=== PATIENT | male | born 1965 | race Caucasian/White ===

== ENCOUNTER → 2018-11-09 | Outpatient (CLI) | payer BC ==
[2018-11-09 11:35] LABS: BASOPHILS % (AUTO) 1 % (0-10); EOSINOPHILS # (AUTO) 0.1 10^3/uL (0.0-0.3); EOSINOPHILS % (AUTO) 2 % (0-10); HEMATOCRIT 46 % (40-54); HEMOGLOBIN 15.6 G/DL (13.3-17.7); LYMPHOCYTES # (AUTO) 3.1 X 10^3 (1.0-4.0); LYMPHOCYTES % (AUTO) 47 % (12-44); MEAN CORPUSCULAR HEMOGLOBIN 31 PG (25-34); MEAN CORPUSCULAR HGB CONC 34 G/DL (32-36); MEAN CORPUSCULAR VOLUME 89 FL (80-99); MEAN PLATELET VOLUME 10.8 FL (7.4-10.4); MONOCYTES # (AUTO) 0.7 X 10^3 (0.0-1.0); MONOCYTES % (AUTO) 11 % (0-12); NEUTROPHILS # (AUTO) 2.6 X 10^3 (1.8-7.8); NEUTROPHILS % (AUTO) 40 % (42-75); PLATELET COUNT 242 10^3/uL (130-400); RED CELL DISTRIBUTION WIDTH 13.7 % (10.0-14.5); WHITE BLOOD COUNT 6.6 10^3/uL (4.3-11.0)
[2018-11-09 11:58] LABS: ALANINE AMINOTRANSFERASE 128 U/L (0-55); ALBUMIN 4.2 GM/DL (3.2-4.5); ALKALINE PHOSPHATASE 135 U/L (40-136); BILIRUBIN,TOTAL 0.3 MG/DL (0.1-1.0); BUN/CREATININE RATIO 15; CALCIUM 9.9 MG/DL (8.5-10.1); CARBON DIOXIDE 21 MMOL/L (21-32); CHLORIDE 105 MMOL/L (98-107); CREATININE SERUM 0.86 MG/DL (0.60-1.30); GFR ESTIMATED > 60; GLUCOSE 93 MG/DL (70-105); POTASSIUM 3.9 MMOL/L (3.6-5.0); SODIUM 140 MMOL/L (135-145); TOTAL PROTEIN 7.3 GM/DL (6.4-8.2)
[2018-11-09 12:17] LABS: ERYTHROCYTE SEDIMENTATION RATE 13 MM/HR (0-30)
[2018-11-09 12:28] LABS: FREE T4 (FREE THYROXINE) 1.16 NG/DL (0.70-1.48)
== END ==
LOC: CARD 11:07
PROVIDERS: ATTEND Nurse Practitioner Family
DX: R51 Headache (principal); R50.9 Fever, unspecified; Z12.5 Encounter for screening for malignant neoplasm of prostate
CPT/HCPCS: 36415; 80053; 84153; 84439; 84443; 84484; 85025; 85652; 87804; 93005

== ENCOUNTER → 2018-12-22 | Outpatient (CLI) | payer BC | LOC: CARD 10:22 | PROVIDERS: ATTEND Family Medicine | DX: R07.9 Chest pain, unspecified (principal); I49.9 Cardiac arrhythmia, unspecified | CPT/HCPCS: 93017 ==

== ENCOUNTER 2020-01-18 05:31 | Outpatient (RCR) | payer BC ==
[~2020-01-18] VITALS: Ht 182 cm; Wt 111.0 kg
[~2020-01-18 05:31] MED LIST: HYDR25TA4 PO; MELO15TA39 PO; PANT40TA3 PO; TERB250T16 PO
== END 2020-01-18 13:21 | disposition home or self-care (01) ==
LOC: PREOP 05:31
PROVIDERS: ATTEND Surgery
DX: Z01.812 Encounter for preprocedural laboratory examination (principal); K21.9 Gastro-esophageal reflux disease without esophagitis; Z20.828 Contact with and (suspected) exposure to other viral communicable diseases
CPT/HCPCS: 87635

== ENCOUNTER 2020-01-21 09:38 | Day surgery (SDC) | payer BC ==
[~2020-01-21] VITALS: Ht 182 cm; Wt 111.0 kg
[2020-01-21 09:50] VITALS: BP 131/98
[2020-01-21] MEDS ORDERED: LACTATED RINGERS 1,000 ML IV ONE (09:58)
[2020-01-21] MEDS ORDERED: LIDOCAINE JELLY 2% 6 ML SYRINGE MM PRN (10:00)
[2020-01-21] MEDS ORDERED: LACTATED RINGERS 1,000 ML IV PRN (10:00)
[2020-01-21] MEDS ORDERED: HURRICAINE EXT TUBE (BENZOCAINE) XX PRN (10:00)
--- NOTE | 2020-01-21 10:55 | Progress Note-Pre Operative ---
Pre-Operative Progress Note H&P Reviewed The H&P was reviewed, patient examined and no changes noted. Date Seen by Provider: Jan 21, 2020 Time Seen by Provider: 10:40 Date H&P Reviewed: Jan 21, 2020 Time H&P Reviewed: 10:40 Pre-Operative Diagnosis: GERD, screening colo, scalp lesion YOU ZAIDI MD Jan 21, 2020 10:55
--- NOTE | 2020-01-21 10:57 | Discharge Inst-Surgical ---
D/C Lap Instructions-DYAN Follow Up Activity as tolerated High Fiber Diet 25g or more per day Avoid Alcohol, Caffeine, Spicy [place] and Acid foods. Drink 64 fluid oz or more of fluids per day. Symptoms to Report: Fever over 101 degree F, Nausea/Vomiting If any problems/questions: Contact your physician or go to Emergency Room YOU ZAIDI MD Jan 21, 2020 10:57
[2020-01-21] MEDS ORDERED: morphine INJ 10 MG/ML 1ML (SYR OR VIAL) IVP PRN ×2 (11:00)
[2020-01-21] MEDS ORDERED: HYDROcodone/APAP 5 MG/325 MG (LORTAB) TAB PO PRN (11:00)
[2020-01-21] MEDS ORDERED: ACETAMINOPHEN 325 MG TABLET PO PRN (11:00)
[2020-01-21] MEDS ORDERED: ONDANSETRON 4 MG/2 ML (SDV) Z0FRAN IVP PRN (11:00)
--- OUTSIDE RECORDS SUMMARY | 2020-01-21 11:13 | XMS REPORT | CCD ---
Author Author Rafael Mejia APRN Organization [facility] Address [address] [place] [address] Phone Care Team Providers Care Airport Maintenance Chief Name Role Phone Didi Araiza D.O., PP Unavailable CCM Unavailable Summary Purpose Interface Exchange Insurance Providers Payer name Policy type / Coverage type Covered republican ID Effective Begin Date Effective End Date Blue Cross Blue Shield Blue Cross/Blue Shield [id number] 2019 Unknown Family History Family History data not found Social History No Social History data Allergies, Adverse Reactions, Alerts Substance Reaction Codes Entered Date Inactivated Date Status * NO KNOWN FOOD ALLERGIES Unknown 05/24/2014 No Inactiv e Date Active Grasses reaction Unknown 05/24/2014 No Inactive Date Active Pollen reaction Unknown 05/24/2014 No Inactive Date Active Penicillin Unknown 05/24/2014 No Inactive Date Active Problems Condition Codes Effective Dates Condition Status Encounter for general adult medical examination withou t abnormal findings ICD-9: V70.9 ICD-10: Z00.00 12/28/2015 Active Essential (primary) hypertension ICD-9: 401.9 ICD-10: I10 12/09/2017 Active Mixed hyperlipidemia ICD-9: 272.2 ICD-10: E78.2 10/19/2015 Active Other fatigue ICD-9: 780.79 ICD-10: R53.83 11/09/2018 Active Bilateral primary osteoarthritis of knee ICD-9: 715.96 ICD-10: M17.0 12/09/2017 Active Change in mole ICD-9: 216.9 ICD-10: D22.9 12/22/2019 Active Gastro-esophageal reflux disease without esophagitis I CD-9: 530.81 ICD-10: K21.9 12/09/2017 Active Obstructive sleep apnea (adult) (pediatric) ICD-9: 327 .23 ICD-10: G47.33 05/24/2014 Active Cardiac arrhythmia, unspecified ICD-9: 427.9 ICD-10: I49.9 11/09/2018 Active Abnormal levels of other serum enzymes ICD-9: 790.5 ICD-10: R74.8 11/12/2018 Active Bitten or stung by nonvenomous insect an d other nonvenomous arthropods, initial encounter ICD-9: 919.4 ICD-10: W57.XXXA 11/12/2018 Active Mixed hyperlipidemia ICD-9: 272.4 ICD-10: E78.2 11/12/2018 Active Dyspnea, unspecified ICD-9: 786.09 ICD-10: R06.00 11/09/2018 Active Fever, unspecified ICD-9: 780.60 ICD-10: R50.9 11/09/2018 Active Headache ICD-9: 784.0 ICD-10: R51 11/09/2018 Active Rash and other nonspecific skin eruption ICD-9: 782.1 ICD-10: R21 11/09/2018 Active Pain in left foot ICD-9: 729.5 ICD-10: M79.672 01/29/2018 Active Pain in left knee ICD-9: 719.46 ICD-10: M25.562 01/29/2018 Active Hypertension Unknown 12/09/2017 Active Bilateral primary osteoarthritis of first carpometacar pal joints ICD-9: 715.34 ICD-10: M18.0 12/09/2017 Active Lymphedema, not elsewhere classified ICD-9: 457.1 ICD-10: I89.0 12/09/2017 Active Elevated blood-pressure reading, without diagnosis of hypertension ICD-9: 796.2 ICD-10: R03.0 12/28/2015 Active Encounter for immunization ICD-9: V05.9 ICD-10: Z23 10/19/2015 Active Encounter for screening for malignant neoplasm of colo n ICD-9: V76.51 ICD-10: Z12.11 10/19/2015 Active Encounter for screening for malignant neoplasm of pros [place] ICD-9: V76.44 ICD-10: Z12.5 10/19/2015 Active Low back pain ICD-9: 724.2 ICD-10: M54.5 10/19/2015 Active Tinea unguium ICD-9: 110.1 ICD-10: B35.1 10/19/2015 Active Tobacco abuse counseling ICD-9: V65.42 ICD-10: Z71.6 10/19/2015 Active Tobacco use ICD-9: 305.1 ICD-10: Z72.0 10/19/2015 Active VACCINE FOR TDAP ICD-9: V06.1 ICD-10: Z23 10/19/2015 Active ROUTINE MEDICAL EXAM ICD-9: V70.0 06/03/2014 Active GERD ICD-9: 530.81 05/24/2014 Active OBSTRUCTIVE SLEEP APNEA ICD-9: 327.23 05/24/2014 Active Medications Medication Codes Instructions Start Date Stop Date Status Fill Instructions pantoprazole 40 mg tablet,delayed release RxNorm: 808641 TAKE ONE TABLET BY MOUTH DAILY DUE FOR UPDATED FASTING LABS AND APPOINTMENT 01/10/2020 No Stop Date Active hydrochlorothiazide 25 mg tablet RxNorm: 225420 1 Tablet(s) Oral QD 01/03/2020 07/01/2020 Active hydrochlorothiazide 12.5 mg tablet RxNorm: 031300 TAKE ONE TABLET BY MOUTH EVERY MORNING FOR BLOOD PRESSURE 01/02/2020 01/02/2020 Inactive Patie nt says he is taking 25mg daily now. Can you send a prescription hydrochlorothiazide 25 mg tablet RxNorm: 983868 1 Tablet(s) Oral QD 12/22/2019 01/02/2020 Inactive pantoprazole 40 mg tablet,delayed release RxNorm: 565051 1 Tablet(s) Oral QD Due for updated fasting labs and appointment 12/06/2019 01/05/2020 Inactiv e Due for updated fasting labs and appointment before 90 day supply hydrochlorothiazide 12.5 mg tablet RxNorm: 361557 TAKE ONE TABLET BY MOUTH EVERY MORNING FOR BLOOD PRESSURE 10/04/2019 12/26/2019 Inactive pantoprazole 40 mg tablet,delayed release RxNorm: 837470 TAKE ONE TABLET BY MOUTH DAILY 09/05/2019 12/05/2019 Inactive hydrochlorothiazide 12.5 mg tablet RxNorm: 811175 TAKE ONE TABLET BY MOUTH EVERY MORNING FOR BLOOD PRESSURE 07/05/2019 10/03/2019 Inactive pantoprazole 40 mg tablet,delayed release RxNorm: 080008 TAKE ONE TABLET BY MOUTH DAILY 05/29/2019 09/04/2019 Inactive pantoprazole 40 mg tablet,delayed release RxNorm: 982531 1 Tabl et(s) PO QD 03/04/2019 05/28/2019 Inactive hydrochlorothiazide 12.5 mg tablet RxNorm: 954036 TAKE ONE TABLET BY MOUTH EVERY MORNING FOR BLOOD PRESSURE 01/11/2019 07/04/2019 Inactive doxycycline hyclate 100 mg capsule RxNorm: 6319230 1 Capsule(s) PO BID 11/12/2018 11/21/2018 Inactive pantoprazole 40 mg tablet,delayed release RxNorm: 139895 TAKE ONE TABLET BY MOUTH DAILY 10/30/2018 03/04/2019 Inactive hydrochlorothiazide 12.5 mg tablet RxNorm: 741546 TAKE ONE TABLET BY MOUTH EVERY MORNING FOR BLOOD PRESSURE 10/12/2018 01/09/2019 Inactive pantoprazole 40 mg tablet,delayed release RxNorm: 021857 TAKE ONE TABLET BY MOUTH DAILY 08/31/2018 09/29/2018 Inactive pantoprazole 40 mg tablet,delayed release RxNorm: 011925 1 Tabl et(s) PO QD 04/03/2018 08/30/2018 Inactive hydrochlorothiazide 12.5 mg tablet RxNorm: 406456 TAKE ONE TABLET BY MOUTH EVERY MORNING FOR BLOOD PRESSURE 03/30/2018 09/25/2018 Inactive Medrol (John) 4 mg tablets in a dose pack RxNorm: 000827 Tablet(s) PO take as directed 01/29/2018 11/08/2018 Inactive pantoprazole 40 mg tablet,delayed release RxNorm: 448850 1 Tablet(s) PO BID for 1 month then decrease to 1 po daily 12/29/2017 04/02/2018 Inactive hydrochlorothiazide 12.5 mg tablet RxNorm: 605874 1 Tablet(s) P O QAM for BP 12/29/2017 03/28/2018 Inactive hydrochlorothiazide 12.5 mg tablet RxNorm: 542652 1 Tablet(s) P O QAM for BP 12/09/2017 12/28/2017 Inactive pantoprazole 40 mg tablet,delayed release RxNorm: 034459 1 Tablet(s) PO BID for 1 month then decrease to 1 po daily 12/09/2017 04/03/2018 Inactive Voltaren 1 % topical gel RxNorm: 362129 1 Gram(s) TOP QID to bi lateral knees 12/09/2017 12/21/2019 Inactive meloxicam 15 mg tablet RxNorm: 806861 1 Tablet(s) PO QD 10/20/2015 Inactive Benadryl 25 mg capsule RxNorm: 9113209 1 Capsule(s) PO QHS No Start D ate Active Nexium oral RxNorm: 348098 oral No Start Date 10/20/2015 Inactive Nexium 24HR 22.3 mg capsule,delayed release RxNorm: 377587 1 Ca psule(s) PO QAM No Start Date 11/08/2018 Inactive Fish Oil 1,000 mg capsule RxNorm: 1 Capsule(s) PO QD No Start Date 12/28/2017 Inactive Fish Oil 1,000 mg capsule RxNorm: 1 Capsule(s) PO TID No Start Calin e 11/08/2018 Inactive naproxen sodium 220 mg tablet RxNorm: 459265 1 Tablet(s) PO QHS No Start Date 11/08/2018 Inactive Medication Administered No Medication Administered data Immunizations Vaccine Codes Date Status Tetanus, Diptheria, Pertussis CVX: 115 10/20/2015 Results Observation Observation Code Item Item Code Result Date S [facility] Location COMPREHENSIVE METABOLIC 59884 AST 15 U/L 2019 Unknown COMPREHENSIVE METABOLIC 87748 ALT 22 U/L 2019 Unknown COMPREHENSIVE METABOLIC 33390 BUN 18 mg/dL 2019 Unknown COMPREHENSIVE METABOLIC 21373 ALBUMIN 4.4 g/dL 2019 Unknown COMPREHENSIVE METABOLIC 54137 CHLORIDE 103 mmol/L 12/26 Unknown COMPREHENSIVE METABOLIC 01827 Bili Total 0.6 mg/dL 12/26 Unknown COMPREHENSIVE METABOLIC 20338 ALK PHOS 75 U/L 2019 Unknown COMPREHENSIVE METABOLIC 98590 SODIUM 139 mmol/L 12/26 Unknown COMPREHENSIVE METABOLIC 29059 CREATININE 0.84 mg/dL 11/29 Unknown COMPREHENSIVE METABOLIC 55534 CALCIUM 9.6 mg/dL 2019 Unknown COMPREHENSIVE METABOLIC 62400 POTASSIUM 4.2 mmol/L 12/26 Unknown COMPREHENSIVE METABOLIC 27881 Total Protein 6.5 g/dL Unknown COMPREHENSIVE METABOLIC 13970 Glucose 95 mg/dL 2019 Unknown COMPREHENSIVE METABOLIC 29514 Bicarbonate 27 mmol/L 11/29 Unknown COMPREHENSIVE METABOLIC 73556 AGAP 9 mmol/L 2019 Unknown GFR CALC 0508239 GFR Non Afr Amr >60 mL/min 12/27/2019 Un known GFR CALC [id number] GFR Afr Amr >60 mL/min 12/27/2019 Unknow n FREE T4 20875 T4 Free 0.91 ng/dL 12/27/2019 Unknown PSA EQUIMOLAR JORI 65235 PSA Total 1.28 ng/mL 0 Unknown COMPLETE BLOOD COUNT 2461313 WBC 5.8 10e9/L 12/27/19 20 Unknown COMPLETE BLOOD COUNT [id number] RBC 4.92 10e12/L 2019 Unknown COMPLETE BLOOD COUNT 9534818 HEMOGLOBIN 15.2 g/dL 12/27/19 20 Unknown COMPLETE BLOOD COUNT 3874217 HEMATOCRIT 46.5 % 12/27/19 20 Unknown COMPLETE BLOOD COUNT 8623902 MCV 94.5 fL 0 Unknown COMPLETE BLOOD COUNT 8999974 MCH 30.9 pg 0 Unknown COMPLETE BLOOD COUNT 8102964 MCHC 32.7 g/dL 0 Unknown COMPLETE BLOOD COUNT 3921415 PLATELET COUNT 227 10e9/L Unknown COMPLETE BLOOD COUNT 9360983 Mean Plt Volume 11.9 fL Unknown COMPLETE BLOOD COUNT 1616911 Neut Auto 43.1 % 0 Unknown COMPLETE BLOOD COUNT [id number] Lymph Auto 37.3 % 12/27/19 20 Unknown COMPLETE BLOOD COUNT 6854061 Greenlee Auto 12.0 % 0 Unknown COMPLETE BLOOD COUNT 0603694 RDW 14.3 % 0 Unknown COMPLETE BLOOD COUNT 1666108 Eos Auto 7.3 % 0 Unknown COMPLETE BLOOD COUNT 9282025 Baso Auto 0.3 % 0 Unknown COMPLETE BLOOD COUNT 4559581 Neutrophil Abs 2.50 10e9/L Unknown COMPLETE BLOOD COUNT 1204779 Lymphocyte Abs 2.16 10e9/L Unknown COMPLETE BLOOD COUNT 4031624 Monocyte Abs 0.70 10e9/L 11/29 Unknown COMPLETE BLOOD COUNT 8879118 Eosinophil Abs 0.42 10e9/L Unknown COMPLETE BLOOD COUNT 2900359 RDW-SD 48.0 fL 0 Unknown COMPLETE BLOOD COUNT 2278881 Basophil Abs 0.02 10e9/L 11/29 Unknown LIPID GROUP 42249 Cholesterol 233 mg/dL 12/27/2019 Unkno wn LIPID GROUP 13832 Triglyceride 175 mg/dL 12/27/2019 Unkn own LIP[facility] GROUP 15574 HDL CHOLESTEROL 54 mg/dL 12/27/2019 U nknown LIPID GROUP 14325 Chol/HDL Ratio 4.31 ratio 12/27/2019 U nknown LIPID GROUP 00480 NON-HDL Chol 179 mg/dL 12/27/2019 Unkn own LIP[facility] GROUP 00964 LDL Cholesterol 144 mg/dL 12/27/2019 U nknown THYROID STIMULATING HORMONE 27769 TSH 1.075 uIU/mL 12/27/2019 Unknown LIPID GROUP 00324 Cholesterol 209 mg/dL 11/10/2018 Unkno wn LIPID GROUP 33843 Triglyceride 210 mg/dL 11/10/2018 Unkn own LIPID GROUP 06784 HDL CHOLESTEROL 32 mg/dL 11/10/2018 U nknown LIPID GROUP 00748 Chol/HDL Ratio 6.53 ratio 11/10/2018 U nknown LIPID GROUP 55472 NON-HDL Chol 177 mg/dL 11/10/2018 Unkn own LIPID GROUP 99909 LDL Cholesterol 135 mg/dL 11/10/2018 U nknown COMPREHENSIVE METABOLIC 07055 AST 15 U/L 2017 Unknown COMPREHENSIVE METABOLIC 87901 ALT 20 U/L 2017 Unknown COMPREHENSIVE METABOLIC 39293 BUN 16 mg/dL 2017 Unknown COMPREHENSIVE METABOLIC 73279 ALBUMIN 4.4 g/dL 2017 Unknown COMPREHENSIVE METABOLIC 95073 CHLORIDE 105 mmol/L 12/26 Unknown COMPREHENSIVE METABOLIC 61112 Bili Total 0.6 mg/dL 12/26 Unknown COMPREHENSIVE METABOLIC 61567 ALK PHOS 61 U/L 2017 Unknown COMPREHENSIVE METABOLIC 41951 SODIUM 141 mmol/L 12/26 Unknown COMPREHENSIVE METABOLIC 77203 CREATININE 0.90 mg/dL 11/29 Unknown COMPREHENSIVE METABOLIC 02410 CALCIUM 9.7 mg/dL 2017 Unknown COMPREHENSIVE METABOLIC 81480 POTASSIUM 4.2 mmol/L 12/26 Unknown COMPREHENSIVE METABOLIC 29443 Total Protein 6.5 g/dL Unknown COMPREHENSIVE METABOLIC 92931 Glucose 99 mg/dL 2017 Unknown COMPREHENSIVE METABOLIC 17545 Bicarbonate 24 mmol/L 11/29 Unknown COMPREHENSIVE METABOLIC 26407 AGAP 12 mmol/L 2017 Unknown COMPLETE BLOOD COUNT 5738562 WBC 5.5 10e9/L 12/27/19 18 Unknown COMPLETE BLOOD COUNT 5241212 RBC 4.87 10e12/L 2017 Unknown COMPLETE BLOOD COUNT 3405613 HEMOGLOBIN 15.1 g/dL 12/27/19 18 Unknown COMPLETE BLOOD COUNT 3200595 HEMATOCRIT 44.9 % 12/27/19 18 Unknown COMPLETE BLOOD COUNT 6025071 MCV 92.2 fL 8 Unknown COMPLETE BLOOD COUNT 0442727 MCH 31.0 pg 8 Unknown COMPLETE BLOOD COUNT 4897900 MCHC 33.6 g/dL 8 Unknown COMPLETE BLOOD COUNT 5921605 PLATELET COUNT 244 10e9/L Unknown COMPLETE BLOOD COUNT 5747608 Mean Plt Volume 11.8 fL Unknown COMPLETE BLOOD COUNT 1325128 Neut Auto 42.0 % 8 Unknown COMPLETE BLOOD COUNT 5384609 Lymph Auto 39.5 % 12/27/19 18 Unknown COMPLETE BLOOD COUNT 9735355 Greenlee Auto 13.0 % 8 Unknown COMPLETE BLOOD COUNT 6869075 RDW 13.8 % 8 Unknown COMPLETE BLOOD COUNT 8216306 Eos Auto 5.3 % 8 Unknown COMPLETE BLOOD COUNT 3122964 Baso Auto 0.2 % 8 Unknown COMPLETE BLOOD COUNT 6909383 Neutrophil Abs 2.31 10e9/L Unknown COMPLETE BLOOD COUNT 8303683 Lymphocyte Abs 2.17 10e9/L Unknown COMPLETE BLOOD COUNT 4806786 Monocyte Abs 0.72 10e9/L 11/29 Unknown COMPLETE BLOOD COUNT 3998023 Eosinophil Abs 0.29 10e9/L Unknown COMPLETE BLOOD COUNT 1919457 RDW-SD 45.6 fL 8 Unknown COMPLETE BLOOD COUNT [id number] Basophil Abs 0.01 10e9/L 11/29 Unknown PSA EQUIMOLAR JORI 02465 PSA Total 1.40 ng/mL 8 Unknown GFR CALC 9032612 GFR Non Afr Amr >60 mL/min 12/26/2017 Un known GFR CALC 0104747 GFR Afr Amr >60 mL/min 12/26/2017 Unknow n LIPID GROUP 43940 Cholesterol 239 mg/dL 12/26/2017 Unkno wn LIP[facility] GROUP 54497 Triglyceride 140 mg/dL 12/26/2017 Unkn own LIP[facility] GROUP 99653 HDL CHOLESTEROL 48 mg/dL 12/26/2017 U nknown LIPID GROUP 47941 Chol/HDL Ratio 4.98 ratio 12/26/2017 U nknown LIPID GROUP 01350 NON-HDL Chol 191 mg/dL 12/26/2017 Unkn own LIPID GROUP 91158 LDL Cholesterol 163 mg/dL 12/26/2017 U nknown THYROID STIMULATING HORMONE 81140 TSH 1.633 uIU/mL 12/26/2017 Unknown COMPLETE BLOOD COUNT 6503800 WBC 5.3 10e9/L 12/29/19 16 Unknown COMPLETE BLOOD COUNT 1430466 RBC 4.84 10e12/L 2015 Unknown COMPLETE BLOOD COUNT 8230210 HEMOGLOBIN 14.9 g/dL 12/29/19 16 Unknown COMPLETE BLOOD COUNT 8188366 HEMATOCRIT 44.3 % 12/29/19 16 Unknown COMPLETE BLOOD COUNT 3243041 MCV 91.5 fL 6 Unknown COMPLETE BLOOD COUNT 4890801 MCH 30.8 pg 6 Unknown COMPLETE BLOOD COUNT 5046256 MCHC 33.6 g/dL 6 Unknown COMPLETE BLOOD COUNT 3807116 PLATELET COUNT 220 10e9/L 06/2015 Unknown COMPLETE BLOOD COUNT 6649959 Mean Plt Volume 11.8 fL 06/2015 Unknown COMPLETE BLOOD COUNT 5677156 Neut Auto 42.3 % 6 Unknown COMPLETE BLOOD COUNT 8438818 Lymph Auto 39.0 % 12/29/19 16 Unknown COMPLETE BLOOD COUNT 9303329 Greenlee Auto 13.6 % 6 Unknown COMPLETE BLOOD COUNT 9705953 RDW 14.0 % 6 Unknown COMPLETE BLOOD COUNT 9893944 Eos Auto 4.7 % 6 Unknown COMPLETE BLOOD COUNT 1506551 Baso Auto 0.4 % 6 Unknown COMPLETE BLOOD COUNT 9795225 Neutrophil Abs 2.24 10e9/L Unknown COMPLETE BLOOD COUNT 1932587 Lymphoctye Abs 2.07 10e9/L Unknown COMPLETE BLOOD COUNT 3281613 Monocyte Abs 0.72 10e9/L 06/2015 Unknown COMPLETE BLOOD COUNT 0960653 Eosinophil Abs 0.25 10e9/L Unknown COMPLETE BLOOD COUNT 7992485 RDW-SD 45.7 fL 6 Unknown COMPLETE BLOOD COUNT 5802961 Basophil Abs 0.02 10e9/L 06/2015 Unknown PSA EQUIMOLAR JORI 01573 PSA Total 1.11 ng/mL 6 Unknown COMPREHENSIVE METABOLIC 99898 AST 16 U/L 2015 Unknown COMPREHENSIVE METABOLIC 67569 ALT 20 U/L 2015 Unknown COMPREHENSIVE METABOLIC 59036 BUN 12 mg/dL 2015 Unknown COMPREHENSIVE METABOLIC 14330 ALBUMIN 4.3 g/dL 2015 Unknown COMPREHENSIVE METABOLIC 75487 CHLORIDE 107 mmol/L 12/28 Unknown COMPREHENSIVE METABOLIC 05329 Bili Total 0.7 mg/dL 12/28 Unknown COMPREHENSIVE METABOLIC 77060 ALK PHOS 53 U/L 2015 Unknown COMPREHENSIVE METABOLIC 63430 SODIUM 141 mmol/L 12/28 Unknown COMPREHENSIVE METABOLIC 43835 CREATININE 0.88 mg/dL 06/2015 Unknown COMPREHENSIVE METABOLIC 15136 CALCIUM 9.3 mg/dL 2015 Unknown COMPREHENSIVE METABOLIC 11102 POTASSIUM 4.1 mmol/L 12/28 Unknown COMPREHENSIVE METABOLIC 75773 Total Protein 6.5 g/dL Unknown COMPREHENSIVE METABOLIC 27880 Glucose 95 mg/dL 2015 Unknown COMPREHENSIVE METABOLIC 87655 Bicarbonate 27 mmol/L 06/2015 Unknown COMPREHENSIVE METABOLIC 93380 AGAP 7 mmol/L 2015 Unknown FREE T4 34522 T4 Free 1.11 ng/dL 12/29/2015 Unknown GFR CALC 6462809 GFR Non Afr Amr >60 mL/min 12/29/2015 Un known GFR CALC 5276235 GFR Afr Amr >60 mL/min 12/29/2015 Unknow n THYROID STIMULATING HORMONE 35037 TSH 0.687 uIU/mL 12/29/2015 Unknown LIPID GROUP 22244 Cholesterol 226 mg/dL 12/29/2015 Unkno wn LIP[facility] GROUP 90593 Triglyceride 101 mg/dL 12/29/2015 Unkn own L[facility] GROUP 30685 HDL CHOLESTEROL 57 mg/dL 12/29/2015 U nknown LIPID GROUP 19718 Chol/HDL Ratio 3.96 ratio 12/29/2015 U nknown LIPID GROUP 72887 NON-HDL Chol 169 mg/dL 12/29/2015 Unkn own L[facility] GROUP 80891 LDL Cholesterol 149 mg/dL 12/29/2015 U nknown COMPREHENSIVE METABOLIC 19305 AST 17 U/L 2013 Unknown COMPREHENSIVE METABOLIC 01328 ALT 24 IU/L 2013 Unknown COMPREHENSIVE METABOLIC 03473 BUN 18 MG/DL 2013 Unknown COMPREHENSIVE METABOLIC 25763 ALBUMIN 4.4 GM/DL 2013 Unknown COMPREHENSIVE METABOLIC 83606 CHLORIDE 108 MMOL/L 06/03 Unknown COMPREHENSIVE METABOLIC 89543 BILI TOT 0.4 MG/DL 2013 Unknown COMPREHENSIVE METABOLIC 00824 ALK PHOS 58 U/L 2013 Unknown COMPREHENSIVE METABOLIC 38636 SODIUM 139 MMOL/L 06/03 Unknown COMPREHENSIVE METABOLIC 25538 CREATININE 0.86 MG/DL 10/2013 Unknown COMPREHENSIVE METABOLIC 49801 CALCIUM 9.6 MG/DL 2013 Unknown COMPREHENSIVE METABOLIC 25595 POTASSIUM 4.3 MMOL/L 06/03 Unknown COMPREHENSIVE METABOLIC 75803 PROT TOT 6.0 GM/DL 2013 Unknown COMPREHENSIVE METABOLIC 94216 Glucose 104 MG/DL 2013 Unknown COMPREHENSIVE METABOLIC 38890 BICARB 26 MMOL/L 2013 Unknown COMPREHENSIVE METABOLIC 80336 ANION GAP 5 MEQ/L 2013 Unknown GFR CALC 7476548 GFR AA >60 ML/MIN 06/03/2014 Unknown GFR CALC 8248405 GFR NON-AA >60 ML/MIN 06/03/2014 Unknown COMPLETE BLOOD COUNT 9380878 WBC 4.7 10e9/L 06/03/20 14 Unknown COMPLETE BLOOD COUNT 7994364 RBC 4.85 10e12/L 2013 Unknown COMPLETE BLOOD COUNT 0686820 HGB 14.9 g/dL 4 Unknown COMPLETE BLOOD COUNT 3168172 HCT DET 44.2 % 4 Unknown COMPLETE BLOOD COUNT 5600580 MCV 91.1 fL 4 Unknown COMPLETE BLOOD COUNT 4496471 MCH 30.7 pg 4 Unknown COMPLETE BLOOD COUNT 2194840 MCHC 33.7 g/dL 4 Unknown COMPLETE BLOOD COUNT 5289254 PLT 245 10e9/L 06/03/20 14 Unknown COMPLETE BLOOD COUNT 0418527 MPV 11.7 fL 4 Unknown COMPLETE BLOOD COUNT 6770888 YOSSI % 37.0 % 4 Unknown COMPLETE BLOOD COUNT 4717796 LY % 44.2 % 4 Unknown COMPLETE BLOOD COUNT 8779443 MON % 14.1 % 4 Unknown COMPLETE BLOOD COUNT 4908481 EOS % 4.5 % 4 Unknown COMPLETE BLOOD COUNT 5962840 BASO % 0.2 % 4 Unknown COMPLETE BLOOD COUNT 2806514 RDW 13.3 % 4 Unknown COMPLETE BLOOD COUNT 0695420 ABS YOSSI 1.74 10e9/L 014 Unknown COMPLETE BLOOD COUNT 2359103 ABS LYMPH 2.08 10e9/L 014 Unknown COMPLETE BLOOD COUNT 7322112 ABS MONO 0.66 10e9/L 014 Unknown COMPLETE BLOOD COUNT 1974142 ABS EOS 0.21 10e9/L 014 Unknown COMPLETE BLOOD COUNT 3023636 ABS BASO 0.01 10e9/L 014 Unknown COMPLETE BLOOD COUNT 5634395 RDW-SD 43.5 fL 4 Unknown PSA EQUIMOLAR JORI 24296 PSA EQ 0.87 NG/ML 4 Unknown FREE T4 31242 FREE T4 1.21 NG/DL 06/03/2014 Unknown THYROID STIMULATING HORMONE 36737 TSH 0.705 uIU/ML 06/03/2014 Unknown LIPID GROUP 84270 HDL TEST 49 MG/DL 06/03/2014 Unknown LIP[facility] GROUP 51558 TRIG 72 MG/DL 06/03/2014 Unknown L[facility] GROUP 00651 TEST LDL 159 MG/DL 06/03/2014 Unknown LIP[facility] GROUP 20698 CHOL 222 MG/DL 06/03/2014 Unknown LIP[facility] GROUP 78475 RCHOL/HDL 4.53 RATIO 06/03/2014 Unknow n LIP[facility] GROUP 31150 NON-HDL CH 173 MG/DL 06/03/2014 Unknow n Procedures Procedure Codes Date ROUTINE VENIPUNCTURE CPT-4: 42634 12/27/2019 ASSAY OF FREE THYROXINE CPT-4: 27367 12/27/2019 ASSAY THYROID STIM HORMONE CPT-4: 88394 12/27/2019 COMPREHEN METABOLIC PANEL CPT-4: 92041 12/27/2019 COMPLETE CBC W/AUTO DIFF WBC CPT-4: 80843 12/27/2019 LIPID PANEL CPT-4: 81015 12/27/2019 ASSAY OF PSA TOTAL CPT-4: 60641 12/27/2019 ROUTINE VENIPUNCTURE CPT-4: 21950 11/10/2018 LIPID PANEL CPT-4: 17721 11/10/2018 ROUTINE VENIPUNCTURE CPT-4: 74854 12/26/2017 ASSAY THYROID STIM HORMONE CPT-4: 91493 12/26/2017 COMPREHEN METABOLIC PANEL CPT-4: 93623 12/26/2017 COMPLETE CBC W/AUTO DIFF WBC CPT-4: 01276 12/26/2017 LIPID PANEL CPT-4: 46975 12/26/2017 ASSAY OF PSA TOTAL CPT-4: 29944 12/26/2017 ROUTINE VENIPUNCTURE CPT-4: 21947 12/29/2015 ASSAY OF FREE THYROXINE CPT-4: 52008 12/29/2015 ASSAY THYROID STIM HORMONE CPT-4: 76329 12/29/2015 COMPREHEN METABOLIC PANEL CPT-4: 81339 12/29/2015 COMPLETE CBC W/AUTO DIFF WBC CPT-4: 17225 12/29/2015 LIPID PANEL CPT-4: 85794 12/29/2015 ASSAY OF PSA TOTAL CPT-4: 70435 12/29/2015 TDAP VACCINE 7 YRS/> IM CPT-4: 83943 10/20/2015 IMMUNIZATION ADMIN CPT-4: 07123 10/20/2015 ROUTINE VENIPUNCTURE CPT-4: 46430 06/03/2014 ASSAY OF FREE THYROXINE CPT-4: 75263 06/03/2014 ASSAY THYROID STIM HORMONE CPT-4: 81874 06/03/2014 COMPREHEN METABOLIC PANEL CPT-4: 24395 06/03/2014 COMPLETE CBC W/AUTO DIFF WBC CPT-4: 97217 06/03/2014 LIPID PANEL CPT-4: 19636 06/03/2014 ASSAY OF PSA TOTAL CPT-4: 95568 06/03/2014 Vital Signs Date Vital 12/27/2019 Blood Pressure 1: 136/84 Code: 8480-6 He art Rate 1: 79 bpm 12/22/2019 Blood Pressure 1: 150/96 Code: 8480-6 BMI: 33.1 Code: 70257-2 Heart Rate 1: 88 bpm Height: 6' Respiratory Rate: 20 bpm SpO2: 98% Tempera ture: 37.0 (C) / 98.6 (F) Weight: 244 lbs 12/15/2018 Blood Pressure 1: 126/82 Code: 8480-6 Heart Rate 1: 72 bpm Respiratory Rate: 18 bpm SpO2: 96% Temperature: 36.8 (C) / 98.2 (F) We ight: 232 lbs 11/12/2018 Blood Pressure 1: 126/78 Code: 8480-6 Heart Rate 1: 76 bpm Respiratory Rate: 20 bpm SpO2: 97% Temperature: 36.8 (C) / 98.2 (F) 11/09/2018 Blood Pressure 1: 116/88 Code: 8480-6 Heart Rate 1: 86 bpm Respiratory Rate: 20 bpm SpO2: 96% Temperature: 36.8 (C) / 98.3 (F) We ight: 234 lbs 01/29/2018 Blood Pressure 1: 126/80 Code: 8480-6 BMI: 32.8 Code: 62502-6 Heart Rate 1: 82 bpm Height: 6' Respiratory Rate: 20 bpm SpO2: 96% Tempera ture: 36.8 (C) / 98.2 (F) Weight: 242 lbs 12/26/2017 Blood Pressure 1: 114/64 Code: 8480-6 He art Rate 1: 66 bpm 12/09/2017 Blood Pressure 1: 144/96 Code: 8480-6 BMI: 33.1 Code: 11381-9 Heart Rate 1: 72 bpm Height: 6' Respiratory Rate: 20 bpm Temperature: 36 .9 (C) / 98.4 (F) Weight: 244 lbs 12/29/2015 Blood Pressure 1: 132/86 Code: 8480-6 He art Rate 1: 72 bpm 10/20/2015 Blood Pressure 1: 142/94 Code: 8480-6 BMI: 32.8 Code: 15315-1 Heart Rate 1: 72 bpm Height: 6' Respiratory Rate: 20 bpm SpO2: 96% Tempera ture: 36.7 (C) / 98.1 (F) Weight: 242 lbs 05/24/2014 Blood Pressure 1: 138/90 Code: 8480-6 BMI: 31.3 Code: 41152-2 Heart Rate 1: 80 bpm Height: 6' Respiratory Rate: 20 bpm Temperature: 36 .7 (C) / 98.0 (F) Weight: 231 lbs Functional Status No Functional Status data Reason For Visit Reason For Visit Effective Dates Notes well man exam (40-65 years) 12/22/2019 follow up 12/15/2018 Patient has finished up 20 days worth of doxycycline and is feeling better follow up 11/12/2018 lab draw 11/10/2018 high blood pressure 11/09/2018 to his arms, chest, and legs follow up 01/29/2018 1 month lab draw 12/26/2017 knee pain 12/09/2017 lab draw 12/29/2015 well man exam (40-65 years) 10/20/2015 To both big toes and both little toes lab draw 06/03/2014 ~generic 05/24/2014 new pt to establish Encounters Encounter Performer Location Codes Date (21730) NURSE/OUTPATIENT VISIT EST Diagnosis: Encounter for general adult medical examination without abnormal findings[ICD10: Z00.00] Diagnosis: Encounter for screening for malignant neoplasm of colon[ICD10: Z12.11] Diagnosis: Essential (primary) hypertension[ICD10: I10] Diagnosis: Mixed hyperlipidemia[ICD10: E78.2] Diagnosis: Other fatigue[ICD10: R53.83] Didi JACKSON [employer] CPT-4: 26320 12/27/2019 ([id number]) PREV VISIT EST AGE 40-64 Diagnosis: Encounter for general adult medical examination without abnormal findings[ICD10: Z00.00] Diagnosis: Bilateral primary osteoarthritis of knee[ICD10: M17.0] Diagnosis: Encounter for screening for malignant neoplasm of colon[ICD10: Z12.11] Diagnosis: Encounter for screening for malignant neoplasm of prostate[ICD10: Z12.5] Diagnosis: Gastro-esophageal reflux disease without esophagitis[ICD10: K21.9] Diagnosis: Mixed hyperlipidemia[ICD10: E78.2] Diagnosis: Essential (primary) hypertension[ICD10: I10] Diagnosis: Change in mole[ICD10: D22.9] Diagnosis: Obstructive sleep apnea (adult) (pediatric)[ICD10: G47.33] Kait Alas DIDI [employer] CPT-4: 87470 12/22/2019 ([id number]) OFFICE/OUTPATIENT VISIT EST Diagnosis: Essential (primary) hypertension[ICD10: I10] Diagnosis: Cardiac arrhythmia, unspecified[ICD10: I49.9] Diagnosis: Other fatigue[ICD10: R53.83] Didi JACKSON [employer] CPT-4: 60042 12/15/2018 OFFICE/OUTPATIENT VISIT EST Diagnosis: Cardiac arrhythmia, unspecified[ICD10: I49.9] Diagnosis: Bitten or stung by nonvenomous insect and other nonvenomous arthropods, initial encounter[ICD10: W57.XXXA] Diagnosis: Abnormal levels of other serum enzymes[ICD10: R74.8] Diagnosis: Mixed hyperlipidemia[ICD10: E78.2] Didi KLEIN PHARMAJETJacquelin ARAIZA [employer] CPT-4: 58764 11/12/2018 ([id number]) NURSE/OUTPATIENT VISIT EST Diagnosis: Essential (primary) hypertension[ICD10: I10] Diagnosis: Mixed hyperlipidemia[ICD10: E78.2] Didi KLEIN PHARMAJETJacquelin ARAIZA [employer] CPT-4: 79821 11/10/2018 OFFICE/OUTPATIENT VISIT EST Diagnosis: Other fatigue[ICD10: R53.83] Diagnosis: Headache[ICD10: R51] Diagnosis: Fever, unspecified[ICD10: R50.9] Diagnosis: Rash and other nonspecific skin eruption[ICD10: R21] Diagnosis: Dyspnea, unspecified[ICD10: R06.00] Diagnosis: Cardiac arrhythmia, unspecified[ICD10: I49.9] [place] SEQUE[employer]AF[employer] CPT-4: 28762 11/09/2018 ([id number]) OFFICE/OUTPATIENT VISIT EST Diagnosis: Essential (primary) hypertension[ICD10: I10] Diagnosis: Gastro-esophageal reflux disease without esophagitis[ICD10: K21.9] Diagnosis: Pain in left knee[ICD10: M25.562] Diagnosis: Pain in left foot[ICD10: M79.672] Kait Evette ELEAZAR Chadd PHARMAJETJacquelin ARAIZA [employer] [facility] CPT-4: 73911 01/29/2018 ([id number]) NURSE/OUTPATIENT VISIT EST Diagnosis: Encounter for general adult medical examination without abnormal findings[ICD10: Z00.00] Diagnosis: Mixed hyperlipidemia[ICD10: E78.2] Diagnosis: Essential (primary) hypertension[ICD10: I10] Didi ARAIZA [employer] CPT-4: 99823 12/26/2017 ([id number]) OFFICE/OUTPATIENT VISIT EST Diagnosis: Essential (primary) hypertension[ICD10: I10] Diagnosis: Gastro-esophageal reflux disease without esophagitis[ICD10: K21.9] Diagnosis: Bilateral primary osteoarthritis of knee[ICD10: M17.0] Diagnosis: Bilateral primary osteoarthritis of first carpometacarpal joints[ICD10: M18.0] Diagnosis: Obstructive sleep apnea (adult) (pediatric)[ICD10: G47.33] Diagnosis: Lymphedema, not elsewhere classified[ICD10: I89.0] Didi Jensen FABBYGWENBRENDA [employer] CPT-4: 47222 12/09/2017 ([id number]) OFFICE/OUTPATIENT VISIT EST Diagnosis: Encounter for general adult medical examination without abnormal findings[ICD10: Z00.00] Diagnosis: Elevated blood-pressure reading, without diagnosis of hypertension[ICD10: R03.0] Didi Jensen [employer] CPT- 4: 87982 12/29/2015 ([id number]) PREV VISIT EST AGE 40-64 Diagnosis: Encounter for general adult medical examination without abnormal findings[ICD10: Z00.00] Diagnosis: Encounter for screening for malignant neoplasm of colon[ICD10: Z12.11] Diagnosis: Encounter for screening for malignant neoplasm of prostate[ICD10: Z12.5] Diagnosis: Elevated blood-pressure reading, without diagnosis of hypertension[ICD10: R03.0] Diagnosis: Encounter for immunization[ICD10: Z23] Diagnosis: Obstructive sleep apnea (adult) (pediatric)[ICD10: G47.33] Diagnosis: Low back pain[ICD10: M54.5] Diagnosis: Mixed hyperlipidemia[ICD10: E78.2] Diagnosis: Tinea unguium[ICD10: B35.1] Diagnosis: Tobacco use[ICD10: Z72.0] Diagnosis: Tobacco abuse counseling[ICD10: Z71.6] Diagnosis: VACCINE FOR TDAP[ICD10: Z23] Jocelyn Jensen [employer] CPT-4: 21922 10/20/2015 ([id number]) OFFICE/OUTPATIENT VISIT EST Diagnosis: ROUTINE MEDICAL EXAM[ICD9: V70.0] Didi Jensen [employer] CPT-4: 01992 06/03/2014 OFFICE/OUTPATIENT VISIT NEW Diagnosis: GERD[ICD9: 530.81] Diagnosis: OBSTRUCTIVE SLEEP APNEA[ICD9: 327.23] Negra Roberto [employer] [employer] CPT-4: 65204 05/24/2014 Plan of Care Planned Activity Notes Codes Status Date Appointment: Didi [facility] [phone] [facility] [facility] 12/27/2019 Visit Diagnosis Plan: Gastro-esophageal reflux disease without esophagitis Discussion: continue with protonix. referral to dr. vigil for EGD since patient hasn't had one and can do during colonoscopy ICD-9 : 530.81 ICD-10 : K21.9 12/22/2019 Visit Diagnosis Plan: Obstructive sleep apnea (adult) (pediatric) Discussion: wears cpap nightly ICD-9 : 327.23 ICD-10 : G47.33 12/22/2019 Visit Diagnosis Plan: Encounter for screening for sonia gnant neoplasm of colon Discussion: referral to dr. vigil for screening colonscopy per patient request. ICD-9 : V76.51 ICD-10 : Z12.11 12/22/2019 Visit Diagnosis Plan: Encounter for scre ening for malignant neoplasm of prostate Discussio: psa to be done at lab draw. p rostate exam during colonoscopy ICD-9 : V76.44 ICD-10 : Z12.5 12/22/2019 Visit Diagnosis Plan: Mixed hyperlipidemia Discussion: due for fasting labs ICD-9 : 272.2 ICD-10 : E78.2 12/22/2019 Visit Diagnosis Plan: Change in mole Discussion: refer ral to dr. vigil for removal since located on head and he is going there for screenings ICD-9 : 216.9 ICD-10 : D22.9 12/22/2019 Visit Diagnosis Plan: Bilateral primary osteoarthritis of knee Discussion: educated patient on weight loss and increasing exercise. instructed to wear knee braces to knees to help with pain. patient would like referral so referral sent to dr. iglesias at [address] for evaluation. ICD-9 : 715.96 ICD-10 : M17.0 12/22/2019 Visit Diagnosis Plan: Encounter for gene ral adult medical examination without abnormal findings Discussion: due for fasting labs. instru cted to rtc for fasting labs. referral for colonoscopy and informed patient he can have prostate exam at that time. ICD-9 : V70.9 ICD-10 : Z00.00 12/22/2019 Visit Diagnosis Plan: Essential (primary) hypertension Discussion: increase hctz to 25 mg daily. will recheck bp when he's here for blood work. ICD-9 : 401.9 ICD-10 : I10 12/22/2019 Appointment: Kait Alas [id number] Visit 12/22/2019 Patient Education: hydrochlorothiazide- [employer] [facility] [id number] [email or web address] Completed 12/22/2019 Patient Education: High Blood Pressure Co mpleted 12/22/2019 Visit Diagnosis Plan: Other fatigue Discussion: Add me n's MV ICD-9 : 780.79 ICD-10 : R53.83 12/15/2018 Visit Diagnosis Plan: Essential (primary) hypertension Discussion: Stable ICD-9 : 401.9 ICD-10 : I10 12/15/2018 Visit Diagnosis Plan: Cardiac arrhythmia, unspecified Discussion: Exercise Stress Test Fwup pending results ICD-9 : 427.9 ICD-10 : I49.9 12/15/2018 Appointment: Didi Araiza WPtel: [address] [place], [place] [id number] US FOLLOW UP 12/15/2018 Visit Diagnosis Plan: Bitten or stung by nonvenomous insect and other nonvenomous arthropods, initial encounter Discussion: Suspect tick illness--finish doxycycline for full 20 days ICD-9 : 919.4 ICD-10 : W57.XXXA 11/12/2018 Visit Diagnosis Plan: Cardiac arrhythmia, unspecified Discussion: NSR today Will do stress test once over current illness ICD-9 : 427.9 ICD-10 : I49.9 11/12/2018 Visit Diagnosis Plan: Abnormal levels of other serum e nzymes Discussion: Mediterranean diet Combination of cardio and weight bearing exercise ICD-9 : 790.5 ICD-10 : R74.8 11/12/2018 Appointment: Didi Araiza WPtel: [facility] US FOLLOW UP 11/12/2018 Patient Education: doxycycline hyclate- [employer] [facility] [phone] [email or web address] Completed 11/12/2018 Appointment: Didi Araiza WPtel: [phone] LAB 11/10/2018 Visit Diagnosis Plan: Other fatigue Discussion: Labs- CBC, CMP, TSH, ESR, troponin, flu swab- liver enzymes elevated (AST 58, ALT 128). Will repeat CMP in 6 weeks. Treating for viral illness. Continue course of doxycycline to cover for tick born illness. ICD-9 : 780.79 ICD-10 : R53.83 11/09/2018 Visit Diagnosis Plan: Rash and other nonspecific skin eruption Discussion: Will draw tick panel in 3 weeks. Had tick attached last week. Continue course of doxycycline. ICD-9 : 782.1 ICD-10 : R21 11/09/2018 Visit Diagnosis Plan: Cardiac arrhythmia, unspecified Discussion: EKG- shows probable atrial enlargement, PACs, ateroseptal defect- stress test when acute illness improves. Follow up in 2 days or sooner with worsening symptoms. ICD-9 : 427.9 ICD-10 : I49.9 11/09/2018 Visit Diagnosis Plan: Dyspnea, unspecified Discussion: EKG, troponin ICD-9 : 786.09 ICD-10 : R06.00 11/09/2018 Appointment: [place] Dinh [facility] [facility] 11/09/2018 Visit Diagnosis Plan: Essential (primary) hypertension Discussion: stable, continue with current medications. call or rtc with new or worsening symptoms. ICD-9 : 401.9 ICD-10 : I10 01/29/2018 Visit Diagnosis Plan: Pain in left foot Discussion: se e plan for knee but instructed to wear ankle brace. ICD-9 : 729.5 ICD-10 : M79.672 01/29/2018 Visit Diagnosis Plan: Gastro-esophageal reflux disease without esophagitis Discussion: discussed with patient to take protonix at night instead of am so he can have medication coverage through the am when he wakes up. discussed with patient that if that continues to not work and he's still symptomatic, then call office. ICD-9 : 530.81 ICD-10 : K21.9 01/29/2018 Visit Diagnosis Plan: Pain in left knee Discussion: me drol dose pack prescribed for patient for symptom management. patient unable to tolerated NSAIDS due to GERD. instructed to wear knee brace during day and off at night. elevate and apply ice often. if no improvement or worsening symptoms, call clinic. ICD-9 : 719.46 ICD-10 : M25.562 01/29/2018 Appointment: Kait Alas [address] [place] [address] FOLLOW UP 01/29/2018 Patient Education: Patient Medication Summary Completed 01/29/2018 Appointment: Didi Araiza WPtel: [address] [place] [address] LAB 12/26/2017 Patient Education: Patient Medication Summary Completed 12/26/2017 Visit Diagnosis Plan: Gastro-esophageal reflux disease without esophagitis Discussion: Protonix 40mg po BID for 1 month then 1 po daily Diet: GERD diet Follow Up: 6 weeks ICD-9 : 530.81 ICD-10 : K21.9 12/09/2017 Visit Diagnosis Plan: Essential (primary) hypertension Discussion: Low dose HCTZ 12.5mg po q AM BP check and fasting lab in 2 weeks ICD-9 : 401.9 ICD-10 : I10 12/09/2017 Visit Diagnosis Plan: Bilateral primary osteoarthritis of knee Discussion: Trial of Voltaren gel to knees and thumbs Tylenol Arthritis prn ICD-9 : 715.96 ICD-10 : M17.0 12/09/2017 Visit Diagnosis Plan: Lymphedema, not elsewhere classi fied Discussion: Discussed compression sleeve for right arm ICD-9 : 457.1 ICD-10 : I89.0 12/09/2017 Visit Diagnosis Plan: Obstructive sleep apnea (adult) (pediatric) Discussion: Patient is compliant with CPAP use ICD-9 : 327.23 ICD-10 : G47.33 12/09/2017 Appointment: Didi Araiza WPtel: [facility] [place] [id number] ACUTE ILLNESS 12/09/2017 Patient Education: Patient Medication Summary Completed 12/09/2017 Appointment: Kait Alas [address] RESCHEDULED 12/01/2017 Appointment: Didi Araiza WPtel: [address] [place] [address] US LAB 12/29/2015 Patient Education: Patient Medication Summary Completed 12/29/2015 Visit Plan: Make appt with chiropractor to see if adjustment helps his back, knee and foot pain Stop otc naids and can try mobic Updated tdap Patient to notify who he wants to see for colonoscopy Return when fasting for labs - cbc, cmp, lipids, psa Encouraged caffeine and tobacco reduction/cessation Needs nurse visit in 1 month for BP recheck Try tea tree oil and vicks for nail fungus first and then can try rx strength aid if need be Form requested from [facility] Patient for new bipap 10/20/2015 Appointment: Jocelyn Watts [address] [place] [address] 10/18 confirmed~ Annual Well Visit 10/20/2015 Patient Education: Patient Medication Summary Completed 10/20/2015 Appointment: Didi Araiza WPtel: [address] [place] [address] LAB 06/03/2014 Patient Education: Patient Medication Summary Completed 06/03/2014 Appointment: Negra Mejia WPtel: [address] [place] [address] NEW PATIENT 05/24/2014 Patient Education: Patient Medication Summary Completed 05/24/2014 Instructions Comment . Make appt with chiropractor to see if adjustment helps his back, knee and foot pain Stop otc naids and can try mobic Updated tdap Patient to notify who he wants to see for colonoscopy Return when fasting for labs - cbc, cmp, lipids, psa Encouraged caffeine and tobacco reduction/cessation Needs nurse visit in 1 month for BP recheck Try tea tree oil and vicks for nail fungus first and then can try rx strength aid if need be Form requested from [facility] Patient for new bipap Medical Equipment No Medical Equipment data Health Concerns Section Health Concerns data not found Goals Section Goals data not found Interventions Section Interventions data not found Health Status Evaluations/Outcomes Section Health Status Evaluations/Outcomes data not found Advance Directives No Advance Directive data
--- OUTSIDE RECORDS SUMMARY | 2020-01-21 11:14 | XMS REPORT | CCD ---
Author Author Rafael Mejia APRN Organization [facility] Address [address] [place] [address] Phone Care Team Providers Care Technical Sales Support Manager Name Role Phone Didi Araiza D.O., PP Unavailable CCM Unavailable Summary Purpose Interface Exchange Insurance Providers Payer name Policy type / Coverage type Covered alliance party ID Effective Begin Date Effective End Date Blue Cross Blue Shield Blue Cross/Blue Shield [id number] 2019 Unknown Family History Family History data [...] Start Date Stop Date Status Fill Instructions hydrochlorothiazide 25 mg tablet RxNorm: 563438 1 Tablet(s) Oral QD 01/03/2020 07/01/2020 Active hydrochlorothiazide 12.5 mg tablet RxNorm: 880852 TAKE ONE TABLET BY MOUTH EVERY MORNING FOR BLOOD PRESSURE 01/02/2020 01/02/2020 Inactive Patie nt says he is taking 25mg daily now. Can you send a prescription hydrochlorothiazide 25 mg tablet RxNorm: 441713 1 Tablet(s) Oral QD 12/22/2019 01/02/2020 Inactive pantoprazole 40 mg tablet,delayed release RxNorm: 118215 1 Tablet(s) Oral QD Due for updated fasting labs and appointment 12/06/2019 01/05/2020 Active Due for updated fasting labs and appointment before 90 day supply hydrochlorothiazide 12.5 mg tablet RxNorm: 704081 TAKE ONE TABLET BY MOUTH EVERY MORNING FOR BLOOD PRESSURE 10/04/2019 12/26/2019 Inactive pantoprazole 40 mg tablet,delayed release RxNorm: 944128 TAKE ONE TABLET BY MOUTH DAILY 09/05/2019 12/05/2019 Inactive hydrochlorothiazide 12.5 mg tablet RxNorm: 671572 TAKE ONE TABLET BY MOUTH EVERY MORNING FOR BLOOD PRESSURE 07/05/2019 10/03/2019 Inactive pantoprazole 40 mg tablet,delayed release RxNorm: 810640 TAKE ONE TABLET BY MOUTH DAILY 05/29/2019 09/04/2019 Inactive pantoprazole 40 mg tablet,delayed release RxNorm: 229526 1 Tabl et(s) PO QD 03/04/2019 05/28/2019 Inactive hydrochlorothiazide 12.5 mg tablet RxNorm: 072801 TAKE ONE TABLET BY MOUTH EVERY MORNING FOR BLOOD PRESSURE 01/11/2019 07/04/2019 Inactive doxycycline hyclate 100 mg capsule RxNorm: 0118971 1 Capsule(s) PO BID 11/12/2018 11/21/2018 Inactive pantoprazole 40 mg tablet,delayed release RxNorm: 945971 TAKE ONE TABLET BY MOUTH DAILY 10/30/2018 03/04/2019 Inactive hydrochlorothiazide 12.5 mg tablet RxNorm: 115541 TAKE ONE TABLET BY MOUTH EVERY MORNING FOR BLOOD PRESSURE 10/12/2018 01/09/2019 Inactive pantoprazole 40 mg tablet,delayed release RxNorm: 697913 TAKE ONE TABLET BY MOUTH DAILY 08/31/2018 09/29/2018 Inactive pantoprazole 40 mg tablet,delayed release RxNorm: 431312 1 Tabl et(s) PO QD 04/03/2018 08/30/2018 Inactive hydrochlorothiazide 12.5 mg tablet RxNorm: 471396 TAKE ONE TABLET BY MOUTH EVERY MORNING FOR BLOOD PRESSURE 03/30/2018 09/25/2018 Inactive Medrol (John) 4 mg tablets in a dose pack RxNorm: 271266 Tablet(s) PO take as directed 01/29/2018 11/08/2018 Inactive pantoprazole 40 mg tablet,delayed release RxNorm: 120587 1 Tablet(s) PO BID for 1 month then decrease to 1 po daily 12/29/2017 04/02/2018 Inactive hydrochlorothiazide 12.5 mg tablet RxNorm: 743938 1 Tablet(s) P O QAM for BP 12/29/2017 03/28/2018 Inactive hydrochlorothiazide 12.5 mg tablet RxNorm: 435143 1 Tablet(s) P O QAM for BP 12/09/2017 12/28/2017 Inactive pantoprazole 40 mg tablet,delayed release RxNorm: 674908 1 Tablet(s) PO BID for 1 month then decrease to 1 po daily 12/09/2017 04/03/2018 Inactive Voltaren 1 % topical gel RxNorm: 461107 1 Gram(s) TOP QID to bi lateral knees 12/09/2017 12/21/2019 Inactive meloxicam 15 mg tablet RxNorm: 137594 1 Tablet(s) PO QD 10/20/2015 Inactive Benadryl 25 mg capsule RxNorm: 9024859 1 Capsule(s) PO QHS No Start D ate Active Nexium oral RxNorm: 473896 oral No Start Date 10/20/2015 Inactive Nexium 24HR 22.3 mg capsule,delayed release RxNorm: 263410 1 Ca psule(s) PO QAM No Start Date 11/08/2018 Inactive Fish Oil 1,000 mg capsule RxNorm: 1 Capsule(s) PO QD No Start Date 12/28/2017 Inactive Fish Oil 1,000 mg capsule RxNorm: 1 Capsule(s) PO TID No Start Calin e 11/08/2018 Inactive naproxen sodium 220 mg tablet RxNorm: 295802 1 Tablet(s) PO QHS No Start Date 11/08/2018 Inactive Medication Administered No Medication Administered data Immunizations Vaccine Codes Date Status Tetanus, Diptheria, Pertussis CVX: 115 10/20/2015 Results Observation Observation Code Item Item Code Result Date S [facility] Location COMPREHENSIVE METABOLIC 98642 AST 15 U/L 2019 Unknown COMPREHENSIVE METABOLIC 15937 ALT 22 U/L 2019 Unknown COMPREHENSIVE METABOLIC 84177 BUN 18 mg/dL 2019 Unknown COMPREHENSIVE METABOLIC 72485 ALBUMIN 4.4 g/dL 2019 Unknown COMPREHENSIVE METABOLIC 38721 CHLORIDE 103 mmol/L 12/26 Unknown COMPREHENSIVE METABOLIC 29602 Bili Total 0.6 mg/dL 12/26 Unknown COMPREHENSIVE METABOLIC 98066 ALK PHOS 75 U/L 2019 Unknown COMPREHENSIVE METABOLIC 09597 SODIUM 139 mmol/L 12/26 Unknown COMPREHENSIVE METABOLIC 62437 CREATININE 0.84 mg/dL 11/29 Unknown COMPREHENSIVE METABOLIC 69306 CALCIUM 9.6 mg/dL 2019 Unknown COMPREHENSIVE METABOLIC 68955 POTASSIUM 4.2 mmol/L 12/26 Unknown COMPREHENSIVE METABOLIC 65047 Total Protein 6.5 g/dL Unknown COMPREHENSIVE METABOLIC 40244 Glucose 95 mg/dL 2019 Unknown COMPREHENSIVE METABOLIC 34346 Bicarbonate 27 mmol/L 11/29 Unknown COMPREHENSIVE METABOLIC 02034 AGAP 9 mmol/L 2019 Unknown GFR CALC 2801162 GFR Non Afr Amr >60 mL/min 12/27/2019 Un known GFR CALC [id number] GFR Afr Amr >60 mL/min 12/27/2019 Unknow n FREE T4 57201 T4 Free 0.91 ng/dL 12/27/2019 Unknown PSA EQUIMOLAR JORI 43592 PSA Total 1.28 ng/mL 0 Unknown COMPLETE BLOOD COUNT [id number] WBC 5.8 10e9/L 12/27/19 20 Unknown COMPLETE BLOOD COUNT [id number] RBC 4.92 10e12/L 2019 Unknown COMPLETE BLOOD COUNT 7343730 HEMOGLOBIN 15.2 g/dL 12/27/19 20 Unknown COMPLETE BLOOD COUNT [id number] HEMATOCRIT 46.5 % 12/27/19 20 Unknown COMPLETE BLOOD COUNT [id number] MCV 94.5 fL 0 Unknown COMPLETE BLOOD COUNT 2235255 MCH 30.9 pg 0 Unknown COMPLETE BLOOD COUNT 4694201 MCHC 32.7 g/dL 0 Unknown COMPLETE BLOOD COUNT 1886883 PLATELET COUNT 227 10e9/L Unknown COMPLETE BLOOD COUNT 0889629 Mean Plt Volume 11.9 fL Unknown COMPLETE BLOOD COUNT [id number] Neut Auto 43.1 % 0 Unknown COMPLETE BLOOD COUNT 8950989 Lymph Auto 37.3 % 12/27/19 20 Unknown COMPLETE BLOOD COUNT 7233193 [place] Auto 12.0 % 0 Unknown COMPLETE BLOOD COUNT 1200374 RDW 14.3 % 0 Unknown COMPLETE BLOOD COUNT 6525146 Eos Auto 7.3 % 0 Unknown COMPLETE BLOOD COUNT 9438543 Baso Auto 0.3 % 0 Unknown COMPLETE BLOOD COUNT [id number] Neutrophil Abs 2.50 10e9/L Unknown COMPLETE BLOOD COUNT 0839650 Lymphocyte Abs 2.16 10e9/L Unknown COMPLETE BLOOD COUNT [id number] Monocyte Abs 0.70 10e9/L 11/29 Unknown COMPLETE BLOOD COUNT 4388472 Eosinophil Abs 0.42 10e9/L Unknown COMPLETE BLOOD COUNT 5489289 RDW-SD 48.0 fL 0 Unknown COMPLETE BLOOD COUNT [id number] Basophil Abs 0.02 10e9/L 11/29 Unknown LIPID GROUP 10940 Cholesterol 233 mg/dL 12/27/2019 Unkno wn LIPID GROUP 04586 Triglyceride 175 mg/dL 12/27/2019 Unkn own LIPID GROUP 84802 HDL CHOLESTEROL 54 mg/dL 12/27/2019 U nknown LIPID GROUP 70299 Chol/HDL Ratio 4.31 ratio 12/27/2019 U nknown LIPID GROUP 32127 NON-HDL Chol 179 mg/dL 12/27/2019 Unkn own LIP[facility] GROUP 27504 LDL Cholesterol 144 mg/dL 12/27/2019 U nknown THYROID STIMULATING HORMONE 18623 TSH 1.075 uIU/mL 12/27/2019 Unknown LIPID GROUP 11141 Cholesterol 209 mg/dL 11/10/2018 Unkno wn LIPID GROUP 03539 Triglyceride 210 mg/dL 11/10/2018 Unkn own LIPID GROUP 05458 HDL CHOLESTEROL 32 mg/dL 11/10/2018 U nknown LIPID GROUP 72275 Chol/HDL Ratio 6.53 ratio 11/10/2018 U nknown LIPID GROUP 96443 NON-HDL Chol 177 mg/dL 11/10/2018 Unkn own LIPID GROUP 92774 LDL Cholesterol 135 mg/dL 11/10/2018 U nknown COMPREHENSIVE METABOLIC 00393 AST 15 U/L 2017 Unknown COMPREHENSIVE METABOLIC 45366 ALT 20 U/L 2017 Unknown COMPREHENSIVE METABOLIC 76322 BUN 16 mg/dL 2017 Unknown COMPREHENSIVE METABOLIC 06327 ALBUMIN 4.4 g/dL 2017 Unknown COMPREHENSIVE METABOLIC 44329 CHLORIDE 105 mmol/L 12/26 Unknown COMPREHENSIVE METABOLIC 43491 Bili Total 0.6 mg/dL 12/26 Unknown COMPREHENSIVE METABOLIC 46647 ALK PHOS 61 U/L 2017 Unknown COMPREHENSIVE METABOLIC 22962 SODIUM 141 mmol/L 12/26 Unknown COMPREHENSIVE METABOLIC 46574 CREATININE 0.90 mg/dL 11/29 Unknown COMPREHENSIVE METABOLIC 24285 CALCIUM 9.7 mg/dL 2017 Unknown COMPREHENSIVE METABOLIC 94810 POTASSIUM 4.2 mmol/L 12/26 Unknown COMPREHENSIVE METABOLIC 34633 Total Protein 6.5 g/dL Unknown COMPREHENSIVE METABOLIC 44994 Glucose 99 mg/dL 2017 Unknown COMPREHENSIVE METABOLIC 46113 Bicarbonate 24 mmol/L 11/29 Unknown COMPREHENSIVE METABOLIC 75859 AGAP 12 mmol/L 2017 Unknown COMPLETE BLOOD COUNT [id number] WBC 5.5 10e9/L 12/27/19 18 Unknown COMPLETE BLOOD COUNT [id number] RBC 4.87 10e12/L 2017 Unknown COMPLETE BLOOD COUNT [id number] HEMOGLOBIN 15.1 g/dL 12/27/19 18 Unknown COMPLETE BLOOD COUNT 5335882 HEMATOCRIT 44.9 % 12/27/19 18 Unknown COMPLETE BLOOD COUNT 6347748 MCV 92.2 fL 8 Unknown COMPLETE BLOOD COUNT 4457496 MCH 31.0 pg 8 Unknown COMPLETE BLOOD COUNT 6453727 MCHC 33.6 g/dL 8 Unknown COMPLETE BLOOD COUNT 9777854 PLATELET COUNT 244 10e9/L Unknown COMPLETE BLOOD COUNT 2864567 Mean Plt Volume 11.8 fL Unknown COMPLETE BLOOD COUNT 4828831 Neut Auto 42.0 % 8 Unknown COMPLETE BLOOD COUNT 3078407 Lymph Auto 39.5 % 12/27/19 18 Unknown COMPLETE BLOOD COUNT [id number] [place] Auto 13.0 % 8 Unknown COMPLETE BLOOD COUNT 9584047 Eos Auto 5.3 % 8 Unknown COMPLETE BLOOD COUNT 7598528 RDW 13.8 % 8 Unknown COMPLETE BLOOD COUNT 4789861 Baso Auto 0.2 % 8 Unknown COMPLETE BLOOD COUNT 8904815 Neutrophil Abs 2.31 10e9/L Unknown COMPLETE BLOOD COUNT 5260685 Lymphocyte Abs 2.17 10e9/L Unknown COMPLETE BLOOD COUNT 6487279 Monocyte Abs 0.72 10e9/L 11/29 Unknown COMPLETE BLOOD COUNT 9418025 Eosinophil Abs 0.29 10e9/L Unknown COMPLETE BLOOD COUNT 4483691 RDW-SD 45.6 fL 8 Unknown COMPLETE BLOOD COUNT 8781175 Basophil Abs 0.01 10e9/L 11/29 Unknown PSA EQUIMOLAR JORI 64228 PSA Total 1.40 ng/mL 8 Unknown GFR CALC 9381438 GFR Non Afr Amr >60 mL/min 12/26/2017 Un known GFR CALC 8287926 GFR Afr Amr >60 mL/min 12/26/2017 Unknow n LIPID GROUP 26767 Cholesterol 239 mg/dL 12/26/2017 Unkno wn LIPID GROUP 14288 Triglyceride 140 mg/dL 12/26/2017 Unkn own LIPID GROUP 92739 HDL CHOLESTEROL 48 mg/dL 12/26/2017 U nknown LIPID GROUP 04507 Chol/HDL Ratio 4.98 ratio 12/26/2017 U nknown LIPID GROUP 59422 NON-HDL Chol 191 mg/dL 12/26/2017 Unkn own LIPID GROUP 82030 LDL Cholesterol 163 mg/dL 12/26/2017 U nknown THYROID STIMULATING HORMONE 37510 TSH 1.633 uIU/mL 12/26/2017 Unknown COMPLETE BLOOD COUNT 3896525 WBC 5.3 10e9/L 12/29/19 16 Unknown COMPLETE BLOOD COUNT 4188078 RBC 4.84 10e12/L 2015 Unknown COMPLETE BLOOD COUNT 3804158 HEMOGLOBIN 14.9 g/dL 12/29/19 16 Unknown COMPLETE BLOOD COUNT [id number] HEMATOCRIT 44.3 % 12/29/19 16 Unknown COMPLETE BLOOD COUNT 7394296 MCV 91.5 fL 6 Unknown COMPLETE BLOOD COUNT 4296687 MCH 30.8 pg 6 Unknown COMPLETE BLOOD COUNT 0096423 MCHC 33.6 g/dL 6 Unknown COMPLETE BLOOD COUNT 6978188 PLATELET COUNT 220 10e9/L 06/2015 Unknown COMPLETE BLOOD COUNT [id number] Mean Plt Volume 11.8 fL 06/2015 Unknown COMPLETE BLOOD COUNT 6219277 Neut Auto 42.3 % 6 Unknown COMPLETE BLOOD COUNT 8859241 Lymph Auto 39.0 % 12/29/19 16 Unknown COMPLETE BLOOD COUNT 8719561 [place] Auto 13.6 % 6 Unknown COMPLETE BLOOD COUNT 6686885 RDW 14.0 % 6 Unknown COMPLETE BLOOD COUNT 5984578 Eos Auto 4.7 % 6 Unknown COMPLETE BLOOD COUNT 1035813 Baso Auto 0.4 % 6 Unknown COMPLETE BLOOD COUNT 8353667 Neutrophil Abs 2.24 10e9/L Unknown COMPLETE BLOOD COUNT 6038644 Lymphoctye Abs 2.07 10e9/L Unknown COMPLETE BLOOD COUNT [id number] Monocyte Abs 0.72 10e9/L 06/2015 Unknown COMPLETE BLOOD COUNT 1368272 Eosinophil Abs 0.25 10e9/L Unknown COMPLETE BLOOD COUNT 9370050 RDW-SD 45.7 fL 6 Unknown COMPLETE BLOOD COUNT 8359065 Basophil Abs 0.02 10e9/L 06/2015 Unknown PSA EQUIMOLAR JORI 50585 PSA Total 1.11 ng/mL 6 Unknown COMPREHENSIVE METABOLIC 05543 AST 16 U/L 2015 Unknown COMPREHENSIVE METABOLIC 20607 ALT 20 U/L 2015 Unknown COMPREHENSIVE METABOLIC 25700 BUN 12 mg/dL 2015 Unknown COMPREHENSIVE METABOLIC 68541 ALBUMIN 4.3 g/dL 2015 Unknown COMPREHENSIVE METABOLIC 74612 CHLORIDE 107 mmol/L 12/28 Unknown COMPREHENSIVE METABOLIC 68543 Bili Total 0.7 mg/dL 12/28 Unknown COMPREHENSIVE METABOLIC 24569 ALK PHOS 53 U/L 2015 Unknown COMPREHENSIVE METABOLIC 13510 SODIUM 141 mmol/L 12/28 Unknown COMPREHENSIVE METABOLIC 99785 CREATININE 0.88 mg/dL 06/2015 Unknown COMPREHENSIVE METABOLIC 77689 CALCIUM 9.3 mg/dL 2015 Unknown COMPREHENSIVE METABOLIC 51312 POTASSIUM 4.1 mmol/L 12/28 Unknown COMPREHENSIVE METABOLIC 90764 Total Protein 6.5 g/dL Unknown COMPREHENSIVE METABOLIC 53635 Glucose 95 mg/dL 2015 Unknown COMPREHENSIVE METABOLIC 40796 Bicarbonate 27 mmol/L 06/2015 Unknown COMPREHENSIVE METABOLIC 35795 AGAP 7 mmol/L 2015 Unknown FREE T4 21053 T4 Free 1.11 ng/dL 12/29/2015 Unknown GFR CALC 0521577 GFR Non Afr Amr >60 mL/min 12/29/2015 Un known GFR CALC 8159884 GFR Afr Amr >60 mL/min 12/29/2015 Unknow n THYROID STIMULATING HORMONE 98561 TSH 0.687 uIU/mL 12/29/2015 Unknown LIPID GROUP 40318 Cholesterol 226 mg/dL 12/29/2015 Unkno wn LIPID GROUP 02904 Triglyceride 101 mg/dL 12/29/2015 Unkn own LIPID GROUP 27368 HDL CHOLESTEROL 57 mg/dL 12/29/2015 U nknown LIPID GROUP 25853 Chol/HDL Ratio 3.96 ratio 12/29/2015 U nknown LIPID GROUP 78103 NON-HDL Chol 169 mg/dL 12/29/2015 Unkn own LIPID GROUP 04880 LDL Cholesterol 149 mg/dL 12/29/2015 U nknown COMPREHENSIVE METABOLIC 76152 AST 17 U/L 2013 Unknown COMPREHENSIVE METABOLIC 45021 ALT 24 IU/L 2013 Unknown COMPREHENSIVE METABOLIC 52208 BUN 18 MG/DL 2013 Unknown COMPREHENSIVE METABOLIC 21061 ALBUMIN 4.4 GM/DL 2013 Unknown COMPREHENSIVE METABOLIC 42411 CHLORIDE 108 MMOL/L 06/03 Unknown COMPREHENSIVE METABOLIC 90670 BILI TOT 0.4 MG/DL 2013 Unknown COMPREHENSIVE METABOLIC 19708 ALK PHOS 58 U/L 2013 Unknown COMPREHENSIVE METABOLIC 87513 SODIUM 139 MMOL/L 06/03 Unknown COMPREHENSIVE METABOLIC 78182 CREATININE 0.86 MG/DL 10/2013 Unknown COMPREHENSIVE METABOLIC 60346 CALCIUM 9.6 MG/DL 2013 Unknown COMPREHENSIVE METABOLIC 35949 POTASSIUM 4.3 MMOL/L 06/03 Unknown COMPREHENSIVE METABOLIC 60447 PROT TOT 6.0 GM/DL 2013 Unknown COMPREHENSIVE METABOLIC 44013 Glucose 104 MG/DL 2013 Unknown COMPREHENSIVE METABOLIC 34066 BICARB 26 MMOL/L 2013 Unknown COMPREHENSIVE METABOLIC 98460 ANION GAP 5 MEQ/L 2013 Unknown GFR CALC 3957800 GFR AA >60 ML/MIN 06/03/2014 Unknown GFR CALC 1733638 GFR NON-AA >60 ML/MIN 06/03/2014 Unknown COMPLETE BLOOD COUNT 9977906 WBC 4.7 10e9/L 06/03/20 14 Unknown COMPLETE BLOOD COUNT 4817108 RBC 4.85 10e12/L 2013 Unknown COMPLETE BLOOD COUNT 4219020 HGB 14.9 g/dL 4 Unknown COMPLETE BLOOD COUNT 7027893 HCT DET 44.2 % 4 Unknown COMPLETE BLOOD COUNT 4684368 MCV 91.1 fL 4 Unknown COMPLETE BLOOD COUNT 3779342 MCH 30.7 pg 4 Unknown COMPLETE BLOOD COUNT 5769307 MCHC 33.7 g/dL 4 Unknown COMPLETE BLOOD COUNT 4430104 PLT 245 10e9/L 06/03/20 14 Unknown COMPLETE BLOOD COUNT 4776937 MPV 11.7 fL 4 Unknown COMPLETE BLOOD COUNT 7629329 YOSSI % 37.0 % 4 Unknown COMPLETE BLOOD COUNT 6040224 LY % 44.2 % 4 Unknown COMPLETE BLOOD COUNT 9165035 MON % 14.1 % 4 Unknown COMPLETE BLOOD COUNT 8956394 EOS % 4.5 % 4 Unknown COMPLETE BLOOD COUNT 1172857 BASO % 0.2 % 4 Unknown COMPLETE BLOOD COUNT 9360421 RDW 13.3 % 4 Unknown COMPLETE BLOOD COUNT 2841212 ABS YOSSI 1.74 10e9/L 014 Unknown COMPLETE BLOOD COUNT 4783045 ABS LYMPH 2.08 10e9/L 014 Unknown COMPLETE BLOOD COUNT 3465748 ABS MONO 0.66 10e9/L 014 Unknown COMPLETE BLOOD COUNT 6561631 ABS EOS 0.21 10e9/L 014 Unknown COMPLETE BLOOD COUNT 5826554 ABS BASO 0.01 10e9/L 014 Unknown COMPLETE BLOOD COUNT 6883327 RDW-SD 43.5 fL 4 Unknown PSA EQUIMOLAR JORI 01397 PSA EQ 0.87 NG/ML 4 Unknown FREE T4 54422 FREE T4 1.21 NG/DL 06/03/2014 Unknown THYROID STIMULATING HORMONE 14931 TSH 0.705 uIU/ML 06/03/2014 Unknown LIPID GROUP 41127 HDL TEST 49 MG/DL 06/03/2014 Unknown LIPID GROUP 79579 TRIG 72 MG/DL 06/03/2014 Unknown LIPID GROUP 09858 TEST LDL 159 MG/DL 06/03/2014 Unknown LIPID GROUP 71400 CHOL 222 MG/DL 06/03/2014 Unknown LIPID GROUP 34288 RCHOL/HDL 4.53 RATIO 06/03/2014 Unknow n LIPID GROUP 41543 NON-HDL CH 173 MG/DL 06/03/2014 Unknow n Procedures Procedure Codes Date ROUTINE VENIPUNCTURE CPT-4: 32979 12/27/2019 ASSAY OF FREE THYROXINE CPT-4: 29041 12/27/2019 ASSAY THYROID STIM HORMONE CPT-4: 17548 12/27/2019 COMPREHEN METABOLIC PANEL CPT-4: 88378 12/27/2019 COMPLETE CBC W/AUTO DIFF WBC CPT-4: 73846 12/27/2019 LIPID PANEL CPT-4: 88010 12/27/2019 ASSAY OF PSA TOTAL CPT-4: 41998 12/27/2019 ROUTINE VENIPUNCTURE CPT-4: 48926 11/10/2018 LIPID PANEL CPT-4: 93348 11/10/2018 ROUTINE VENIPUNCTURE CPT-4: 73565 12/26/2017 ASSAY THYROID STIM HORMONE CPT-4: 75021 12/26/2017 COMPREHEN METABOLIC PANEL CPT-4: 06125 12/26/2017 COMPLETE CBC W/AUTO DIFF WBC CPT-4: 46962 12/26/2017 LIPID PANEL CPT-4: 63475 12/26/2017 ASSAY OF PSA TOTAL CPT-4: 68852 12/26/2017 ROUTINE VENIPUNCTURE CPT-4: 29086 12/29/2015 ASSAY OF FREE THYROXINE CPT-4: 14196 12/29/2015 ASSAY THYROID STIM HORMONE CPT-4: 17338 12/29/2015 COMPREHEN METABOLIC PANEL CPT-4: 79019 12/29/2015 COMPLETE CBC W/AUTO DIFF WBC CPT-4: 70447 12/29/2015 LIPID PANEL CPT-4: 65558 12/29/2015 ASSAY OF PSA TOTAL CPT-4: 46867 12/29/2015 TDAP VACCINE 7 YRS/> IM CPT-4: 61839 10/20/2015 IMMUNIZATION ADMIN CPT-4: 06323 10/20/2015 ROUTINE VENIPUNCTURE CPT-4: 85005 06/03/2014 ASSAY OF FREE THYROXINE CPT-4: 38529 06/03/2014 ASSAY THYROID STIM HORMONE CPT-4: 84657 06/03/2014 COMPREHEN METABOLIC PANEL CPT-4: 34197 06/03/2014 COMPLETE CBC W/AUTO DIFF WBC CPT-4: 65118 06/03/2014 LIPID PANEL CPT-4: 30915 06/03/2014 ASSAY OF PSA TOTAL CPT-4: 98055 06/03/2014 Vital Signs Date Vital 12/27/2019 Blood Pressure 1: 136/84 Code: 8480-6 He art Rate 1: 79 bpm 12/22/2019 Blood Pressure 1: 150/96 Code: 8480-6 BMI: 33.1 Code: 44533-3 Heart Rate 1: 88 bpm Height: 6' [...] 1: 126/80 Code: 8480-6 BMI: 32.8 Code: 84716-0 Heart Rate 1: 82 bpm Height: 6' Respiratory Rate: 20 bpm SpO2: 96% Tempera ture: 36.8 (C) / 98.2 (F) Weight: 242 lbs 12/26/2017 Blood Pressure 1: 114/64 Code: 8480-6 He art Rate 1: 66 bpm 12/09/2017 Blood Pressure 1: 144/96 Code: 8480-6 BMI: 33.1 Code: 66889-7 Heart Rate 1: 72 bpm Height: 6' Respiratory Rate: 20 bpm Temperature: 36 .9 (C) / 98.4 (F) Weight: 244 lbs 12/29/2015 Blood Pressure 1: 132/86 Code: 8480-6 He art Rate 1: 72 bpm 10/20/2015 Blood Pressure 1: 142/94 Code: 8480-6 BMI: 32.8 Code: 80035-5 Heart Rate 1: 72 bpm Height: 6' Respiratory Rate: 20 bpm SpO2: 96% Tempera ture: 36.7 (C) / 98.1 (F) Weight: 242 lbs 05/24/2014 Blood Pressure 1: 138/90 Code: 8480-6 BMI: 31.3 Code: 08311-3 Heart Rate 1: 80 bpm Height: 6' [...] establish Encounters Encounter Performer Location Codes Date ([id number]) NURSE/OUTPATIENT VISIT EST Diagnosis: Encounter for general adult medical examination without abnormal findings[ICD10: Z00.00] Diagnosis: Encounter for screening for malignant neoplasm of colon[ICD10: Z12.11] Diagnosis: Essential (primary) hypertension[ICD10: I10] Diagnosis: Mixed hyperlipidemia[ICD10: E78.2] Diagnosis: Other fatigue[ICD10: R53.83] Didi Stonewedge CPT-4: 34754 12/27/2019 ([id number]) PREV VISIT EST AGE 40-64 Diagnosis: Encounter [...] sleep apnea (adult) (pediatric)[ICD10: G47.33] Kait Alas [employer] CPT-4: 89897 12/22/2019 ([id number]) OFFICE/OUTPATIENT VISIT EST Diagnosis: Essential (primary) hypertension[ICD10: I10] Diagnosis: Cardiac arrhythmia, unspecified[ICD10: I49.9] Diagnosis: Other fatigue[ICD10: R53.83] Didi Stonewedge CPT-4: 63183 12/15/2018 OFFICE/OUTPATIENT VISIT EST Diagnosis: Cardiac arrhythmia, unspecified[ICD10: I49.9] Diagnosis: Bitten or stung by nonvenomous insect and other nonvenomous arthropods, initial encounter[ICD10: W57.XXXA] Diagnosis: Abnormal levels of other serum enzymes[ICD10: R74.8] Diagnosis: Mixed hyperlipidemia[ICD10: E78.2] Didi Orendbrenda ZENA[employer]AHUTHERON ERNIE [employer] CPT-4: 01811 11/12/2018 ([id number]) NURSE/OUTPATIENT VISIT EST Diagnosis: Essential (primary) hypertension[ICD10: I10] Diagnosis: Mixed hyperlipidemia[ICD10: E78.2] Didi Comfortbrenda MOORE ERNIE [employer] CPT-4: 62066 11/10/2018 OFFICE/OUTPATIENT VISIT EST Diagnosis: Other fatigue[ICD10: R53.83] Diagnosis: Headache[ICD10: R51] Diagnosis: Fever, unspecified[ICD10: R50.9] Diagnosis: Rash and other nonspecific skin eruption[ICD10: R21] Diagnosis: Dyspnea, unspecified[ICD10: R06.00] Diagnosis: Cardiac arrhythmia, unspecified[ICD10: I49.9] Brooklyn Dinh DIDI [employer] CPT-4: 18140 11/09/2018 ([id number]) OFFICE/OUTPATIENT VISIT EST Diagnosis: Essential (primary) hypertension[ICD10: I10] Diagnosis: Gastro-esophageal reflux disease without esophagitis[ICD10: K21.9] Diagnosis: Pain in left knee[ICD10: M25.562] Diagnosis: Pain in left foot[ICD10: M79.672] Kait Florentino [employer] CPT-4: 92202 01/29/2018 ([id number]) NURSE/OUTPATIENT VISIT EST Diagnosis: Encounter for general adult medical examination without abnormal findings[ICD10: Z00.00] Diagnosis: Mixed hyperlipidemia[ICD10: E78.2] Diagnosis: Essential (primary) hypertension[ICD10: I10] Didi Jose G DIDI [employer] CPT-4: 40755 12/26/2017 ([id number]) OFFICE/OUTPATIENT VISIT EST Diagnosis: Essential (primary) hypertension[ICD10: I10] Diagnosis: Gastro-esophageal reflux disease without esophagitis[ICD10: K21.9] Diagnosis: Bilateral primary osteoarthritis of knee[ICD10: M17.0] Diagnosis: Bilateral primary osteoarthritis of first carpometacarpal joints[ICD10: M18.0] Diagnosis: Obstructive sleep apnea (adult) (pediatric)[ICD10: G47.33] Diagnosis: Lymphedema, not elsewhere classified[ICD10: I89.0] Didi Jensen F[employer]BREN[employer] CPT-4: 11810 12/09/2017 ([id number]) OFFICE/OUTPATIENT VISIT EST Diagnosis: Encounter for general adult medical examination without abnormal findings[ICD10: Z00.00] Diagnosis: Elevated blood-pressure reading, without diagnosis of hypertension[ICD10: R03.0] Didi Jensen [employer] CPT- 4: 50427 12/29/2015 ([id number]) PREV VISIT EST AGE 40-64 Diagnosis: Encounter [...] Diagnosis: VACCINE FOR TDAP[ICD10: Z23] Jocelyn Jensen FABBYGWENBRENDA [employer] [facility] CPT-4: 75839 10/20/2015 ([id number]) OFFICE/OUTPATIENT VISIT EST Diagnosis: ROUTINE MEDICAL EXAM[ICD9: V70.0] Didi Jensen F[employer]GW[employer]EN[employer] CPT-4: 28322 06/03/2014 OFFICE/OUTPATIENT VISIT NEW Diagnosis: GERD[ICD9: 530.81] Diagnosis: OBSTRUCTIVE SLEEP APNEA[ICD9: 327.23] Negra Jensen F[employer] CPT-4: 10543 05/24/2014 Plan of Care Planned Activity Notes Codes Status Date Appointment: Didi Araiza WPtel: [phone] [id number] US LAB 12/27/2019 Visit Diagnosis Plan: Encounter for gene shannan adult medical examination without abnormal findings Discussion: [...] ICD-9 : 401.9 ICD-10 : I10 12/22/2019 Visit Diagnosis Plan: Mixed hyperlipidemia Discussion: [...] so referral sent to dr. iglesias at [address] for evaluation. ICD-9 : 715.96 ICD-10 : M17.0 12/22/2019 Visit Diagnosis Plan: Encounter for screening [...] ICD-10 : Z12.5 12/22/2019 Visit Diagnosis Plan: Gastro-esophageal reflux disease without esophagitis Discussion: continue with protonix. referral to dr. vigil for EGD since patient hasn't had one and can do during colonoscopy ICD-9 : 530.81 ICD-10 : K21.9 12/22/2019 Visit Diagnosis Plan: Obstructive sleep apnea (adult) (pediatric) Discussion: wears cpap nightly ICD-9 : 327.23 ICD-10 : G47.33 12/22/2019 Appointment: Kait Alas [address] [address] [place] Annual Well Visit 12/22/2019 Patient Education: hydrochlorothiazide- OptimizeRX Cou neelam [id number] [email or web address] Completed 12/22/2019 Patient Education: High Blood Pressure Co mpleted 12/22/2019 Visit Diagnosis Plan: Other fatigue Discussion: Add me n's MV ICD-9 : 780.79 ICD-10 : R53.83 12/15/2018 Visit Diagnosis Plan: Cardiac arrhythmia, unspecified Discussion: Exercise Stress Test Fwup pending results ICD-9 : 427.9 ICD-10 : I49.9 12/15/2018 Visit Diagnosis Plan: Essential (primary) hypertension Discussion: Stable ICD-9 : 401.9 ICD-10 : I10 12/15/2018 Appointment: Didi Araiza WPtel: [address] [place] [address] [place] FOLLOW UP 12/15/2018 Visit Diagnosis Plan: Cardiac arrhythmia, unspecified Discussion: NSR today Will do stress test once over current illness ICD-9 : 427.9 ICD-10 : I49.9 11/12/2018 Visit Diagnosis Plan: Abnormal levels of other serum e nzymes Discussion: Mediterranean diet Combination of cardio and weight bearing exercise ICD-9 : 790.5 ICD-10 : R74.8 11/12/2018 Visit Diagnosis Plan: Bitten or stung by nonvenomous insect and other nonvenomous arthropods, initial encounter Discussion: Suspect tick illness--finish doxycycline for full 20 days ICD-9 : 919.4 ICD-10 : W57.XXXA 11/12/2018 Appointment: Didi Araiza WPtel: [facility] [phone] [place] FOLLOW UP 11/12/2018 Patient Education: doxycycline hyclate- [employer] Cou neelam [id number] [email or web address]/resources/getResource/61/[email or web address]-[email or web address]-uk Completed 11/12/2018 Appointment: Didi Araiza WPtel: [id number] LAB 11/10/2018 Visit Diagnosis Plan: Other fatigue [...] ICD-10 : R21 11/09/2018 Visit Diagnosis Plan: Dyspnea, unspecified Discussion: EKG, troponin ICD-9 : 786.09 ICD-10 : R06.00 11/09/2018 Visit Diagnosis Plan: Cardiac arrhythmia, unspecified Discussion: EKG- shows probable atrial enlargement, PACs, ateroseptal defect- stress test when acute illness improves. Follow up in 2 days or sooner with worsening symptoms. ICD-9 : 427.9 ICD-10 : I49.9 11/09/2018 Appointment: Brooklyn Dinh [address] [place], [place] [phone] ACUTE ILLNESS 11/09/2018 Visit Diagnosis Plan: Essential (primary) hypertension Discussion: stable, continue with current medications. call or rtc with new or worsening symptoms. ICD-9 : 401.9 ICD-10 : I10 01/29/2018 Visit Diagnosis Plan: Gastro-esophageal reflux disease [...] ICD-9 : 719.46 ICD-10 : M25.562 01/29/2018 Visit Diagnosis Plan: Pain in left foot Discussion: se e plan for knee but instructed to wear ankle brace. ICD-9 : 729.5 ICD-10 : M79.672 01/29/2018 Appointment: Kait Alas [address] FOLLOW UP 01/29/2018 Patient Education: Patient Medication Summary Completed 01/29/2018 Appointment: Didi Araiza WPtel: [facility] [phone] LAB 12/26/2017 Patient Education: Patient Medication Summary Completed 12/26/2017 Visit Diagnosis Plan: Essential (primary) hypertension Discussion: Low dose HCTZ 12.5mg po q AM BP check and fasting lab in 2 weeks ICD-9 : 401.9 ICD-10 : I10 12/09/2017 Visit Diagnosis Plan: Bilateral primary osteoarthritis of knee Discussion: Trial of Voltaren gel to knees and thumbs Tylenol Arthritis prn ICD-9 : 715.96 ICD-10 : M17.0 12/09/2017 Visit Diagnosis Plan: Obstructive sleep apnea (adult) (pediatric) Discussion: Patient is compliant with CPAP use ICD-9 : 327.23 ICD-10 : G47.33 12/09/2017 Visit Diagnosis Plan: Gastro-esophageal reflux disease without esophagitis Discussion: Protonix 40mg po BID for 1 month then 1 po daily Diet: GERD diet Follow Up: 6 weeks ICD-9 : 530.81 ICD-10 : K21.9 12/09/2017 Visit Diagnosis Plan: Lymphedema, not elsewhere classi fied Discussion: Discussed compression sleeve for right arm ICD-9 : 457.1 ICD-10 : I89.0 12/09/2017 Appointment: Didi Araiza WPtel: [facility] [phone] ACUTE ILLNESS 12/09/2017 Patient Education: Patient Medication Summary Completed 12/09/2017 Appointment: Kait Alas [address] [phone] RESCHEDULED 12/01/2017 Appointment: Didi Araiza WPtel: [address] [place], [place] [id number] LAB 12/29/2015 Patient Education: Patient Medication Summary [...] aid if need be Form requested from [facility] Patient for new bipap 10/20/2015 Appointment: Jocelyn Watts [address] [place], [place] [phone] 10/18 confirmed~sl Annual Well Visit 10/20/2015 Patient Education: Patient Medication Summary Completed 10/20/2015 Appointment: Didi Araiza WPtel: [address] [place], [place] [id number] LAB 06/03/2014 Patient Education: Patient Medication Summary Completed 06/03/2014 Appointment: Negra Mejia WPtel: [address] [place], [place] [phone] NEW PATIENT 05/24/2014 Patient Education: Patient Medication [...] aid if need be Form requested from [facility] for new bipap Medical Equipment No Medical Equipment data Health Concerns Section Health Concerns data not found Goals Section Goals data not found Interventions Section Interventions data not found Health Status Evaluations/Outcomes Section Health Status Evaluations/Outcomes data not found Advance Directives No Advance Directive data
--- OUTSIDE RECORDS SUMMARY | 2020-01-21 11:14 | XMS REPORT | CCD ---
Author Author Rafael Mejia APRN Organization [facility] Address [address] [place] [address] Phone Care Team Providers Care Well Service Floor Worker Name Role Phone Didi Araiza D.O., PP Unavailable CCM Unavailable Summary Purpose Interface Exchange Insurance Providers Payer name Policy type / Coverage type Covered democrat ID Effective Begin Date Effective End Date Blue Cross Blue Shield Blue Cross/Blue Shield [id number] 2019 Unknown Family History Family History data [...] Date Stop Date Status Fill Instructions hydrochlorothiazide 12.5 mg tablet RxNorm: 347552 TAKE ONE TABLET BY MOUTH EVERY MORNING FOR BLOOD PRESSURE 01/02/2020 No Stop Date Active Patie nt says he is taking 25mg daily now. Can you send a prescription hydrochlorothiazide 25 mg tablet RxNorm: 617687 1 Tablet(s) Oral QD 12/22/2019 03/21/2020 Active pantoprazole 40 mg tablet,delayed release RxNorm: 565703 1 Tablet(s) Oral QD Due for updated fasting labs and appointment 12/06/2019 01/05/2020 Active Due for updated fasting labs and appointment before 90 day supply hydrochlorothiazide 12.5 mg tablet RxNorm: 838835 TAKE ONE TABLET BY MOUTH EVERY MORNING FOR BLOOD PRESSURE 10/04/2019 12/26/2019 Inactive pantoprazole 40 mg tablet,delayed release RxNorm: 346461 TAKE ONE TABLET BY MOUTH DAILY 09/05/2019 12/05/2019 Inactive hydrochlorothiazide 12.5 mg tablet RxNorm: 031691 TAKE ONE TABLET BY MOUTH EVERY MORNING FOR BLOOD PRESSURE 07/05/2019 10/03/2019 Inactive pantoprazole 40 mg tablet,delayed release RxNorm: 086403 TAKE ONE TABLET BY MOUTH DAILY 05/29/2019 09/04/2019 Inactive pantoprazole 40 mg tablet,delayed release RxNorm: 027811 1 Tabl et(s) PO QD 03/04/2019 05/28/2019 Inactive hydrochlorothiazide 12.5 mg tablet RxNorm: 115796 TAKE ONE TABLET BY MOUTH EVERY MORNING FOR BLOOD PRESSURE 01/11/2019 07/04/2019 Inactive doxycycline hyclate 100 mg capsule RxNorm: 7031951 1 Capsule(s) PO BID 11/12/2018 11/21/2018 Inactive pantoprazole 40 mg tablet,delayed release RxNorm: 291815 TAKE ONE TABLET BY MOUTH DAILY 10/30/2018 03/04/2019 Inactive hydrochlorothiazide 12.5 mg tablet RxNorm: 523813 TAKE ONE TABLET BY MOUTH EVERY MORNING FOR BLOOD PRESSURE 10/12/2018 01/09/2019 Inactive pantoprazole 40 mg tablet,delayed release RxNorm: 131744 TAKE ONE TABLET BY MOUTH DAILY 08/31/2018 09/29/2018 Inactive pantoprazole 40 mg tablet,delayed release RxNorm: 647280 1 Tabl et(s) PO QD 04/03/2018 08/30/2018 Inactive hydrochlorothiazide 12.5 mg tablet RxNorm: 164717 TAKE ONE TABLET BY MOUTH EVERY MORNING FOR BLOOD PRESSURE 03/30/2018 09/25/2018 Inactive Medrol (John) 4 mg tablets in a dose pack RxNorm: 559809 Tablet(s) PO take as directed 01/29/2018 11/08/2018 Inactive pantoprazole 40 mg tablet,delayed release RxNorm: 429415 1 Tablet(s) PO BID for 1 month then decrease to 1 po daily 12/29/2017 04/02/2018 Inactive hydrochlorothiazide 12.5 mg tablet RxNorm: 186217 1 Tablet(s) P O QAM for BP 12/29/2017 03/28/2018 Inactive hydrochlorothiazide 12.5 mg tablet RxNorm: 898306 1 Tablet(s) P O QAM for BP 12/09/2017 12/28/2017 Inactive pantoprazole 40 mg tablet,delayed release RxNorm: 046700 1 Tablet(s) PO BID for 1 month then decrease to 1 po daily 12/09/2017 04/03/2018 Inactive Voltaren 1 % topical gel RxNorm: 054919 1 Gram(s) TOP QID to bi lateral knees 12/09/2017 12/21/2019 Inactive meloxicam 15 mg tablet RxNorm: 156320 1 Tablet(s) PO QD 10/20/2015 Inactive Benadryl 25 mg capsule RxNorm: 6496240 1 Capsule(s) PO QHS No Start D ate Active Nexium oral RxNorm: 212954 oral No Start Date 10/20/2015 Inactive Nexium 24HR 22.3 mg capsule,delayed release RxNorm: 238793 1 Ca psule(s) PO QAM No Start Date 11/08/2018 Inactive Fish Oil 1,000 mg capsule RxNorm: 1 Capsule(s) PO QD No Start Date 12/28/2017 Inactive Fish Oil 1,000 mg capsule RxNorm: 1 Capsule(s) PO TID No Start Calin e 11/08/2018 Inactive naproxen sodium 220 mg tablet RxNorm: 574012 1 Tablet(s) PO QHS No Start Date 11/08/2018 Inactive Medication Administered No Medication Administered data Immunizations Vaccine Codes Date Status Tetanus, Diptheria, Pertussis CVX: 115 10/20/2015 Results Observation Observation Code Item Item Code Result Date S ervice Location COMPREHENSIVE METABOLIC 12216 AST 15 U/L 2019 Unknown COMPREHENSIVE METABOLIC 14595 ALT 22 U/L 2019 Unknown COMPREHENSIVE METABOLIC 69633 BUN 18 mg/dL 2019 Unknown COMPREHENSIVE METABOLIC 37762 ALBUMIN 4.4 g/dL 2019 Unknown COMPREHENSIVE METABOLIC 70794 CHLORIDE 103 mmol/L 12/26 Unknown COMPREHENSIVE METABOLIC 32564 Bili Total 0.6 mg/dL 12/26 Unknown COMPREHENSIVE METABOLIC 25513 ALK PHOS 75 U/L 2019 Unknown COMPREHENSIVE METABOLIC 57216 SODIUM 139 mmol/L 12/26 Unknown COMPREHENSIVE METABOLIC 45761 CREATININE 0.84 mg/dL 11/29 Unknown COMPREHENSIVE METABOLIC 48073 CALCIUM 9.6 mg/dL 2019 Unknown COMPREHENSIVE METABOLIC 64107 POTASSIUM 4.2 mmol/L 12/26 Unknown COMPREHENSIVE METABOLIC 61246 Total Protein 6.5 g/dL Unknown COMPREHENSIVE METABOLIC 75261 Glucose 95 mg/dL 2019 Unknown COMPREHENSIVE METABOLIC 71696 Bicarbonate 27 mmol/L 11/29 Unknown COMPREHENSIVE METABOLIC 31158 AGAP 9 mmol/L 2019 Unknown GFR CALC [id number] GFR Afr Amr >60 mL/min 12/27/2019 Unknow n GFR CALC 2884957 GFR Non Afr Amr >60 mL/min 12/27/2019 Un known FREE T4 78832 T4 Free 0.91 ng/dL 12/27/2019 Unknown PSA EQUIMOLAR JORI 95506 PSA Total 1.28 ng/mL 0 Unknown COMPLETE BLOOD COUNT 3184009 WBC 5.8 10e9/L 12/27/19 20 Unknown COMPLETE BLOOD COUNT [id number] RBC 4.92 10e12/L 2019 Unknown COMPLETE BLOOD COUNT 2401789 HEMOGLOBIN 15.2 g/dL 12/27/19 20 Unknown COMPLETE BLOOD COUNT 3186086 HEMATOCRIT 46.5 % 12/27/19 20 Unknown COMPLETE BLOOD COUNT 9367423 MCV 94.5 fL 0 Unknown COMPLETE BLOOD COUNT [id number] MCH 30.9 pg 0 Unknown COMPLETE BLOOD COUNT 6164914 MCHC 32.7 g/dL 0 Unknown COMPLETE BLOOD COUNT 3158867 PLATELET COUNT 227 10e9/L Unknown COMPLETE BLOOD COUNT 9087413 Mean Plt Volume 11.9 fL Unknown COMPLETE BLOOD COUNT 6595175 Neut Auto 43.1 % 0 Unknown COMPLETE BLOOD COUNT 9307610 Lymph Auto 37.3 % 12/27/19 20 Unknown COMPLETE BLOOD COUNT 5707936 [place] Auto 12.0 % 0 Unknown COMPLETE BLOOD COUNT 1761552 RDW 14.3 % 0 Unknown COMPLETE BLOOD COUNT 5942969 Eos Auto 7.3 % 0 Unknown COMPLETE BLOOD COUNT 4410913 Baso Auto 0.3 % 0 Unknown COMPLETE BLOOD COUNT 3798382 Neutrophil Abs 2.50 10e9/L Unknown COMPLETE BLOOD COUNT 2803037 Lymphocyte Abs 2.16 10e9/L Unknown COMPLETE BLOOD COUNT [id number] Monocyte Abs 0.70 10e9/L 11/29 Unknown COMPLETE BLOOD COUNT 9089487 Eosinophil Abs 0.42 10e9/L Unknown COMPLETE BLOOD COUNT [id number] RDW-SD 48.0 fL 0 Unknown COMPLETE BLOOD COUNT [id number] Basophil Abs 0.02 10e9/L 11/29 Unknown [facility] 25471 Cholesterol 233 mg/dL 12/27/2019 Unkno wn LIPID GROUP 45256 Triglyceride 175 mg/dL 12/27/2019 Unkn own LIPID GROUP 41900 HDL CHOLESTEROL 54 mg/dL 12/27/2019 U nknown L[facility] GROUP 36253 Chol/HDL Ratio 4.31 ratio 12/27/2019 U nknown LIPID GROUP 91208 NON-HDL Chol 179 mg/dL 12/27/2019 Unkn own [facility] 61506 LDL Cholesterol 144 mg/dL 12/27/2019 U nknown THYROID STIMULATING HORMONE 06443 TSH 1.075 uIU/mL 12/27/2019 Unknown LIP[facility] GROUP 73140 Cholesterol 209 mg/dL 11/10/2018 Unkno wn LIP[facility] GROUP 80393 Triglyceride 210 mg/dL 11/10/2018 Unkn own LIPID GROUP 96938 HDL CHOLESTEROL 32 mg/dL 11/10/2018 U nknown LIPID GROUP 35627 Chol/HDL Ratio 6.53 ratio 11/10/2018 U nknown LIPID GROUP 30842 NON-HDL Chol 177 mg/dL 11/10/2018 Unkn own LIP[facility] GROUP 08396 LDL Cholesterol 135 mg/dL 11/10/2018 U nknown COMPREHENSIVE METABOLIC 60140 AST 15 U/L 2017 Unknown COMPREHENSIVE METABOLIC 69306 ALT 20 U/L 2017 Unknown COMPREHENSIVE METABOLIC 20274 BUN 16 mg/dL 2017 Unknown COMPREHENSIVE METABOLIC 57192 ALBUMIN 4.4 g/dL 2017 Unknown COMPREHENSIVE METABOLIC 43079 CHLORIDE 105 mmol/L 12/26 Unknown COMPREHENSIVE METABOLIC 78041 Bili Total 0.6 mg/dL 12/26 Unknown COMPREHENSIVE METABOLIC 74234 ALK PHOS 61 U/L 2017 Unknown COMPREHENSIVE METABOLIC 18880 SODIUM 141 mmol/L 12/26 Unknown COMPREHENSIVE METABOLIC 09390 CREATININE 0.90 mg/dL 11/29 Unknown COMPREHENSIVE METABOLIC 36081 CALCIUM 9.7 mg/dL 2017 Unknown COMPREHENSIVE METABOLIC 96529 POTASSIUM 4.2 mmol/L 12/26 Unknown COMPREHENSIVE METABOLIC 30696 Total Protein 6.5 g/dL Unknown COMPREHENSIVE METABOLIC 65992 Glucose 99 mg/dL 2017 Unknown COMPREHENSIVE METABOLIC 18591 Bicarbonate 24 mmol/L 11/29 Unknown COMPREHENSIVE METABOLIC 08617 AGAP 12 mmol/L 2017 Unknown COMPLETE BLOOD COUNT 5974730 WBC 5.5 10e9/L 12/27/19 18 Unknown COMPLETE BLOOD COUNT 0589180 RBC 4.87 10e12/L 2017 Unknown COMPLETE BLOOD COUNT 8235486 HEMOGLOBIN 15.1 g/dL 12/27/19 18 Unknown COMPLETE BLOOD COUNT [id number] HEMATOCRIT 44.9 % 12/27/19 18 Unknown COMPLETE BLOOD COUNT 0867950 MCV 92.2 fL 8 Unknown COMPLETE BLOOD COUNT 5641834 MCH 31.0 pg 8 Unknown COMPLETE BLOOD COUNT 0958836 MCHC 33.6 g/dL 8 Unknown COMPLETE BLOOD COUNT 6243370 PLATELET COUNT 244 10e9/L Unknown COMPLETE BLOOD COUNT 0040747 Mean Plt Volume 11.8 fL Unknown COMPLETE BLOOD COUNT 0001112 Neut Auto 42.0 % 8 Unknown COMPLETE BLOOD COUNT 9185689 Lymph Auto 39.5 % 12/27/19 18 Unknown COMPLETE BLOOD COUNT 1692406 [place] Auto 13.0 % 8 Unknown COMPLETE BLOOD COUNT 6293571 Eos Auto 5.3 % 8 Unknown COMPLETE BLOOD COUNT 1283575 RDW 13.8 % 8 Unknown COMPLETE BLOOD COUNT 5469166 Baso Auto 0.2 % 8 Unknown COMPLETE BLOOD COUNT 3965067 Neutrophil Abs 2.31 10e9/L Unknown COMPLETE BLOOD COUNT [id number] Lymphocyte Abs 2.17 10e9/L Unknown COMPLETE BLOOD COUNT 4805255 Monocyte Abs 0.72 10e9/L 11/29 Unknown COMPLETE BLOOD COUNT 4492139 Eosinophil Abs 0.29 10e9/L Unknown COMPLETE BLOOD COUNT 6912034 Basophil Abs 0.01 10e9/L 11/29 Unknown COMPLETE BLOOD COUNT 8270580 RDW-SD 45.6 fL 8 Unknown PSA EQUIMOLAR JORI 87809 PSA Total 1.40 ng/mL 8 Unknown GFR CALC 7607004 GFR Non Afr Amr >60 mL/min 12/26/2017 Un known GFR CALC 6311643 GFR Afr Amr >60 mL/min 12/26/2017 Unknow n [facility] 51124 Cholesterol 239 mg/dL 12/26/2017 Unkno wn [facility] 73413 Triglyceride 140 mg/dL 12/26/2017 Unkn own [facility] 55643 HDL CHOLESTEROL 48 mg/dL 12/26/2017 U nknown [facility] GROUP 48453 Chol/HDL Ratio 4.98 ratio 12/26/2017 U nknown LIP[facility] GROUP 79364 NON-HDL Chol 191 mg/dL 12/26/2017 Unkn own [facility] GROUP 17643 LDL Cholesterol 163 mg/dL 12/26/2017 U nknown THYROID STIMULATING HORMONE 60409 TSH 1.633 uIU/mL 12/26/2017 Unknown COMPLETE BLOOD COUNT 7296806 WBC 5.3 10e9/L 12/29/19 16 Unknown COMPLETE BLOOD COUNT 8891919 RBC 4.84 10e12/L 2015 Unknown COMPLETE BLOOD COUNT 8667153 HEMOGLOBIN 14.9 g/dL 12/29/19 16 Unknown COMPLETE BLOOD COUNT 5903712 HEMATOCRIT 44.3 % 12/29/19 16 Unknown COMPLETE BLOOD COUNT 4533650 MCV 91.5 fL 6 Unknown COMPLETE BLOOD COUNT 8863088 MCH 30.8 pg 6 Unknown COMPLETE BLOOD COUNT 0768597 MCHC 33.6 g/dL 6 Unknown COMPLETE BLOOD COUNT 3770212 PLATELET COUNT 220 10e9/L 06/2015 Unknown COMPLETE BLOOD COUNT 2343798 Mean Plt Volume 11.8 fL 06/2015 Unknown COMPLETE BLOOD COUNT 2588023 Neut Auto 42.3 % 6 Unknown COMPLETE BLOOD COUNT 9905064 Lymph Auto 39.0 % 12/29/19 16 Unknown COMPLETE BLOOD COUNT 1409290 [place] Auto 13.6 % 6 Unknown COMPLETE BLOOD COUNT 4425372 RDW 14.0 % 6 Unknown COMPLETE BLOOD COUNT 3189904 Eos Auto 4.7 % 6 Unknown COMPLETE BLOOD COUNT 2473110 Baso Auto 0.4 % 6 Unknown COMPLETE BLOOD COUNT 2186574 Neutrophil Abs 2.24 10e9/L Unknown COMPLETE BLOOD COUNT 5465479 Lymphoctye Abs 2.07 10e9/L Unknown COMPLETE BLOOD COUNT 8342309 Monocyte Abs 0.72 10e9/L 06/2015 Unknown COMPLETE BLOOD COUNT 3495751 Eosinophil Abs 0.25 10e9/L Unknown COMPLETE BLOOD COUNT 1603778 RDW-SD 45.7 fL 6 Unknown COMPLETE BLOOD COUNT 9857860 Basophil Abs 0.02 10e9/L 06/2015 Unknown PSA EQUIMOLAR JORI 47514 PSA Total 1.11 ng/mL 6 Unknown COMPREHENSIVE METABOLIC 73180 AST 16 U/L 2015 Unknown COMPREHENSIVE METABOLIC 61100 ALT 20 U/L 2015 Unknown COMPREHENSIVE METABOLIC 23710 BUN 12 mg/dL 2015 Unknown COMPREHENSIVE METABOLIC 54487 ALBUMIN 4.3 g/dL 2015 Unknown COMPREHENSIVE METABOLIC 55291 CHLORIDE 107 mmol/L 12/28 Unknown COMPREHENSIVE METABOLIC 85473 Bili Total 0.7 mg/dL 12/28 Unknown COMPREHENSIVE METABOLIC 47754 ALK PHOS 53 U/L 2015 Unknown COMPREHENSIVE METABOLIC 92155 SODIUM 141 mmol/L 12/28 Unknown COMPREHENSIVE METABOLIC 71683 CREATININE 0.88 mg/dL 06/2015 Unknown COMPREHENSIVE METABOLIC 31418 CALCIUM 9.3 mg/dL 2015 Unknown COMPREHENSIVE METABOLIC 90020 POTASSIUM 4.1 mmol/L 12/28 Unknown COMPREHENSIVE METABOLIC 46104 Total Protein 6.5 g/dL Unknown COMPREHENSIVE METABOLIC 95196 Glucose 95 mg/dL 2015 Unknown COMPREHENSIVE METABOLIC 43740 Bicarbonate 27 mmol/L 06/2015 Unknown COMPREHENSIVE METABOLIC 16415 AGAP 7 mmol/L 2015 Unknown FREE T4 86376 T4 Free 1.11 ng/dL 12/29/2015 Unknown GFR CALC 7155264 GFR Non Afr Amr >60 mL/min 12/29/2015 Un known GFR CALC 1434543 GFR Afr Amr >60 mL/min 12/29/2015 Unknow n THYROID STIMULATING HORMONE 87103 TSH 0.687 uIU/mL 12/29/2015 Unknown LIPID GROUP 91607 Cholesterol 226 mg/dL 12/29/2015 Unkno wn [facility] 52455 Triglyceride 101 mg/dL 12/29/2015 Unkn own [facility] 15288 HDL CHOLESTEROL 57 mg/dL 12/29/2015 U nknown L[facility] GROUP 61047 Chol/HDL Ratio 3.96 ratio 12/29/2015 U nknown L[facility] GROUP 60690 NON-HDL Chol 169 mg/dL 12/29/2015 Unkn own [facility] 03290 LDL Cholesterol 149 mg/dL 12/29/2015 U nknown COMPREHENSIVE METABOLIC 29240 AST 17 U/L 2013 Unknown COMPREHENSIVE METABOLIC 57297 ALT 24 IU/L 2013 Unknown COMPREHENSIVE METABOLIC 57362 BUN 18 MG/DL 2013 Unknown COMPREHENSIVE METABOLIC 97335 ALBUMIN 4.4 GM/DL 2013 Unknown COMPREHENSIVE METABOLIC 60465 CHLORIDE 108 MMOL/L 06/03 Unknown COMPREHENSIVE METABOLIC 67910 BILI TOT 0.4 MG/DL 2013 Unknown COMPREHENSIVE METABOLIC 57984 ALK PHOS 58 U/L 2013 Unknown COMPREHENSIVE METABOLIC 60915 SODIUM 139 MMOL/L 06/03 Unknown COMPREHENSIVE METABOLIC 92462 CREATININE 0.86 MG/DL 10/2013 Unknown COMPREHENSIVE METABOLIC 80044 CALCIUM 9.6 MG/DL 2013 Unknown COMPREHENSIVE METABOLIC 02459 POTASSIUM 4.3 MMOL/L 06/03 Unknown COMPREHENSIVE METABOLIC 37445 PROT TOT 6.0 GM/DL 2013 Unknown COMPREHENSIVE METABOLIC 19504 Glucose 104 MG/DL 2013 Unknown COMPREHENSIVE METABOLIC 68301 BICARB 26 MMOL/L 2013 Unknown COMPREHENSIVE METABOLIC 83834 ANION GAP 5 MEQ/L 2013 Unknown GFR CALC 4373368 GFR AA >60 ML/MIN 06/03/2014 Unknown GFR CALC 2656609 GFR NON-AA >60 ML/MIN 06/03/2014 Unknown COMPLETE BLOOD COUNT 1727053 WBC 4.7 10e9/L 06/03/20 14 Unknown COMPLETE BLOOD COUNT 0932970 RBC 4.85 10e12/L 2013 Unknown COMPLETE BLOOD COUNT 1682188 HGB 14.9 g/dL 4 Unknown COMPLETE BLOOD COUNT 7285943 HCT DET 44.2 % 4 Unknown COMPLETE BLOOD COUNT 6278993 MCV 91.1 fL 4 Unknown COMPLETE BLOOD COUNT 0391597 MCH 30.7 pg 4 Unknown COMPLETE BLOOD COUNT 6483492 MCHC 33.7 g/dL 4 Unknown COMPLETE BLOOD COUNT 7486071 PLT 245 10e9/L 06/03/20 14 Unknown COMPLETE BLOOD COUNT 7835371 MPV 11.7 fL 4 Unknown COMPLETE BLOOD COUNT 6821506 YOSSI % 37.0 % 4 Unknown COMPLETE BLOOD COUNT 6752796 LY % 44.2 % 4 Unknown COMPLETE BLOOD COUNT 8363712 MON % 14.1 % 4 Unknown COMPLETE BLOOD COUNT 3303373 EOS % 4.5 % 4 Unknown COMPLETE BLOOD COUNT 6241097 BASO % 0.2 % 4 Unknown COMPLETE BLOOD COUNT 6838112 RDW 13.3 % 4 Unknown COMPLETE BLOOD COUNT 2766638 ABS YOSSI 1.74 10e9/L 014 Unknown COMPLETE BLOOD COUNT 7996468 ABS LYMPH 2.08 10e9/L 014 Unknown COMPLETE BLOOD COUNT 4729518 ABS MONO 0.66 10e9/L 014 Unknown COMPLETE BLOOD COUNT 7303967 ABS EOS 0.21 10e9/L 014 Unknown COMPLETE BLOOD COUNT 4768299 ABS BASO 0.01 10e9/L 014 Unknown COMPLETE BLOOD COUNT 2529576 RDW-SD 43.5 fL 4 Unknown PSA EQUIMOLAR JORI 32685 PSA EQ 0.87 NG/ML 4 Unknown FREE T4 06514 FREE T4 1.21 NG/DL 06/03/2014 Unknown THYROID STIMULATING HORMONE 06738 TSH 0.705 uIU/ML 06/03/2014 Unknown LIP[facility] GROUP 58813 HDL TEST 49 MG/DL 06/03/2014 Unknown [facility] 25670 TRIG 72 MG/DL 06/03/2014 Unknown [facility] 69175 TEST LDL 159 MG/DL 06/03/2014 Unknown [facility] 27288 CHOL 222 MG/DL 06/03/2014 Unknown [facility] 71723 RCHOL/HDL 4.53 RATIO 06/03/2014 Unknow n [facility] GROUP 71334 NON-HDL CH 173 MG/DL 06/03/2014 Unknow n Procedures Procedure Codes Date ROUTINE VENIPUNCTURE CPT-4: 15443 12/27/2019 ASSAY OF FREE THYROXINE CPT-4: 02431 12/27/2019 ASSAY THYROID STIM HORMONE CPT-4: 79221 12/27/2019 COMPREHEN METABOLIC PANEL CPT-4: 48951 12/27/2019 COMPLETE CBC W/AUTO DIFF WBC CPT-4: 55424 12/27/2019 LIPID PANEL CPT-4: 20315 12/27/2019 ASSAY OF PSA TOTAL CPT-4: 13645 12/27/2019 ROUTINE VENIPUNCTURE CPT-4: 96222 11/10/2018 LIPID PANEL CPT-4: 16841 11/10/2018 ROUTINE VENIPUNCTURE CPT-4: 44136 12/26/2017 ASSAY THYROID STIM HORMONE CPT-4: 90221 12/26/2017 COMPREHEN METABOLIC PANEL CPT-4: 55637 12/26/2017 COMPLETE CBC W/AUTO DIFF WBC CPT-4: 82145 12/26/2017 LIPID PANEL CPT-4: 05522 12/26/2017 ASSAY OF PSA TOTAL CPT-4: 48000 12/26/2017 ROUTINE VENIPUNCTURE CPT-4: 30299 12/29/2015 ASSAY OF FREE THYROXINE CPT-4: 22617 12/29/2015 ASSAY THYROID STIM HORMONE CPT-4: 02506 12/29/2015 COMPREHEN METABOLIC PANEL CPT-4: 05138 12/29/2015 COMPLETE CBC W/AUTO DIFF WBC CPT-4: 67467 12/29/2015 LIPID PANEL CPT-4: 70067 12/29/2015 ASSAY OF PSA TOTAL CPT-4: 48156 12/29/2015 TDAP VACCINE 7 YRS/> IM CPT-4: 17989 10/20/2015 IMMUNIZATION ADMIN CPT-4: 92113 10/20/2015 ROUTINE VENIPUNCTURE CPT-4: 40435 06/03/2014 ASSAY OF FREE THYROXINE CPT-4: 05905 06/03/2014 ASSAY THYROID STIM HORMONE CPT-4: 91405 06/03/2014 COMPREHEN METABOLIC PANEL CPT-4: 83623 06/03/2014 COMPLETE CBC W/AUTO DIFF WBC CPT-4: 77368 06/03/2014 LIPID PANEL CPT-4: 04626 06/03/2014 ASSAY OF PSA TOTAL CPT-4: 74468 06/03/2014 Vital Signs Date Vital 12/27/2019 Blood Pressure 1: 136/84 Code: 8480-6 He art Rate 1: 79 bpm 12/22/2019 Blood Pressure 1: 150/96 Code: 8480-6 BMI: 33.1 Code: 23518-1 Heart Rate 1: 88 bpm Height: 6' [...] 1: 126/80 Code: 8480-6 BMI: 32.8 Code: 04172-4 Heart Rate 1: 82 bpm Height: 6' Respiratory Rate: 20 bpm SpO2: 96% Tempera ture: 36.8 (C) / 98.2 (F) Weight: 242 lbs 12/26/2017 Blood Pressure 1: 114/64 Code: 8480-6 He art Rate 1: 66 bpm 12/09/2017 Blood Pressure 1: 144/96 Code: 8480-6 BMI: 33.1 Code: 17982-4 Heart Rate 1: 72 bpm Height: 6' Respiratory Rate: 20 bpm Temperature: 36 .9 (C) / 98.4 (F) Weight: 244 lbs 12/29/2015 Blood Pressure 1: 132/86 Code: 8480-6 He art Rate 1: 72 bpm 10/20/2015 Blood Pressure 1: 142/94 Code: 8480-6 BMI: 32.8 Code: 84686-8 Heart Rate 1: 72 bpm Height: 6' Respiratory Rate: 20 bpm SpO2: 96% Tempera ture: 36.7 (C) / 98.1 (F) Weight: 242 lbs 05/24/2014 Blood Pressure 1: 138/90 Code: 8480-6 BMI: 31.3 Code: 02879-7 Heart Rate 1: 80 bpm Height: 6' [...] establish Encounters Encounter Performer Location Codes Date ([id number]) NURSE/OUTPATIENT VISIT EST Diagnosis: Encounter for general adult medical examination without abnormal findings[ICD10: Z00.00] Diagnosis: Encounter for screening for malignant neoplasm of colon[ICD10: Z12.11] Diagnosis: Essential (primary) hypertension[ICD10: I10] Diagnosis: Mixed hyperlipidemia[ICD10: E78.2] Diagnosis: Other fatigue[ICD10: R53.83] Didi Jensen [employer] CPT-4: 00918 12/27/2019 ([id number]) PREV VISIT EST AGE 40-64 Diagnosis: Encounter [...] apnea (adult) (pediatric)[ICD10: G47.33] Kait Alas DIDI [facility] [employer] CPT-4: 19966 12/22/2019 ([id number]) OFFICE/OUTPATIENT VISIT EST Diagnosis: Essential (primary) hypertension[ICD10: I10] Diagnosis: Cardiac arrhythmia, unspecified[ICD10: I49.9] Diagnosis: Other fatigue[ICD10: R53.83] Didi JACKSON [employer] CPT-4: 45395 12/15/2018 OFFICE/OUTPATIENT VISIT EST Diagnosis: Cardiac arrhythmia, unspecified[ICD10: I49.9] Diagnosis: Bitten or stung by nonvenomous insect and other nonvenomous arthropods, initial encounter[ICD10: W57.XXXA] Diagnosis: Abnormal levels of other serum enzymes[ICD10: R74.8] Diagnosis: Mixed hyperlipidemia[ICD10: E78.2] Didi Jensen [employer] CPT-4: 47846 11/12/2018 ([id number]) NURSE/OUTPATIENT VISIT EST Diagnosis: Essential (primary) hypertension[ICD10: I10] Diagnosis: Mixed hyperlipidemia[ICD10: E78.2] Didi KLEIN [employer] CPT-4: 70443 11/10/2018 OFFICE/OUTPATIENT VISIT EST Diagnosis: Other fatigue[ICD10: R53.83] Diagnosis: Headache[ICD10: R51] Diagnosis: Fever, unspecified[ICD10: R50.9] Diagnosis: Rash and other nonspecific skin eruption[ICD10: R21] Diagnosis: Dyspnea, unspecified[ICD10: R06.00] Diagnosis: Cardiac arrhythmia, unspecified[ICD10: I49.9] Brooklyn Peresman DIDI [employer] CPT-4: 10240 11/09/2018 ([id number]) OFFICE/OUTPATIENT VISIT EST Diagnosis: Essential (primary) hypertension[ICD10: I10] Diagnosis: Gastro-esophageal reflux disease without esophagitis[ICD10: K21.9] Diagnosis: Pain in left knee[ICD10: M25.562] Diagnosis: Pain in left foot[ICD10: M79.672] Kait Evettefide ESTEVEZQUEANJUM [employer] CPT-4: 29226 01/29/2018 ([id number]) NURSE/OUTPATIENT VISIT EST Diagnosis: Encounter for general adult medical examination without abnormal findings[ICD10: Z00.00] Diagnosis: Mixed hyperlipidemia[ICD10: E78.2] Diagnosis: Essential (primary) hypertension[ICD10: I10] Didi JACKSON [employer] CPT-4: 55752 12/26/2017 ([id number]) OFFICE/OUTPATIENT VISIT EST Diagnosis: Essential (primary) hypertension[ICD10: I10] Diagnosis: Gastro-esophageal reflux disease without esophagitis[ICD10: K21.9] Diagnosis: Bilateral primary osteoarthritis of knee[ICD10: M17.0] Diagnosis: Bilateral primary osteoarthritis of first carpometacarpal joints[ICD10: M18.0] Diagnosis: Obstructive sleep apnea (adult) (pediatric)[ICD10: G47.33] Diagnosis: Lymphedema, not elsewhere classified[ICD10: I89.0] Didi Jensen [employer] CPT-4: 97060 12/09/2017 ([id number]) OFFICE/OUTPATIENT VISIT EST Diagnosis: Encounter for general adult medical examination without abnormal findings[ICD10: Z00.00] Diagnosis: Elevated blood-pressure reading, without diagnosis of hypertension[ICD10: R03.0] Didi Jensen [employer] CPT- 4: 35329 12/29/2015 ([id number]) PREV VISIT EST AGE 40-64 Diagnosis: Encounter [...] counseling[ICD10: Z71.6] Diagnosis: VACCINE FOR TDAP[ICD10: Z23] Jocelynzoe Watts DIDI Jensen [employer] CPT-4: 13149 10/20/2015 ([id number]) OFFICE/OUTPATIENT VISIT EST Diagnosis: ROUTINE MEDICAL EXAM[ICD9: V70.0] Didi Jensen [employer] CPT-4: 37319 06/03/2014 OFFICE/OUTPATIENT VISIT NEW Diagnosis: GERD[ICD9: 530.81] Diagnosis: OBSTRUCTIVE SLEEP APNEA[ICD9: 327.23] Negra Jensen [employer] CPT-4: 26153 05/24/2014 Plan of Care Planned Activity Notes Codes Status Date Appointment: [id number] [facility]/2019 Visit Diagnosis Plan: Encounter for gene ral [...] so referral sent to dr. iglesias at [address] for evaluation. ICD-9 : 715.96 ICD-10 [...] ICD-10 : G47.33 12/22/2019 Appointment: Kait [address] [id number] Annual Well Visit 12/22/2019 Patient Education: hydrochlorothiazide- [employer] Cou neelam [id number] [email or web address] Completed 12/22/2019 Patient Education: High Blood Pressure [...] : I10 12/15/2018 Appointment: Didi Araiza WPtel: [facility][note 3][address] [address] US FOLLOW UP 12/15/2018 Visit Diagnosis Plan: [...] : W57.XXXA 11/12/2018 Appointment: Didi Araiza WPtel: [phone] [id number] US FOLLOW UP 11/12/2018 Patient Education: doxycycline hyclate- OptimizeRX Cou neelam [id number] [email or web address] Completed 11/12/2018 Appointment: Didi Araizatel: [id number] US LAB 11/10/2018 Visit Diagnosis Plan: Other fatigue [...] ICD-10 : I49.9 11/09/2018 App[facility]ment[facility] [place] [facility] [id number] [facility] 11/09/2018 Visit Diagnosis Plan: Essential [...] ICD-10 : M79.672 01/29/2018 Appointment: Kait Alas [address] [place], [place] [id number] FOLLOW UP 01/29/2018 Patient Education: Patient Medication Summary Completed 01/29/2018 Appointment: Didi Araiza WPtel: [address] [place], [place] [id number] US LAB 12/26/2017 Patient Education: Patient Medication Summary [...] : I89.0 12/09/2017 Appointment: Didi Araiza WPtel: [address] [place], [place] [id number] ACUTE [facility] 12/09/2017 Patient Education: Patient Medication Summary Completed 12/09/2017 Appointment: Kait Alas [address] [facility] US RESCHEDULED 12/01/2017 Appointment: Didi Araiza WPtel: [address] [place], [place] [id number] [place] LAB 12/29/2015 Patient Education: Patient Medication [...] aid if need be Form requested from [facility] Patient for new bipap 10/20/2015 Appointment: Jocelyn Watts [address] [facility] [place] 10/18 confirmed~ Annual Well Visit 10/20/2015 Patient Education: Patient Medication Summary Completed 10/20/2015 Appointment: Did[facility]el[phone] [facility] 06/03/2014 Patient Education: Patient Medication Summary Completed 06/03/2014 Appointment: Negra Mejia WPtel: [address] [facility] [address] [place] [address] NEW PATIENT 05/24/2014 Patient Education: Patient Medication [...] aid if need be Form requested from [place] Patient for new bipap Medical Equipment No Medical Equipment data Health Concerns Section Health Concerns data not found Goals Section Goals data not found Interventions Section Interventions data not found Health Status Evaluations/Outcomes Section Health Status Evaluations/Outcomes data not found Advance Directives No Advance Directive data
--- OUTSIDE RECORDS SUMMARY | 2020-01-21 11:15 | XMS REPORT | CCD ---
Author Author Rafael Mejia APRN Organization DIDI ARAIZA DO [facility] Address [address] [place] [address] Phone Care Team Providers Care Dimmer Board Operator Name Role Phone Didi Araiza D.O., PP Unavailable CCM Unavailable Summary Purpose Interface Exchange Insurance Providers Payer name Policy type / Coverage type Covered green party ID Effective Begin Date Effective End Date Blue Cross Blue Shield Blue Cross/Blue Shield [id number] 2019 Unknown Family History Family History data [...] Fill Instructions hydrochlorothiazide 25 mg tablet RxNorm: 346921 1 Tablet(s) Oral QD 12/22/2019 03/21/2020 Active pantoprazole 40 mg tablet,delayed release RxNorm: 828430 1 Tablet(s) Oral QD Due for updated fasting labs and appointment 12/06/2019 01/05/2020 Active Due for updated fasting labs and appointment before 90 day supply hydrochlorothiazide 12.5 mg tablet RxNorm: 544071 TAKE ONE TABLET BY MOUTH EVERY MORNING FOR BLOOD PRESSURE 10/04/2019 No Stop Date Active pantoprazole 40 mg tablet,delayed release RxNorm: 320983 TAKE ONE TABLET BY MOUTH DAILY 09/05/2019 12/05/2019 Inactive hydrochlorothiazide 12.5 mg tablet RxNorm: 142159 TAKE ONE TABLET BY MOUTH EVERY MORNING FOR BLOOD PRESSURE 07/05/2019 10/03/2019 Inactive pantoprazole 40 mg tablet,delayed release RxNorm: 744583 TAKE ONE TABLET BY MOUTH DAILY 05/29/2019 09/04/2019 Inactive pantoprazole 40 mg tablet,delayed release RxNorm: 085123 1 Tabl et(s) PO QD 03/04/2019 05/28/2019 Inactive hydrochlorothiazide 12.5 mg tablet RxNorm: 505784 TAKE ONE TABLET BY MOUTH EVERY MORNING FOR BLOOD PRESSURE 01/11/2019 07/04/2019 Inactive doxycycline hyclate 100 mg capsule RxNorm: 3985413 1 Capsule(s) PO BID 11/12/2018 11/21/2018 Inactive pantoprazole 40 mg tablet,delayed release RxNorm: 746612 TAKE ONE TABLET BY MOUTH DAILY 10/30/2018 03/04/2019 Inactive hydrochlorothiazide 12.5 mg tablet RxNorm: 976663 TAKE ONE TABLET BY MOUTH EVERY MORNING FOR BLOOD PRESSURE 10/12/2018 01/09/2019 Inactive pantoprazole 40 mg tablet,delayed release RxNorm: 027363 TAKE ONE TABLET BY MOUTH DAILY 08/31/2018 09/29/2018 Inactive pantoprazole 40 mg tablet,delayed release RxNorm: 757395 1 Tabl et(s) PO QD 04/03/2018 08/30/2018 Inactive hydrochlorothiazide 12.5 mg tablet RxNorm: 179393 TAKE ONE TABLET BY MOUTH EVERY MORNING FOR BLOOD PRESSURE 03/30/2018 09/25/2018 Inactive Medrol (John) 4 mg tablets in a dose pack RxNorm: 038074 Tablet(s) PO take as directed 01/29/2018 11/08/2018 Inactive pantoprazole 40 mg tablet,delayed release RxNorm: 972169 1 Tablet(s) PO BID for 1 month then decrease to 1 po daily 12/29/2017 04/02/2018 Inactive hydrochlorothiazide 12.5 mg tablet RxNorm: 569645 1 Tablet(s) P O QAM for BP 12/29/2017 03/28/2018 Inactive hydrochlorothiazide 12.5 mg tablet RxNorm: 185338 1 Tablet(s) P O QAM for BP 12/09/2017 12/28/2017 Inactive pantoprazole 40 mg tablet,delayed release RxNorm: 162006 1 Tablet(s) PO BID for 1 month then decrease to 1 po daily 12/09/2017 04/03/2018 Inactive Voltaren 1 % topical gel RxNorm: 906644 1 Gram(s) TOP QID to bi lateral knees 12/09/2017 12/21/2019 Inactive meloxicam 15 mg tablet RxNorm: 974642 1 Tablet(s) PO QD 10/20/2015 Inactive Benadryl 25 mg capsule RxNorm: 9210542 1 Capsule(s) PO QHS No Start D ate Active Nexium oral RxNorm: 540777 oral No Start Date 10/20/2015 Inactive Nexium 24HR 22.3 mg capsule,delayed release RxNorm: 345487 1 Ca psule(s) PO QAM No Start Date 11/08/2018 Inactive Fish Oil 1,000 mg capsule RxNorm: 1 Capsule(s) PO QD No Start Date 12/28/2017 Inactive Fish Oil 1,000 mg capsule RxNorm: 1 Capsule(s) PO TID No Start Calin e 11/08/2018 Inactive naproxen sodium 220 mg tablet RxNorm: 834059 1 Tablet(s) PO QHS No Start Date 11/08/2018 Inactive Medication Administered No Medication Administered data Immunizations Vaccine Codes Date Status Tetanus, Diptheria, Pertussis CVX: 115 10/20/2015 Results Observation Observation Code Item Item Code Result Date S vice Location COMPLETE BLOOD COUNT [id number] WBC 5.8 10e9/L 12/27/19 20 Unknown COMPLETE BLOOD COUNT [id number] RBC 4.92 10e12/L 2019 Unknown COMPLETE BLOOD COUNT [id number] HEMOGLOBIN 15.2 g/dL 12/27/19 20 Unknown COMPLETE BLOOD COUNT [id number] HEMATOCRIT 46.5 % 12/27/19 20 Unknown COMPLETE BLOOD COUNT [id number] MCV 94.5 fL 0 Unknown COMPLETE BLOOD COUNT [id number] MCH 30.9 pg 0 Unknown COMPLETE BLOOD COUNT [id number] MCHC 32.7 g/dL 0 Unknown COMPLETE BLOOD COUNT [id number] PLATELET COUNT 227 10e9/L Unknown COMPLETE BLOOD COUNT [id number] Mean Plt Volume 11.9 fL Unknown COMPLETE BLOOD COUNT 8458006 Neut Auto 43.1 % 0 Unknown COMPLETE BLOOD COUNT [id number] Lymph Auto 37.3 % 12/27/19 20 Unknown COMPLETE BLOOD COUNT [id number] Lamb Auto 12.0 % 0 Unknown COMPLETE BLOOD COUNT [id number] RDW 14.3 % 0 Unknown COMPLETE BLOOD COUNT [id number] Eos Auto 7.3 % 0 Unknown COMPLETE BLOOD COUNT [id number] Baso Auto 0.3 % 0 Unknown COMPLETE BLOOD COUNT [id number] Neutrophil Abs 2.50 10e9/L Unknown COMPLETE BLOOD COUNT [id number] Lymphocyte Abs 2.16 10e9/L Unknown COMPLETE BLOOD COUNT [id number] Monocyte Abs 0.70 10e9/L 11/29 Unknown COMPLETE BLOOD COUNT 8101454 Eosinophil Abs 0.42 10e9/L Unknown COMPLETE BLOOD COUNT [id number] RDW-SD 48.0 fL 0 Unknown COMPLETE BLOOD COUNT [id number] Basophil Abs 0.02 10e9/L 11/29 Unknown [facility] 71063 Cholesterol 209 mg/dL 11/10/2018 Unkno wn [facility] 44629 Triglyceride 210 mg/dL 11/10/2018 Unkn own [facility] 09214 HDL CHOLESTEROL 32 mg/dL 11/10/2018 U nknown [facility] 02947 Chol/HDL Ratio 6.53 ratio 11/10/2018 U nknown [facility] 32497 NON-HDL Chol 177 mg/dL 11/10/2018 Unkn own [facility] 74955 LDL Cholesterol 135 mg/dL 11/10/2018 U nknown COMPREHENSIVE METABOLIC 90795 AST 15 U/L 2017 Unknown COMPREHENSIVE METABOLIC 97703 ALT 20 U/L 2017 Unknown COMPREHENSIVE METABOLIC 90159 BUN 16 mg/dL 2017 Unknown COMPREHENSIVE METABOLIC 37354 ALBUMIN 4.4 g/dL 2017 Unknown COMPREHENSIVE METABOLIC 31598 CHLORIDE 105 mmol/L 12/26 Unknown COMPREHENSIVE METABOLIC 90783 Bili Total 0.6 mg/dL 12/26 Unknown COMPREHENSIVE METABOLIC 52885 ALK PHOS 61 U/L 2017 Unknown COMPREHENSIVE METABOLIC 76969 SODIUM 141 mmol/L 12/26 Unknown COMPREHENSIVE METABOLIC 98355 CREATININE 0.90 mg/dL 11/29 Unknown COMPREHENSIVE METABOLIC 48111 CALCIUM 9.7 mg/dL 2017 Unknown COMPREHENSIVE METABOLIC 82264 POTASSIUM 4.2 mmol/L 12/26 Unknown COMPREHENSIVE METABOLIC 19776 Total Protein 6.5 g/dL Unknown COMPREHENSIVE METABOLIC 78791 Glucose 99 mg/dL 2017 Unknown COMPREHENSIVE METABOLIC 01715 Bicarbonate 24 mmol/L 11/29 Unknown COMPREHENSIVE METABOLIC 19521 AGAP 12 mmol/L 2017 Unknown COMPLETE BLOOD COUNT [id number] WBC 5.5 10e9/L 12/27/19 18 Unknown COMPLETE BLOOD COUNT [id number] RBC 4.87 10e12/L 2017 Unknown COMPLETE BLOOD COUNT [id number] HEMOGLOBIN 15.1 g/dL 12/27/19 18 Unknown COMPLETE BLOOD COUNT [id number] HEMATOCRIT 44.9 % 12/27/19 18 Unknown COMPLETE BLOOD COUNT [id number] MCV 92.2 fL 8 Unknown COMPLETE BLOOD COUNT 3527836 MCH 31.0 pg 8 Unknown COMPLETE BLOOD COUNT 8056337 MCHC 33.6 g/dL 8 Unknown COMPLETE BLOOD COUNT 9778855 PLATELET COUNT 244 10e9/L Unknown COMPLETE BLOOD COUNT 5707071 Mean Plt Volume 11.8 fL Unknown COMPLETE BLOOD COUNT 2457247 Neut Auto 42.0 % 8 Unknown COMPLETE BLOOD COUNT [id number] Lymph Auto 39.5 % 12/27/19 18 Unknown COMPLETE BLOOD COUNT 3428314 Lamb Auto 13.0 % 8 Unknown COMPLETE BLOOD COUNT 2350178 RDW 13.8 % 8 Unknown COMPLETE BLOOD COUNT 4327820 Eos Auto 5.3 % 8 Unknown COMPLETE BLOOD COUNT 5707355 Baso Auto 0.2 % 8 Unknown COMPLETE BLOOD COUNT 9984989 Neutrophil Abs 2.31 10e9/L Unknown COMPLETE BLOOD COUNT 9489076 Lymphocyte Abs 2.17 10e9/L Unknown COMPLETE BLOOD COUNT [id number] Monocyte Abs 0.72 10e9/L 11/29 Unknown COMPLETE BLOOD COUNT 3051040 Eosinophil Abs 0.29 10e9/L Unknown COMPLETE BLOOD COUNT 0767157 RDW-SD 45.6 fL 8 Unknown COMPLETE BLOOD COUNT 5110052 Basophil Abs 0.01 10e9/L 11/29 Unknown PSA EQUIMOLAR JORI 13662 PSA Total 1.40 ng/mL 8 Unknown GFR CALC 5722647 GFR Non Afr Amr >60 mL/min 12/26/2017 Un known GFR CALC 6436175 GFR Afr Amr >60 mL/min 12/26/2017 Unknow n [facility] 30318 Cholesterol 239 mg/dL 12/26/2017 Unkno wn [facility] 76926 Triglyceride 140 mg/dL 12/26/2017 Unkn own [facility] 16317 HDL CHOLESTEROL 48 mg/dL 12/26/2017 U nknown [facility] 40377 Chol/HDL Ratio 4.98 ratio 12/26/2017 U nknown [facility] GROUP 02439 NON-HDL Chol 191 mg/dL 12/26/2017 Unkn own [facility] 51864 LDL Cholesterol 163 mg/dL 12/26/2017 U nknown THYROID STIMULATING HORMONE 08506 TSH 1.633 uIU/mL 12/26/2017 Unknown COMPLETE BLOOD COUNT 3856198 WBC 5.3 10e9/L 12/29/19 16 Unknown COMPLETE BLOOD COUNT 7560759 RBC 4.84 10e12/L 2015 Unknown COMPLETE BLOOD COUNT 5032091 HEMOGLOBIN 14.9 g/dL 12/29/19 16 Unknown COMPLETE BLOOD COUNT 4870728 HEMATOCRIT 44.3 % 12/29/19 16 Unknown COMPLETE BLOOD COUNT 6556416 MCV 91.5 fL 6 Unknown COMPLETE BLOOD COUNT 0426693 MCH 30.8 pg 6 Unknown COMPLETE BLOOD COUNT 8917067 MCHC 33.6 g/dL 6 Unknown COMPLETE BLOOD COUNT 6204824 PLATELET COUNT 220 10e9/L 06/2015 Unknown COMPLETE BLOOD COUNT 0238154 Mean Plt Volume 11.8 fL 06/2015 Unknown COMPLETE BLOOD COUNT 1563565 Neut Auto 42.3 % 6 Unknown COMPLETE BLOOD COUNT 5943226 Lymph Auto 39.0 % 12/29/19 16 Unknown COMPLETE BLOOD COUNT 9003765 Lamb Auto 13.6 % 6 Unknown COMPLETE BLOOD COUNT 9399669 RDW 14.0 % 6 Unknown COMPLETE BLOOD COUNT 1019773 Eos Auto 4.7 % 6 Unknown COMPLETE BLOOD COUNT 3102428 Baso Auto 0.4 % 6 Unknown COMPLETE BLOOD COUNT 3092286 Neutrophil Abs 2.24 10e9/L Unknown COMPLETE BLOOD COUNT 2435337 Lymphoctye Abs 2.07 10e9/L Unknown COMPLETE BLOOD COUNT 9305738 Monocyte Abs 0.72 10e9/L 06/2015 Unknown COMPLETE BLOOD COUNT 2147750 Eosinophil Abs 0.25 10e9/L Unknown COMPLETE BLOOD COUNT 3786724 RDW-SD 45.7 fL 6 Unknown COMPLETE BLOOD COUNT 6694355 Basophil Abs 0.02 10e9/L 06/2015 Unknown PSA EQUIMOLAR JORI 87234 PSA Total 1.11 ng/mL 6 Unknown COMPREHENSIVE METABOLIC 68296 AST 16 U/L 2015 Unknown COMPREHENSIVE METABOLIC 38282 ALT 20 U/L 2015 Unknown COMPREHENSIVE METABOLIC 28004 BUN 12 mg/dL 2015 Unknown COMPREHENSIVE METABOLIC 95626 ALBUMIN 4.3 g/dL 2015 Unknown COMPREHENSIVE METABOLIC 76734 CHLORIDE 107 mmol/L 12/28 Unknown COMPREHENSIVE METABOLIC 50910 Bili Total 0.7 mg/dL 12/28 Unknown COMPREHENSIVE METABOLIC 01642 ALK PHOS 53 U/L 2015 Unknown COMPREHENSIVE METABOLIC 09118 SODIUM 141 mmol/L 12/28 Unknown COMPREHENSIVE METABOLIC 92035 CREATININE 0.88 mg/dL 06/2015 Unknown COMPREHENSIVE METABOLIC 56790 CALCIUM 9.3 mg/dL 2015 Unknown COMPREHENSIVE METABOLIC 10571 POTASSIUM 4.1 mmol/L 12/28 Unknown COMPREHENSIVE METABOLIC 02634 Total Protein 6.5 g/dL Unknown COMPREHENSIVE METABOLIC 37210 Glucose 95 mg/dL 2015 Unknown COMPREHENSIVE METABOLIC 95089 Bicarbonate 27 mmol/L 06/2015 Unknown COMPREHENSIVE METABOLIC 03148 AGAP 7 mmol/L 2015 Unknown FREE T4 63074 T4 Free 1.11 ng/dL 12/29/2015 Unknown GFR CALC 6969659 GFR Non Afr Amr >60 mL/min 12/29/2015 Un known GFR CALC 6565789 GFR Afr Amr >60 mL/min 12/29/2015 Unknow n THYROID STIMULATING HORMONE 82403 TSH 0.687 uIU/mL 12/29/2015 Unknown [facility] 53490 Cholesterol 226 mg/dL 12/29/2015 Unkno wn [facility] 57072 Triglyceride 101 mg/dL 12/29/2015 Unkn own [facility] 97017 HDL CHOLESTEROL 57 mg/dL 12/29/2015 U nknown L[facility] GROUP 70733 Chol/HDL Ratio 3.96 ratio 12/29/2015 U nknown L[facility] GROUP 91876 NON-HDL Chol 169 mg/dL 12/29/2015 Unkn own [facility] 49532 LDL Cholesterol 149 mg/dL 12/29/2015 U nknown COMPREHENSIVE METABOLIC 96426 AST 17 U/L 2013 Unknown COMPREHENSIVE METABOLIC 81922 ALT 24 IU/L 2013 Unknown COMPREHENSIVE METABOLIC 49876 BUN 18 MG/DL 2013 Unknown COMPREHENSIVE METABOLIC 25589 ALBUMIN 4.4 GM/DL 2013 Unknown COMPREHENSIVE METABOLIC 13755 CHLORIDE 108 MMOL/L 06/03 Unknown COMPREHENSIVE METABOLIC 77906 BILI TOT 0.4 MG/DL 2013 Unknown COMPREHENSIVE METABOLIC 35579 ALK PHOS 58 U/L 2013 Unknown COMPREHENSIVE METABOLIC 46756 SODIUM 139 MMOL/L 06/03 Unknown COMPREHENSIVE METABOLIC 21637 CREATININE 0.86 MG/DL 10/2013 Unknown COMPREHENSIVE METABOLIC 79243 CALCIUM 9.6 MG/DL 2013 Unknown COMPREHENSIVE METABOLIC 32189 POTASSIUM 4.3 MMOL/L 06/03 Unknown COMPREHENSIVE METABOLIC 88440 PROT TOT 6.0 GM/DL 2013 Unknown COMPREHENSIVE METABOLIC 38622 Glucose 104 MG/DL 2013 Unknown COMPREHENSIVE METABOLIC 94075 BICARB 26 MMOL/L 2013 Unknown COMPREHENSIVE METABOLIC 78831 ANION GAP 5 MEQ/L 2013 Unknown GFR CALC 0736970 GFR AA >60 ML/MIN 06/03/2014 Unknown GFR CALC 7268713 GFR NON-AA >60 ML/MIN 06/03/2014 Unknown COMPLETE BLOOD COUNT 9912063 WBC 4.7 10e9/L 06/03/20 14 Unknown COMPLETE BLOOD COUNT 5237195 RBC 4.85 10e12/L 2013 Unknown COMPLETE BLOOD COUNT 9547395 HGB 14.9 g/dL 4 Unknown COMPLETE BLOOD COUNT 1737688 HCT DET 44.2 % 4 Unknown COMPLETE BLOOD COUNT 9886581 MCV 91.1 fL 4 Unknown COMPLETE BLOOD COUNT 2281665 MCH 30.7 pg 4 Unknown COMPLETE BLOOD COUNT 8666079 MCHC 33.7 g/dL 4 Unknown COMPLETE BLOOD COUNT 7567331 PLT 245 10e9/L 06/03/20 14 Unknown COMPLETE BLOOD COUNT 8157645 MPV 11.7 fL 4 Unknown COMPLETE BLOOD COUNT 7031317 YOSSI % 37.0 % 4 Unknown COMPLETE BLOOD COUNT 7174599 LY % 44.2 % 4 Unknown COMPLETE BLOOD COUNT 7789554 MON % 14.1 % 4 Unknown COMPLETE BLOOD COUNT 9809966 EOS % 4.5 % 4 Unknown COMPLETE BLOOD COUNT 5765329 BASO % 0.2 % 4 Unknown COMPLETE BLOOD COUNT 2615888 RDW 13.3 % 4 Unknown COMPLETE BLOOD COUNT 1538224 ABS YOSSI 1.74 10e9/L 014 Unknown COMPLETE BLOOD COUNT 2189948 ABS LYMPH 2.08 10e9/L 014 Unknown COMPLETE BLOOD COUNT 9342971 ABS MONO 0.66 10e9/L 014 Unknown COMPLETE BLOOD COUNT 0985428 ABS EOS 0.21 10e9/L 014 Unknown COMPLETE BLOOD COUNT 5231664 ABS BASO 0.01 10e9/L 014 Unknown COMPLETE BLOOD COUNT 9183210 RDW-SD 43.5 fL 4 Unknown PSA EQUIMOLAR JORI 71627 PSA EQ 0.87 NG/ML 4 Unknown FREE T4 80717 FREE T4 1.21 NG/DL 06/03/2014 Unknown THYROID STIMULATING HORMONE 88777 TSH 0.705 uIU/ML 06/03/2014 Unknown [facility] 64649 HDL TEST 49 MG/DL 06/03/2014 Unknown [facility] 34737 TRIG 72 MG/DL 06/03/2014 Unknown [facility] 63467 TEST LDL 159 MG/DL 06/03/2014 Unknown [facility] 70029 CHOL 222 MG/DL 06/03/2014 Unknown [facility] GROUP 95749 RCHOL/HDL 4.53 RATIO 06/03/2014 Unknow n [facility] 69018 NON-HDL CH 173 MG/DL 06/03/2014 Unknow n Procedures Procedure Codes Date ROUTINE VENIPUNCTURE CPT-4: 83869 12/27/2019 ASSAY OF FREE THYROXINE CPT-4: 73206 12/27/2019 ASSAY THYROID STIM HORMONE CPT-4: 22532 12/27/2019 COMPREHEN METABOLIC PANEL CPT-4: 89068 12/27/2019 COMPLETE CBC W/AUTO DIFF WBC CPT-4: 65204 12/27/2019 LIPID PANEL CPT-4: 25469 12/27/2019 ASSAY OF PSA TOTAL CPT-4: 44792 12/27/2019 ROUTINE VENIPUNCTURE CPT-4: 22343 11/10/2018 LIPID PANEL CPT-4: 81531 11/10/2018 ROUTINE VENIPUNCTURE CPT-4: 92160 12/26/2017 ASSAY THYROID STIM HORMONE CPT-4: 83312 12/26/2017 COMPREHEN METABOLIC PANEL CPT-4: 84499 12/26/2017 COMPLETE CBC W/AUTO DIFF WBC CPT-4: 00466 12/26/2017 LIPID PANEL CPT-4: 06580 12/26/2017 ASSAY OF PSA TOTAL CPT-4: 43775 12/26/2017 ROUTINE VENIPUNCTURE CPT-4: 45167 12/29/2015 ASSAY OF FREE THYROXINE CPT-4: 79832 12/29/2015 ASSAY THYROID STIM HORMONE CPT-4: 81042 12/29/2015 COMPREHEN METABOLIC PANEL CPT-4: 47636 12/29/2015 COMPLETE CBC W/AUTO DIFF WBC CPT-4: 54421 12/29/2015 LIPID PANEL CPT-4: 45756 12/29/2015 ASSAY OF PSA TOTAL CPT-4: 92052 12/29/2015 TDAP VACCINE 7 YRS/> IM CPT-4: 75391 10/20/2015 IMMUNIZATION ADMIN CPT-4: 97809 10/20/2015 ROUTINE VENIPUNCTURE CPT-4: 62531 06/03/2014 ASSAY OF FREE THYROXINE CPT-4: 55936 06/03/2014 ASSAY THYROID STIM HORMONE CPT-4: 30918 06/03/2014 COMPREHEN METABOLIC PANEL CPT-4: 19247 06/03/2014 COMPLETE CBC W/AUTO DIFF WBC CPT-4: 27296 06/03/2014 LIPID PANEL CPT-4: 29500 06/03/2014 ASSAY OF PSA TOTAL CPT-4: 31204 06/03/2014 Vital Signs Date Vital 12/22/2019 Blood Pressure 1: 150/96 Code: 8480-6 BMI: 33.1 Code: 21642-4 Heart Rate 1: 88 bpm Height: 6' [...] 1: 126/80 Code: 8480-6 BMI: 32.8 Code: 43437-6 Heart Rate 1: 82 bpm Height: 6' Respiratory Rate: 20 bpm SpO2: 96% Tempera ture: 36.8 (C) / 98.2 (F) Weight: 242 lbs 12/26/2017 Blood Pressure 1: 114/64 Code: 8480-6 He art Rate 1: 66 bpm 12/09/2017 Blood Pressure 1: 144/96 Code: 8480-6 BMI: 33.1 Code: 79306-1 Heart Rate 1: 72 bpm Height: 6' Respiratory Rate: 20 bpm Temperature: 36 .9 (C) / 98.4 (F) Weight: 244 lbs 12/29/2015 Blood Pressure 1: 132/86 Code: 8480-6 He art Rate 1: 72 bpm 10/20/2015 Blood Pressure 1: 142/94 Code: 8480-6 BMI: 32.8 Code: 32095-2 Heart Rate 1: 72 bpm Height: 6' Respiratory Rate: 20 bpm SpO2: 96% Tempera ture: 36.7 (C) / 98.1 (F) Weight: 242 lbs 05/24/2014 Blood Pressure 1: 138/90 Code: 8480-6 BMI: 31.3 Code: 53074-1 Heart Rate 1: 80 bpm Height: 6' [...] establish Encounters Encounter Performer Location Codes Date ([id number]) NURSE/OUTPATIENT VISIT EST Diagnosis: Encounter for general adult medical examination without abnormal findings[ICD10: Z00.00] Diagnosis: Encounter for screening for malignant neoplasm of colon[ICD10: Z12.11] Diagnosis: Essential (primary) hypertension[ICD10: I10] Diagnosis: Mixed hyperlipidemia[ICD10: E78.2] Diagnosis: Other fatigue[ICD10: R53.83] Didi Oregwenjocelin ESTEVEZDIDI [employer] CPT-4: 09410 12/27/2019 ([id number]) PREV VISIT EST AGE 40-64 Diagnosis: Encounter [...] Obstructive sleep apnea (adult) (pediatric)[ICD10: G47.33] Kait JACKSON [employer] CPT-4: 15939 12/22/2019 ([id number]) OFFICE/OUTPATIENT VISIT EST Diagnosis: Essential (primary) hypertension[ICD10: I10] Diagnosis: Cardiac arrhythmia, unspecified[ICD10: I49.9] Diagnosis: Other fatigue[ICD10: R53.83] Didi JACKSON [employer] CPT-4: 75944 12/15/2018 OFFICE/OUTPATIENT VISIT EST Diagnosis: Cardiac arrhythmia, unspecified[ICD10: I49.9] Diagnosis: Bitten or stung by nonvenomous insect and other nonvenomous arthropods, initial encounter[ICD10: W57.XXXA] Diagnosis: Abnormal levels of other serum enzymes[ICD10: R74.8] Diagnosis: Mixed hyperlipidemia[ICD10: E78.2] Didi KLEIN [employer] CPT-4: 04685 11/12/2018 ([id number]) NURSE/OUTPATIENT VISIT EST Diagnosis: Essential (primary) hypertension[ICD10: I10] Diagnosis: Mixed hyperlipidemia[ICD10: E78.2] Didi KLEIN [employer] CPT-4: 17239 11/10/2018 OFFICE/OUTPATIENT VISIT EST Diagnosis: Other fatigue[ICD10: R53.83] Diagnosis: Headache[ICD10: R51] Diagnosis: Fever, unspecified[ICD10: R50.9] Diagnosis: Rash and other nonspecific skin eruption[ICD10: R21] Diagnosis: Dyspnea, unspecified[ICD10: R06.00] Diagnosis: Cardiac arrhythmia, unspecified[ICD10: I49.9] Brooklyn JACKSON [employer] CPT-4: 20761 11/09/2018 ([id number]) OFFICE/OUTPATIENT VISIT EST Diagnosis: Essential (primary) hypertension[ICD10: I10] Diagnosis: Gastro-esophageal reflux disease without esophagitis[ICD10: K21.9] Diagnosis: Pain in left knee[ICD10: M25.562] Diagnosis: Pain in left foot[ICD10: M79.672] Kait Evette Florentino [employer] CPT-4: 26523 01/29/2018 ([id number]) NURSE/OUTPATIENT VISIT EST Diagnosis: Encounter for general adult medical examination without abnormal findings[ICD10: Z00.00] Diagnosis: Mixed hyperlipidemia[ICD10: E78.2] Diagnosis: Essential (primary) hypertension[ICD10: I10] Didi Cristigwenjocelin DIDI [employer] CPT-4: 96236 12/26/2017 ([id number]) OFFICE/OUTPATIENT VISIT EST Diagnosis: Essential (primary) hypertension[ICD10: I10] Diagnosis: Gastro-esophageal reflux disease without esophagitis[ICD10: K21.9] Diagnosis: Bilateral primary osteoarthritis of knee[ICD10: M17.0] Diagnosis: Bilateral primary osteoarthritis of first carpometacarpal joints[ICD10: M18.0] Diagnosis: Obstructive sleep apnea (adult) (pediatric)[ICD10: G47.33] Diagnosis: Lymphedema, not elsewhere classified[ICD10: I89.0] Didi JACKSON [employer] CPT-4: 14635 12/09/2017 ([id number]) OFFICE/OUTPATIENT VISIT EST Diagnosis: Encounter for general adult medical examination without abnormal findings[ICD10: Z00.00] Diagnosis: Elevated blood-pressure reading, without diagnosis of hypertension[ICD10: R03.0] Didi ARAIZA [employer] CPT- 4: 57414 12/29/2015 ([id number]) PREV VISIT EST AGE 40-64 Diagnosis: Encounter [...] Z71.6] Diagnosis: VACCINE FOR TDAP[ICD10: Z23] Jocelyn Mac DIDI ARAIZA [employer] CPT-4: 22177 10/20/2015 ([id number]) OFFICE/OUTPATIENT VISIT EST Diagnosis: ROUTINE MEDICAL EXAM[ICD9: V70.0] Didi ARAIZA [employer] CPT-4: 59258 06/03/2014 OFFICE/OUTPATIENT VISIT NEW Diagnosis: GERD[ICD9: 530.81] Diagnosis: OBSTRUCTIVE SLEEP APNEA[ICD9: 327.23] Negra ARAIZA [employer] CPT-4: 90207 05/24/2014 Plan of Care Planned Activity Notes Codes Status Date Visit Diagnosis Plan: Gastro-esophageal reflux disease without [...] so referral sent to dr. iglesias at [address] for evaluation. ICD-9 : 715.96 ICD-10 [...] ICD-10 : I10 12/22/2019 Appointment: Kait Alas [address] [place], [place] [id number] Annual Well Visit 12/22/2019 Patient Education: hydrochlorothiazide- [employer] [facility] neelam [id number] [email or web address] Completed 12/22/2019 Patient Education: High Blood Pressure [...] : I49.9 12/15/2018 Appointment: Didi Araiza WPtel: [address] [place], [place] [phone] [place] FOLLOW UP 12/15/2018 Visit Diagnosis Plan: [...] 790.5 ICD-10 : R74.8 11/12/2018 Appointment: Didi Araizatel: [address] [place], [place] [phone] [place] FOLLOW UP 11/12/2018 Patient Education: doxycycline hyclate- [facility] [id number] [email or web address] Completed 11/12/2018 Appointment: Didi Araizatel: [address] [place], [place] [phone] [place] LAB 11/10/2018 Visit Diagnosis Plan: Other [...] ICD-10 : R06.00 11/09/2018 Appointment: Brooklyn Dinh [address] ACUTE ILLNESS 11/09/2018 Visit Diagnosis Plan: Essential [...] ICD-10 : M25.562 01/29/2018 Appointment: Kait Alas [address] [facility] FOLLOW UP 01/29/2018 Patient Education: Patient Medication Summary Completed 01/29/2018 Appointment: Didi Araiza WPtel: [address] [place] [address] LAB 12/26/2017 Patient Education: Patient Medication Summary [...] : G47.33 12/09/2017 Appointment: Didi Araiza WPtel: [address] [place] [address] ACUTE ILLNESS 12/09/2017 Patient Education: Patient Medication Summary Completed 12/09/2017 Appointment: Kait Alas [address] [place] [address] RESCHEDULED 12/01/2017 Appointment: Didi Araiza WPtel: [address] [place] [address] US LAB 12/29/2015 Patient Education: Patient Medication [...] aid if need be Form requested from [facility] for new bipap 10/20/2015 Appointment: Jocelyn Watts [address] [facility] 10/18 confirmed~sl Annual Well Visit 10/20/2015 Patient Education: Patient Medication Summary Completed 10/20/2015 Appointment: Didi Araiza WPtel: [address] [facility] LAB 06/03/2014 Patient Education: Patient Medication Summary Completed 06/03/2014 Appointment: Negra Mejia WPtel: [address] [facility] NEW PATIENT 05/24/2014 Patient Education: Patient Medication [...] aid if need be Form requested from [facility] for new bipap Medical Equipment No Medical Equipment data Health Concerns Section Health Concerns data not found Goals Section Goals data not found Interventions Section Interventions data not found Health Status Evaluations/Outcomes Section Health Status Evaluations/Outcomes data not found Advance Directives No Advance Directive data
--- OUTSIDE RECORDS SUMMARY | 2020-01-21 11:15 | XMS REPORT | CCD ---
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 Name Role Phone Didi Araiza D.O., PP Unavailable CCM Unavailable Summary Purpose Interface Exchange Insurance Providers Payer name Policy type / Coverage type Covered green party ID Effective Begin Date Effective End Date Blue Cross Blue Shield Blue Cross/Blue Shield [id number] 2019 Unknown Family History Family History data [...] Fill Instructions hydrochlorothiazide 25 mg tablet RxNorm: 637720 1 Tablet(s) Oral QD 12/22/2019 03/21/2020 Active pantoprazole 40 mg tablet,delayed release RxNorm: 927394 1 Tablet(s) Oral QD Due for updated fasting labs and appointment 12/06/2019 01/05/2020 Active Due for updated fasting labs and appointment before 90 day supply hydrochlorothiazide 12.5 mg tablet RxNorm: 693502 TAKE ONE TABLET BY MOUTH EVERY MORNING FOR BLOOD PRESSURE 10/04/2019 No Stop Date Active pantoprazole 40 mg tablet,delayed release RxNorm: 480114 TAKE ONE TABLET BY MOUTH DAILY 09/05/2019 12/05/2019 Inactive hydrochlorothiazide 12.5 mg tablet RxNorm: 329340 TAKE ONE TABLET BY MOUTH EVERY MORNING FOR BLOOD PRESSURE 07/05/2019 10/03/2019 Inactive pantoprazole 40 mg tablet,delayed release RxNorm: 231463 TAKE ONE TABLET BY MOUTH DAILY 05/29/2019 09/04/2019 Inactive pantoprazole 40 mg tablet,delayed release RxNorm: 566607 1 Tabl et(s) PO QD 03/04/2019 05/28/2019 Inactive hydrochlorothiazide 12.5 mg tablet RxNorm: 348716 TAKE ONE TABLET BY MOUTH EVERY MORNING FOR BLOOD PRESSURE 01/11/2019 07/04/2019 Inactive doxycycline hyclate 100 mg capsule RxNorm: 5215026 1 Capsule(s) PO BID 11/12/2018 11/21/2018 Inactive pantoprazole 40 mg tablet,delayed release RxNorm: 566266 TAKE ONE TABLET BY MOUTH DAILY 10/30/2018 03/04/2019 Inactive hydrochlorothiazide 12.5 mg tablet RxNorm: 667585 TAKE ONE TABLET BY MOUTH EVERY MORNING FOR BLOOD PRESSURE 10/12/2018 01/09/2019 Inactive pantoprazole 40 mg tablet,delayed release RxNorm: 367919 TAKE ONE TABLET BY MOUTH DAILY 08/31/2018 09/29/2018 Inactive pantoprazole 40 mg tablet,delayed release RxNorm: 189531 1 Tabl et(s) PO QD 04/03/2018 08/30/2018 Inactive hydrochlorothiazide 12.5 mg tablet RxNorm: 625778 TAKE ONE TABLET BY MOUTH EVERY MORNING FOR BLOOD PRESSURE 03/30/2018 09/25/2018 Inactive Medrol (John) 4 mg tablets in a dose pack RxNorm: 595094 Tablet(s) PO take as directed 01/29/2018 11/08/2018 Inactive pantoprazole 40 mg tablet,delayed release RxNorm: 013797 1 Tablet(s) PO BID for 1 month then decrease to 1 po daily 12/29/2017 04/02/2018 Inactive hydrochlorothiazide 12.5 mg tablet RxNorm: 108880 1 Tablet(s) P O QAM for BP 12/29/2017 03/28/2018 Inactive hydrochlorothiazide 12.5 mg tablet RxNorm: 171504 1 Tablet(s) P O QAM for BP 12/09/2017 12/28/2017 Inactive pantoprazole 40 mg tablet,delayed release RxNorm: 274361 1 Tablet(s) PO BID for 1 month then decrease to 1 po daily 12/09/2017 04/03/2018 Inactive Voltaren 1 % topical gel RxNorm: 580797 1 Gram(s) TOP QID to bi lateral knees 12/09/2017 12/21/2019 Inactive meloxicam 15 mg tablet RxNorm: 547532 1 Tablet(s) PO QD 10/20/2015 Inactive Benadryl 25 mg capsule RxNorm: 9802224 1 Capsule(s) PO QHS No Start D ate Active Nexium oral RxNorm: 802684 oral No Start Date 10/20/2015 Inactive Nexium 24HR 22.3 mg capsule,delayed release RxNorm: 500724 1 Ca psule(s) PO QAM No Start Date 11/08/2018 Inactive Fish Oil 1,000 mg capsule RxNorm: 1 Capsule(s) PO QD No Start Date 12/28/2017 Inactive Fish Oil 1,000 mg capsule RxNorm: 1 Capsule(s) PO TID No Start Calin e 11/08/2018 Inactive naproxen sodium 220 mg tablet RxNorm: 970774 1 Tablet(s) PO QHS No Start Date 11/08/2018 Inactive Medication Administered No Medication Administered data Immunizations Vaccine Codes Date Status Tetanus, Diptheria, Pertussis CVX: 115 10/20/2015 Results Observation Observation Code Item Item Code Result Date S ervice Location [facility] 90913 Cholesterol 209 mg/dL 11/10/2018 Unkno wn [facility] 53037 Triglyceride 210 mg/dL 11/10/2018 Unkn own [facility] 76332 HDL CHOLESTEROL 32 mg/dL 11/10/2018 U nknown [facility] 26001 Chol/HDL Ratio 6.53 ratio 11/10/2018 U nknown [facility] 82191 NON-HDL Chol 177 mg/dL 11/10/2018 Unkn own [facility] 05802 LDL Cholesterol 135 mg/dL 11/10/2018 U nknown [facility] 06279 AST 15 U/L 2017 Unknown [facility]PRE[facility]OL[facility] 85065 ALT 20 U/L 2017 Unknown [facility] 11820 BUN 16 mg/dL 2017 Unknown [facility] 68911 ALBUMIN 4.4 g/dL 2017 Unknown [facility] 33154 CHLORIDE 105 mmol/L 12/26 Unknown [facility] 12580 Bili Total 0.6 mg/dL 12/26 Unknown [facility] 16308 ALK PHOS 61 U/L 2017 Unknown [facility] 30799 SODIUM 141 mmol/L 12/26 Unknown [facility] 08439 CREATININE 0.90 mg/dL 11/29 Unknown COMPREHENSIVE MET[facility]OLIC 48865 CALCIUM 9.7 mg/dL 2017 Unknown COMPREHENS[facility] MET[facility]OLIC 45066 POTASSIUM 4.2 mmol/L 12/26 Unknown [facility]OL[facility] 39755 Total Protein 6.5 g/dL Unknown [facility] 55756 Glucose 99 mg/dL 2017 Unknown [facility] 37743 Bicarbonate 24 mmol/L 11/29 Unknown COMPREHENS[facility]OLIC 22538 AGAP 12 mmol/L 2017 Unknown COMPLETE BLOOD COUNT 0886058 WBC 5.5 10e9/L 12/27/19 18 Unknown COMPLETE BLOOD COUNT 6590143 RBC 4.87 10e12/L 2017 Unknown COMPLETE BLOOD COUNT [id number] HEMOGLOBIN 15.1 g/dL 12/27/19 18 Unknown COMPLETE BLOOD COUNT 5105015 HEMATOCRIT 44.9 % 12/27/19 18 Unknown COMPLETE BLOOD COUNT 2349574 MCV 92.2 fL 8 Unknown COMPLETE BLOOD COUNT 6766154 MCH 31.0 pg 8 Unknown COMPLETE BLOOD COUNT 9694586 MCHC 33.6 g/dL 8 Unknown COMPLETE BLOOD COUNT 0918622 PLATELET COUNT 244 10e9/L Unknown COMPLETE BLOOD COUNT 2096656 Mean Plt Volume 11.8 fL Unknown COMPLETE BLOOD COUNT 6102905 Neut Auto 42.0 % 8 Unknown COMPLETE BLOOD COUNT 4468518 Lymph Auto 39.5 % 12/27/19 18 Unknown COMPLETE BLOOD COUNT 8968651 Fallon Auto 13.0 % 8 Unknown COMPLETE BLOOD COUNT 1463157 RDW 13.8 % 8 Unknown COMPLETE BLOOD COUNT 1541844 Eos Auto 5.3 % 8 Unknown COMPLETE BLOOD COUNT 7042896 Baso Auto 0.2 % 8 Unknown COMPLETE BLOOD COUNT 9104497 Neutrophil Abs 2.31 10e9/L Unknown COMPLETE BLOOD COUNT 9468444 Lymphocyte Abs 2.17 10e9/L Unknown COMPLETE BLOOD COUNT 7775821 Monocyte Abs 0.72 10e9/L 11/29 Unknown COMPLETE BLOOD COUNT 6286377 Eosinophil Abs 0.29 10e9/L Unknown COMPLETE BLOOD COUNT 0946624 RDW-SD 45.6 fL 8 Unknown COMPLETE BLOOD COUNT 5545028 Basophil Abs 0.01 10e9/L 11/29 Unknown PSA EQUIMOLAR JORI 53897 PSA Total 1.40 ng/mL 8 Unknown GFR CALC 1917429 GFR Non Afr Amr >60 mL/min 12/26/2017 Un known GFR CALC 2449269 GFR Afr Amr >60 mL/min 12/26/2017 Unknow n [facility] 66191 Cholesterol 239 mg/dL 12/26/2017 Unkno wn [facility] 68783 Triglyceride 140 mg/dL 12/26/2017 Unkn own [facility] 38976 HDL CHOLESTEROL 48 mg/dL 12/26/2017 U nknown [facility] 30307 Chol/HDL Ratio 4.98 ratio 12/26/2017 U nknown [facility] 11301 NON-HDL Chol 191 mg/dL 12/26/2017 Unkn own [facility] 58996 LDL Cholesterol 163 mg/dL 12/26/2017 [facility]IM[facility] HORMONE 42142 TSH 1.633 uIU/mL 12/26/2017 Unknown COMPLETE BLOOD COUNT 6500456 WBC 5.3 10e9/L 12/29/19 16 Unknown COMPLETE BLOOD COUNT 6796482 RBC 4.84 10e12/L 2015 Unknown COMPLETE BLOOD COUNT 7233580 HEMOGLOBIN 14.9 g/dL 12/29/19 16 Unknown COMPLETE BLOOD COUNT 1016571 HEMATOCRIT 44.3 % 12/29/19 16 Unknown COMPLETE BLOOD COUNT 9736065 MCV 91.5 fL 6 Unknown COMPLETE BLOOD COUNT 6053992 MCH 30.8 pg 6 Unknown COMPLETE BLOOD COUNT 3114832 MCHC 33.6 g/dL 6 Unknown COMPLETE BLOOD COUNT 9378434 PLATELET COUNT 220 10e9/L 06/2015 Unknown COMPLETE BLOOD COUNT 9712958 Mean Plt Volume 11.8 fL 06/2015 Unknown COMPLETE BLOOD COUNT 2117923 Neut Auto 42.3 % 6 Unknown COMPLETE BLOOD COUNT 3016235 Lymph Auto 39.0 % 12/29/19 16 Unknown COMPLETE BLOOD COUNT 8263533 Fallon Auto 13.6 % 6 Unknown COMPLETE BLOOD COUNT 0205812 RDW 14.0 % 6 Unknown COMPLETE BLOOD COUNT 9021600 Eos Auto 4.7 % 6 Unknown COMPLETE BLOOD COUNT 1771987 Baso Auto 0.4 % 6 Unknown COMPLETE BLOOD COUNT 4138687 Neutrophil Abs 2.24 10e9/L Unknown COMPLETE BLOOD COUNT 3601477 Lymphoctye Abs 2.07 10e9/L Unknown COMPLETE BLOOD COUNT 3030695 Monocyte Abs 0.72 10e9/L 06/2015 Unknown COMPLETE BLOOD COUNT 3997027 Eosinophil Abs 0.25 10e9/L Unknown COMPLETE BLOOD COUNT 9084999 RDW-SD 45.7 fL 6 Unknown COMPLETE BLOOD COUNT [id number] Basophil Abs 0.02 10e9/L 06/2015 Unknown PSA EQUIMOLAR JORI 48221 PSA Total 1.11 ng/mL 6 Unknown COMPREHENSIVE METABOLIC 20214 AST 16 U/L 2015 Unknown COMPREHENSIVE METABOLIC 72407 ALT 20 U/L 2015 Unknown COMPREHENSIVE METABOLIC 87817 BUN 12 mg/dL 2015 Unknown COMPREHENSIVE METABOLIC 26946 ALBUMIN 4.3 g/dL 2015 Unknown COMPREHENSIVE METABOLIC 95957 CHLORIDE 107 mmol/L 12/28 Unknown COMPREHENSIVE METABOLIC 02041 Bili Total 0.7 mg/dL 12/28 Unknown COMPREHENSIVE METABOLIC 88931 ALK PHOS 53 U/L 2015 Unknown COMPREHENSIVE METABOLIC 97533 SODIUM 141 mmol/L 12/28 Unknown COMPREHENSIVE METABOLIC 12278 CREATININE 0.88 mg/dL 06/2015 Unknown COMPREHENSIVE METABOLIC 58714 CALCIUM 9.3 mg/dL 2015 Unknown COMPREHENSIVE METABOLIC 70450 POTASSIUM 4.1 mmol/L 12/28 Unknown COMPREHENSIVE METABOLIC 96781 Total Protein 6.5 g/dL Unknown [facility] 49121 Glucose 95 mg/dL 2015 Unknown COMPREHENSIVE METABOLIC 27349 Bicarbonate 27 mmol/L 06/2015 Unknown COMPREHENSIVE METABOLIC 49698 AGAP 7 mmol/L 2015 Unknown FREE T4 65357 T4 Free 1.11 ng/dL 12/29/2015 Unknown GFR CALC 5584266 GFR Non Afr Amr >60 mL/min 12/29/2015 Un known GFR CALC 7699601 GFR Afr Amr >60 mL/min 12/29/2015 Unknow n THYROID STIMULATING HORMONE 35223 TSH 0.687 uIU/mL 12/29/2015 Unknown [facility] 80162 Cholesterol 226 mg/dL 12/29/2015 Unkno wn [facility] 42791 Triglyceride 101 mg/dL 12/29/2015 Unkn own [facility] 46941 HDL CHOLESTEROL 57 mg/dL 12/29/2015 U nknown [facility] 40363 Chol/HDL Ratio 3.96 ratio 12/29/2015 U nknown [facility] 91277 NON-HDL Chol 169 mg/dL 12/29/2015 Unkn own [facility] 88915 LDL Cholesterol 149 mg/dL 12/29/2015 U nknown COMPREHENSIVE METABOLIC 68344 AST 17 U/L 2013 Unknown COMPREHENSIVE METABOLIC 51691 ALT 24 IU/L 2013 Unknown COMPREHENSIVE METABOLIC 82292 BUN 18 MG/DL 2013 Unknown COMPREHENSIVE METABOLIC 94910 ALBUMIN 4.4 GM/DL 2013 Unknown COMPREHENSIVE METABOLIC 40316 CHLORIDE 108 MMOL/L 06/03 Unknown COMPREHENSIVE METABOLIC 11756 BILI TOT 0.4 MG/DL 2013 Unknown COMPREHENSIVE METABOLIC 86388 ALK PHOS 58 U/L 2013 Unknown COMPREHENSIVE METABOLIC 17307 SODIUM 139 MMOL/L 06/03 Unknown COMPREHENSIVE METABOLIC 93622 CREATININE 0.86 MG/DL 10/2013 Unknown COMPREHENSIVE METABOLIC 85905 CALCIUM 9.6 MG/DL 2013 Unknown COMPREHENSIVE METABOLIC 70015 POTASSIUM 4.3 MMOL/L 06/03 Unknown COMPREHENSIVE METABOLIC 23290 PROT TOT 6.0 GM/DL 2013 Unknown COMPREHENSIVE METABOLIC 68098 Glucose 104 MG/DL 2013 Unknown COMPREHENSIVE METABOLIC 22179 BICARB 26 MMOL/L 2013 Unknown COMPREHENSIVE METABOLIC 45747 ANION GAP 5 MEQ/L 2013 Unknown GFR CALC 7451718 GFR AA >60 ML/MIN 06/03/2014 Unknown GFR CALC 1361226 GFR NON-AA >60 ML/MIN 06/03/2014 Unknown COMPLETE BLOOD COUNT 1388001 WBC 4.7 10e9/L 06/03/20 14 Unknown COMPLETE BLOOD COUNT 2825412 RBC 4.85 10e12/L 2013 Unknown COMPLETE BLOOD COUNT 6672310 HGB 14.9 g/dL 4 Unknown COMPLETE BLOOD COUNT 9330994 HCT DET 44.2 % 4 Unknown COMPLETE BLOOD COUNT 2816998 MCV 91.1 fL 4 Unknown COMPLETE BLOOD COUNT 8027105 MCH 30.7 pg 4 Unknown COMPLETE BLOOD COUNT 9476609 MCHC 33.7 g/dL 4 Unknown COMPLETE BLOOD COUNT 0319479 PLT 245 10e9/L 06/03/20 14 Unknown COMPLETE BLOOD COUNT 2695988 MPV 11.7 fL 4 Unknown COMPLETE BLOOD COUNT 1179892 YOSSI % 37.0 % 4 Unknown COMPLETE BLOOD COUNT 0421557 LY % 44.2 % 4 Unknown COMPLETE BLOOD COUNT 7946856 MON % 14.1 % 4 Unknown COMPLETE BLOOD COUNT 0988668 EOS % 4.5 % 4 Unknown COMPLETE BLOOD COUNT 7238872 BASO % 0.2 % 4 Unknown COMPLETE BLOOD COUNT 3588329 RDW 13.3 % 4 Unknown COMPLETE BLOOD COUNT 6582579 ABS YOSSI 1.74 10e9/L 014 Unknown COMPLETE BLOOD COUNT 2342013 ABS LYMPH 2.08 10e9/L 014 Unknown COMPLETE BLOOD COUNT 6830807 ABS MONO 0.66 10e9/L 014 Unknown COMPLETE BLOOD COUNT 8651037 ABS EOS 0.21 10e9/L 014 Unknown COMPLETE BLOOD COUNT 7975478 ABS BASO 0.01 10e9/L 014 Unknown COMPLETE BLOOD COUNT 7303122 RDW-SD 43.5 fL 4 Unknown PSA EQUIMOLAR JORI 58106 PSA EQ 0.87 NG/ML 4 Unknown FREE T4 81934 FREE T4 1.21 NG/DL 06/03/2014 Unknown THYROID STIMULATING HORMONE 66906 TSH 0.705 uIU/ML 06/03/2014 Unknown [facility] 43044 HDL TEST 49 MG/DL 06/03/2014 Unknown [facility] 47478 TRIG 72 MG/DL 06/03/2014 Unknown [facility] 74108 TEST LDL 159 MG/DL 06/03/2014 Unknown [facility] 10130 CHOL 222 MG/DL 06/03/2014 Unknown [facility] 71129 RCHOL/HDL 4.53 RATIO 06/03/2014 Unknow n [facility] 59136 NON-HDL CH 173 MG/DL 06/03/2014 Unknow n Procedures Procedure Codes Date ROUTINE VENIPUNCTURE CPT-4: 67949 12/27/2019 ASSAY OF FREE THYROXINE CPT-4: 13265 12/27/2019 ASSAY THYROID STIM HORMONE CPT-4: 75874 12/27/2019 COMPREHEN METABOLIC PANEL CPT-4: 43949 12/27/2019 COMPLETE CBC W/AUTO DIFF WBC CPT-4: 27712 12/27/2019 LIPID PANEL CPT-4: 18023 12/27/2019 ASSAY OF PSA TOTAL CPT-4: 46145 12/27/2019 ROUTINE VENIPUNCTURE CPT-4: 40320 11/10/2018 LIPID PANEL CPT-4: 62679 11/10/2018 ROUTINE VENIPUNCTURE CPT-4: 84030 12/26/2017 ASSAY THYROID STIM HORMONE CPT-4: 40264 12/26/2017 COMPREHEN METABOLIC PANEL CPT-4: 15847 12/26/2017 COMPLETE CBC W/AUTO DIFF WBC CPT-4: 92528 12/26/2017 LIPID PANEL CPT-4: 50919 12/26/2017 ASSAY OF PSA TOTAL CPT-4: 23578 12/26/2017 ROUTINE VENIPUNCTURE CPT-4: 27993 12/29/2015 ASSAY OF FREE THYROXINE CPT-4: 32675 12/29/2015 ASSAY THYROID STIM HORMONE CPT-4: 75579 12/29/2015 COMPREHEN METABOLIC PANEL CPT-4: 92167 12/29/2015 COMPLETE CBC W/AUTO DIFF WBC CPT-4: 39814 12/29/2015 LIPID PANEL CPT-4: 13590 12/29/2015 ASSAY OF PSA TOTAL CPT-4: 44318 12/29/2015 TDAP VACCINE 7 YRS/> IM CPT-4: 73772 10/20/2015 IMMUNIZATION ADMIN CPT-4: 34369 10/20/2015 ROUTINE VENIPUNCTURE CPT-4: 27868 06/03/2014 ASSAY OF FREE THYROXINE CPT-4: 93862 06/03/2014 ASSAY THYROID STIM HORMONE CPT-4: 25919 06/03/2014 COMPREHEN METABOLIC PANEL CPT-4: 84418 06/03/2014 COMPLETE CBC W/AUTO DIFF WBC CPT-4: 25760 06/03/2014 LIPID PANEL CPT-4: 57386 06/03/2014 ASSAY OF PSA TOTAL CPT-4: 74149 06/03/2014 Vital Signs Date Vital 12/22/2019 Blood Pressure 1: 150/96 Code: 8480-6 BMI: 33.1 Code: 31320-3 Heart Rate 1: 88 bpm Height: 6' [...] 1: 126/80 Code: 8480-6 BMI: 32.8 Code: 12619-1 Heart Rate 1: 82 bpm Height: 6' Respiratory Rate: 20 bpm SpO2: 96% Tempera ture: 36.8 (C) / 98.2 (F) Weight: 242 lbs 12/26/2017 Blood Pressure 1: 114/64 Code: 8480-6 He art Rate 1: 66 bpm 12/09/2017 Blood Pressure 1: 144/96 Code: 8480-6 BMI: 33.1 Code: 93285-5 Heart Rate 1: 72 bpm Height: 6' Respiratory Rate: 20 bpm Temperature: 36 .9 (C) / 98.4 (F) Weight: 244 lbs 12/29/2015 Blood Pressure 1: 132/86 Code: 8480-6 He art Rate 1: 72 bpm 10/20/2015 Blood Pressure 1: 142/94 Code: 8480-6 BMI: 32.8 Code: 35066-7 Heart Rate 1: 72 bpm Height: 6' Respiratory Rate: 20 bpm SpO2: 96% Tempera ture: 36.7 (C) / 98.1 (F) Weight: 242 lbs 05/24/2014 Blood Pressure 1: 138/90 Code: 8480-6 BMI: 31.3 Code: 04368-9 Heart Rate 1: 80 bpm Height: 6' [...] establish Encounters Encounter Performer Location Codes Date (20771) NURSE/OUTPATIENT VISIT EST Diagnosis: Encounter for general adult medical examination without abnormal findings[ICD10: Z00.00] Diagnosis: Encounter for screening for malignant neoplasm of colon[ICD10: Z12.11] Diagnosis: Essential (primary) hypertension[ICD10: I10] Diagnosis: Mixed hyperlipidemia[ICD10: E78.2] Diagnosis: Other fatigue[ICD10: R53.83] Didi [employer] CPT-4: 62290 12/27/2019 ([id number]) PREV VISIT EST AGE 40-64 Diagnosis: Encounter [...] apnea (adult) (pediatric)[ICD10: G47.33] Kait Alas DIDI [employer] CPT-4: 37031 12/22/2019 ([id number]) OFFICE/OUTPATIENT VISIT EST Diagnosis: Essential (primary) hypertension[ICD10: I10] Diagnosis: Cardiac arrhythmia, unspecified[ICD10: I49.9] Diagnosis: Other fatigue[ICD10: R53.83] Didi [employer] CPT-4: 44539 12/15/2018 OFFICE/OUTPATIENT VISIT EST Diagnosis: Cardiac arrhythmia, unspecified[ICD10: I49.9] Diagnosis: Bitten or stung by nonvenomous insect and other nonvenomous arthropods, initial encounter[ICD10: W57.XXXA] Diagnosis: Abnormal levels of other serum enzymes[ICD10: R74.8] Diagnosis: Mixed hyperlipidemia[ICD10: E78.2] Didi KLEIN [employer] CPT-4: 31211 11/12/2018 ([id number]) NURSE/OUTPATIENT VISIT EST Diagnosis: Essential (primary) hypertension[ICD10: I10] Diagnosis: Mixed hyperlipidemia[ICD10: E78.2] Didi MOORE ERNIE [employer] CPT-4: 06771 11/10/2018 OFFICE/OUTPATIENT VISIT EST Diagnosis: Other fatigue[ICD10: R53.83] Diagnosis: Headache[ICD10: R51] Diagnosis: Fever, unspecified[ICD10: R50.9] Diagnosis: Rash and other nonspecific skin eruption[ICD10: R21] Diagnosis: Dyspnea, unspecified[ICD10: R06.00] Diagnosis: Cardiac arrhythmia, unspecified[ICD10: I49.9] Brooklyn Dinh DIDI Plandai BiotechnologyJacquelin [employer] CPT-4: 40917 11/09/2018 ([id number]) OFFICE/OUTPATIENT VISIT EST Diagnosis: Essential (primary) hypertension[ICD10: I10] Diagnosis: Gastro-esophageal reflux disease without esophagitis[ICD10: K21.9] Diagnosis: Pain in left knee[ICD10: M25.562] Diagnosis: Pain in left foot[ICD10: M79.672] Kait Florentino Plandai BiotechnologyJacquelin SEQUEIRACIVICO CPT-4: 93746 01/29/2018 ([id number]) NURSE/OUTPATIENT VISIT EST Diagnosis: Encounter for general adult medical examination without abnormal findings[ICD10: Z00.00] Diagnosis: Mixed hyperlipidemia[ICD10: E78.2] Diagnosis: Essential (primary) hypertension[ICD10: I10] Didi Moyerbrenda DIDI Mikey [employer] CPT-4: 70773 12/26/2017 ([id number]) OFFICE/OUTPATIENT VISIT EST Diagnosis: Essential (primary) hypertension[ICD10: I10] Diagnosis: Gastro-esophageal reflux disease without esophagitis[ICD10: K21.9] Diagnosis: Bilateral primary osteoarthritis of knee[ICD10: M17.0] Diagnosis: Bilateral primary osteoarthritis of first carpometacarpal joints[ICD10: M18.0] Diagnosis: Obstructive sleep apnea (adult) (pediatric)[ICD10: G47.33] Diagnosis: Lymphedema, not elsewhere classified[ICD10: I89.0] Didi JACKSON RosiJacquelin FABBYGWENBRENDA [employer] CPT-4: 42145 12/09/2017 ([id number]) OFFICE/OUTPATIENT VISIT EST Diagnosis: Encounter for general adult medical examination without abnormal findings[ICD10: Z00.00] Diagnosis: Elevated blood-pressure reading, without diagnosis of hypertension[ICD10: R03.0] Didi Jensen ARELIS [employer] CPT- 4: 76501 12/29/2015 ([id number]) PREV VISIT EST AGE 40-64 Diagnosis: Encounter [...] VACCINE FOR TDAP[ICD10: Z23] Jocelyn Jensen FABBYGWENBRENDA [employer] CPT-4: 43503 10/20/2015 ([id number]) OFFICE/OUTPATIENT VISIT EST Diagnosis: ROUTINE MEDICAL EXAM[ICD9: V70.0] Didi Jensen FABBYGWENBRENDA [employer] CPT-4: 93765 06/03/2014 OFFICE/OUTPATIENT VISIT NEW Diagnosis: GERD[ICD9: 530.81] Diagnosis: OBSTRUCTIVE SLEEP APNEA[ICD9: 327.23] Negra Jensen FABBYGWENBRENDA [employer] CPT-4: 94168 05/24/2014 Plan of Care Planned Activity Notes Codes Status Date Visit Diagnosis Plan: Encounter for sammy capmbell adult medical examination without abnormal findings Discussion: [...] Diagnosis Plan: Change in mole Discussion: refer shannan to dr. vigil for removal since located on head and he is going there for screenings ICD-9 : 216.9 ICD-10 : D22.9 12/22/2019 Visit Diagnosis Plan: Bilateral primary osteoarthritis of knee Discussion: educated patient on weight loss and increasing exercise. instructed to wear knee braces to knees to help with pain. patient would like referral so referral sent to dr. iglesias at [address] for evaluation. ICD-9 : 715.96 ICD-10 [...] ICD-10 : G47.33 12/22/2019 Appointment: Kait Alas [address] [place], [place] [address] Annual Well Visit 12/22/2019 Patient Education: hydrochlorothiazide- OptimizeRX Cou neelam [id number] [email or web address] Completed 12/22/2019 Patient Education: High Blood Pressure [...] : I10 12/15/2018 Appointment: Didi Araiza WPtel: [facility] US FOLLOW UP 12/15/2018 Visit Diagnosis Plan: [...] W57.XXXA 11/12/2018 Appointment: Didi Araiza WPtel: [phone] [facility] US FOLLOW UP 11/12/2018 Patient Education: doxycycline hyclate- OptimizeRX Cou neelam [id number] [email or web address] Completed 11/12/2018 Appointment: Didi Araiza WPtel: [phone] [id number] LAB 11/10/2018 Visit Diagnosis Plan: Other fatigue [...] : I49.9 11/09/2018 [facility]ment[facility] [facility] [facility] 11/09/2018 Visit Diagnosis Plan: Essential [...] ICD-10 : M79.672 01/29/2018 Appointment: Kait Alas [address] [place], [place] [id number] FOLLOW UP 01/29/2018 Patient Education: Patient Medication Summary Completed 01/29/2018 Appointment: Didi Araiza WPtel: [address] [place], [place] [phone] US LAB 12/26/2017 Patient Education: Patient Medication [...] : I89.0 12/09/2017 Appointment: Didi Araiza WPtel: [address] [place], [place] [id number] ACUTE ILLNESS 12/09/2017 Patient Education: Patient Medication Summary Completed 12/09/2017 Appointment: Kait Alas [address] [facility] RESCHEDULED 12/01/2017 Appointment: Didi Araiza WPtel: [address] [place], [place] [phone] US LAB 12/29/2015 Patient Education: Patient Medication [...] aid if need be Form requested from [facility] Patient for new bipap 10/20/2015 Appointment[facility] [facility] [facility]sl Annual Well Visit 10/20/2015 Patient Education: Patient Medication Summary Completed 10/20/2015 Appointment[phone] [facility] 06/03/2014 Patient Education: Patient Medication Summary Completed 06/03/2014 Appointment: Negra Mejia [facility] [phone] [facility] [facility] NEW PATIENT 05/24/2014 Patient Education: Patient Medication [...] need be Form requested from [facility] Patient for new bipap Medical Equipment No Medical Equipment data Health Concerns Section Health Concerns data not found Goals Section Goals data not found Interventions Section Interventions data not found Health Status Evaluations/Outcomes Section Health Status Evaluations/Outcomes data not found Advance Directives No Advance Directive data
--- OUTSIDE RECORDS SUMMARY | 2020-01-21 11:15 | XMS REPORT | CCD ---
Author Author Rafael Mejia APRN Organization [facility] Address [address] [place] [address] Phone Care Team Providers [facility] Supervisor Name Role Phone [facility] D.O., PP Unavailable CCM Unavailable Summary Purpose Interface Exchange Insurance Providers Payer name Policy type / Coverage type Covered republican ID Effective Begin Date Effective End Date Blue Cross Blue Shield Blue Cross/Blue Shield [id number] 2019 Unknown Family History Family History data [...] Fill Instructions hydrochlorothiazide 25 mg tablet RxNorm: 563503 1 Tablet(s) Oral QD 12/22/2019 03/21/2020 Active pantoprazole 40 mg tablet,delayed release RxNorm: 029002 1 Tablet(s) Oral QD Due for updated fasting labs and appointment 12/06/2019 01/05/2020 Active Due for updated fasting labs and appointment before 90 day supply hydrochlorothiazide 12.5 mg tablet RxNorm: 058945 TAKE ONE TABLET BY MOUTH EVERY MORNING FOR BLOOD PRESSURE 10/04/2019 No Stop Date Active pantoprazole 40 mg tablet,delayed release RxNorm: 471726 TAKE ONE TABLET BY MOUTH DAILY 09/05/2019 12/05/2019 Inactive hydrochlorothiazide 12.5 mg tablet RxNorm: 214141 TAKE ONE TABLET BY MOUTH EVERY MORNING FOR BLOOD PRESSURE 07/05/2019 10/03/2019 Inactive pantoprazole 40 mg tablet,delayed release RxNorm: 267853 TAKE ONE TABLET BY MOUTH DAILY 05/29/2019 09/04/2019 Inactive pantoprazole 40 mg tablet,delayed release RxNorm: 736057 1 Tabl et(s) PO QD 03/04/2019 05/28/2019 Inactive hydrochlorothiazide 12.5 mg tablet RxNorm: 241127 TAKE ONE TABLET BY MOUTH EVERY MORNING FOR BLOOD PRESSURE 01/11/2019 07/04/2019 Inactive doxycycline hyclate 100 mg capsule RxNorm: 9295168 1 Capsule(s) PO BID 11/12/2018 11/21/2018 Inactive pantoprazole 40 mg tablet,delayed release RxNorm: 087455 TAKE ONE TABLET BY MOUTH DAILY 10/30/2018 03/04/2019 Inactive hydrochlorothiazide 12.5 mg tablet RxNorm: 901606 TAKE ONE TABLET BY MOUTH EVERY MORNING FOR BLOOD PRESSURE 10/12/2018 01/09/2019 Inactive pantoprazole 40 mg tablet,delayed release RxNorm: 985736 TAKE ONE TABLET BY MOUTH DAILY 08/31/2018 09/29/2018 Inactive pantoprazole 40 mg tablet,delayed release RxNorm: 794876 1 Tabl et(s) PO QD 04/03/2018 08/30/2018 Inactive hydrochlorothiazide 12.5 mg tablet RxNorm: 798043 TAKE ONE TABLET BY MOUTH EVERY MORNING FOR BLOOD PRESSURE 03/30/2018 09/25/2018 Inactive Medrol (John) 4 mg tablets in a dose pack RxNorm: 099255 Tablet(s) PO take as directed 01/29/2018 11/08/2018 Inactive pantoprazole 40 mg tablet,delayed release RxNorm: 628635 1 Tablet(s) PO BID for 1 month then decrease to 1 po daily 12/29/2017 04/02/2018 Inactive hydrochlorothiazide 12.5 mg tablet RxNorm: 576902 1 Tablet(s) P O QAM for BP 12/29/2017 03/28/2018 Inactive hydrochlorothiazide 12.5 mg tablet RxNorm: 854263 1 Tablet(s) P O QAM for BP 12/09/2017 12/28/2017 Inactive pantoprazole 40 mg tablet,delayed release RxNorm: 223620 1 Tablet(s) PO BID for 1 month then decrease to 1 po daily 12/09/2017 04/03/2018 Inactive Voltaren 1 % topical gel RxNorm: 471242 1 Gram(s) TOP QID to bi lateral knees 12/09/2017 12/21/2019 Inactive meloxicam 15 mg tablet RxNorm: 403865 1 Tablet(s) PO QD 10/20/2015 Inactive Benadryl 25 mg capsule RxNorm: 9014700 1 Capsule(s) PO QHS No Start D ate Active Nexium oral RxNorm: 038320 oral No Start Date 10/20/2015 Inactive Nexium 24HR 22.3 mg capsule,delayed release RxNorm: 036847 1 Ca psule(s) PO QAM No Start Date 11/08/2018 Inactive Fish Oil 1,000 mg capsule RxNorm: 1 Capsule(s) PO QD No Start Date 12/28/2017 Inactive Fish Oil 1,000 mg capsule RxNorm: 1 Capsule(s) PO TID No Start Calin e 11/08/2018 Inactive naproxen sodium 220 mg tablet RxNorm: 926641 1 Tablet(s) PO QHS No Start Date 11/08/2018 Inactive Medication Administered No Medication Administered data Immunizations Vaccine Codes Date Status Tetanus, Diptheria, Pertussis CVX: 115 10/20/2015 Results Observation Observation Code Item Item Code Result Date S ervice Location [facility] 56758 Cholesterol 209 mg/dL 11/10/2018 Unkno wn [facility] 31450 Triglyceride 210 mg/dL 11/10/2018 Unkn own [facility] 49887 HDL CHOLESTEROL 32 mg/dL 11/10/2018 U nknown [facility] 64375 Chol/HDL Ratio 6.53 ratio 11/10/2018 U nknown [facility] 20574 NON-HDL Chol 177 mg/dL 11/10/2018 Unkn own [facility] 73028 LDL Cholesterol 135 mg/dL 11/10/2018 U nknown [facility]OL[facility] 80017 AST 15 U/L 2017 Unknown COMPREHENSIVE MET[facility]OLIC 86722 ALT 20 U/L 2017 Unknown [facility] 18430 BUN 16 mg/dL 2017 Unknown [facility] 05401 ALBUMIN 4.4 g/dL 2017 Unknown [facility] 49731 CHLORIDE 105 mmol/L 12/26 Unknown [facility] 33962 Bili Total 0.6 mg/dL 12/26 Unknown [facility] 36861 ALK PHOS 61 U/L 2017 Unknown [facility] 41511 SODIUM 141 mmol/L 12/26 Unknown COMPREHENS[facility] 16461 CREATININE 0.90 mg/dL 11/29 Unknown [facility] 33755 CALCIUM 9.7 mg/dL 2017 Unknown COMPREH[facility]OL[facility] 03027 POTASSIUM 4.2 mmol/L 12/26 Unknown [facility] 33341 Total Protein 6.5 g/dL Unknown [facility] 93281 Glucose 99 mg/dL 2017 Unknown [facility] 07337 Bicarbonate 24 mmol/L 11/29 Unknown [facility]PREHENS[facility] 40390 AGAP 12 mmol/L 2017 Unknown COMPLETE BLOOD COUNT [id number] WBC 5.5 10e9/L 12/27/19 18 Unknown COMPLETE BLOOD COUNT [id number] RBC 4.87 10e12/L 2017 Unknown COMPLETE BLOOD COUNT 4168393 HEMOGLOBIN 15.1 g/dL 12/27/19 18 Unknown COMPLETE BLOOD COUNT [id number] HEMATOCRIT 44.9 % 12/27/19 18 Unknown COMPLETE BLOOD COUNT 4669168 MCV 92.2 fL 8 Unknown COMPLETE BLOOD COUNT 3483785 MCH 31.0 pg 8 Unknown COMPLETE BLOOD COUNT 3898431 MCHC 33.6 g/dL 8 Unknown COMPLETE BLOOD COUNT 0563592 PLATELET COUNT 244 10e9/L Unknown COMPLETE BLOOD COUNT 4988587 Mean Plt Volume 11.8 fL Unknown COMPLETE BLOOD COUNT 0363464 Neut Auto 42.0 % 8 Unknown COMPLETE BLOOD COUNT 8337517 Lymph Auto 39.5 % 12/27/19 18 Unknown COMPLETE BLOOD COUNT 3221743 [place] Auto 13.0 % 8 Unknown COMPLETE BLOOD COUNT [id number] RDW 13.8 % 8 Unknown COMPLETE BLOOD COUNT 3658612 Eos Auto 5.3 % 8 Unknown COMPLETE BLOOD COUNT 4673141 Baso Auto 0.2 % 8 Unknown COMPLETE BLOOD COUNT 3198690 Neutrophil Abs 2.31 10e9/L Unknown COMPLETE BLOOD COUNT 9704796 Lymphocyte Abs 2.17 10e9/L Unknown COMPLETE BLOOD COUNT 2116125 Monocyte Abs 0.72 10e9/L 11/29 Unknown COMPLETE BLOOD COUNT 2928401 Eosinophil Abs 0.29 10e9/L Unknown COMPLETE BLOOD COUNT 2850666 RDW-SD 45.6 fL 8 Unknown COMPLETE BLOOD COUNT 4576802 Basophil Abs 0.01 10e9/L 11/29 Unknown PSA EQUIMOLAR JORI 75220 PSA Total 1.40 ng/mL 8 Unknown GFR CALC 8720025 GFR Non Afr Amr >60 mL/min 12/26/2017 Un known GFR CALC 1078140 GFR Afr Amr >60 mL/min 12/26/2017 Unknow n [facility] 72829 Cholesterol 239 mg/dL 12/26/2017 Unkno wn [facility] 32980 Triglyceride 140 mg/dL 12/26/2017 Unkn own [facility] 93379 HDL CHOLESTEROL 48 mg/dL 12/26/2017 U nknown [facility] 69594 Chol/HDL Ratio 4.98 ratio 12/26/2017 U nknown [facility] 03833 NON-HDL Chol 191 mg/dL 12/26/2017 Unkn own [facility] 47843 LDL Cholesterol 163 mg/dL 12/26/2017 [facility] THYROID STIMULATING HORMONE 43164 TSH 1.633 uIU/mL 12/26/2017 Unknown COMPLETE BLOOD COUNT 0758728 WBC 5.3 10e9/L 12/29/19 16 Unknown COMPLETE BLOOD COUNT 8804721 RBC 4.84 10e12/L 2015 Unknown COMPLETE BLOOD COUNT [id number] HEMOGLOBIN 14.9 g/dL 12/29/19 16 Unknown COMPLETE BLOOD COUNT 9298463 HEMATOCRIT 44.3 % 12/29/19 16 Unknown COMPLETE BLOOD COUNT 5146154 MCV 91.5 fL 6 Unknown COMPLETE BLOOD COUNT 2736153 MCH 30.8 pg 6 Unknown COMPLETE BLOOD COUNT 2091636 MCHC 33.6 g/dL 6 Unknown COMPLETE BLOOD COUNT 6924544 PLATELET COUNT 220 10e9/L 06/2015 Unknown COMPLETE BLOOD COUNT 4393293 Mean Plt Volume 11.8 fL 06/2015 Unknown COMPLETE BLOOD COUNT 3215371 Neut Auto 42.3 % 6 Unknown COMPLETE BLOOD COUNT 8383030 Lymph Auto 39.0 % 12/29/19 16 Unknown COMPLETE BLOOD COUNT 3954430 [place] Auto 13.6 % 6 Unknown COMPLETE BLOOD COUNT 7478758 RDW 14.0 % 6 Unknown COMPLETE BLOOD COUNT 8724863 Eos Auto 4.7 % 6 Unknown COMPLETE BLOOD COUNT 2566893 Baso Auto 0.4 % 6 Unknown COMPLETE BLOOD COUNT 4887542 Neutrophil Abs 2.24 10e9/L Unknown COMPLETE BLOOD COUNT 4153227 Lymphoctye Abs 2.07 10e9/L Unknown COMPLETE BLOOD COUNT 6433675 Monocyte Abs 0.72 10e9/L 06/2015 Unknown COMPLETE BLOOD COUNT 5477481 Eosinophil Abs 0.25 10e9/L Unknown COMPLETE BLOOD COUNT 6470245 RDW-SD 45.7 fL 6 Unknown COMPLETE BLOOD COUNT 8588922 Basophil Abs 0.02 10e9/L 06/2015 Unknown PSA EQUIMOLAR JORI 57638 PSA Total 1.11 ng/mL 6 Unknown COMPREHENSIVE METABOLIC 61780 AST 16 U/L 2015 Unknown COMPREHENSIVE METABOLIC 67098 ALT 20 U/L 2015 Unknown COMPREHENSIVE METABOLIC 60014 BUN 12 mg/dL 2015 Unknown COMPREHENSIVE METABOLIC 70942 ALBUMIN 4.3 g/dL 2015 Unknown COMPREHENSIVE METABOLIC 72605 CHLORIDE 107 mmol/L 12/28 Unknown COMPREHENSIVE METABOLIC 28173 Bili Total 0.7 mg/dL 12/28 Unknown COMPREHENSIVE METABOLIC 38119 ALK PHOS 53 U/L 2015 Unknown COMPREHENSIVE METABOLIC 64270 SODIUM 141 mmol/L 12/28 Unknown COMPREHENSIVE METABOLIC 06065 CREATININE 0.88 mg/dL 06/2015 Unknown COMPREHENSIVE METABOLIC 33126 CALCIUM 9.3 mg/dL 2015 Unknown COMPREHENSIVE METABOLIC 25761 POTASSIUM 4.1 mmol/L 12/28 Unknown COMPREHENSIVE METABOLIC 60885 Total Protein 6.5 g/dL Unknown [facility] 76582 Glucose 95 mg/dL 2015 Unknown COMPREHENSIVE METABOLIC 85278 Bicarbonate 27 mmol/L 06/2015 Unknown COMPREHENSIVE METABOLIC 08542 AGAP 7 mmol/L 2015 Unknown FREE T4 89328 T4 Free 1.11 ng/dL 12/29/2015 Unknown GFR CALC 8892236 GFR Non Afr Amr >60 mL/min 12/29/2015 Un known GFR CALC 0650740 GFR Afr Amr >60 mL/min 12/29/2015 Unknow n THYROID STIMULATING HORMONE 57422 TSH 0.687 uIU/mL 12/29/2015 Unknown [facility] 97525 Cholesterol 226 mg/dL 12/29/2015 Unkno wn [facility] 85407 Triglyceride 101 mg/dL 12/29/2015 Unkn own [facility] 13124 HDL CHOLESTEROL 57 mg/dL 12/29/2015 U nknown [facility] 44425 Chol/HDL Ratio 3.96 ratio 12/29/2015 U nknown [facility] 57597 NON-HDL Chol 169 mg/dL 12/29/2015 Unkn own [facility] 14997 LDL Cholesterol 149 mg/dL 12/29/2015 U nknown COMPREHENSIVE METABOLIC 32932 AST 17 U/L 2013 Unknown COMPREHENSIVE METABOLIC 06935 ALT 24 IU/L 2013 Unknown COMPREHENSIVE METABOLIC 53977 BUN 18 MG/DL 2013 Unknown COMPREHENSIVE METABOLIC 85410 ALBUMIN 4.4 GM/DL 2013 Unknown COMPREHENSIVE METABOLIC 24230 CHLORIDE 108 MMOL/L 06/03 Unknown COMPREHENSIVE METABOLIC 67767 BILI TOT 0.4 MG/DL 2013 Unknown COMPREHENSIVE METABOLIC 64149 ALK PHOS 58 U/L 2013 Unknown COMPREHENSIVE METABOLIC 03213 SODIUM 139 MMOL/L 06/03 Unknown COMPREHENSIVE METABOLIC 06914 CREATININE 0.86 MG/DL 10/2013 Unknown COMPREHENSIVE METABOLIC 18949 CALCIUM 9.6 MG/DL 2013 Unknown COMPREHENSIVE METABOLIC 71467 POTASSIUM 4.3 MMOL/L 06/03 Unknown COMPREHENSIVE METABOLIC 70997 PROT TOT 6.0 GM/DL 2013 Unknown COMPREHENSIVE METABOLIC 37819 Glucose 104 MG/DL 2013 Unknown COMPREHENSIVE METABOLIC 58074 BICARB 26 MMOL/L 2013 Unknown COMPREHENSIVE METABOLIC 67531 ANION GAP 5 MEQ/L 2013 Unknown GFR CALC 1534739 GFR AA >60 ML/MIN 06/03/2014 Unknown GFR CALC 9046283 GFR NON-AA >60 ML/MIN 06/03/2014 Unknown COMPLETE BLOOD COUNT 9555676 WBC 4.7 10e9/L 06/03/20 14 Unknown COMPLETE BLOOD COUNT 2577681 RBC 4.85 10e12/L 2013 Unknown COMPLETE BLOOD COUNT 6942484 HGB 14.9 g/dL 4 Unknown COMPLETE BLOOD COUNT 4936091 HCT DET 44.2 % 4 Unknown COMPLETE BLOOD COUNT 5288891 MCV 91.1 fL 4 Unknown COMPLETE BLOOD COUNT 7504587 MCH 30.7 pg 4 Unknown COMPLETE BLOOD COUNT 8671530 MCHC 33.7 g/dL 4 Unknown COMPLETE BLOOD COUNT 7228860 PLT 245 10e9/L 06/03/20 14 Unknown COMPLETE BLOOD COUNT 8313374 MPV 11.7 fL 4 Unknown COMPLETE BLOOD COUNT 2223536 YOSSI % 37.0 % 4 Unknown COMPLETE BLOOD COUNT 1025784 LY % 44.2 % 4 Unknown COMPLETE BLOOD COUNT 7102553 MON % 14.1 % 4 Unknown COMPLETE BLOOD COUNT 7560844 EOS % 4.5 % 4 Unknown COMPLETE BLOOD COUNT 2917117 BASO % 0.2 % 4 Unknown COMPLETE BLOOD COUNT 1635549 RDW 13.3 % 4 Unknown COMPLETE BLOOD COUNT 1394266 ABS YOSSI 1.74 10e9/L 014 Unknown COMPLETE BLOOD COUNT 8371133 ABS LYMPH 2.08 10e9/L 014 Unknown COMPLETE BLOOD COUNT 8884864 ABS MONO 0.66 10e9/L 014 Unknown COMPLETE BLOOD COUNT 2303256 ABS EOS 0.21 10e9/L 014 Unknown COMPLETE BLOOD COUNT 0329318 ABS BASO 0.01 10e9/L 014 Unknown COMPLETE BLOOD COUNT 8684698 RDW-SD 43.5 fL 4 Unknown PSA EQUIMOLAR JORI 24029 PSA EQ 0.87 NG/ML 4 Unknown FREE T4 14712 FREE T4 1.21 NG/DL 06/03/2014 Unknown THYROID STIMULATING HORMONE 35645 TSH 0.705 uIU/ML 06/03/2014 Unknown [facility] 56524 HDL TEST 49 MG/DL 06/03/2014 Unknown [facility] 91058 TRIG 72 MG/DL 06/03/2014 Unknown [facility] 58719 TEST LDL 159 MG/DL 06/03/2014 Unknown [facility] 65952 CHOL 222 MG/DL 06/03/2014 Unknown [facility] 10781 RCHOL/HDL 4.53 RATIO 06/03/2014 Unknow n [facility] 24272 NON-HDL CH 173 MG/DL 06/03/2014 Unknow n Procedures Procedure Codes Date ROUTINE VENIPUNCTURE CPT-4: 95301 12/27/2019 ASSAY OF FREE THYROXINE CPT-4: 29895 12/27/2019 ASSAY THYROID STIM HORMONE CPT-4: 38757 12/27/2019 COMPREHEN METABOLIC PANEL CPT-4: 67986 12/27/2019 COMPLETE CBC W/AUTO DIFF WBC CPT-4: 53052 12/27/2019 LIPID PANEL CPT-4: 21704 12/27/2019 ASSAY OF PSA TOTAL CPT-4: 40532 12/27/2019 ROUTINE VENIPUNCTURE CPT-4: 25739 11/10/2018 LIPID PANEL CPT-4: 01406 11/10/2018 ROUTINE VENIPUNCTURE CPT-4: 56373 12/26/2017 ASSAY THYROID STIM HORMONE CPT-4: 49151 12/26/2017 COMPREHEN METABOLIC PANEL CPT-4: 32150 12/26/2017 COMPLETE CBC W/AUTO DIFF WBC CPT-4: 74092 12/26/2017 LIPID PANEL CPT-4: 36623 12/26/2017 ASSAY OF PSA TOTAL CPT-4: 20113 12/26/2017 ROUTINE VENIPUNCTURE CPT-4: 00799 12/29/2015 ASSAY OF FREE THYROXINE CPT-4: 27457 12/29/2015 ASSAY THYROID STIM HORMONE CPT-4: 00174 12/29/2015 COMPREHEN METABOLIC PANEL CPT-4: 57333 12/29/2015 COMPLETE CBC W/AUTO DIFF WBC CPT-4: 08937 12/29/2015 LIPID PANEL CPT-4: 58675 12/29/2015 ASSAY OF PSA TOTAL CPT-4: 66035 12/29/2015 TDAP VACCINE 7 YRS/> IM CPT-4: 91591 10/20/2015 IMMUNIZATION ADMIN CPT-4: 17550 10/20/2015 ROUTINE VENIPUNCTURE CPT-4: 13589 06/03/2014 ASSAY OF FREE THYROXINE CPT-4: 86514 06/03/2014 ASSAY THYROID STIM HORMONE CPT-4: 64841 06/03/2014 COMPREHEN METABOLIC PANEL CPT-4: 84119 06/03/2014 COMPLETE CBC W/AUTO DIFF WBC CPT-4: 03401 06/03/2014 LIPID PANEL CPT-4: 73954 06/03/2014 ASSAY OF PSA TOTAL CPT-4: 91660 06/03/2014 Vital Signs Date Vital 12/22/2019 Blood Pressure 1: 150/96 Code: 8480-6 BMI: 33.1 Code: 65430-6 Heart Rate 1: 88 bpm Height: 6' [...] 1: 126/80 Code: 8480-6 BMI: 32.8 Code: 52221-2 Heart Rate 1: 82 bpm Height: 6' Respiratory Rate: 20 bpm SpO2: 96% Tempera ture: 36.8 (C) / 98.2 (F) Weight: 242 lbs 12/26/2017 Blood Pressure 1: 114/64 Code: 8480-6 He art Rate 1: 66 bpm 12/09/2017 Blood Pressure 1: 144/96 Code: 8480-6 BMI: 33.1 Code: 81245-5 Heart Rate 1: 72 bpm Height: 6' Respiratory Rate: 20 bpm Temperature: 36 .9 (C) / 98.4 (F) Weight: 244 lbs 12/29/2015 Blood Pressure 1: 132/86 Code: 8480-6 He art Rate 1: 72 bpm 10/20/2015 Blood Pressure 1: 142/94 Code: 8480-6 BMI: 32.8 Code: 00777-0 Heart Rate 1: 72 bpm Height: 6' Respiratory Rate: 20 bpm SpO2: 96% Tempera ture: 36.7 (C) / 98.1 (F) Weight: 242 lbs 05/24/2014 Blood Pressure 1: 138/90 Code: 8480-6 BMI: 31.3 Code: 97610-4 Heart Rate 1: 80 bpm Height: 6' [...] establish Encounters Encounter Performer Location Codes Date (02750) NURSE/OUTPATIENT VISIT EST Diagnosis: Encounter for general adult medical examination without abnormal findings[ICD10: Z00.00] Diagnosis: Encounter for screening for malignant neoplasm of colon[ICD10: Z12.11] Diagnosis: Essential (primary) hypertension[ICD10: I10] Diagnosis: Mixed hyperlipidemia[ICD10: E78.2] Diagnosis: Other fatigue[ICD10: R53.83] [facility]i [employer] CPT-4: 69752 12/27/2019 ([id number]) PREV VISIT EST AGE 40-64 Diagnosis: Encounter [...] apnea (adult) (pediatric)[ICD10: G47.33] Kait Alas DIDI [employer] CPT-4: 75838 12/22/2019 ([id number]) OFFICE/OUTPATIENT VISIT EST Diagnosis: Essential (primary) hypertension[ICD10: I10] Diagnosis: Cardiac arrhythmia, unspecified[ICD10: I49.9] Diagnosis: Other fatigue[ICD10: R53.83] Didi [employer] CPT-4: 68158 12/15/2018 OFFICE/OUTPATIENT VISIT EST Diagnosis: Cardiac arrhythmia, unspecified[ICD10: I49.9] Diagnosis: Bitten or stung by nonvenomous insect and other nonvenomous arthropods, initial encounter[ICD10: W57.XXXA] Diagnosis: Abnormal levels of other serum enzymes[ICD10: R74.8] Diagnosis: Mixed hyperlipidemia[ICD10: E78.2] Didi KLEIN [employer] CPT-4: 27063 11/12/2018 ([id number]) NURSE/OUTPATIENT VISIT EST Diagnosis: Essential (primary) hypertension[ICD10: I10] Diagnosis: Mixed hyperlipidemia[ICD10: E78.2] Didi MOORE ERNIE [employer] CPT-4: 09015 11/10/2018 OFFICE/OUTPATIENT VISIT EST Diagnosis: Other fatigue[ICD10: R53.83] Diagnosis: Headache[ICD10: R51] Diagnosis: Fever, unspecified[ICD10: R50.9] Diagnosis: Rash and other nonspecific skin eruption[ICD10: R21] Diagnosis: Dyspnea, unspecified[ICD10: R06.00] Diagnosis: Cardiac arrhythmia, unspecified[ICD10: I49.9] Brooklyn Dinh IDDI [employer] CPT-4: 89594 11/09/2018 ([id number]) OFFICE/OUTPATIENT VISIT EST Diagnosis: Essential (primary) hypertension[ICD10: I10] Diagnosis: Gastro-esophageal reflux disease without esophagitis[ICD10: K21.9] Diagnosis: Pain in left knee[ICD10: M25.562] Diagnosis: Pain in left foot[ICD10: M79.672] Kait Florentino [employer] CPT-4: 42563 01/29/2018 ([id number]) NURSE/OUTPATIENT VISIT EST Diagnosis: Encounter for general adult medical examination without abnormal findings[ICD10: Z00.00] Diagnosis: Mixed hyperlipidemia[ICD10: E78.2] Diagnosis: Essential (primary) hypertension[ICD10: I10] Didi Moyerbrenda DIDI [employer] CPT-4: 68809 12/26/2017 ([id number]) OFFICE/OUTPATIENT VISIT EST Diagnosis: Essential (primary) hypertension[ICD10: I10] Diagnosis: Gastro-esophageal reflux disease without esophagitis[ICD10: K21.9] Diagnosis: Bilateral primary osteoarthritis of knee[ICD10: M17.0] Diagnosis: Bilateral primary osteoarthritis of first carpometacarpal joints[ICD10: M18.0] Diagnosis: Obstructive sleep apnea (adult) (pediatric)[ICD10: G47.33] Diagnosis: Lymphedema, not elsewhere classified[ICD10: I89.0] Didi JACKSON RosiJacquelin FABBYGWENBRENDA [employer] CPT-4: 93024 12/09/2017 ([id number]) OFFICE/OUTPATIENT VISIT EST Diagnosis: Encounter for general adult medical examination without abnormal findings[ICD10: Z00.00] Diagnosis: Elevated blood-pressure reading, without diagnosis of hypertension[ICD10: R03.0] Didi Jensen ARELIS [employer] CPT- 4: 73200 12/29/2015 ([id number]) PREV VISIT EST AGE 40-64 Diagnosis: Encounter [...] VACCINE FOR TDAP[ICD10: Z23] Jocelyn Jensen FABBYGWENBRENDA [employer] CPT-4: 24608 10/20/2015 ([id number]) OFFICE/OUTPATIENT VISIT EST Diagnosis: ROUTINE MEDICAL EXAM[ICD9: V70.0] Didi Jensen FABBYGWENBRENDA [employer] CPT-4: 20379 06/03/2014 OFFICE/OUTPATIENT VISIT NEW Diagnosis: GERD[ICD9: 530.81] Diagnosis: OBSTRUCTIVE SLEEP APNEA[ICD9: 327.23] Negra Jensen FABBYGWENBRENDA [employer] CPT-4: 60315 05/24/2014 Plan of Care Planned Activity Notes Codes Status Date Visit Diagnosis Plan: Encounter for sammy campbell adult medical examination without abnormal findings Discussion: [...] so referral sent to dr. iglesias at [address] for evaluation. ICD-9 : 715.96 ICD-10 : M17.0 12/22/2019 Visit Diagnosis Plan: Encounter for screening for sonia gnant neoplasm of colon Discussion: referral to dr. ivgil for screening colonscopy per patient request. ICD-9 [...] ICD-10 : G47.33 12/22/2019 Appointment: Kait Alas [address] [place], [place] [address] Annual Well Visit 12/22/2019 Patient Education: hydrochlorothiazide- [employer] Cou neelam [id number] [email or web address].[employer]/sampleDign[employer]/resources/getResource/61/[email or web address] Completed 12/22/2019 Patient Education: High Blood Pressure [...] : I10 12/15/2018 Appointment: Didi Araiza WPtel: [facility] US FOLLOW UP 12/15/2018 Visit Diagnosis Plan: [...] W57.XXXA 11/12/2018 Appointment: Didi Araiza WPtel: [address] [facility] US FOLLOW UP 11/12/2018 Patient Education: doxycycline hyclate- [employer] Cou neelam [id number] [email or web address]/Fliptumd/resources/getResource/61/[email or web address]-vo Completed 11/12/2018 Appointment: Didi Araiza WPtel: [phone] [id number] LAB 11/10/2018 Visit Diagnosis Plan: Other fatigue [...] : I49.9 11/09/2018 [facility]ment[facility] [facility] 11/09/2018 Visit Diagnosis Plan: Essential [...] ICD-10 : M79.672 01/29/2018 Appointment: Kait Alas [address] [place], [place] [phone] FOLLOW UP 01/29/2018 Patient Education: Patient Medication Summary Completed 01/29/2018 Appointment: Didi Araiza WPtel: [address] [place], [place] [phone] [place] LAB 12/26/2017 Patient Education: Patient Medication [...] 457.1 ICD-10 : I89.0 12/09/2017 Appointment: Didi rAaiza WPtel: [address] [place], [place] [phone] ACUTE ILLNESS 12/09/2017 Patient Education: Patient Medication Summary Completed 12/09/2017 Appointment: Kait Alas [address] [facility] RESCHEDULED 12/01/2017 Appointment: Didi Araiza WPtel: [address] [place], [place] [phone] [place] LAB 12/29/2015 Patient Education: Patient Medication [...] aid if need be Form requested from [facility] Patient for new bipap 10/20/2015 [facility]ment[facility] 10/18 confirmed~sl Annual Well Visit 10/20/2015 Patient Education: Patient Medication Summary Completed 10/20/2015 Appointment: Did[facility] Ara[facility]el[facility] [phone] [facility] [facility] 06/03/2014 Patient Education: Patient Medication Summary Completed 06/03/2014 Appointment: Negra Mejia [facility]Ptel[facility] [phone] [facility] [facility] NEW PATIENT 05/24/2014 Patient Education: [...] aid if need be Form requested from [employer] [facility] [place] Patient for new bipap Medical Equipment No Medical Equipment data Health Concerns Section Health Concerns data not found Goals Section Goals data not found Interventions Section Interventions data not found Health Status Evaluations/Outcomes Section Health Status Evaluations/Outcomes data not found Advance Directives No Advance Directive data
--- OUTSIDE RECORDS SUMMARY | 2020-01-21 11:16 | XMS REPORT | CCD ---
Author Author Rafael Mejia APRN Organization [facility] Address [address] [place] [address] Phone Care Team Providers Care Photogrammetric Tech Name Role Phone Didi [facility]iza D.O., PP Unavailable CCM Unavailable Summary Purpose Interface Exchange Insurance Providers Payer name Policy type / Coverage type Covered constitution party ID Effective Begin Date Effective End Date Blue Cross Blue Shield Blue Cross/Blue Shield [id number] 2019 Unknown Family History Family History data [...] Fill Instructions hydrochlorothiazide 25 mg tablet RxNorm: 236111 1 Tablet(s) Oral QD 12/22/2019 03/21/2020 Active pantoprazole 40 mg tablet,delayed release RxNorm: 311600 1 Tablet(s) Oral QD Due for updated fasting labs and appointment 12/06/2019 01/05/2020 Active Due for updated fasting labs and appointment before 90 day supply hydrochlorothiazide 12.5 mg tablet RxNorm: 294480 TAKE ONE TABLET BY MOUTH EVERY MORNING FOR BLOOD PRESSURE 10/04/2019 No Stop Date Active pantoprazole 40 mg tablet,delayed release RxNorm: 642659 TAKE ONE TABLET BY MOUTH DAILY 09/05/2019 12/05/2019 Inactive hydrochlorothiazide 12.5 mg tablet RxNorm: 162824 TAKE ONE TABLET BY MOUTH EVERY MORNING FOR BLOOD PRESSURE 07/05/2019 10/03/2019 Inactive pantoprazole 40 mg tablet,delayed release RxNorm: 969148 TAKE ONE TABLET BY MOUTH DAILY 05/29/2019 09/04/2019 Inactive pantoprazole 40 mg tablet,delayed release RxNorm: 545998 1 Tabl et(s) PO QD 03/04/2019 05/28/2019 Inactive hydrochlorothiazide 12.5 mg tablet RxNorm: 576458 TAKE ONE TABLET BY MOUTH EVERY MORNING FOR BLOOD PRESSURE 01/11/2019 07/04/2019 Inactive doxycycline hyclate 100 mg capsule RxNorm: 5958437 1 Capsule(s) PO BID 11/12/2018 11/21/2018 Inactive pantoprazole 40 mg tablet,delayed release RxNorm: 844490 TAKE ONE TABLET BY MOUTH DAILY 10/30/2018 03/04/2019 Inactive hydrochlorothiazide 12.5 mg tablet RxNorm: 967972 TAKE ONE TABLET BY MOUTH EVERY MORNING FOR BLOOD PRESSURE 10/12/2018 01/09/2019 Inactive pantoprazole 40 mg tablet,delayed release RxNorm: 676049 TAKE ONE TABLET BY MOUTH DAILY 08/31/2018 09/29/2018 Inactive pantoprazole 40 mg tablet,delayed release RxNorm: 089343 1 Tabl et(s) PO QD 04/03/2018 08/30/2018 Inactive hydrochlorothiazide 12.5 mg tablet RxNorm: 278037 TAKE ONE TABLET BY MOUTH EVERY MORNING FOR BLOOD PRESSURE 03/30/2018 09/25/2018 Inactive Medrol (John) 4 mg tablets in a dose pack RxNorm: 494650 Tablet(s) PO take as directed 01/29/2018 11/08/2018 Inactive pantoprazole 40 mg tablet,delayed release RxNorm: 730702 1 Tablet(s) PO BID for 1 month then decrease to 1 po daily 12/29/2017 04/02/2018 Inactive hydrochlorothiazide 12.5 mg tablet RxNorm: 720979 1 Tablet(s) P O QAM for BP 12/29/2017 03/28/2018 Inactive hydrochlorothiazide 12.5 mg tablet RxNorm: 723826 1 Tablet(s) P O QAM for BP 12/09/2017 12/28/2017 Inactive pantoprazole 40 mg tablet,delayed release RxNorm: 677416 1 Tablet(s) PO BID for 1 month then decrease to 1 po daily 12/09/2017 04/03/2018 Inactive Voltaren 1 % topical gel RxNorm: 893648 1 Gram(s) TOP QID to bi lateral knees 12/09/2017 12/21/2019 Inactive meloxicam 15 mg tablet RxNorm: 696108 1 Tablet(s) PO QD 10/20/2015 Inactive Benadryl 25 mg capsule RxNorm: 9732790 1 Capsule(s) PO QHS No Start D ate Active Nexium oral RxNorm: 914774 oral No Start Date 10/20/2015 Inactive Nexium 24HR 22.3 mg capsule,delayed release RxNorm: 358003 1 Ca psule(s) PO QAM No Start Date 11/08/2018 Inactive Fish Oil 1,000 mg capsule RxNorm: 1 Capsule(s) PO QD No Start Date 12/28/2017 Inactive Fish Oil 1,000 mg capsule RxNorm: 1 Capsule(s) PO TID No Start Calin e 11/08/2018 Inactive naproxen sodium 220 mg tablet RxNorm: 196392 1 Tablet(s) PO QHS No Start Date 11/08/2018 Inactive Medication Administered No Medication Administered data Immunizations Vaccine Codes Date Status Tetanus, Diptheria, Pertussis CVX: 115 10/20/2015 Results Observation Observation Code Item Item Code Result Date S ervice Location [facility] 67493 Cholesterol 209 mg/dL 11/10/2018 Unkno wn [facility] 60503 Triglyceride 210 mg/dL 11/10/2018 Unkn own [facility] 26542 HDL CHOLESTEROL 32 mg/dL 11/10/2018 U nknown [facility] 76329 Chol/HDL Ratio 6.53 ratio 11/10/2018 U nknown [facility] 19816 NON-HDL Chol 177 mg/dL 11/10/2018 Unkn own [facility] 91158 LDL Cholesterol 135 mg/dL 11/10/2018 U nknown [facility] 50513 AST 15 U/L 2017 Unknown [facility]PRE[facility] MET[facility]OL[facility] 86401 ALT 20 U/L 2017 Unknown [facility] 55933 BUN 16 mg/dL 2017 Unknown [facility] 34119 ALBUMIN 4.4 g/dL 2017 Unknown [facility] 90443 CHLORIDE 105 mmol/L 12/26 Unknown [facility] 48529 Bili Total 0.6 mg/dL 12/26 Unknown [facility] 52748 ALK PHOS 61 U/L 2017 Unknown [facility] 25078 SODIUM 141 mmol/L 12/26 Unknown [facility] 51690 CREATININE 0.90 mg/dL 11/29 Unknown [facility] 87207 CALCIUM 9.7 mg/dL 2017 Unknown COMPREHENS[facility] MET[facility]OLIC 15900 POTASSIUM 4.2 mmol/L 12/26 Unknown [facility]OL[facility] 94745 Total Protein 6.5 g/dL Unknown [facility] 54726 Glucose 99 mg/dL 2017 Unknown [facility] 75969 Bicarbonate 24 mmol/L 11/29 Unknown COMPREHENSIVE METABOLIC 77389 AGAP 12 mmol/L 2017 Unknown COMPLETE BLOOD COUNT 8774300 WBC 5.5 10e9/L 12/27/19 18 Unknown COMPLETE BLOOD COUNT 1392628 RBC 4.87 10e12/L 2017 Unknown COMPLETE BLOOD COUNT 5344206 HEMOGLOBIN 15.1 g/dL 12/27/19 18 Unknown COMPLETE BLOOD COUNT 6970129 HEMATOCRIT 44.9 % 12/27/19 18 Unknown COMPLETE BLOOD COUNT 1902531 MCV 92.2 fL 8 Unknown COMPLETE BLOOD COUNT 2288298 MCH 31.0 pg 8 Unknown COMPLETE BLOOD COUNT 6673086 MCHC 33.6 g/dL 8 Unknown COMPLETE BLOOD COUNT 4461001 PLATELET COUNT 244 10e9/L Unknown COMPLETE BLOOD COUNT 1766833 Mean Plt Volume 11.8 fL Unknown COMPLETE BLOOD COUNT 4876360 Neut Auto 42.0 % 8 Unknown COMPLETE BLOOD COUNT 3785168 Lymph Auto 39.5 % 12/27/19 18 Unknown COMPLETE BLOOD COUNT 9430593 Boundary Auto 13.0 % 8 Unknown COMPLETE BLOOD COUNT 1339038 RDW 13.8 % 8 Unknown COMPLETE BLOOD COUNT 1409119 Eos Auto 5.3 % 8 Unknown COMPLETE BLOOD COUNT 1906405 Baso Auto 0.2 % 8 Unknown COMPLETE BLOOD COUNT 7500653 Neutrophil Abs 2.31 10e9/L Unknown COMPLETE BLOOD COUNT 3010147 Lymphocyte Abs 2.17 10e9/L Unknown COMPLETE BLOOD COUNT 9695629 Monocyte Abs 0.72 10e9/L 11/29 Unknown COMPLETE BLOOD COUNT 5937177 Eosinophil Abs 0.29 10e9/L Unknown COMPLETE BLOOD COUNT 8757287 RDW-SD 45.6 fL 8 Unknown COMPLETE BLOOD COUNT [id number] Basophil Abs 0.01 10e9/L 11/29 Unknown PSA EQUIMOLAR JORI 12013 PSA Total 1.40 ng/mL 8 Unknown GFR CALC 4807617 GFR Non Afr Amr >60 mL/min 12/26/2017 Un known GFR CALC 5326652 GFR Afr Amr >60 mL/min 12/26/2017 Unknow n [facility] 65358 Cholesterol 239 mg/dL 12/26/2017 Unkno wn [facility] 36344 Triglyceride 140 mg/dL 12/26/2017 Unkn own [facility] 50213 HDL CHOLESTEROL 48 mg/dL 12/26/2017 U nknown [facility] 64903 Chol/HDL Ratio 4.98 ratio 12/26/2017 U nknon [facility] 20118 NON-HDL Chol 191 mg/dL 12/26/2017 Unkn own [facility] 66845 LDL Cholesterol 163 mg/dL [facility]/26[facility]ORM[facility] 20369 TSH 1.633 uIU/mL 12/26/2017 Unknown COMPLETE BLOOD COUNT 9099941 WBC 5.3 10e9/L 12/29/19 16 Unknown COMPLETE BLOOD COUNT 2620448 RBC 4.84 10e12/L 2015 Unknown COMPLETE BLOOD COUNT 9380041 HEMOGLOBIN 14.9 g/dL 12/29/19 16 Unknown COMPLETE BLOOD COUNT 1446620 HEMATOCRIT 44.3 % 12/29/19 16 Unknown COMPLETE BLOOD COUNT 9489343 MCV 91.5 fL 6 Unknown COMPLETE BLOOD COUNT 2696741 MCH 30.8 pg 6 Unknown COMPLETE BLOOD COUNT 9597940 MCHC 33.6 g/dL 6 Unknown COMPLETE BLOOD COUNT 4073299 PLATELET COUNT 220 10e9/L 06/2015 Unknown COMPLETE BLOOD COUNT 1676379 Mean Plt Volume 11.8 fL 06/2015 Unknown COMPLETE BLOOD COUNT 9177902 Neut Auto 42.3 % 6 Unknown COMPLETE BLOOD COUNT 5277301 Lymph Auto 39.0 % 12/29/19 16 Unknown COMPLETE BLOOD COUNT 9130804 Boundary Auto 13.6 % 6 Unknown COMPLETE BLOOD COUNT 0920014 RDW 14.0 % 6 Unknown COMPLETE BLOOD COUNT 2847323 Eos Auto 4.7 % 6 Unknown COMPLETE BLOOD COUNT 6451879 Baso Auto 0.4 % 6 Unknown COMPLETE BLOOD COUNT 9061094 Neutrophil Abs 2.24 10e9/L Unknown COMPLETE BLOOD COUNT 2948517 Lymphoctye Abs 2.07 10e9/L Unknown COMPLETE BLOOD COUNT 8829445 Monocyte Abs 0.72 10e9/L 06/2015 Unknown COMPLETE BLOOD COUNT 2924996 Eosinophil Abs 0.25 10e9/L Unknown COMPLETE BLOOD COUNT 9551195 Basophil Abs 0.02 10e9/L 06/2015 Unknown COMPLETE BLOOD COUNT 0633095 RDW-SD 45.7 fL 6 Unknown PSA EQUIMOLAR JORI 26798 PSA Total 1.11 ng/mL 6 Unknown COMPREHENSIVE METABOLIC 44224 AST 16 U/L 2015 Unknown COMPREHENSIVE METABOLIC 06310 ALT 20 U/L 2015 Unknown COMPREHENSIVE METABOLIC 21037 BUN 12 mg/dL 2015 Unknown COMPREHENSIVE METABOLIC 01298 ALBUMIN 4.3 g/dL 2015 Unknown COMPREHENSIVE METABOLIC 63585 CHLORIDE 107 mmol/L 12/28 Unknown COMPREHENSIVE METABOLIC 65379 Bili Total 0.7 mg/dL 12/28 Unknown COMPREHENSIVE METABOLIC 60334 ALK PHOS 53 U/L 2015 Unknown COMPREHENSIVE METABOLIC 08280 SODIUM 141 mmol/L 12/28 Unknown COMPREHENSIVE METABOLIC 25307 CREATININE 0.88 mg/dL 06/2015 Unknown COMPREHENSIVE METABOLIC 70731 CALCIUM 9.3 mg/dL 2015 Unknown COMPREHENSIVE METABOLIC 25756 POTASSIUM 4.1 mmol/L 12/28 Unknown COMPREHENSIVE METABOLIC 46996 Total Protein 6.5 g/dL Unknown [facility] 18031 Glucose 95 mg/dL 2015 Unknown COMPREHENSIVE METABOLIC 47012 Bicarbonate 27 mmol/L 06/2015 Unknown COMPREHENSIVE METABOLIC 39211 AGAP 7 mmol/L 2015 Unknown FREE T4 42511 T4 Free 1.11 ng/dL 12/29/2015 Unknown GFR CALC 0350352 GFR Afr Amr >60 mL/min 12/29/2015 Unknow n GFR CALC 6659015 GFR Non Afr Amr >60 mL/min 12/29/2015 Un known THYROID STIMULATING HORMONE 27147 TSH 0.687 uIU/mL 12/29/2015 Unknown [facility] 17146 Cholesterol 226 mg/dL 12/29/2015 Unkno wn [facility] 75508 Triglyceride 101 mg/dL 12/29/2015 Unkn own [facility] 96614 HDL CHOLESTEROL 57 mg/dL 12/29/2015 U nknown [facility] 64345 Chol/HDL Ratio 3.96 ratio 12/29/2015 U nknown [facility] 32976 NON-HDL Chol 169 mg/dL 12/29/2015 Unkn own [facility] 76799 LDL Cholesterol 149 mg/dL 12/29/2015 U nknown COMPREHENSIVE METABOLIC 72653 AST 17 U/L 2013 Unknown COMPREHENSIVE METABOLIC 46876 ALT 24 IU/L 2013 Unknown COMPREHENSIVE METABOLIC 38148 BUN 18 MG/DL 2013 Unknown COMPREHENSIVE METABOLIC 86244 ALBUMIN 4.4 GM/DL 2013 Unknown COMPREHENSIVE METABOLIC 12804 CHLORIDE 108 MMOL/L 06/03 Unknown COMPREHENSIVE METABOLIC 61229 BILI TOT 0.4 MG/DL 2013 Unknown COMPREHENSIVE METABOLIC 68589 ALK PHOS 58 U/L 2013 Unknown COMPREHENSIVE METABOLIC 95330 SODIUM 139 MMOL/L 06/03 Unknown COMPREHENSIVE METABOLIC 28366 CREATININE 0.86 MG/DL 10/2013 Unknown COMPREHENSIVE METABOLIC 94552 CALCIUM 9.6 MG/DL 2013 Unknown COMPREHENSIVE METABOLIC 91862 POTASSIUM 4.3 MMOL/L 06/03 Unknown COMPREHENSIVE METABOLIC 74572 PROT TOT 6.0 GM/DL 2013 Unknown COMPREHENSIVE METABOLIC 17380 Glucose 104 MG/DL 2013 Unknown COMPREHENSIVE METABOLIC 22037 BICARB 26 MMOL/L 2013 Unknown COMPREHENSIVE METABOLIC 56474 ANION GAP 5 MEQ/L 2013 Unknown GFR CALC 4699505 GFR AA >60 ML/MIN 06/03/2014 Unknown GFR CALC 2302757 GFR NON-AA >60 ML/MIN 06/03/2014 Unknown COMPLETE BLOOD COUNT 0787722 WBC 4.7 10e9/L 06/03/20 14 Unknown COMPLETE BLOOD COUNT 6733897 RBC 4.85 10e12/L 2013 Unknown COMPLETE BLOOD COUNT 0351477 HGB 14.9 g/dL 4 Unknown COMPLETE BLOOD COUNT 4089817 HCT DET 44.2 % 4 Unknown COMPLETE BLOOD COUNT 5693650 MCV 91.1 fL 4 Unknown COMPLETE BLOOD COUNT 6427667 MCH 30.7 pg 4 Unknown COMPLETE BLOOD COUNT 5115810 MCHC 33.7 g/dL 4 Unknown COMPLETE BLOOD COUNT 3882570 PLT 245 10e9/L 06/03/20 14 Unknown COMPLETE BLOOD COUNT 2163000 MPV 11.7 fL 4 Unknown COMPLETE BLOOD COUNT 9150620 YOSSI % 37.0 % 4 Unknown COMPLETE BLOOD COUNT 4206052 LY % 44.2 % 4 Unknown COMPLETE BLOOD COUNT 8637258 MON % 14.1 % 4 Unknown COMPLETE BLOOD COUNT 1707636 EOS % 4.5 % 4 Unknown COMPLETE BLOOD COUNT 0096489 BASO % 0.2 % 4 Unknown COMPLETE BLOOD COUNT 1229863 RDW 13.3 % 4 Unknown COMPLETE BLOOD COUNT 8322223 ABS YOSSI 1.74 10e9/L 014 Unknown COMPLETE BLOOD COUNT 0000052 ABS LYMPH 2.08 10e9/L 014 Unknown COMPLETE BLOOD COUNT 6432969 ABS MONO 0.66 10e9/L 014 Unknown COMPLETE BLOOD COUNT 6496269 ABS EOS 0.21 10e9/L 014 Unknown COMPLETE BLOOD COUNT 2568701 ABS BASO 0.01 10e9/L 014 Unknown COMPLETE BLOOD COUNT 0947312 RDW-SD 43.5 fL 4 Unknown PSA EQUIMOLAR JORI 70565 PSA EQ 0.87 NG/ML 4 Unknown FREE T4 62833 FREE T4 1.21 NG/DL 06/03/2014 Unknown THYROID STIMULATING HORMONE 86232 TSH 0.705 uIU/ML 06/03/2014 Unknown [facility] 76755 HDL TEST 49 MG/DL 06/03/2014 Unknown [facility] 44614 TRIG 72 MG/DL 06/03/2014 Unknown [facility] 56013 TEST LDL 159 MG/DL 06/03/2014 Unknown [facility] 15032 CHOL 222 MG/DL 06/03/2014 Unknown [facility] 50505 RCHOL/HDL 4.53 RATIO 06/03/2014 Unknow n [facility] 51601 NON-HDL CH 173 MG/DL 06/03/2014 Unknow n Procedures Procedure Codes Date ROUTINE VENIPUNCTURE CPT-4: 36283 12/27/2019 ASSAY OF FREE THYROXINE CPT-4: 69281 12/27/2019 ASSAY THYROID STIM HORMONE CPT-4: 76837 12/27/2019 COMPREHEN METABOLIC PANEL CPT-4: 52464 12/27/2019 COMPLETE CBC W/AUTO DIFF WBC CPT-4: 18552 12/27/2019 LIPID PANEL CPT-4: 22450 12/27/2019 ASSAY OF PSA TOTAL CPT-4: 42432 12/27/2019 ROUTINE VENIPUNCTURE CPT-4: 43598 11/10/2018 LIPID PANEL CPT-4: 62339 11/10/2018 ROUTINE VENIPUNCTURE CPT-4: 67932 12/26/2017 ASSAY THYROID STIM HORMONE CPT-4: 78245 12/26/2017 COMPREHEN METABOLIC PANEL CPT-4: 41000 12/26/2017 COMPLETE CBC W/AUTO DIFF WBC CPT-4: 45200 12/26/2017 LIPID PANEL CPT-4: 33384 12/26/2017 ASSAY OF PSA TOTAL CPT-4: 82506 12/26/2017 ROUTINE VENIPUNCTURE CPT-4: 64793 12/29/2015 ASSAY OF FREE THYROXINE CPT-4: 11521 12/29/2015 ASSAY THYROID STIM HORMONE CPT-4: 23682 12/29/2015 COMPREHEN METABOLIC PANEL CPT-4: 16391 12/29/2015 COMPLETE CBC W/AUTO DIFF WBC CPT-4: 29623 12/29/2015 LIPID PANEL CPT-4: 55440 12/29/2015 ASSAY OF PSA TOTAL CPT-4: 63456 12/29/2015 TDAP VACCINE 7 YRS/> IM CPT-4: 70073 10/20/2015 IMMUNIZATION ADMIN CPT-4: 56886 10/20/2015 ROUTINE VENIPUNCTURE CPT-4: 42552 06/03/2014 ASSAY OF FREE THYROXINE CPT-4: 36697 06/03/2014 ASSAY THYROID STIM HORMONE CPT-4: 12727 06/03/2014 COMPREHEN METABOLIC PANEL CPT-4: 77601 06/03/2014 COMPLETE CBC W/AUTO DIFF WBC CPT-4: 24200 06/03/2014 LIPID PANEL CPT-4: 19102 06/03/2014 ASSAY OF PSA TOTAL CPT-4: 43600 06/03/2014 Vital Signs Date Vital 12/22/2019 Blood Pressure 1: 150/96 Code: 8480-6 BMI: 33.1 Code: 86286-8 Heart Rate 1: 88 bpm Height: 6' [...] 1: 126/80 Code: 8480-6 BMI: 32.8 Code: 74641-8 Heart Rate 1: 82 bpm Height: 6' Respiratory Rate: 20 bpm SpO2: 96% Tempera ture: 36.8 (C) / 98.2 (F) Weight: 242 lbs 12/26/2017 Blood Pressure 1: 114/64 Code: 8480-6 He art Rate 1: 66 bpm 12/09/2017 Blood Pressure 1: 144/96 Code: 8480-6 BMI: 33.1 Code: 50005-2 Heart Rate 1: 72 bpm Height: 6' Respiratory Rate: 20 bpm Temperature: 36 .9 (C) / 98.4 (F) Weight: 244 lbs 12/29/2015 Blood Pressure 1: 132/86 Code: 8480-6 He art Rate 1: 72 bpm 10/20/2015 Blood Pressure 1: 142/94 Code: 8480-6 BMI: 32.8 Code: 65178-6 Heart Rate 1: 72 bpm Height: 6' Respiratory Rate: 20 bpm SpO2: 96% Tempera ture: 36.7 (C) / 98.1 (F) Weight: 242 lbs 05/24/2014 Blood Pressure 1: 138/90 Code: 8480-6 BMI: 31.3 Code: 15815-6 Heart Rate 1: 80 bpm Height: 6' [...] establish Encounters Encounter Performer Location Codes Date (54134) NURSE/OUTPATIENT VISIT EST Diagnosis: Encounter for general adult medical examination without abnormal findings[ICD10: Z00.00] Diagnosis: Encounter for screening for malignant neoplasm of colon[ICD10: Z12.11] Diagnosis: Essential (primary) hypertension[ICD10: I10] Diagnosis: Mixed hyperlipidemia[ICD10: E78.2] Diagnosis: Other fatigue[ICD10: R53.83] Didi [employer] CPT-4: 77518 12/27/2019 ([id number]) PREV VISIT EST AGE 40-64 Diagnosis: Encounter [...] apnea (adult) (pediatric)[ICD10: G47.33] Kait Alas DIDI [employer] CPT-4: 74298 12/22/2019 ([id number]) OFFICE/OUTPATIENT VISIT EST Diagnosis: Essential (primary) hypertension[ICD10: I10] Diagnosis: Cardiac arrhythmia, unspecified[ICD10: I49.9] Diagnosis: Other fatigue[ICD10: R53.83] Didi [employer] CPT-4: 12593 12/15/2018 OFFICE/OUTPATIENT VISIT EST Diagnosis: Cardiac arrhythmia, unspecified[ICD10: I49.9] Diagnosis: Bitten or stung by nonvenomous insect and other nonvenomous arthropods, initial encounter[ICD10: W57.XXXA] Diagnosis: Abnormal levels of other serum enzymes[ICD10: R74.8] Diagnosis: Mixed hyperlipidemia[ICD10: E78.2] Didi KLEIN [employer] CPT-4: 35484 11/12/2018 ([id number]) NURSE/OUTPATIENT VISIT EST Diagnosis: Essential (primary) hypertension[ICD10: I10] Diagnosis: Mixed hyperlipidemia[ICD10: E78.2] Didi MOORE ERNIE [employer] CPT-4: 27917 11/10/2018 OFFICE/OUTPATIENT VISIT EST Diagnosis: Other fatigue[ICD10: R53.83] Diagnosis: Headache[ICD10: R51] Diagnosis: Fever, unspecified[ICD10: R50.9] Diagnosis: Rash and other nonspecific skin eruption[ICD10: R21] Diagnosis: Dyspnea, unspecified[ICD10: R06.00] Diagnosis: Cardiac arrhythmia, unspecified[ICD10: I49.9] Brooklyn Dinh DIDI [employer] CPT-4: 85842 11/09/2018 ([id number]) OFFICE/OUTPATIENT VISIT EST Diagnosis: Essential (primary) hypertension[ICD10: I10] Diagnosis: Gastro-esophageal reflux disease without esophagitis[ICD10: K21.9] Diagnosis: Pain in left knee[ICD10: M25.562] Diagnosis: Pain in left foot[ICD10: M79.672] Kait Florentino [employer] CPT-4: 30804 01/29/2018 ([id number]) NURSE/OUTPATIENT VISIT EST Diagnosis: Encounter for general adult medical examination without abnormal findings[ICD10: Z00.00] Diagnosis: Mixed hyperlipidemia[ICD10: E78.2] Diagnosis: Essential (primary) hypertension[ICD10: I10] Didi Moyerbrenda DIDI [employer] CPT-4: 11249 12/26/2017 ([id number]) OFFICE/OUTPATIENT VISIT EST Diagnosis: Essential (primary) hypertension[ICD10: I10] Diagnosis: Gastro-esophageal reflux disease without esophagitis[ICD10: K21.9] Diagnosis: Bilateral primary osteoarthritis of knee[ICD10: M17.0] Diagnosis: Bilateral primary osteoarthritis of first carpometacarpal joints[ICD10: M18.0] Diagnosis: Obstructive sleep apnea (adult) (pediatric)[ICD10: G47.33] Diagnosis: Lymphedema, not elsewhere classified[ICD10: I89.0] Didi JACKSON RosiJacquelin [employer] [employer] CPT-4: 48838 12/09/2017 ([id number]) OFFICE/OUTPATIENT VISIT EST Diagnosis: Encounter for general adult medical examination without abnormal findings[ICD10: Z00.00] Diagnosis: Elevated blood-pressure reading, without diagnosis of hypertension[ICD10: R03.0] Didi Jensen ARELIS [employer] CPT- 4: 27523 12/29/2015 ([id number]) PREV VISIT EST AGE 40-64 Diagnosis: Encounter [...] VACCINE FOR TDAP[ICD10: Z23] Jocelyn Jensen F[facility] [employer] CPT-4: 97037 10/20/2015 ([id number]) OFFICE/OUTPATIENT VISIT EST Diagnosis: ROUTINE MEDICAL EXAM[ICD9: V70.0] Didi Jensen [employer] CPT-4: 02019 06/03/2014 OFFICE/OUTPATIENT VISIT NEW Diagnosis: GERD[ICD9: 530.81] Diagnosis: OBSTRUCTIVE SLEEP APNEA[ICD9: 327.23] Negra Jensen [facility] [employer] CPT-4: 50007 05/24/2014 Plan of Care Planned Activity Notes [...] so referral sent to dr. iglesias at [address] for evaluation. ICD-9 : 715.96 ICD-10 [...] ICD-10 : I10 12/22/2019 Appointment: Kait Alas [address] [place], [place] [address] Annual Well Visit 12/22/2019 Patient Education: hydrochlorothiazide- OptimizeRX Cou neelam [id number] [email or web address] Completed 12/22/2019 Patient Education: High Blood Pressure [...] : I49.9 12/15/2018 Appointment: Didi Araiza WPtel: [facility] US FOLLOW UP 12/15/2018 Visit Diagnosis Plan: [...] : R74.8 11/12/2018 Appointment: Didi Araiza WPtel: [address] [facility] US FOLLOW UP 11/12/2018 Patient Education: doxycycline hyclate- Opt[employer] Cou neelam [id number] [email or web address]/[email or web address] Completed 11/12/2018 Appointment: Didi Araiza WPtel: [address] [id number] LAB 11/10/2018 Visit Diagnosis Plan: Other fatigue [...] : R06.00 11/09/2018 Appointment[facility] [place] Din[facility] [facility] [facility] 11/09/2018 Visit Diagnosis Plan: Essential [...] ICD-10 : M25.562 01/29/2018 Appointment: Kait Alas [address] [place], [place] [id number] FOLLOW UP 01/29/2018 Patient Education: Patient Medication Summary Completed 01/29/2018 Appointment: Didi Araiza WPtel: [address] [place], [place] [phone] LAB 12/26/2017 Patient Education: Patient Medication Summary [...] : G47.33 12/09/2017 Appointment: Didi Araiza WPtel: [address] [place], [place] [id number] ACUTE ILLNESS 12/09/2017 Patient Education: Patient Medication Summary Completed 12/09/2017 Appointment: Kait Alas [address] [facility] RESCHEDULED 12/01/2017 Appointment: Didi Araiza WPtel: [address] [place], [place] [phone] LAB 12/29/2015 Patient Education: Patient Medication Summary [...] aid if need be Form requested from [facility] Patient for new bipap 10/20/2015 [facility] [facility] [facility]~sl Annual Well Visit 10/20/2015 Patient Education: Patient Medication Summary Completed 10/20/2015 [facility]ment[facility] [facility] [facility] 06/03/2014 Patient Education: Patient Medication Summary Completed 06/03/2014 App[facility]ment[facility] Neg[facility] [facility] [facility] NEW [facility]IENT 05/24/2014 Patient Education: [...] aid if need be Form requested from [employer] Patient for new bipap Medical Equipment No Medical Equipment data Health Concerns Section Health Concerns data not found Goals Section Goals data not found Interventions Section Interventions data not found Health Status Evaluations/Outcomes Section Health Status Evaluations/Outcomes data not found Advance Directives No Advance Directive data
--- OUTSIDE RECORDS SUMMARY | 2020-01-21 11:16 | XMS REPORT | CCD ---
Author Author Rafael Mejia APRN Organization [facility] Address [address] [place] [address] Phone Care Team Providers Care Nursing Manager Name Role Phone [facility] D.O[facility] PP Unavailable CCM Unavailable Summary Purpose Interface Exchange Insurance Providers Payer name Policy type / Coverage type Covered green party ID Effective Begin Date Effective End Date Blue Cross Blue Shield Blue Cross/Blue Shield [id number] 2019 Unknown Family History Family History data [...] Problems Condition Codes Effective Dates Condition Status Bilateral primary osteoarthritis of knee ICD-9: 715.96 ICD-10: M17.0 12/09/2017 Active Change in mole ICD-9: 216.9 ICD-10: D22.9 12/22/2019 Active Encounter for general adult medical examination withou t abnormal findings ICD-9: V70.9 ICD-10: Z00.00 12/28/2015 Active Essential (primary) hypertension ICD-9: 401.9 ICD-10: I10 12/09/2017 Active Gastro-esophageal reflux disease without esophagitis I CD-9: 530.81 ICD-10: K21.9 12/09/2017 Active Mixed hyperlipidemia ICD-9: 272.2 ICD-10: E78.2 10/19/2015 Active Obstructive sleep apnea (adult) (pediatric) ICD-9: 327 .23 ICD-10: G47.33 05/24/2014 Active Cardiac arrhythmia, unspecified ICD-9: 427.9 ICD-10: I49.9 11/09/2018 Active Other fatigue ICD-9: 780.79 ICD-10: R53.83 11/09/2018 Active Abnormal levels of other serum [...] Fill Instructions hydrochlorothiazide 25 mg tablet RxNorm: 421517 1 Tablet(s) Oral QD 12/22/2019 03/21/2020 Active pantoprazole 40 mg tablet,delayed release RxNorm: 373487 1 Tablet(s) Oral QD Due for updated fasting labs and appointment 12/06/2019 01/05/2020 Active Due for updated fasting labs and appointment before 90 day supply hydrochlorothiazide 12.5 mg tablet RxNorm: 626943 TAKE ONE TABLET BY MOUTH EVERY MORNING FOR BLOOD PRESSURE 10/04/2019 No Stop Date Active pantoprazole 40 mg tablet,delayed release RxNorm: 729094 TAKE ONE TABLET BY MOUTH DAILY 09/05/2019 12/05/2019 Inactive hydrochlorothiazide 12.5 mg tablet RxNorm: 578250 TAKE ONE TABLET BY MOUTH EVERY MORNING FOR BLOOD PRESSURE 07/05/2019 10/03/2019 Inactive pantoprazole 40 mg tablet,delayed release RxNorm: 625173 TAKE ONE TABLET BY MOUTH DAILY 05/29/2019 09/04/2019 Inactive pantoprazole 40 mg tablet,delayed release RxNorm: 202858 1 Tabl et(s) PO QD 03/04/2019 05/28/2019 Inactive hydrochlorothiazide 12.5 mg tablet RxNorm: 595608 TAKE ONE TABLET BY MOUTH EVERY MORNING FOR BLOOD PRESSURE 01/11/2019 07/04/2019 Inactive doxycycline hyclate 100 mg capsule RxNorm: 5656625 1 Capsule(s) PO BID 11/12/2018 11/21/2018 Inactive pantoprazole 40 mg tablet,delayed release RxNorm: 904339 TAKE ONE TABLET BY MOUTH DAILY 10/30/2018 03/04/2019 Inactive hydrochlorothiazide 12.5 mg tablet RxNorm: 654066 TAKE ONE TABLET BY MOUTH EVERY MORNING FOR BLOOD PRESSURE 10/12/2018 01/09/2019 Inactive pantoprazole 40 mg tablet,delayed release RxNorm: 270280 TAKE ONE TABLET BY MOUTH DAILY 08/31/2018 09/29/2018 Inactive pantoprazole 40 mg tablet,delayed release RxNorm: 376103 1 Tabl et(s) PO QD 04/03/2018 08/30/2018 Inactive hydrochlorothiazide 12.5 mg tablet RxNorm: 815510 TAKE ONE TABLET BY MOUTH EVERY MORNING FOR BLOOD PRESSURE 03/30/2018 09/25/2018 Inactive Medrol (John) 4 mg tablets in a dose pack RxNorm: 093296 Tablet(s) PO take as directed 01/29/2018 11/08/2018 Inactive pantoprazole 40 mg tablet,delayed release RxNorm: 689219 1 Tablet(s) PO BID for 1 month then decrease to 1 po daily 12/29/2017 04/02/2018 Inactive hydrochlorothiazide 12.5 mg tablet RxNorm: 639828 1 Tablet(s) P O QAM for BP 12/29/2017 03/28/2018 Inactive hydrochlorothiazide 12.5 mg tablet RxNorm: 373237 1 Tablet(s) P O QAM for BP 12/09/2017 12/28/2017 Inactive pantoprazole 40 mg tablet,delayed release RxNorm: 021488 1 Tablet(s) PO BID for 1 month then decrease to 1 po daily 12/09/2017 04/03/2018 Inactive Voltaren 1 % topical gel RxNorm: 600102 1 Gram(s) TOP QID to bi lateral knees 12/09/2017 12/21/2019 Inactive meloxicam 15 mg tablet RxNorm: 298408 1 Tablet(s) PO QD 10/20/2015 Inactive Benadryl 25 mg capsule RxNorm: 9255571 1 Capsule(s) PO QHS No Start D ate Active Nexium oral RxNorm: 816904 oral No Start Date 10/20/2015 Inactive Nexium 24HR 22.3 mg capsule,delayed release RxNorm: 631962 1 Ca psule(s) PO QAM No Start Date 11/08/2018 Inactive Fish Oil 1,000 mg capsule RxNorm: 1 Capsule(s) PO QD No Start Date 12/28/2017 Inactive Fish Oil 1,000 mg capsule RxNorm: 1 Capsule(s) PO TID No Start Calin e 11/08/2018 Inactive naproxen sodium 220 mg tablet RxNorm: 870775 1 Tablet(s) PO QHS No Start Date 11/08/2018 Inactive Medication Administered No Medication Administered data Immunizations Vaccine Codes Date Status Tetanus, Diptheria, Pertussis CVX: 115 10/20/2015 Results Observation Observation Code Item Item Code Result Date S ervice Location [facility] 5[address]50 Cholesterol 209 mg/dL 11/10/2018 Unkno wn [facility] 83753 Triglyceride 210 mg/dL 11/10/2018 Unkn own [facility] 93879 HDL CHOLESTEROL 32 mg/dL 11/10/2018 U nknown [facility] 29219 Chol/HDL Ratio 6.53 ratio 11/10/2018 U nknown [facility] 43385 NON-HDL Chol 177 mg/dL 11/10/2018 Unkn own [facility] 30253 LDL Cholesterol 135 mg/dL 11/10/2018 U nknown [facility] 41535 AST 15 U/L 2017 Unknown [facility]PRE[facility] MET[facility]OL[facility] 85861 ALT 20 U/L 2017 Unknown [facility] 97717 BUN 16 mg/dL 2017 Unknown [facility] 95677 ALBUMIN 4.4 g/dL 2017 Unknown [facility] 96031 CHLORIDE 105 mmol/L 12/26 Unknown [facility] 25816 Bili Total 0.6 mg/dL 12/26 Unknown [facility] 89168 ALK PHOS 61 U/L 2017 Unknown [facility] 05690 SODIUM 141 mmol/L 12/26 Unknown [facility] 42645 CREATININE 0.90 mg/dL 11/29 Unknown COMPREHENS[facility] 83135 CALCIUM 9.7 mg/dL 2017 Unknown [facility] 88082 POTASSIUM 4.2 mmol/L 12/26 Unknown [facility] 08647 Total Protein 6.5 g/dL Unknown [facility] 58914 Glucose 99 mg/dL 2017 Unknown [facility] 43469 Bicarbonate 24 mmol/L 11/29 Unknown COMPREHENS[facility]OL[facility] 28505 AGAP 12 mmol/L 2017 Unknown COMPLETE BLOOD COUNT [id number] WBC 5.5 10e9/L 12/27/19 18 Unknown COMPLETE BLOOD COUNT 6774088 RBC 4.87 10e12/L 2017 Unknown COMPLETE BLOOD COUNT 7282586 HEMOGLOBIN 15.1 g/dL 12/27/19 18 Unknown COMPLETE BLOOD COUNT 4658100 HEMATOCRIT 44.9 % 12/27/19 18 Unknown COMPLETE BLOOD COUNT 8405599 MCV 92.2 fL 8 Unknown COMPLETE BLOOD COUNT 3512217 MCH 31.0 pg 8 Unknown COMPLETE BLOOD COUNT 1888871 MCHC 33.6 g/dL 8 Unknown COMPLETE BLOOD COUNT 0330406 PLATELET COUNT 244 10e9/L Unknown COMPLETE BLOOD COUNT 7856956 Mean Plt Volume 11.8 fL Unknown COMPLETE BLOOD COUNT 1867326 Neut Auto 42.0 % 8 Unknown COMPLETE BLOOD COUNT 3781951 Lymph Auto 39.5 % 12/27/19 18 Unknown COMPLETE BLOOD COUNT 3911539 Jackson Auto 13.0 % 8 Unknown COMPLETE BLOOD COUNT 6584543 RDW 13.8 % 8 Unknown COMPLETE BLOOD COUNT 3043994 Eos Auto 5.3 % 8 Unknown COMPLETE BLOOD COUNT 0587232 Baso Auto 0.2 % 8 Unknown COMPLETE BLOOD COUNT 1439556 Neutrophil Abs 2.31 10e9/L Unknown COMPLETE BLOOD COUNT 2565109 Lymphocyte Abs 2.17 10e9/L Unknown COMPLETE BLOOD COUNT [id number] Monocyte Abs 0.72 10e9/L 11/29 Unknown COMPLETE BLOOD COUNT 3459352 Eosinophil Abs 0.29 10e9/L Unknown COMPLETE BLOOD COUNT 7399752 RDW-SD 45.6 fL 8 Unknown COMPLETE BLOOD COUNT [id number] Basophil Abs 0.01 10e9/L 11/29 Unknown PSA EQUIMOLAR JORI 06288 PSA Total 1.40 ng/mL 8 Unknown GFR CALC 1409145 GFR Non Afr Amr >60 mL/min 12/26/2017 Un known GFR CALC 1355583 GFR Afr Amr >60 mL/min 12/26/2017 Unknow n [facility] 21664 Cholesterol 239 mg/dL 12/26/2017 Unkno wn [facility] 37736 Triglyceride 140 mg/dL 12/26/2017 Unkn own [facility] 48930 HDL CHOLESTEROL 48 mg/dL 12/26/2017 U nknown [facility] 02612 Chol/HDL Ratio 4.98 ratio 12/26/2017 U nknown [facility] 42997 NON-HDL Chol 191 mg/dL 12/26/2017 Unkn own [facility] 28960 LDL Cholesterol 163 mg/dL 12/26/2017 [facility] THYRO[facility] STIMUL[facility] HORMONE 57824 TSH 1.633 uIU/mL 12/26/2017 Unknown COMPLETE BLOOD COUNT 0550407 WBC 5.3 10e9/L 12/29/19 16 Unknown COMPLETE BLOOD COUNT [id number] RBC 4.84 10e12/L 2015 Unknown COMPLETE BLOOD COUNT 9447329 HEMOGLOBIN 14.9 g/dL 12/29/19 16 Unknown COMPLETE BLOOD COUNT 1593142 HEMATOCRIT 44.3 % 12/29/19 16 Unknown COMPLETE BLOOD COUNT 8366270 MCV 91.5 fL 6 Unknown COMPLETE BLOOD COUNT 2404150 MCH 30.8 pg 6 Unknown COMPLETE BLOOD COUNT 3970286 MCHC 33.6 g/dL 6 Unknown COMPLETE BLOOD COUNT 5265133 PLATELET COUNT 220 10e9/L 06/2015 Unknown COMPLETE BLOOD COUNT 3667969 Mean Plt Volume 11.8 fL 06/2015 Unknown COMPLETE BLOOD COUNT 7217882 Neut Auto 42.3 % 6 Unknown COMPLETE BLOOD COUNT 4934650 Lymph Auto 39.0 % 12/29/19 16 Unknown COMPLETE BLOOD COUNT 3930049 Jackson Auto 13.6 % 6 Unknown COMPLETE BLOOD COUNT 5732610 RDW 14.0 % 6 Unknown COMPLETE BLOOD COUNT 5845531 Eos Auto 4.7 % 6 Unknown COMPLETE BLOOD COUNT 1792375 Baso Auto 0.4 % 6 Unknown COMPLETE BLOOD COUNT 3811826 Neutrophil Abs 2.24 10e9/L Unknown COMPLETE BLOOD COUNT 6193645 Lymphoctye Abs 2.07 10e9/L Unknown COMPLETE BLOOD COUNT 8936067 Monocyte Abs 0.72 10e9/L 06/2015 Unknown COMPLETE BLOOD COUNT 4301317 Eosinophil Abs 0.25 10e9/L Unknown COMPLETE BLOOD COUNT 3339337 RDW-SD 45.7 fL 6 Unknown COMPLETE BLOOD COUNT 2389532 Basophil Abs 0.02 10e9/L 06/2015 Unknown PSA EQUIMOLAR JORI 57031 PSA Total 1.11 ng/mL 6 Unknown COMPREHENSIVE METABOLIC 61714 AST 16 U/L 2015 Unknown COMPREHENSIVE METABOLIC 80891 ALT 20 U/L 2015 Unknown COMPREHENSIVE METABOLIC 96055 BUN 12 mg/dL 2015 Unknown COMPREHENSIVE METABOLIC 96779 ALBUMIN 4.3 g/dL 2015 Unknown COMPREHENSIVE METABOLIC 35286 CHLORIDE 107 mmol/L 12/28 Unknown COMPREHENSIVE METABOLIC 85603 Bili Total 0.7 mg/dL 12/28 Unknown COMPREHENSIVE METABOLIC 20765 ALK PHOS 53 U/L 2015 Unknown COMPREHENSIVE METABOLIC 59421 SODIUM 141 mmol/L 12/28 Unknown COMPREHENSIVE METABOLIC 37384 CREATININE 0.88 mg/dL 06/2015 Unknown COMPREHENSIVE MET[facility]OLIC 97485 CALCIUM 9.3 mg/dL 2015 Unknown COMPREHENSIVE METABOLIC 90972 POTASSIUM 4.1 mmol/L 12/28 Unknown COMPREHENSIVE METABOLIC 33592 Total Protein 6.5 g/dL Unknown [facility] 11113 Glucose 95 mg/dL 2015 Unknown COMPREHENSIVE METABOLIC 45746 Bicarbonate 27 mmol/L 06/2015 Unknown COMPREHENSIVE METABOLIC 78712 AGAP 7 mmol/L 2015 Unknown FREE T4 58474 T4 Free 1.11 ng/dL 12/29/2015 Unknown GFR CALC 9133118 GFR Non Afr Amr >60 mL/min 12/29/2015 Un known GFR CALC 3440148 GFR Afr Amr >60 mL/min 12/29/2015 Unknow n THYROID STIMULATING HORMONE 88154 TSH 0.687 uIU/mL 12/29/2015 Unknown [facility] 60951 Cholesterol 226 mg/dL 12/29/2015 Unkno wn [facility] 60207 Triglyceride 101 mg/dL 12/29/2015 Unkn own [facility] 41126 HDL CHOLESTEROL 57 mg/dL 12/29/2015 U nknown [facility] 92575 Chol/HDL Ratio 3.96 ratio 12/29/2015 U nknown [facility] 32723 NON-HDL Chol 169 mg/dL 12/29/2015 Unkn own [facility] 37512 LDL Cholesterol 149 mg/dL 12/29/2015 U nknown COMPREHENSIVE METABOLIC 78692 AST 17 U/L 2013 Unknown COMPREHENSIVE METABOLIC 33408 ALT 24 IU/L 2013 Unknown COMPREHENSIVE METABOLIC 24891 BUN 18 MG/DL 2013 Unknown COMPREHENSIVE METABOLIC 36005 ALBUMIN 4.4 GM/DL 2013 Unknown COMPREHENSIVE METABOLIC 27328 CHLORIDE 108 MMOL/L 06/03 Unknown COMPREHENSIVE METABOLIC 19996 BILI TOT 0.4 MG/DL 2013 Unknown COMPREHENSIVE METABOLIC 78319 ALK PHOS 58 U/L 2013 Unknown COMPREHENSIVE METABOLIC 81745 SODIUM 139 MMOL/L 06/03 Unknown COMPREHENSIVE METABOLIC 45210 CREATININE 0.86 MG/DL 10/2013 Unknown COMPREHENSIVE METABOLIC 49792 CALCIUM 9.6 MG/DL 2013 Unknown COMPREHENSIVE METABOLIC 68551 POTASSIUM 4.3 MMOL/L 06/03 Unknown COMPREHENSIVE METABOLIC 64817 PROT TOT 6.0 GM/DL 2013 Unknown COMPREHENSIVE METABOLIC 84694 Glucose 104 MG/DL 2013 Unknown COMPREHENSIVE MET[facility]OLIC 23348 BICARB 26 MMOL/L 2013 Unknown COMPREHENSIVE METABOLIC 71332 ANION GAP 5 MEQ/L 2013 Unknown GFR CALC 1868532 GFR AA >60 ML/MIN 06/03/2014 Unknown GFR CALC 6566000 GFR NON-AA >60 ML/MIN 06/03/2014 Unknown COMPLETE BLOOD COUNT 2811156 WBC 4.7 10e9/L 06/03/20 14 Unknown COMPLETE BLOOD COUNT 8283368 RBC 4.85 10e12/L 2013 Unknown COMPLETE BLOOD COUNT 4006302 HGB 14.9 g/dL 4 Unknown COMPLETE BLOOD COUNT 4932129 HCT DET 44.2 % 4 Unknown COMPLETE BLOOD COUNT 2587466 MCV 91.1 fL 4 Unknown COMPLETE BLOOD COUNT 6211016 MCH 30.7 pg 4 Unknown COMPLETE BLOOD COUNT 2414884 MCHC 33.7 g/dL 4 Unknown COMPLETE BLOOD COUNT 9841913 PLT 245 10e9/L 06/03/20 14 Unknown COMPLETE BLOOD COUNT 1097932 MPV 11.7 fL 4 Unknown COMPLETE BLOOD COUNT 2630635 YOSSI % 37.0 % 4 Unknown COMPLETE BLOOD COUNT 4618713 LY % 44.2 % 4 Unknown COMPLETE BLOOD COUNT 1664497 MON % 14.1 % 4 Unknown COMPLETE BLOOD COUNT 7547372 EOS % 4.5 % 4 Unknown COMPLETE BLOOD COUNT 7291399 BASO % 0.2 % 4 Unknown COMPLETE BLOOD COUNT 9657721 RDW 13.3 % 4 Unknown COMPLETE BLOOD COUNT 6713507 ABS YOSSI 1.74 10e9/L 014 Unknown COMPLETE BLOOD COUNT 1329078 ABS LYMPH 2.08 10e9/L 014 Unknown COMPLETE BLOOD COUNT 7426025 ABS MONO 0.66 10e9/L 014 Unknown COMPLETE BLOOD COUNT 6660238 ABS EOS 0.21 10e9/L 014 Unknown COMPLETE BLOOD COUNT 0055502 ABS BASO 0.01 10e9/L 014 Unknown COMPLETE BLOOD COUNT 6582635 RDW-SD 43.5 fL 4 Unknown PSA EQUIMOLAR JORI 31387 PSA EQ 0.87 NG/ML 4 Unknown FREE T4 42306 FREE T4 1.21 NG/DL 06/03/2014 Unknown THYROID STIMULATING HORMONE 87138 TSH 0.705 uIU/ML 06/03/2014 Unknown [facility] 50623 HDL TEST 49 MG/DL 06/03/2014 Unknown [facility] 77511 TRIG 72 MG/DL 06/03/2014 Unknown [facility] 39239 TEST LDL 159 MG/DL 06/03/2014 Unknown [facility] 30318 CHOL 222 MG/DL 06/03/2014 Unknown [facility] 22749 RCHOL/HDL 4.53 RATIO 06/03/2014 Unknow n [facility] 90790 NON-HDL CH 173 MG/DL 06/03/2014 Unknow n Procedures Procedure Codes Date ROUTINE VENIPUNCTURE CPT-4: 49322 11/10/2018 LIPID PANEL CPT-4: 38119 11/10/2018 ROUTINE VENIPUNCTURE CPT-4: 55191 12/26/2017 ASSAY THYROID STIM HORMONE CPT-4: 12791 12/26/2017 COMPREHEN METABOLIC PANEL CPT-4: 57190 12/26/2017 COMPLETE CBC W/AUTO DIFF WBC CPT-4: 70314 12/26/2017 LIPID PANEL CPT-4: 81138 12/26/2017 ASSAY OF PSA TOTAL CPT-4: 25172 12/26/2017 ROUTINE VENIPUNCTURE CPT-4: 91844 12/29/2015 ASSAY OF FREE THYROXINE CPT-4: 40478 12/29/2015 ASSAY THYROID STIM HORMONE CPT-4: 50078 12/29/2015 COMPREHEN METABOLIC PANEL CPT-4: 47083 12/29/2015 COMPLETE CBC W/AUTO DIFF WBC CPT-4: 62054 12/29/2015 LIPID PANEL CPT-4: 58004 12/29/2015 ASSAY OF PSA TOTAL CPT-4: 85440 12/29/2015 TDAP VACCINE 7 YRS/> IM CPT-4: 48550 10/20/2015 IMMUNIZATION ADMIN CPT-4: 27730 10/20/2015 ROUTINE VENIPUNCTURE CPT-4: 59372 06/03/2014 ASSAY OF FREE THYROXINE CPT-4: 90424 06/03/2014 ASSAY THYROID STIM HORMONE CPT-4: 71714 06/03/2014 COMPREHEN METABOLIC PANEL CPT-4: 72727 06/03/2014 COMPLETE CBC W/AUTO DIFF WBC CPT-4: 61331 06/03/2014 LIPID PANEL CPT-4: 11504 06/03/2014 ASSAY OF PSA TOTAL CPT-4: 10265 06/03/2014 Vital Signs Date Vital 12/22/2019 Blood Pressure 1: 150/96 Code: 8480-6 BMI: 33.1 Code: 12889-5 Heart Rate 1: 88 bpm Height: 6' [...] 1: 126/80 Code: 8480-6 BMI: 32.8 Code: 81743-6 Heart Rate 1: 82 bpm Height: 6' Respiratory Rate: 20 bpm SpO2: 96% Tempera ture: 36.8 (C) / 98.2 (F) Weight: 242 lbs 12/26/2017 Blood Pressure 1: 114/64 Code: 8480-6 He art Rate 1: 66 bpm 12/09/2017 Blood Pressure 1: 144/96 Code: 8480-6 BMI: 33.1 Code: 99268-9 Heart Rate 1: 72 bpm Height: 6' Respiratory Rate: 20 bpm Temperature: 36 .9 (C) / 98.4 (F) Weight: 244 lbs 12/29/2015 Blood Pressure 1: 132/86 Code: 8480-6 He art Rate 1: 72 bpm 10/20/2015 Blood Pressure 1: 142/94 Code: 8480-6 BMI: 32.8 Code: 29236-3 Heart Rate 1: 72 bpm Height: 6' Respiratory Rate: 20 bpm SpO2: 96% Tempera ture: 36.7 (C) / 98.1 (F) Weight: 242 lbs 05/24/2014 Blood Pressure 1: 138/90 Code: 8480-6 BMI: 31.3 Code: 26661-7 Heart Rate 1: 80 bpm Height: 6' [...] establish Encounters Encounter Performer Location Codes Date ([id number]) PREV VISIT EST AGE 40-64 Diagnosis: Encounter [...] apnea (adult) (pediatric)[ICD10: G47.33] Kait Alas DIDI RosiJacquelin [employer] CPT-4: 49845 12/22/2019 ([id number]) OFFICE/OUTPATIENT VISIT EST Diagnosis: Essential (primary) hypertension[ICD10: I10] Diagnosis: Cardiac arrhythmia, unspecified[ICD10: I49.9] Diagnosis: Other fatigue[ICD10: R53.83] Didi Cristieric JACKSON [employer] CPT-4: 41162 12/15/2018 OFFICE/OUTPATIENT VISIT EST Diagnosis: Cardiac arrhythmia, unspecified[ICD10: I49.9] Diagnosis: Bitten or stung by nonvenomous insect and other nonvenomous arthropods, initial encounter[ICD10: W57.XXXA] Diagnosis: Abnormal levels of other serum enzymes[ICD10: R74.8] Diagnosis: Mixed hyperlipidemia[ICD10: E78.2] Didi KLEIN [employer] CPT-4: 06604 11/12/2018 ([id number]) NURSE/OUTPATIENT VISIT EST Diagnosis: Essential (primary) hypertension[ICD10: I10] Diagnosis: Mixed hyperlipidemia[ICD10: E78.2] Didi KLEIN [employer] CPT-4: 66545 11/10/2018 OFFICE/OUTPATIENT VISIT EST Diagnosis: Other fatigue[ICD10: R53.83] Diagnosis: Headache[ICD10: R51] Diagnosis: Fever, unspecified[ICD10: R50.9] Diagnosis: Rash and other nonspecific skin eruption[ICD10: R21] Diagnosis: Dyspnea, unspecified[ICD10: R06.00] Diagnosis: Cardiac arrhythmia, unspecified[ICD10: I49.9] Brooklyn JACKSON [employer] CPT-4: 80065 11/09/2018 ([id number]) OFFICE/OUTPATIENT VISIT EST Diagnosis: Essential (primary) hypertension[ICD10: I10] Diagnosis: Gastro-esophageal reflux disease without esophagitis[ICD10: K21.9] Diagnosis: Pain in left knee[ICD10: M25.562] Diagnosis: Pain in left foot[ICD10: M79.672] Kait [employer] CPT-4: 57804 01/29/2018 ([id number]) NURSE/OUTPATIENT VISIT EST Diagnosis: Encounter for general adult medical examination without abnormal findings[ICD10: Z00.00] Diagnosis: Mixed hyperlipidemia[ICD10: E78.2] Diagnosis: Essential (primary) hypertension[ICD10: I10] Didi ARAIZA [employer] CPT-4: 32979 12/26/2017 ([id number]) OFFICE/OUTPATIENT VISIT EST Diagnosis: Essential (primary) hypertension[ICD10: I10] Diagnosis: Gastro-esophageal reflux disease without esophagitis[ICD10: K21.9] Diagnosis: Bilateral primary osteoarthritis of knee[ICD10: M17.0] Diagnosis: Bilateral primary osteoarthritis of first carpometacarpal joints[ICD10: M18.0] Diagnosis: Obstructive sleep apnea (adult) (pediatric)[ICD10: G47.33] Diagnosis: Lymphedema, not elsewhere classified[ICD10: I89.0] Didi ARAIZA [employer] CPT-4: 39414 12/09/2017 ([id number]) OFFICE/OUTPATIENT VISIT EST Diagnosis: Encounter for general adult medical examination without abnormal findings[ICD10: Z00.00] Diagnosis: Elevated blood-pressure reading, without diagnosis of hypertension[ICD10: R03.0] Didi Jensen [employer] CPT- 4: 92629 12/29/2015 ([id number]) PREV VISIT EST AGE 40-64 Diagnosis: Encounter [...] Z71.6] Diagnosis: VACCINE FOR TDAP[ICD10: Z23] Jocelyn Watts DIDI [employer] CPT-4: 23079 10/20/2015 ([id number]) OFFICE/OUTPATIENT VISIT EST Diagnosis: ROUTINE MEDICAL EXAM[ICD9: V70.0] Didi Florentino [employer] CPT-4: 03188 06/03/2014 OFFICE/OUTPATIENT VISIT NEW Diagnosis: GERD[ICD9: 530.81] Diagnosis: OBSTRUCTIVE SLEEP APNEA[ICD9: 327.23] Negra SCALES [employer] CPT-4: 17293 05/24/2014 Plan of Care Planned Activity Notes Codes Status Date Visit Diagnosis Plan: Change in mole Discussion: [...] so referral sent to dr. iglesias at [address] for evaluation. ICD-9 : 715.96 ICD-10 : M17.0 12/22/2019 Visit Diagnosis Plan: Encounter for gene ral adult medical examination without abnormal findings Discussion: due for fasting labs. instru cted to rtc for fasting labs. referral for colonoscopy and informed patient he can have prostate exam at that time. ICD-9 : V70.9 ICD-10 : Z00.00 12/22/2019 Visit Diagnosis Plan: Encounter for screening [...] ICD-10 : K21.9 12/22/2019 Visit Diagnosis Plan: Mixed hyperlipidemia Discussion: due for fasting labs ICD-9 : 272.2 ICD-10 : E78.2 12/22/2019 Visit Diagnosis Plan: Essential (primary) hypertension Discussion: increase hctz to 25 mg daily. will recheck bp when he's here for blood work. ICD-9 : 401.9 ICD-10 : I10 12/22/2019 Visit Diagnosis Plan: Obstructive sleep apnea (adult) (pediatric) Discussion: wears cpap nightly ICD-9 : 327.23 ICD-10 : G47.33 12/22/2019 Patient Education: hydrochlorothiazide- [employer] Cou neelam [id number] [email or web address] Completed 12/22/2019 Patient Education: High Blood Pressure [...] : I10 12/15/2018 [facility] [phone] [facility] [facility] 12/15/2018 Visit Diagnosis Plan: Abnormal levels of other [...] ICD-9 : 427.9 ICD-10 : I49.9 11/12/2018 Appointment: Didi Araiza WPtel: [facility] FOLLOW UP 11/12/2018 Patient Education: doxycycline hyclate- [employer] Cou [facility] [id number] [email or web address] Completed 11/12/2018 Appointment: Didi Araiza WPtel[facility] [facility] 11/10/2018 Visit Diagnosis Plan: Other [...] : I49.9 11/09/2018 Appointment: [place] Dinh [address] [facility] [facility] 11/09/2018 Visit Diagnosis Plan: Essential [...] : M79.672 01/29/2018 Appointment: Kait Alas [address] [facility] FOLLOW UP 01/29/2018 Patient Education: Patient Medication Summary Completed 01/29/2018 Appointment: Didi Araiza WPtel[facility] [facility] 12/26/2017 Patient Education: Patient Medication [...] : I89.0 12/09/2017 Appointment: Didi Araiza WPtel: [address] [place] [address] ACUTE ILLNESS 12/09/2017 Patient Education: Patient Medication Summary Completed 12/09/2017 Appointment: Kait Alas [address] [place] [address] RESCHEDULED 12/01/2017 Appointment: Didi Araiza WPtel: [address] [place] [address] US LAB 12/29/2015 Patient Education: Patient Medication [...] aid if need be Form requested from [facility] Patient for new bipap 10/20/2015 Appointment: Jocelyn Watts [address] [place] [address] 10/18 confirmed~sl Annual Well Visit 10/20/2015 Patient Education: Patient Medication Summary Completed 10/20/2015 Appointment: Didi Araiza WPtel: [address] [place] [address] US LAB 06/03/2014 Patient Education: Patient Medication Summary Completed 06/03/2014 Appointment: Negra Mejia WPtel: [address] [place], [place] [id number] NEW PATIENT 05/24/2014 Patient Education: Patient Medication [...] aid if need be Form requested from [facility] Patient for new bipap Medical Equipment No Medical Equipment data Health Concerns Section Health Concerns data not found Goals Section Goals data not found Interventions Section Interventions data not found Health Status Evaluations/Outcomes Section Health Status Evaluations/Outcomes data not found Advance Directives No Advance Directive data
--- OUTSIDE RECORDS SUMMARY | 2020-01-21 11:16 | XMS REPORT | CCD ---
Author Author Rafael Mejia APRN Organization [facility] Address [address] [place] [address] Phone Care Team Providers Care Supervising Producer Name Role Phone Didi Araiza D.O., PP Unavailable CCM Unavailable Summary Purpose Interface Exchange Insurance Providers Payer name Policy type / Coverage type Covered democrat ID Effective Begin Date Effective End Date Blue Cross Blue Shield Blue Cross/Blue Shield [id number] 2019 Unknown Family History Family History data [...] Fill Instructions hydrochlorothiazide 25 mg tablet RxNorm: 007767 1 Tablet(s) Oral QD 12/22/2019 03/21/2020 Active pantoprazole 40 mg tablet,delayed release RxNorm: 190740 1 Tablet(s) Oral QD Due for updated fasting labs and appointment 12/06/2019 01/05/2020 Active Due for updated fasting labs and appointment before 90 day supply hydrochlorothiazide 12.5 mg tablet RxNorm: 990844 TAKE ONE TABLET BY MOUTH EVERY MORNING FOR BLOOD PRESSURE 10/04/2019 No Stop Date Active pantoprazole 40 mg tablet,delayed release RxNorm: 494344 TAKE ONE TABLET BY MOUTH DAILY 09/05/2019 12/05/2019 Inactive hydrochlorothiazide 12.5 mg tablet RxNorm: 783780 TAKE ONE TABLET BY MOUTH EVERY MORNING FOR BLOOD PRESSURE 07/05/2019 10/03/2019 Inactive pantoprazole 40 mg tablet,delayed release RxNorm: 598249 TAKE ONE TABLET BY MOUTH DAILY 05/29/2019 09/04/2019 Inactive pantoprazole 40 mg tablet,delayed release RxNorm: 768612 1 Tabl et(s) PO QD 03/04/2019 05/28/2019 Inactive hydrochlorothiazide 12.5 mg tablet RxNorm: 974446 TAKE ONE TABLET BY MOUTH EVERY MORNING FOR BLOOD PRESSURE 01/11/2019 07/04/2019 Inactive doxycycline hyclate 100 mg capsule RxNorm: 3532507 1 Capsule(s) PO BID 11/12/2018 11/21/2018 Inactive pantoprazole 40 mg tablet,delayed release RxNorm: 218715 TAKE ONE TABLET BY MOUTH DAILY 10/30/2018 03/04/2019 Inactive hydrochlorothiazide 12.5 mg tablet RxNorm: 686433 TAKE ONE TABLET BY MOUTH EVERY MORNING FOR BLOOD PRESSURE 10/12/2018 01/09/2019 Inactive pantoprazole 40 mg tablet,delayed release RxNorm: 199105 TAKE ONE TABLET BY MOUTH DAILY 08/31/2018 09/29/2018 Inactive pantoprazole 40 mg tablet,delayed release RxNorm: 187652 1 Tabl et(s) PO QD 04/03/2018 08/30/2018 Inactive hydrochlorothiazide 12.5 mg tablet RxNorm: 335305 TAKE ONE TABLET BY MOUTH EVERY MORNING FOR BLOOD PRESSURE 03/30/2018 09/25/2018 Inactive Medrol (John) 4 mg tablets in a dose pack RxNorm: 014095 Tablet(s) PO take as directed 01/29/2018 11/08/2018 Inactive pantoprazole 40 mg tablet,delayed release RxNorm: 341083 1 Tablet(s) PO BID for 1 month then decrease to 1 po daily 12/29/2017 04/02/2018 Inactive hydrochlorothiazide 12.5 mg tablet RxNorm: 792242 1 Tablet(s) P O QAM for BP 12/29/2017 03/28/2018 Inactive hydrochlorothiazide 12.5 mg tablet RxNorm: 533724 1 Tablet(s) P O QAM for BP 12/09/2017 12/28/2017 Inactive pantoprazole 40 mg tablet,delayed release RxNorm: 227241 1 Tablet(s) PO BID for 1 month then decrease to 1 po daily 12/09/2017 04/03/2018 Inactive Voltaren 1 % topical gel RxNorm: 925401 1 Gram(s) TOP QID to bi lateral knees 12/09/2017 12/21/2019 Inactive meloxicam 15 mg tablet RxNorm: 644951 1 Tablet(s) PO QD 10/20/2015 Inactive Benadryl 25 mg capsule RxNorm: 5847420 1 Capsule(s) PO QHS No Start D ate Active Nexium oral RxNorm: 532866 oral No Start Date 10/20/2015 Inactive Nexium 24HR 22.3 mg capsule,delayed release RxNorm: 824349 1 Ca psule(s) PO QAM No Start Date 11/08/2018 Inactive Fish Oil 1,000 mg capsule RxNorm: 1 Capsule(s) PO QD No Start Date 12/28/2017 Inactive Fish Oil 1,000 mg capsule RxNorm: 1 Capsule(s) PO TID No Start Calin e 11/08/2018 Inactive naproxen sodium 220 mg tablet RxNorm: 115184 1 Tablet(s) PO QHS No Start Date 11/08/2018 Inactive Medication Administered No Medication Administered data Immunizations Vaccine Codes Date Status Tetanus, Diptheria, Pertussis CVX: 115 10/20/2015 Results Observation Observation Code Item Item Code Result Date S ervice Location [facility] 01036 Cholesterol 209 mg/dL 11/10/2018 Unkno wn [facility] 61455 Triglyceride 210 mg/dL 11/10/2018 Unkn own [facility] 02036 HDL CHOLESTEROL 32 mg/dL 11/10/2018 U nknown [facility] 52491 Chol/HDL Ratio 6.53 ratio 11/10/2018 U nknown [facility] 67987 NON-HDL Chol 177 mg/dL 11/10/2018 Unkn own [facility] 43986 LDL Cholesterol 135 mg/dL 11/10/2018 U nknown [facility] 32202 AST 15 U/L 2017 Unknown [facility]PRE[facility]OL[facility] 61166 ALT 20 U/L 2017 Unknown [facility] 42277 BUN 16 mg/dL 2017 Unknown [facility] 04911 ALBUMIN 4.4 g/dL 2017 Unknown [facility] 39234 CHLORIDE 105 mmol/L 12/26 Unknown [facility] 43202 Bili Total 0.6 mg/dL 12/26 Unknown [facility] 39089 ALK PHOS 61 U/L 2017 Unknown [facility] 35291 SODIUM 141 mmol/L 12/26 Unknown COMPREHENS[facility] 08140 CREATININE 0.90 mg/dL 11/29 Unknown [facility] 07060 CALCIUM 9.7 mg/dL 2017 Unknown COMPREHENS[facility]OL[facility] 96672 POTASSIUM 4.2 mmol/L 12/26 Unknown COMPREHENS[facility] MET[facility]OL[facility] 63919 Total Protein 6.5 g/dL Unknown [facility] 09807 Glucose 99 mg/dL 2017 Unknown [facility] 10450 Bicarbonate 24 mmol/L 11/29 Unknown COMPREHENSIVE METABOLIC 05874 AGAP 12 mmol/L 2017 Unknown COMPLETE BLOOD COUNT 7100582 WBC 5.5 10e9/L 12/27/19 18 Unknown COMPLETE BLOOD COUNT [id number] RBC 4.87 10e12/L 2017 Unknown COMPLETE BLOOD COUNT 6147711 HEMOGLOBIN 15.1 g/dL 12/27/19 18 Unknown COMPLETE BLOOD COUNT 8208441 HEMATOCRIT 44.9 % 12/27/19 18 Unknown COMPLETE BLOOD COUNT 4197309 MCV 92.2 fL 8 Unknown COMPLETE BLOOD COUNT 5298005 MCH 31.0 pg 8 Unknown COMPLETE BLOOD COUNT 6171757 MCHC 33.6 g/dL 8 Unknown COMPLETE BLOOD COUNT 0935190 PLATELET COUNT 244 10e9/L Unknown COMPLETE BLOOD COUNT 0738848 Mean Plt Volume 11.8 fL Unknown COMPLETE BLOOD COUNT 2442639 Neut Auto 42.0 % 8 Unknown COMPLETE BLOOD COUNT 0019613 Lymph Auto 39.5 % 12/27/19 18 Unknown COMPLETE BLOOD COUNT 2129965 [place] Auto 13.0 % 8 Unknown COMPLETE BLOOD COUNT 9928915 RDW 13.8 % 8 Unknown COMPLETE BLOOD COUNT 7929427 Eos Auto 5.3 % 8 Unknown COMPLETE BLOOD COUNT 5160268 Baso Auto 0.2 % 8 Unknown COMPLETE BLOOD COUNT 3540797 Neutrophil Abs 2.31 10e9/L Unknown COMPLETE BLOOD COUNT 4822581 Lymphocyte Abs 2.17 10e9/L Unknown COMPLETE BLOOD COUNT 2425108 Monocyte Abs 0.72 10e9/L 11/29 Unknown COMPLETE BLOOD COUNT 9251471 Eosinophil Abs 0.29 10e9/L Unknown COMPLETE BLOOD COUNT 1746401 RDW-SD 45.6 fL 8 Unknown COMPLETE BLOOD COUNT 0928207 Basophil Abs 0.01 10e9/L 11/29 Unknown PSA EQUIMOLAR JORI 36144 PSA Total 1.40 ng/mL 8 Unknown GFR CALC 7758247 GFR Non Afr Amr >60 mL/min 12/26/2017 Un known GFR CALC 8827281 GFR Afr Amr >60 mL/min 12/26/2017 Unknow n [facility] 95948 Cholesterol 239 mg/dL 12/26/2017 Unkno wn [facility] 40043 Triglyceride 140 mg/dL 12/26/2017 Unkn own [facility] 03775 HDL CHOLESTEROL 48 mg/dL 12/26/2017 U nknown [facility] 64603 Chol/HDL Ratio 4.98 ratio 12/26/2017 U nknown [facility] 18530 NON-HDL Chol 191 mg/dL 12/26/2017 Unkn own [facility] 00357 LDL Cholesterol 163 mg/dL 12/26/[address] [facility] THYROID STIMULATING HORMONE 94635 TSH 1.633 uIU/mL 12/26/2017 Unknown COMPLETE BLOOD COUNT 9796235 WBC 5.3 10e9/L 12/29/19 16 Unknown COMPLETE BLOOD COUNT 1422220 RBC 4.84 10e12/L 2015 Unknown COMPLETE BLOOD COUNT 7549365 HEMOGLOBIN 14.9 g/dL 12/29/19 16 Unknown COMPLETE BLOOD COUNT 7960690 HEMATOCRIT 44.3 % 12/29/19 16 Unknown COMPLETE BLOOD COUNT 9225070 MCV 91.5 fL 6 Unknown COMPLETE BLOOD COUNT 6429026 MCH 30.8 pg 6 Unknown COMPLETE BLOOD COUNT 9309725 MCHC 33.6 g/dL 6 Unknown COMPLETE BLOOD COUNT 4380186 PLATELET COUNT 220 10e9/L 06/2015 Unknown COMPLETE BLOOD COUNT 6033705 Mean Plt Volume 11.8 fL 06/2015 Unknown COMPLETE BLOOD COUNT 9466273 Neut Auto 42.3 % 6 Unknown COMPLETE BLOOD COUNT 6116380 Lymph Auto 39.0 % 12/29/19 16 Unknown COMPLETE BLOOD COUNT 2621039 [place] Auto 13.6 % 6 Unknown COMPLETE BLOOD COUNT 8614614 RDW 14.0 % 6 Unknown COMPLETE BLOOD COUNT 1331460 Eos Auto 4.7 % 6 Unknown COMPLETE BLOOD COUNT 3472826 Baso Auto 0.4 % 6 Unknown COMPLETE BLOOD COUNT 2211570 Neutrophil Abs 2.24 10e9/L Unknown COMPLETE BLOOD COUNT 2650049 Lymphoctye Abs 2.07 10e9/L Unknown COMPLETE BLOOD COUNT 5549169 Monocyte Abs 0.72 10e9/L 06/2015 Unknown COMPLETE BLOOD COUNT 0350845 Eosinophil Abs 0.25 10e9/L Unknown COMPLETE BLOOD COUNT 7691320 RDW-SD 45.7 fL 6 Unknown COMPLETE BLOOD COUNT 6712138 Basophil Abs 0.02 10e9/L 06/2015 Unknown PSA EQUIMOLAR JORI 17494 PSA Total 1.11 ng/mL 6 Unknown COMPREHENSIVE METABOLIC 80436 AST 16 U/L 2015 Unknown COMPREHENSIVE METABOLIC 69787 ALT 20 U/L 2015 Unknown COMPREHENSIVE METABOLIC 13962 BUN 12 mg/dL 2015 Unknown COMPREHENSIVE METABOLIC 64883 ALBUMIN 4.3 g/dL 2015 Unknown COMPREHENSIVE METABOLIC 78919 CHLORIDE 107 mmol/L 12/28 Unknown COMPREHENSIVE METABOLIC 11888 Bili Total 0.7 mg/dL 12/28 Unknown COMPREHENSIVE METABOLIC 14251 ALK PHOS 53 U/L 2015 Unknown COMPREHENSIVE METABOLIC 72175 SODIUM 141 mmol/L 12/28 Unknown COMPREHENSIVE METABOLIC 81554 CREATININE 0.88 mg/dL 06/2015 Unknown COMPREHENSIVE METABOLIC 57551 CALCIUM 9.3 mg/dL 2015 Unknown COMPREHENSIVE METABOLIC 62118 POTASSIUM 4.1 mmol/L 12/28 Unknown COMPREHENSIVE METABOLIC 24937 Total Protein 6.5 g/dL Unknown [facility] 83563 Glucose 95 mg/dL 2015 Unknown COMPREHENSIVE METABOLIC 06703 Bicarbonate 27 mmol/L 06/2015 Unknown COMPREHENSIVE METABOLIC 22164 AGAP 7 mmol/L 2015 Unknown FREE T4 46506 T4 Free 1.11 ng/dL 12/29/2015 Unknown GFR CALC 8693878 GFR Non Afr Amr >60 mL/min 12/29/2015 Un known GFR CALC 3737684 GFR Afr Amr >60 mL/min 12/29/2015 Unknow n THYROID STIMULATING HORMONE 43672 TSH 0.687 uIU/mL 12/29/2015 Unknown [facility] 78035 Cholesterol 226 mg/dL 12/29/2015 Unkno wn [facility] 26281 Triglyceride 101 mg/dL 12/29/2015 Unkn own [facility] 68206 HDL CHOLESTEROL 57 mg/dL 12/29/2015 U nknown [facility] 49832 Chol/HDL Ratio 3.96 ratio 12/29/2015 U nknown [facility] 78387 NON-HDL Chol 169 mg/dL 12/29/2015 Unkn own [facility] 37044 LDL Cholesterol 149 mg/dL 12/29/2015 U nknown COMPREHENSIVE METABOLIC 96858 AST 17 U/L 2013 Unknown COMPREHENSIVE METABOLIC 35815 ALT 24 IU/L 2013 Unknown COMPREHENSIVE METABOLIC 71812 BUN 18 MG/DL 2013 Unknown COMPREHENSIVE METABOLIC 26921 ALBUMIN 4.4 GM/DL 2013 Unknown COMPREHENSIVE METABOLIC 94695 CHLORIDE 108 MMOL/L 06/03 Unknown COMPREHENSIVE METABOLIC 21479 BILI TOT 0.4 MG/DL 2013 Unknown COMPREHENSIVE METABOLIC 65693 ALK PHOS 58 U/L 2013 Unknown COMPREHENSIVE METABOLIC 31108 SODIUM 139 MMOL/L 06/03 Unknown COMPREHENSIVE METABOLIC 87205 CREATININE 0.86 MG/DL 10/2013 Unknown COMPREHENSIVE METABOLIC 54297 CALCIUM 9.6 MG/DL 2013 Unknown COMPREHENSIVE METABOLIC 52814 POTASSIUM 4.3 MMOL/L 06/03 Unknown COMPREHENSIVE METABOLIC 94581 PROT TOT 6.0 GM/DL 2013 Unknown COMPREHENSIVE METABOLIC 57501 Glucose 104 MG/DL 2013 Unknown COMPREHENSIVE METABOLIC 53530 BICARB 26 MMOL/L 2013 Unknown COMPREHENSIVE METABOLIC 29678 ANION GAP 5 MEQ/L 2013 Unknown GFR CALC 7553183 GFR AA >60 ML/MIN 06/03/2014 Unknown GFR CALC 7811023 GFR NON-AA >60 ML/MIN 06/03/2014 Unknown COMPLETE BLOOD COUNT 7833537 WBC 4.7 10e9/L 06/03/20 14 Unknown COMPLETE BLOOD COUNT 0740378 RBC 4.85 10e12/L 2013 Unknown COMPLETE BLOOD COUNT 6385961 HGB 14.9 g/dL 4 Unknown COMPLETE BLOOD COUNT 8306104 HCT DET 44.2 % 4 Unknown COMPLETE BLOOD COUNT 0991799 MCV 91.1 fL 4 Unknown COMPLETE BLOOD COUNT 3575348 MCH 30.7 pg 4 Unknown COMPLETE BLOOD COUNT 7454882 MCHC 33.7 g/dL 4 Unknown COMPLETE BLOOD COUNT 0295381 PLT 245 10e9/L 06/03/20 14 Unknown COMPLETE BLOOD COUNT 1580382 MPV 11.7 fL 4 Unknown COMPLETE BLOOD COUNT 3331799 YOSSI % 37.0 % 4 Unknown COMPLETE BLOOD COUNT 1513461 LY % 44.2 % 4 Unknown COMPLETE BLOOD COUNT 0411370 MON % 14.1 % 4 Unknown COMPLETE BLOOD COUNT 0665991 EOS % 4.5 % 4 Unknown COMPLETE BLOOD COUNT 2586687 BASO % 0.2 % 4 Unknown COMPLETE BLOOD COUNT 1374730 RDW 13.3 % 4 Unknown COMPLETE BLOOD COUNT 4129328 ABS YOSSI 1.74 10e9/L 014 Unknown COMPLETE BLOOD COUNT 1632451 ABS LYMPH 2.08 10e9/L 014 Unknown COMPLETE BLOOD COUNT 6682173 ABS MONO 0.66 10e9/L 014 Unknown COMPLETE BLOOD COUNT 7951813 ABS EOS 0.21 10e9/L 014 Unknown COMPLETE BLOOD COUNT 1216176 ABS BASO 0.01 10e9/L 014 Unknown COMPLETE BLOOD COUNT 5451478 RDW-SD 43.5 fL 4 Unknown PSA EQUIMOLAR JORI 92494 PSA EQ 0.87 NG/ML 4 Unknown FREE T4 47349 FREE T4 1.21 NG/DL 06/03/2014 Unknown THYROID STIMULATING HORMONE 39181 TSH 0.705 uIU/ML 06/03/2014 Unknown [facility] 79854 HDL TEST 49 MG/DL 06/03/2014 Unknown [facility] 92201 TRIG 72 MG/DL 06/03/2014 Unknown [facility] 10911 TEST LDL 159 MG/DL 06/03/2014 Unknown [facility] 08848 CHOL 222 MG/DL 06/03/2014 Unknown [facility] 10676 RCHOL/HDL 4.53 RATIO 06/03/2014 Unknow n [facility] 97601 NON-HDL CH 173 MG/DL 06/03/2014 Unknow n Procedures Procedure Codes Date ROUTINE VENIPUNCTURE CPT-4: 72929 12/27/2019 ASSAY OF FREE THYROXINE CPT-4: 15215 12/27/2019 ASSAY THYROID STIM HORMONE CPT-4: 46273 12/27/2019 COMPREHEN METABOLIC PANEL CPT-4: 90691 12/27/2019 COMPLETE CBC W/AUTO DIFF WBC CPT-4: 06719 12/27/2019 LIPID PANEL CPT-4: 24680 12/27/2019 ASSAY OF PSA TOTAL CPT-4: 11200 12/27/2019 ROUTINE VENIPUNCTURE CPT-4: 16991 11/10/2018 LIPID PANEL CPT-4: 27942 11/10/2018 ROUTINE VENIPUNCTURE CPT-4: 20510 12/26/2017 ASSAY THYROID STIM HORMONE CPT-4: 99907 12/26/2017 COMPREHEN METABOLIC PANEL CPT-4: 18997 12/26/2017 COMPLETE CBC W/AUTO DIFF WBC CPT-4: 59862 12/26/2017 LIPID PANEL CPT-4: 96631 12/26/2017 ASSAY OF PSA TOTAL CPT-4: 61406 12/26/2017 ROUTINE VENIPUNCTURE CPT-4: 96222 12/29/2015 ASSAY OF FREE THYROXINE CPT-4: 13826 12/29/2015 ASSAY THYROID STIM HORMONE CPT-4: 77740 12/29/2015 COMPREHEN METABOLIC PANEL CPT-4: 06423 12/29/2015 COMPLETE CBC W/AUTO DIFF WBC CPT-4: 28979 12/29/2015 LIPID PANEL CPT-4: 03720 12/29/2015 ASSAY OF PSA TOTAL CPT-4: 99276 12/29/2015 TDAP VACCINE 7 YRS/> IM CPT-4: 21624 10/20/2015 IMMUNIZATION ADMIN CPT-4: 52815 10/20/2015 ROUTINE VENIPUNCTURE CPT-4: 73865 06/03/2014 ASSAY OF FREE THYROXINE CPT-4: 82164 06/03/2014 ASSAY THYROID STIM HORMONE CPT-4: 79634 06/03/2014 COMPREHEN METABOLIC PANEL CPT-4: 40132 06/03/2014 COMPLETE CBC W/AUTO DIFF WBC CPT-4: 55616 06/03/2014 LIPID PANEL CPT-4: 47304 06/03/2014 ASSAY OF PSA TOTAL CPT-4: 73044 06/03/2014 Vital Signs Date Vital 12/22/2019 Blood Pressure 1: 150/96 Code: 8480-6 BMI: 33.1 Code: 33691-4 Heart Rate 1: 88 bpm Height: 6' [...] 1: 126/80 Code: 8480-6 BMI: 32.8 Code: 46969-0 Heart Rate 1: 82 bpm Height: 6' Respiratory Rate: 20 bpm SpO2: 96% Tempera ture: 36.8 (C) / 98.2 (F) Weight: 242 lbs 12/26/2017 Blood Pressure 1: 114/64 Code: 8480-6 He art Rate 1: 66 bpm 12/09/2017 Blood Pressure 1: 144/96 Code: 8480-6 BMI: 33.1 Code: 97873-8 Heart Rate 1: 72 bpm Height: 6' Respiratory Rate: 20 bpm Temperature: 36 .9 (C) / 98.4 (F) Weight: 244 lbs 12/29/2015 Blood Pressure 1: 132/86 Code: 8480-6 He art Rate 1: 72 bpm 10/20/2015 Blood Pressure 1: 142/94 Code: 8480-6 BMI: 32.8 Code: 28852-5 Heart Rate 1: 72 bpm Height: 6' Respiratory Rate: 20 bpm SpO2: 96% Tempera ture: 36.7 (C) / 98.1 (F) Weight: 242 lbs 05/24/2014 Blood Pressure 1: 138/90 Code: 8480-6 BMI: 31.3 Code: 09717-6 Heart Rate 1: 80 bpm Height: 6' [...] establish Encounters Encounter Performer Location Codes Date ([id number]) NURSE/OUTPATIENT VISIT EST Diagnosis: Encounter for general adult medical examination without abnormal findings[ICD10: Z00.00] Diagnosis: Encounter for screening for malignant neoplasm of colon[ICD10: Z12.11] Diagnosis: Essential (primary) hypertension[ICD10: I10] Diagnosis: Mixed hyperlipidemia[ICD10: E78.2] Diagnosis: Other fatigue[ICD10: R53.83] Didi [employer] CPT-4: 92647 12/27/2019 ([id number]) PREV VISIT EST AGE 40-64 Diagnosis: Encounter [...] Obstructive sleep apnea (adult) (pediatric)[ICD10: G47.33] Kait Alsa DIDI [employer] CPT-4: 46122 12/22/2019 ([id number]) OFFICE/OUTPATIENT VISIT EST Diagnosis: Essential (primary) hypertension[ICD10: I10] Diagnosis: Cardiac arrhythmia, unspecified[ICD10: I49.9] Diagnosis: Other fatigue[ICD10: R53.83] Didi [employer] CPT-4: 71835 12/15/2018 OFFICE/OUTPATIENT VISIT EST Diagnosis: Cardiac arrhythmia, unspecified[ICD10: I49.9] Diagnosis: Bitten or stung by nonvenomous insect and other nonvenomous arthropods, initial encounter[ICD10: W57.XXXA] Diagnosis: Abnormal levels of other serum enzymes[ICD10: R74.8] Diagnosis: Mixed hyperlipidemia[ICD10: E78.2] Didi KLEIN [employer] CPT-4: 79583 11/12/2018 ([id number]) NURSE/OUTPATIENT VISIT EST Diagnosis: Essential (primary) hypertension[ICD10: I10] Diagnosis: Mixed hyperlipidemia[ICD10: E78.2] Didi MOORE ERNIE [employer] CPT-4: 57797 11/10/2018 OFFICE/OUTPATIENT VISIT EST Diagnosis: Other fatigue[ICD10: R53.83] Diagnosis: Headache[ICD10: R51] Diagnosis: Fever, unspecified[ICD10: R50.9] Diagnosis: Rash and other nonspecific skin eruption[ICD10: R21] Diagnosis: Dyspnea, unspecified[ICD10: R06.00] Diagnosis: Cardiac arrhythmia, unspecified[ICD10: I49.9] Brooklyn Dinh DIDI [employer] CPT-4: 86774 11/09/2018 ([id number]) OFFICE/OUTPATIENT VISIT EST Diagnosis: Essential (primary) hypertension[ICD10: I10] Diagnosis: Gastro-esophageal reflux disease without esophagitis[ICD10: K21.9] Diagnosis: Pain in left knee[ICD10: M25.562] Diagnosis: Pain in left foot[ICD10: M79.672] Kait Florentino [employer] CPT-4: 17253 01/29/2018 ([id number]) NURSE/OUTPATIENT VISIT EST Diagnosis: Encounter for general adult medical examination without abnormal findings[ICD10: Z00.00] Diagnosis: Mixed hyperlipidemia[ICD10: E78.2] Diagnosis: Essential (primary) hypertension[ICD10: I10] Didi Moyerbrenda DIDI [employer] CPT-4: 29067 12/26/2017 ([id number]) OFFICE/OUTPATIENT VISIT EST Diagnosis: Essential (primary) hypertension[ICD10: I10] Diagnosis: Gastro-esophageal reflux disease without esophagitis[ICD10: K21.9] Diagnosis: Bilateral primary osteoarthritis of knee[ICD10: M17.0] Diagnosis: Bilateral primary osteoarthritis of first carpometacarpal joints[ICD10: M18.0] Diagnosis: Obstructive sleep apnea (adult) (pediatric)[ICD10: G47.33] Diagnosis: Lymphedema, not elsewhere classified[ICD10: I89.0] Didi JACKSON [employer]qu[employer] CPT-4: 42276 12/09/2017 ([id number]) OFFICE/OUTPATIENT VISIT EST Diagnosis: Encounter for general adult medical examination without abnormal findings[ICD10: Z00.00] Diagnosis: Elevated blood-pressure reading, without diagnosis of hypertension[ICD10: R03.0] Didi Jensen ARELIS [employer] CPT- 4: 76153 12/29/2015 ([id number]) PREV VISIT EST AGE 40-64 Diagnosis: Encounter [...] VACCINE FOR TDAP[ICD10: Z23] Jocelyn Jensen [employer] CPT-4: 93954 10/20/2015 ([id number]) OFFICE/OUTPATIENT VISIT EST Diagnosis: ROUTINE MEDICAL EXAM[ICD9: V70.0] Didi Jensen [employer] CPT-4: 10264 06/03/2014 OFFICE/OUTPATIENT VISIT NEW Diagnosis: GERD[ICD9: 530.81] Diagnosis: OBSTRUCTIVE SLEEP APNEA[ICD9: 327.23] Negra Jensen [employer] CPT-4: 17767 05/24/2014 Plan of Care Planned Activity Notes [...] in mole Discussion: refer shannan to dr. ivgil for removal since located on head and he is going there for screenings ICD-9 : 216.9 ICD-10 : D22.9 12/22/2019 Visit Diagnosis Plan: Bilateral primary osteoarthritis of knee Discussion: educated patient on weight loss and increasing exercise. instructed to wear knee braces to knees to help with pain. patient would like referral so referral sent to dr. iglesias at [address] for evaluation. ICD-9 : 715.96 ICD-10 [...] 327.23 ICD-10 : G47.33 12/22/2019 Appointment: Kait lAas [address] [place], [place] [address] Annual Well Visit 12/22/2019 Patient Education: hydrochlorothiazide- [employer] Cou neelam [id number] [email or web address] Completed 12/22/2019 Patient Education: High Blood Pressure [...] : I10 12/15/2018 Appointment: Didi Araiza WPtel: [facility] US FOLLOW UP 12/15/2018 Visit Diagnosis [...] W57.XXXA 11/12/2018 Appointment: Didi Araiza WPtel: [phone] [facility] US FOLLOW UP 11/12/2018 Patient Education: doxycycline hyclate- [employer] Cou neelam [id number] [email or web address] Completed 11/12/2018 Appointment: Didi Araiza WPtel: [phone] [id number] LAB 11/10/2018 Visit Diagnosis Plan: Other fatigue [...] : I49.9 11/09/2018 [facility] [place] [facility] [facility] [facility] 11/09/2018 Visit Diagnosis Plan: Essential [...] ICD-10 : M79.672 01/29/2018 Appointment: Kait Alas [address] [place], [place] [id number] FOLLOW UP 01/29/2018 Patient Education: Patient Medication Summary Completed 01/29/2018 Appointment: Didi Araiza WPtel: [address] [place], [place] [phone] US LAB 12/26/2017 Patient Education: Patient Medication [...] : I89.0 12/09/2017 Appointment: Didi Araiza WPtel: [address] [place], [place] [phone] ACUTE ILLNESS 12/09/2017 Patient Education: Patient Medication Summary Completed 12/09/2017 Appointment: Kait Alas [address] [facility] RESCHEDULED 12/01/2017 Appointment: Didi Araiza WPtel: [address] [place], [place] [phone] US LAB 12/29/2015 Patient Education: Patient Medication [...] aid if need be Form requested from [facility] Patient for new bipap 10/20/2015 [facility]ointment[facility] [facility] 10/18 confirmed~sl Annual Well Visit 10/20/2015 Patient Education: Patient Medication Summary Completed 10/20/2015 [facility]ment[phone] [facility] [facility] 06/03/2014 Patient Education: Patient Medication Summary Completed 06/03/2014 [facility]ment[facility] Neg[facility] [phone] [facility] [facility] NEW PATIENT 05/24/2014 Patient Education: [...] if need be Form requested from [facility] Patient for new bipap Medical Equipment No Medical Equipment data Health Concerns Section Health Concerns data not found Goals Section Goals data not found Interventions Section Interventions data not found Health Status Evaluations/Outcomes Section Health Status Evaluations/Outcomes data not found Advance Directives No Advance Directive data
--- OUTSIDE RECORDS SUMMARY | 2020-01-21 11:17 | XMS REPORT | CCD ---
Author Author Rafael Mejia APRN Organization [facility] Address [address] [place] [address] Phone Care Team Providers Care Deck[employer] Name Role Phone Didi Araiza D.O., PP Unavailable CCM Unavailable Summary Purpose Interface Exchange Insurance Providers Payer name Policy type / Coverage type Covered libertarian ID Effective Begin Date Effective End Date Blue Cross Blue Shield Blue Cross/Blue Shield [id number] 2019 Unknown Family History Family History data [...] Fill Instructions hydrochlorothiazide 25 mg tablet RxNorm: 077702 1 Tablet(s) Oral QD 12/22/2019 03/21/2020 Active pantoprazole 40 mg tablet,delayed release RxNorm: 685317 1 Tablet(s) Oral QD Due for updated fasting labs and appointment 12/06/2019 01/05/2020 Active Due for updated fasting labs and appointment before 90 day supply hydrochlorothiazide 12.5 mg tablet RxNorm: 847466 TAKE ONE TABLET BY MOUTH EVERY MORNING FOR BLOOD PRESSURE 10/04/2019 No Stop Date Active pantoprazole 40 mg tablet,delayed release RxNorm: 345499 TAKE ONE TABLET BY MOUTH DAILY 09/05/2019 12/05/2019 Inactive hydrochlorothiazide 12.5 mg tablet RxNorm: 543104 TAKE ONE TABLET BY MOUTH EVERY MORNING FOR BLOOD PRESSURE 07/05/2019 10/03/2019 Inactive pantoprazole 40 mg tablet,delayed release RxNorm: 069844 TAKE ONE TABLET BY MOUTH DAILY 05/29/2019 09/04/2019 Inactive pantoprazole 40 mg tablet,delayed release RxNorm: 678628 1 Tabl et(s) PO QD 03/04/2019 05/28/2019 Inactive hydrochlorothiazide 12.5 mg tablet RxNorm: 014638 TAKE ONE TABLET BY MOUTH EVERY MORNING FOR BLOOD PRESSURE 01/11/2019 07/04/2019 Inactive doxycycline hyclate 100 mg capsule RxNorm: 5237227 1 Capsule(s) PO BID 11/12/2018 11/21/2018 Inactive pantoprazole 40 mg tablet,delayed release RxNorm: 257136 TAKE ONE TABLET BY MOUTH DAILY 10/30/2018 03/04/2019 Inactive hydrochlorothiazide 12.5 mg tablet RxNorm: 614396 TAKE ONE TABLET BY MOUTH EVERY MORNING FOR BLOOD PRESSURE 10/12/2018 01/09/2019 Inactive pantoprazole 40 mg tablet,delayed release RxNorm: 566906 TAKE ONE TABLET BY MOUTH DAILY 08/31/2018 09/29/2018 Inactive pantoprazole 40 mg tablet,delayed release RxNorm: 066988 1 Tabl et(s) PO QD 04/03/2018 08/30/2018 Inactive hydrochlorothiazide 12.5 mg tablet RxNorm: 368493 TAKE ONE TABLET BY MOUTH EVERY MORNING FOR BLOOD PRESSURE 03/30/2018 09/25/2018 Inactive Medrol (John) 4 mg tablets in a dose pack RxNorm: 382727 Tablet(s) PO take as directed 01/29/2018 11/08/2018 Inactive pantoprazole 40 mg tablet,delayed release RxNorm: 533709 1 Tablet(s) PO BID for 1 month then decrease to 1 po daily 12/29/2017 04/02/2018 Inactive hydrochlorothiazide 12.5 mg tablet RxNorm: 234598 1 Tablet(s) P O QAM for BP 12/29/2017 03/28/2018 Inactive hydrochlorothiazide 12.5 mg tablet RxNorm: 273473 1 Tablet(s) P O QAM for BP 12/09/2017 12/28/2017 Inactive pantoprazole 40 mg tablet,delayed release RxNorm: 246705 1 Tablet(s) PO BID for 1 month then decrease to 1 po daily 12/09/2017 04/03/2018 Inactive Voltaren 1 % topical gel RxNorm: 642771 1 Gram(s) TOP QID to bi lateral knees 12/09/2017 12/21/2019 Inactive meloxicam 15 mg tablet RxNorm: 760777 1 Tablet(s) PO QD 10/20/2015 Inactive Benadryl 25 mg capsule RxNorm: 2999405 1 Capsule(s) PO QHS No Start D ate Active Nexium oral RxNorm: 278831 oral No Start Date 10/20/2015 Inactive Nexium 24HR 22.3 mg capsule,delayed release RxNorm: 430140 1 Ca psule(s) PO QAM No Start Date 11/08/2018 Inactive Fish Oil 1,000 mg capsule RxNorm: 1 Capsule(s) PO QD No Start Date 12/28/2017 Inactive Fish Oil 1,000 mg capsule RxNorm: 1 Capsule(s) PO TID No Start Calin e 11/08/2018 Inactive naproxen sodium 220 mg tablet RxNorm: 440114 1 Tablet(s) PO QHS No Start Date 11/08/2018 Inactive Medication Administered No Medication Administered data Immunizations Vaccine Codes Date Status Tetanus, Diptheria, Pertussis CVX: 115 10/20/2015 Results Observation Observation Code Item Item Code Result Date S ervice Location [facility] 44220 Cholesterol 209 mg/dL 11/10/2018 Unkno wn [facility] 89410 Triglyceride 210 mg/dL 11/10/2018 Unkn own [facility] 45737 HDL CHOLESTEROL 32 mg/dL 11/10/2018 U nknown [facility] 03929 Chol/HDL Ratio 6.53 ratio 11/10/2018 U nknown [facility] 81436 NON-HDL Chol 177 mg/dL 11/10/2018 Unkn own [facility] 33615 LDL Cholesterol 135 mg/dL 11/10/2018 U nknown [facility] 30903 AST 15 U/L 2017 Unknown COMPREHENSIVE METABOLIC 71119 ALT 20 U/L 2017 Unknown [facility] 10730 BUN 16 mg/dL 2017 Unknown [facility] 55596 ALBUMIN 4.4 g/dL 2017 Unknown [facility] 20979 CHLORIDE 105 mmol/L 12/26 Unknown [facility] 42172 Bili Total 0.6 mg/dL 12/26 Unknown [facility] 70771 ALK PHOS 61 U/L 2017 Unknown [facility] 64564 SODIUM 141 mmol/L 12/26 Unknown [facility] 12370 CREATININE 0.90 mg/dL 11/29 Unknown [facility] 86009 CALCIUM 9.7 mg/dL 2017 Unknown [facility]OL[facility] 70913 POTASSIUM 4.2 mmol/L 12/26 Unknown [facility]OL[facility] 14115 Total Protein 6.5 g/dL Unknown [facility] 70497 Glucose 99 mg/dL 2017 Unknown [facility] 30208 Bicarbonate 24 mmol/L 11/29 Unknown COMPREHENSIVE METABOLIC 55415 AGAP 12 mmol/L 2017 Unknown COMPLETE BLOOD COUNT 9938083 WBC 5.5 10e9/L 12/27/19 18 Unknown COMPLETE BLOOD COUNT 0130936 RBC 4.87 10e12/L 2017 Unknown COMPLETE BLOOD COUNT 1362243 HEMOGLOBIN 15.1 g/dL 12/27/19 18 Unknown COMPLETE BLOOD COUNT 2028588 HEMATOCRIT 44.9 % 12/27/19 18 Unknown COMPLETE BLOOD COUNT 7996405 MCV 92.2 fL 8 Unknown COMPLETE BLOOD COUNT 0489234 MCH 31.0 pg 8 Unknown COMPLETE BLOOD COUNT 7999252 MCHC 33.6 g/dL 8 Unknown COMPLETE BLOOD COUNT 8785542 PLATELET COUNT 244 10e9/L Unknown COMPLETE BLOOD COUNT 7669993 Mean Plt Volume 11.8 fL Unknown COMPLETE BLOOD COUNT 4905425 Neut Auto 42.0 % 8 Unknown COMPLETE BLOOD COUNT 7947193 Lymph Auto 39.5 % 12/27/19 18 Unknown COMPLETE BLOOD COUNT 3959204 [place] Auto 13.0 % 8 Unknown COMPLETE BLOOD COUNT 6580337 RDW 13.8 % 8 Unknown COMPLETE BLOOD COUNT 3622717 Eos Auto 5.3 % 8 Unknown COMPLETE BLOOD COUNT 6213855 Baso Auto 0.2 % 8 Unknown COMPLETE BLOOD COUNT 9148386 Neutrophil Abs 2.31 10e9/L Unknown COMPLETE BLOOD COUNT 6703048 Lymphocyte Abs 2.17 10e9/L Unknown COMPLETE BLOOD COUNT 9018673 Monocyte Abs 0.72 10e9/L 11/29 Unknown COMPLETE BLOOD COUNT 7431780 Eosinophil Abs 0.29 10e9/L Unknown COMPLETE BLOOD COUNT 4623920 RDW-SD 45.6 fL 8 Unknown COMPLETE BLOOD COUNT 1287743 Basophil Abs 0.01 10e9/L 11/29 Unknown PSA EQUIMOLAR JORI 36127 PSA Total 1.40 ng/mL 8 Unknown GFR CALC 5866205 GFR Non Afr Amr >60 mL/min 12/26/2017 Un known GFR CALC 6002806 GFR Afr Amr >60 mL/min 12/26/2017 Unknow n [facility] 21604 Cholesterol 239 mg/dL 12/26/2017 Unkno wn [facility] 22928 Triglyceride 140 mg/dL 12/26/2017 Unkn own [facility] 03975 HDL CHOLESTEROL 48 mg/dL 12/26/2017 U nknown [facility] 11659 Chol/HDL Ratio 4.98 ratio 12/26/2017 U nknown [facility] 77339 NON-HDL Chol 191 mg/dL 12/26/2017 Unkn own [facility] 05076 LDL Cholesterol 163 mg/dL [facility]/26/[facility]ORM[facility] 79936 TSH 1.633 uIU/mL 12/26/2017 Unknown COMPLETE BLOOD COUNT 6338173 WBC 5.3 10e9/L 12/29/19 16 Unknown COMPLETE BLOOD COUNT 4582741 RBC 4.84 10e12/L 2015 Unknown COMPLETE BLOOD COUNT 6472341 HEMOGLOBIN 14.9 g/dL 12/29/19 16 Unknown COMPLETE BLOOD COUNT 2693119 HEMATOCRIT 44.3 % 12/29/19 16 Unknown COMPLETE BLOOD COUNT 1106737 MCV 91.5 fL 6 Unknown COMPLETE BLOOD COUNT 2448669 MCH 30.8 pg 6 Unknown COMPLETE BLOOD COUNT 1667594 MCHC 33.6 g/dL 6 Unknown COMPLETE BLOOD COUNT 4521910 PLATELET COUNT 220 10e9/L 06/2015 Unknown COMPLETE BLOOD COUNT 9210893 Mean Plt Volume 11.8 fL 06/2015 Unknown COMPLETE BLOOD COUNT 2907435 Neut Auto 42.3 % 6 Unknown COMPLETE BLOOD COUNT 1414180 Lymph Auto 39.0 % 12/29/19 16 Unknown COMPLETE BLOOD COUNT 2160433 [place] Auto 13.6 % 6 Unknown COMPLETE BLOOD COUNT 7491350 RDW 14.0 % 6 Unknown COMPLETE BLOOD COUNT 4433332 Eos Auto 4.7 % 6 Unknown COMPLETE BLOOD COUNT 5149367 Baso Auto 0.4 % 6 Unknown COMPLETE BLOOD COUNT 9791757 Neutrophil Abs 2.24 10e9/L Unknown COMPLETE BLOOD COUNT 6211697 Lymphoctye Abs 2.07 10e9/L Unknown COMPLETE BLOOD COUNT 2967974 Monocyte Abs 0.72 10e9/L 06/2015 Unknown COMPLETE BLOOD COUNT 5521171 Eosinophil Abs 0.25 10e9/L Unknown COMPLETE BLOOD COUNT 7566241 RDW-SD 45.7 fL 6 Unknown COMPLETE BLOOD COUNT 3380095 Basophil Abs 0.02 10e9/L 06/2015 Unknown PSA EQUIMOLAR JORI 63275 PSA Total 1.11 ng/mL 6 Unknown COMPREHENSIVE METABOLIC 59286 AST 16 U/L 2015 Unknown COMPREHENSIVE METABOLIC 17037 ALT 20 U/L 2015 Unknown COMPREHENSIVE METABOLIC 01392 BUN 12 mg/dL 2015 Unknown COMPREHENSIVE METABOLIC 69924 ALBUMIN 4.3 g/dL 2015 Unknown COMPREHENSIVE METABOLIC 15417 CHLORIDE 107 mmol/L 12/28 Unknown COMPREHENSIVE METABOLIC 34040 Bili Total 0.7 mg/dL 12/28 Unknown COMPREHENSIVE METABOLIC 41389 ALK PHOS 53 U/L 2015 Unknown COMPREHENSIVE METABOLIC 23372 SODIUM 141 mmol/L 12/28 Unknown COMPREHENSIVE METABOLIC 48696 CREATININE 0.88 mg/dL 06/2015 Unknown COMPREHENSIVE METABOLIC 41172 CALCIUM 9.3 mg/dL 2015 Unknown COMPREHENSIVE METABOLIC 06878 POTASSIUM 4.1 mmol/L 12/28 Unknown COMPREHENSIVE METABOLIC 79447 Total Protein 6.5 g/dL Unknown [facility] 32856 Glucose 95 mg/dL 2015 Unknown COMPREHENSIVE METABOLIC 03200 Bicarbonate 27 mmol/L 06/2015 Unknown COMPREHENSIVE METABOLIC 95902 AGAP 7 mmol/L 2015 Unknown FREE T4 35909 T4 Free 1.11 ng/dL 12/29/2015 Unknown GFR CALC 1122730 GFR Non Afr Amr >60 mL/min 12/29/2015 Un known GFR CALC 3493933 GFR Afr Amr >60 mL/min 12/29/2015 Unknow n THYROID STIMULATING HORMONE 27477 TSH 0.687 uIU/mL 12/29/2015 Unknown [facility] 08250 Cholesterol 226 mg/dL 12/29/2015 Unkno wn [facility] 66687 Triglyceride 101 mg/dL 12/29/2015 Unkn own [facility] 33612 HDL CHOLESTEROL 57 mg/dL 12/29/2015 U nknown [facility] 04066 Chol/HDL Ratio 3.96 ratio 12/29/2015 U nknown [facility] 49243 NON-HDL Chol 169 mg/dL 12/29/2015 Unkn own [facility] 48660 LDL Cholesterol 149 mg/dL 12/29/2015 U nknown COMPREHENSIVE METABOLIC 17987 AST 17 U/L 2013 Unknown COMPREHENSIVE METABOLIC 23664 ALT 24 IU/L 2013 Unknown COMPREHENSIVE METABOLIC 78655 BUN 18 MG/DL 2013 Unknown COMPREHENSIVE METABOLIC 75114 ALBUMIN 4.4 GM/DL 2013 Unknown COMPREHENSIVE METABOLIC 12974 CHLORIDE 108 MMOL/L 06/03 Unknown COMPREHENSIVE METABOLIC 75154 BILI TOT 0.4 MG/DL 2013 Unknown COMPREHENSIVE METABOLIC 78534 ALK PHOS 58 U/L 2013 Unknown COMPREHENSIVE METABOLIC 17899 SODIUM 139 MMOL/L 06/03 Unknown COMPREHENSIVE METABOLIC 66768 CREATININE 0.86 MG/DL 10/2013 Unknown COMPREHENSIVE METABOLIC 73917 CALCIUM 9.6 MG/DL 2013 Unknown COMPREHENSIVE METABOLIC 93059 POTASSIUM 4.3 MMOL/L 06/03 Unknown COMPREHENSIVE METABOLIC 30284 PROT TOT 6.0 GM/DL 2013 Unknown COMPREHENSIVE METABOLIC 10774 Glucose 104 MG/DL 2013 Unknown COMPREHENSIVE METABOLIC 36309 BICARB 26 MMOL/L 2013 Unknown COMPREHENSIVE METABOLIC 55565 ANION GAP 5 MEQ/L 2013 Unknown GFR CALC 2425728 GFR AA >60 ML/MIN 06/03/2014 Unknown GFR CALC 4340299 GFR NON-AA >60 ML/MIN 06/03/2014 Unknown COMPLETE BLOOD COUNT 5082559 WBC 4.7 10e9/L 06/03/20 14 Unknown COMPLETE BLOOD COUNT 9364911 RBC 4.85 10e12/L 2013 Unknown COMPLETE BLOOD COUNT 4551306 HGB 14.9 g/dL 4 Unknown COMPLETE BLOOD COUNT 6503384 HCT DET 44.2 % 4 Unknown COMPLETE BLOOD COUNT 4447913 MCV 91.1 fL 4 Unknown COMPLETE BLOOD COUNT 6296252 MCH 30.7 pg 4 Unknown COMPLETE BLOOD COUNT 7501665 MCHC 33.7 g/dL 4 Unknown COMPLETE BLOOD COUNT 5396559 PLT 245 10e9/L 06/03/20 14 Unknown COMPLETE BLOOD COUNT 1124978 MPV 11.7 fL 4 Unknown COMPLETE BLOOD COUNT 5696248 YOSSI % 37.0 % 4 Unknown COMPLETE BLOOD COUNT 7481779 LY % 44.2 % 4 Unknown COMPLETE BLOOD COUNT 5641902 MON % 14.1 % 4 Unknown COMPLETE BLOOD COUNT 4058415 EOS % 4.5 % 4 Unknown COMPLETE BLOOD COUNT 1172986 BASO % 0.2 % 4 Unknown COMPLETE BLOOD COUNT 4225707 RDW 13.3 % 4 Unknown COMPLETE BLOOD COUNT 9938085 ABS YOSSI 1.74 10e9/L 014 Unknown COMPLETE BLOOD COUNT 1682967 ABS LYMPH 2.08 10e9/L 014 Unknown COMPLETE BLOOD COUNT 7004059 ABS MONO 0.66 10e9/L 014 Unknown COMPLETE BLOOD COUNT 3978889 ABS EOS 0.21 10e9/L 014 Unknown COMPLETE BLOOD COUNT 0455853 ABS BASO 0.01 10e9/L 014 Unknown COMPLETE BLOOD COUNT 1556138 RDW-SD 43.5 fL 4 Unknown PSA EQUIMOLAR JORI 66266 PSA EQ 0.87 NG/ML 4 Unknown FREE T4 55871 FREE T4 1.21 NG/DL 06/03/2014 Unknown THYROID STIMULATING HORMONE 88884 TSH 0.705 uIU/ML 06/03/2014 Unknown [facility] 95409 HDL TEST 49 MG/DL 06/03/2014 Unknown [facility] 14957 TRIG 72 MG/DL 06/03/2014 Unknown [facility] 66003 TEST LDL 159 MG/DL 06/03/2014 Unknown [facility] 45584 CHOL 222 MG/DL 06/03/2014 Unknown [facility] 78192 RCHOL/HDL 4.53 RATIO 06/03/2014 Unknow n [facility] 36673 NON-HDL CH 173 MG/DL 06/03/2014 Unknow n Procedures Procedure Codes Date ROUTINE VENIPUNCTURE CPT-4: 70638 11/10/2018 LIPID PANEL CPT-4: 46251 11/10/2018 ROUTINE VENIPUNCTURE CPT-4: 42788 12/26/2017 ASSAY THYROID STIM HORMONE CPT-4: 72416 12/26/2017 COMPREHEN METABOLIC PANEL CPT-4: 01022 12/26/2017 COMPLETE CBC W/AUTO DIFF WBC CPT-4: 05678 12/26/2017 LIPID PANEL CPT-4: 65876 12/26/2017 ASSAY OF PSA TOTAL CPT-4: 38237 12/26/2017 ROUTINE VENIPUNCTURE CPT-4: 38672 12/29/2015 ASSAY OF FREE THYROXINE CPT-4: 36618 12/29/2015 ASSAY THYROID STIM HORMONE CPT-4: 90233 12/29/2015 COMPREHEN METABOLIC PANEL CPT-4: 71600 12/29/2015 COMPLETE CBC W/AUTO DIFF WBC CPT-4: 81643 12/29/2015 LIPID PANEL CPT-4: 84918 12/29/2015 ASSAY OF PSA TOTAL CPT-4: 09709 12/29/2015 TDAP VACCINE 7 YRS/> IM CPT-4: 75450 10/20/2015 IMMUNIZATION ADMIN CPT-4: 09541 10/20/2015 ROUTINE VENIPUNCTURE CPT-4: 28805 06/03/2014 ASSAY OF FREE THYROXINE CPT-4: 21683 06/03/2014 ASSAY THYROID STIM HORMONE CPT-4: 99493 06/03/2014 COMPREHEN METABOLIC PANEL CPT-4: 70162 06/03/2014 COMPLETE CBC W/AUTO DIFF WBC CPT-4: 74434 06/03/2014 LIPID PANEL CPT-4: 32930 06/03/2014 ASSAY OF PSA TOTAL CPT-4: 44434 06/03/2014 Vital Signs Date Vital 12/22/2019 Blood Pressure 1: 150/96 Code: 8480-6 BMI: 33.1 Code: 58898-7 Heart Rate 1: 88 bpm Height: 6' [...] 1: 126/80 Code: 8480-6 BMI: 32.8 Code: 77779-7 Heart Rate 1: 82 bpm Height: 6' Respiratory Rate: 20 bpm SpO2: 96% Tempera ture: 36.8 (C) / 98.2 (F) Weight: 242 lbs 12/26/2017 Blood Pressure 1: 114/64 Code: 8480-6 He art Rate 1: 66 bpm 12/09/2017 Blood Pressure 1: 144/96 Code: 8480-6 BMI: 33.1 Code: 17480-1 Heart Rate 1: 72 bpm Height: 6' Respiratory Rate: 20 bpm Temperature: 36 .9 (C) / 98.4 (F) Weight: 244 lbs 12/29/2015 Blood Pressure 1: 132/86 Code: 8480-6 He art Rate 1: 72 bpm 10/20/2015 Blood Pressure 1: 142/94 Code: 8480-6 BMI: 32.8 Code: 75683-6 Heart Rate 1: 72 bpm Height: 6' Respiratory Rate: 20 bpm SpO2: 96% Tempera ture: 36.7 (C) / 98.1 (F) Weight: 242 lbs 05/24/2014 Blood Pressure 1: 138/90 Code: 8480-6 BMI: 31.3 Code: 35094-0 Heart Rate 1: 80 bpm Height: 6' [...] establish Encounters Encounter Performer Location Codes Date (73555) PREV VISIT EST AGE 40-64 Diagnosis: Encounter [...] (adult) (pediatric)[ICD10: G47.33] Kait Alas DIDI Ros[employer]Jac[employer]elin [employer] CPT-4: 90649 12/22/2019 ([id number]) OFFICE/OUTPATIENT VISIT EST Diagnosis: Essential (primary) hypertension[ICD10: I10] Diagnosis: Cardiac arrhythmia, unspecified[ICD10: I49.9] Diagnosis: Other fatigue[ICD10: R53.83] Didi Cristieric JACKSON [employer] CPT-4: 32655 12/15/2018 OFFICE/OUTPATIENT VISIT EST Diagnosis: Cardiac arrhythmia, unspecified[ICD10: I49.9] Diagnosis: Bitten or stung by nonvenomous insect and other nonvenomous arthropods, initial encounter[ICD10: W57.XXXA] Diagnosis: Abnormal levels of other serum enzymes[ICD10: R74.8] Diagnosis: Mixed hyperlipidemia[ICD10: E78.2] Didi KLEIN [employer] CPT-4: 09216 11/12/2018 ([id number]) NURSE/OUTPATIENT VISIT EST Diagnosis: Essential (primary) hypertension[ICD10: I10] Diagnosis: Mixed hyperlipidemia[ICD10: E78.2] Didi KLEIN [employer] CPT-4: 25371 11/10/2018 OFFICE/OUTPATIENT VISIT EST Diagnosis: Other fatigue[ICD10: R53.83] Diagnosis: Headache[ICD10: R51] Diagnosis: Fever, unspecified[ICD10: R50.9] Diagnosis: Rash and other nonspecific skin eruption[ICD10: R21] Diagnosis: Dyspnea, unspecified[ICD10: R06.00] Diagnosis: Cardiac arrhythmia, unspecified[ICD10: I49.9] Brooklyn JACKSON [employer] CPT-4: 23212 11/09/2018 ([id number]) OFFICE/OUTPATIENT VISIT EST Diagnosis: Essential (primary) hypertension[ICD10: I10] Diagnosis: Gastro-esophageal reflux disease without esophagitis[ICD10: K21.9] Diagnosis: Pain in left knee[ICD10: M25.562] Diagnosis: Pain in left foot[ICD10: M79.672] Kait [employer] CPT-4: 21324 01/29/2018 ([id number]) NURSE/OUTPATIENT VISIT EST Diagnosis: Encounter for general adult medical examination without abnormal findings[ICD10: Z00.00] Diagnosis: Mixed hyperlipidemia[ICD10: E78.2] Diagnosis: Essential (primary) hypertension[ICD10: I10] Didi ARAIZA [employer] CPT-4: 52424 12/26/2017 ([id number]) OFFICE/OUTPATIENT VISIT EST Diagnosis: Essential (primary) hypertension[ICD10: I10] Diagnosis: Gastro-esophageal reflux disease without esophagitis[ICD10: K21.9] Diagnosis: Bilateral primary osteoarthritis of knee[ICD10: M17.0] Diagnosis: Bilateral primary osteoarthritis of first carpometacarpal joints[ICD10: M18.0] Diagnosis: Obstructive sleep apnea (adult) (pediatric)[ICD10: G47.33] Diagnosis: Lymphedema, not elsewhere classified[ICD10: I89.0] Didi ARAIZA [employer] CPT-4: 19709 12/09/2017 ([id number]) OFFICE/OUTPATIENT VISIT EST Diagnosis: Encounter for general adult medical examination without abnormal findings[ICD10: Z00.00] Diagnosis: Elevated blood-pressure reading, without diagnosis of hypertension[ICD10: R03.0] Didi Jensen [employer] CPT- 4: 76181 12/29/2015 ([id number]) PREV VISIT EST AGE 40-64 Diagnosis: Encounter [...] VACCINE FOR TDAP[ICD10: Z23] Jocelyn Watts DIDI [employer] CPT-4: 45075 10/20/2015 ([id number]) OFFICE/OUTPATIENT VISIT EST Diagnosis: ROUTINE MEDICAL EXAM[ICD9: V70.0] Didi Florentino [employer] CPT-4: 47505 06/03/2014 OFFICE/OUTPATIENT VISIT NEW Diagnosis: GERD[ICD9: 530.81] Diagnosis: OBSTRUCTIVE SLEEP APNEA[ICD9: 327.23] Negra SCALES [employer] CPT-4: 60249 05/24/2014 Plan of Care Planned Activity Notes [...] so referral sent to dr. iglesias at [address] for evaluation. ICD-9 : 715.96 ICD-10 [...] 12/22/2019 Patient Education: hydrochlorothiazide- Opt[employer] Cou neelam [id number] [email or web address] Completed 12/22/2019 Patient Education: High Blood Pressure [...] I10 12/15/2018 [facility] [phone] [facility] [facility] 12/15/2018 Visit Diagnosis Plan: Abnormal [...] : I49.9 11/12/2018 Appointment: Didi Araiza WPtel: [facility] FOLLOW UP 11/12/2018 Patient Education: doxycycline hyclate- [employer] Cou [facility] [phone] [email or web address] Completed 11/12/2018 Appointment: Didi Araiza WPtel[facility] [facility] 11/10/2018 Visit Diagnosis Plan: Other [...] I49.9 11/09/2018 [facility]ment: [place] [facility] [address] [facility] 11/09/2018 Visit Diagnosis Plan: Essential [...] : M79.672 01/29/2018 Appointment: Kait Alas [address] [facility] FOLLOW UP 01/29/2018 Patient Education: Patient Medication Summary Completed 01/29/2018 Appointment: Didi Araiza WPtel[facility] [facility] 12/26/2017 Patient Education: Patient Medication [...] : I89.0 12/09/2017 Appointment: Didi Araiza WPtel: [address] [place] [address] ACUTE ILLNESS 12/09/2017 Patient Education: Patient Medication Summary Completed 12/09/2017 Appointment: Kait Alas [address] [place] [address] RESCHEDULED 12/01/2017 Appointment: Didi Araiza WPtel: [address] [place] [address] US LAB 12/29/2015 Patient Education: Patient Medication [...] aid if need be Form requested from [facility] Patient for new bipap 10/20/2015 Appointment: Jocelyn Watts [address] [place] [address] 10/18 confirmed~sl Annual Well Visit 10/20/2015 Patient Education: Patient Medication Summary Completed 10/20/2015 Appointment: Didi Araiza WPtel: [address] [place] [address] US LAB 06/03/2014 Patient Education: Patient Medication Summary Completed 06/03/2014 Appointment: Negra Mejia WPtel: [address] [place], [place] [id number] NEW PATIENT 05/24/2014 Patient Education: Patient Medication [...] aid if need be Form requested from [facility] Patient for new bipap Medical Equipment No Medical Equipment data Health Concerns Section Health Concerns data not found Goals Section Goals data not found Interventions Section Interventions data not found Health Status Evaluations/Outcomes Section Health Status Evaluations/Outcomes data not found Advance Directives No Advance Directive data
--- OUTSIDE RECORDS SUMMARY | 2020-01-21 11:17 | XMS REPORT | CCD ---
Author Author Rafael Mejia APRN Organization DIDI ARAIZA DO [facility] Address [address] [place] [address] Phone Care Team Providers Care Financial Compliance Officer Name Role Phone Didi Araiza D.O., PP Unavailable CCM Unavailable Summary Purpose Interface Exchange Insurance Providers Payer name Policy type / Coverage type Covered alliance party ID Effective Begin Date Effective End Date Blue Cross Blue Shield Blue Cross/Blue Shield [id number] 2019 Unknown Family History Family History data [...] Fill Instructions hydrochlorothiazide 25 mg tablet RxNorm: 102900 1 Tablet(s) Oral QD 12/22/2019 03/21/2020 Active pantoprazole 40 mg tablet,delayed release RxNorm: 449302 1 Tablet(s) Oral QD Due for updated fasting labs and appointment 12/06/2019 01/05/2020 Active Due for updated fasting labs and appointment before 90 day supply hydrochlorothiazide 12.5 mg tablet RxNorm: 748158 TAKE ONE TABLET BY MOUTH EVERY MORNING FOR BLOOD PRESSURE 10/04/2019 No Stop Date Active pantoprazole 40 mg tablet,delayed release RxNorm: 631813 TAKE ONE TABLET BY MOUTH DAILY 09/05/2019 12/05/2019 Inactive hydrochlorothiazide 12.5 mg tablet RxNorm: 340062 TAKE ONE TABLET BY MOUTH EVERY MORNING FOR BLOOD PRESSURE 07/05/2019 10/03/2019 Inactive pantoprazole 40 mg tablet,delayed release RxNorm: 950440 TAKE ONE TABLET BY MOUTH DAILY 05/29/2019 09/04/2019 Inactive pantoprazole 40 mg tablet,delayed release RxNorm: 232435 1 Tabl et(s) PO QD 03/04/2019 05/28/2019 Inactive hydrochlorothiazide 12.5 mg tablet RxNorm: 260408 TAKE ONE TABLET BY MOUTH EVERY MORNING FOR BLOOD PRESSURE 01/11/2019 07/04/2019 Inactive doxycycline hyclate 100 mg capsule RxNorm: 5791038 1 Capsule(s) PO BID 11/12/2018 11/21/2018 Inactive pantoprazole 40 mg tablet,delayed release RxNorm: 915962 TAKE ONE TABLET BY MOUTH DAILY 10/30/2018 03/04/2019 Inactive hydrochlorothiazide 12.5 mg tablet RxNorm: 304947 TAKE ONE TABLET BY MOUTH EVERY MORNING FOR BLOOD PRESSURE 10/12/2018 01/09/2019 Inactive pantoprazole 40 mg tablet,delayed release RxNorm: 003652 TAKE ONE TABLET BY MOUTH DAILY 08/31/2018 09/29/2018 Inactive pantoprazole 40 mg tablet,delayed release RxNorm: 314600 1 Tabl et(s) PO QD 04/03/2018 08/30/2018 Inactive hydrochlorothiazide 12.5 mg tablet RxNorm: 497343 TAKE ONE TABLET BY MOUTH EVERY MORNING FOR BLOOD PRESSURE 03/30/2018 09/25/2018 Inactive Medrol (John) 4 mg tablets in a dose pack RxNorm: 206925 Tablet(s) PO take as directed 01/29/2018 11/08/2018 Inactive pantoprazole 40 mg tablet,delayed release RxNorm: 261407 1 Tablet(s) PO BID for 1 month then decrease to 1 po daily 12/29/2017 04/02/2018 Inactive hydrochlorothiazide 12.5 mg tablet RxNorm: 427043 1 Tablet(s) P O QAM for BP 12/29/2017 03/28/2018 Inactive hydrochlorothiazide 12.5 mg tablet RxNorm: 230977 1 Tablet(s) P O QAM for BP 12/09/2017 12/28/2017 Inactive pantoprazole 40 mg tablet,delayed release RxNorm: 159070 1 Tablet(s) PO BID for 1 month then decrease to 1 po daily 12/09/2017 04/03/2018 Inactive Voltaren 1 % topical gel RxNorm: 602914 1 Gram(s) TOP QID to bi lateral knees 12/09/2017 12/21/2019 Inactive meloxicam 15 mg tablet RxNorm: 703855 1 Tablet(s) PO QD 10/20/2015 Inactive Benadryl 25 mg capsule RxNorm: 8632458 1 Capsule(s) PO QHS No Start D ate Active Nexium oral RxNorm: 911674 oral No Start Date 10/20/2015 Inactive Nexium 24HR 22.3 mg capsule,delayed release RxNorm: 309880 1 Ca psule(s) PO QAM No Start Date 11/08/2018 Inactive Fish Oil 1,000 mg capsule RxNorm: 1 Capsule(s) PO QD No Start Date 12/28/2017 Inactive Fish Oil 1,000 mg capsule RxNorm: 1 Capsule(s) PO TID No Start Calin e 11/08/2018 Inactive naproxen sodium 220 mg tablet RxNorm: 889497 1 Tablet(s) PO QHS No Start Date 11/08/2018 Inactive Medication Administered No Medication Administered data Immunizations Vaccine Codes Date Status Tetanus, Diptheria, Pertussis CVX: 115 10/20/2015 Results Observation Observation Code Item Item Code Result Date S ervice Location [facility] 97386 Cholesterol 209 mg/dL 11/10/2018 Unkno wn [facility] 47208 Triglyceride 210 mg/dL 11/10/2018 Unkn own [facility] 21165 HDL CHOLESTEROL 32 mg/dL 11/10/2018 U nknown [facility] 22894 Chol/HDL Ratio 6.53 ratio 11/10/2018 U nknown [facility] 56577 NON-HDL Chol 177 mg/dL 11/10/2018 Unkn own [facility] 84744 LDL Cholesterol 135 mg/dL 11/10/2018 U nknown [facility] 54774 AST 15 U/L 2017 Unknown [facility]PRE[facility] MET[facility]OL[facility] 63290 ALT 20 U/L 2017 Unknown [facility] 92483 BUN 16 mg/dL 2017 Unknown [facility] 04469 ALBUMIN 4.4 g/dL 2017 Unknown [facility] 91716 CHLORIDE 105 mmol/L 12/26 Unknown [facility] 35765 Bili Total 0.6 mg/dL 12/26 Unknown [facility] 09731 ALK PHOS 61 U/L 2017 Unknown [facility] 94829 SODIUM 141 mmol/L 12/26 Unknown [facility] 75282 CREATININE 0.90 mg/dL 11/29 Unknown [facility]PREHENS[facility] 04085 CALCIUM 9.7 mg/dL 2017 Unknown [facility] 55513 POTASSIUM 4.2 mmol/L 12/26 Unknown [facility] 15410 Total Protein 6.5 g/dL Unknown [facility] 25873 Glucose 99 mg/dL 2017 Unknown [facility] 27476 Bicarbonate 24 mmol/L 11/29 Unknown COMPREHENSIVE METABOLIC 66792 AGAP 12 mmol/L 2017 Unknown COMPLETE BLOOD COUNT 6300053 WBC 5.5 10e9/L 12/27/19 18 Unknown COMPLETE BLOOD COUNT 4025428 RBC 4.87 10e12/L 2017 Unknown COMPLETE BLOOD COUNT 9243258 HEMOGLOBIN 15.1 g/dL 12/27/19 18 Unknown COMPLETE BLOOD COUNT 5397472 HEMATOCRIT 44.9 % 12/27/19 18 Unknown COMPLETE BLOOD COUNT 4408551 MCV 92.2 fL 8 Unknown COMPLETE BLOOD COUNT 4805802 MCH 31.0 pg 8 Unknown COMPLETE BLOOD COUNT 3288228 MCHC 33.6 g/dL 8 Unknown COMPLETE BLOOD COUNT 3831979 PLATELET COUNT 244 10e9/L Unknown COMPLETE BLOOD COUNT 5575785 Mean Plt Volume 11.8 fL Unknown COMPLETE BLOOD COUNT 0995370 Neut Auto 42.0 % 8 Unknown COMPLETE BLOOD COUNT 6702676 Lymph Auto 39.5 % 12/27/19 18 Unknown COMPLETE BLOOD COUNT 8336489 [place] Auto 13.0 % 8 Unknown COMPLETE BLOOD COUNT 6792932 RDW 13.8 % 8 Unknown COMPLETE BLOOD COUNT 6267991 Eos Auto 5.3 % 8 Unknown COMPLETE BLOOD COUNT 0445169 Baso Auto 0.2 % 8 Unknown COMPLETE BLOOD COUNT 8983930 Neutrophil Abs 2.31 10e9/L Unknown COMPLETE BLOOD COUNT 4062360 Lymphocyte Abs 2.17 10e9/L Unknown COMPLETE BLOOD COUNT 3172298 Monocyte Abs 0.72 10e9/L 11/29 Unknown COMPLETE BLOOD COUNT [id number] Eosinophil Abs 0.29 10e9/L Unknown COMPLETE BLOOD COUNT 4072329 RDW-SD 45.6 fL 8 Unknown COMPLETE BLOOD COUNT 5192414 Basophil Abs 0.01 10e9/L 11/29 Unknown PSA EQUIMOLAR JORI 85356 PSA Total 1.40 ng/mL 8 Unknown GFR CALC 1924619 GFR Non Afr Amr >60 mL/min 12/26/2017 Un known GFR CALC 5953577 GFR Afr Amr >60 mL/min 12/26/2017 Unknow n [facility] 82405 Cholesterol 239 mg/dL 12/26/2017 Unkno wn [facility] 53797 Triglyceride 140 mg/dL 12/26/2017 Unkn own [facility] 09105 HDL CHOLESTEROL 48 mg/dL 12/26/2017 U nknown [facility] 06260 Chol/HDL Ratio 4.98 ratio 12/26/2017 U nknon [facility] 03902 NON-HDL Chol 191 mg/dL 12/26/2017 Unkn own [facility] 26143 LDL Cholesterol 163 mg/dL 12/26/[facility] TH[facility]ID STIMUL[facility] HORMONE 87896 TSH 1.633 uIU/mL 12/26/2017 Unknown COMPLETE BLOOD COUNT 9332687 WBC 5.3 10e9/L 12/29/19 16 Unknown COMPLETE BLOOD COUNT 0312433 RBC 4.84 10e12/L 2015 Unknown COMPLETE BLOOD COUNT 9603272 HEMOGLOBIN 14.9 g/dL 12/29/19 16 Unknown COMPLETE BLOOD COUNT 5438295 HEMATOCRIT 44.3 % 12/29/19 16 Unknown COMPLETE BLOOD COUNT 2120441 MCV 91.5 fL 6 Unknown COMPLETE BLOOD COUNT 6448034 MCH 30.8 pg 6 Unknown COMPLETE BLOOD COUNT 3686734 MCHC 33.6 g/dL 6 Unknown COMPLETE BLOOD COUNT 3144858 PLATELET COUNT 220 10e9/L 06/2015 Unknown COMPLETE BLOOD COUNT 4233814 Mean Plt Volume 11.8 fL 06/2015 Unknown COMPLETE BLOOD COUNT 2088956 Neut Auto 42.3 % 6 Unknown COMPLETE BLOOD COUNT 5103349 Lymph Auto 39.0 % 12/29/19 16 Unknown COMPLETE BLOOD COUNT 1318149 [place] Auto 13.6 % 6 Unknown COMPLETE BLOOD COUNT 7926817 RDW 14.0 % 6 Unknown COMPLETE BLOOD COUNT 9199988 Eos Auto 4.7 % 6 Unknown COMPLETE BLOOD COUNT 5163363 Baso Auto 0.4 % 6 Unknown COMPLETE BLOOD COUNT 0791915 Neutrophil Abs 2.24 10e9/L Unknown COMPLETE BLOOD COUNT 4166137 Lymphoctye Abs 2.07 10e9/L Unknown COMPLETE BLOOD COUNT 4259607 Monocyte Abs 0.72 10e9/L 06/2015 Unknown COMPLETE BLOOD COUNT 4743129 Eosinophil Abs 0.25 10e9/L Unknown COMPLETE BLOOD COUNT 3117489 Basophil Abs 0.02 10e9/L 06/2015 Unknown COMPLETE BLOOD COUNT 9322782 RDW-SD 45.7 fL 6 Unknown PSA EQUIMOLAR JORI 74213 PSA Total 1.11 ng/mL 6 Unknown COMPREHENSIVE METABOLIC 17092 AST 16 U/L 2015 Unknown COMPREHENSIVE METABOLIC 96877 ALT 20 U/L 2015 Unknown COMPREHENSIVE METABOLIC 15432 BUN 12 mg/dL 2015 Unknown COMPREHENSIVE METABOLIC 74219 ALBUMIN 4.3 g/dL 2015 Unknown COMPREHENSIVE METABOLIC 91844 CHLORIDE 107 mmol/L 12/28 Unknown COMPREHENSIVE METABOLIC 65363 Bili Total 0.7 mg/dL 12/28 Unknown COMPREHENSIVE METABOLIC 40306 ALK PHOS 53 U/L 2015 Unknown COMPREHENSIVE METABOLIC 61533 SODIUM 141 mmol/L 12/28 Unknown COMPREHENSIVE METABOLIC 45960 CREATININE 0.88 mg/dL 06/2015 Unknown COMPREHENSIVE METABOLIC 25046 CALCIUM 9.3 mg/dL 2015 Unknown COMPREHENSIVE METABOLIC 53548 POTASSIUM 4.1 mmol/L 12/28 Unknown COMPREHENSIVE METABOLIC 55944 Total Protein 6.5 g/dL Unknown [facility] 11131 Glucose 95 mg/dL 2015 Unknown COMPREHENSIVE METABOLIC 93320 Bicarbonate 27 mmol/L 06/2015 Unknown COMPREHENSIVE METABOLIC 96916 AGAP 7 mmol/L 2015 Unknown FREE T4 09637 T4 Free 1.11 ng/dL 12/29/2015 Unknown GFR CALC 9812988 GFR Non Afr Amr >60 mL/min 12/29/2015 Un known GFR CALC 0705169 GFR Afr Amr >60 mL/min 12/29/2015 Unknow n THYROID STIMULATING HORMONE 66141 TSH 0.687 uIU/mL 12/29/2015 Unknown [facility] 22222 Cholesterol 226 mg/dL 12/29/2015 Unkno wn [facility] 20104 Triglyceride 101 mg/dL 12/29/2015 Unkn own [facility] 47930 HDL CHOLESTEROL 57 mg/dL 12/29/2015 U nknown [facility] 03836 Chol/HDL Ratio 3.96 ratio 12/29/2015 U nknown [facility] 24372 NON-HDL Chol 169 mg/dL 12/29/2015 Unkn own [facility] 01003 LDL Cholesterol 149 mg/dL 12/29/2015 U nknown COMPREHENSIVE METABOLIC 70570 AST 17 U/L 2013 Unknown COMPREHENSIVE METABOLIC 84585 ALT 24 IU/L 2013 Unknown COMPREHENSIVE METABOLIC 36987 BUN 18 MG/DL 2013 Unknown COMPREHENSIVE METABOLIC 33937 ALBUMIN 4.4 GM/DL 2013 Unknown COMPREHENSIVE METABOLIC 57966 CHLORIDE 108 MMOL/L 06/03 Unknown COMPREHENSIVE METABOLIC 67940 BILI TOT 0.4 MG/DL 2013 Unknown COMPREHENSIVE METABOLIC 44329 ALK PHOS 58 U/L 2013 Unknown COMPREHENSIVE METABOLIC 77291 SODIUM 139 MMOL/L 06/03 Unknown COMPREHENSIVE METABOLIC 60828 CREATININE 0.86 MG/DL 10/2013 Unknown COMPREHENSIVE METABOLIC 04747 CALCIUM 9.6 MG/DL 2013 Unknown COMPREHENSIVE METABOLIC 98511 POTASSIUM 4.3 MMOL/L 06/03 Unknown COMPREHENSIVE METABOLIC 45146 PROT TOT 6.0 GM/DL 2013 Unknown COMPREHENSIVE METABOLIC 11226 Glucose 104 MG/DL 2013 Unknown COMPREHENSIVE METABOLIC 14376 BICARB 26 MMOL/L 2013 Unknown COMPREHENSIVE METABOLIC 27821 ANION GAP 5 MEQ/L 2013 Unknown GFR CALC 9839700 GFR AA >60 ML/MIN 06/03/2014 Unknown GFR CALC 4023327 GFR NON-AA >60 ML/MIN 06/03/2014 Unknown COMPLETE BLOOD COUNT 3443599 WBC 4.7 10e9/L 06/03/20 14 Unknown COMPLETE BLOOD COUNT 9895634 RBC 4.85 10e12/L 2013 Unknown COMPLETE BLOOD COUNT 2073055 HGB 14.9 g/dL 4 Unknown COMPLETE BLOOD COUNT 8031341 HCT DET 44.2 % 4 Unknown COMPLETE BLOOD COUNT 1574677 MCV 91.1 fL 4 Unknown COMPLETE BLOOD COUNT 4800064 MCH 30.7 pg 4 Unknown COMPLETE BLOOD COUNT 5910324 MCHC 33.7 g/dL 4 Unknown COMPLETE BLOOD COUNT 0966838 PLT 245 10e9/L 06/03/20 14 Unknown COMPLETE BLOOD COUNT 6889687 MPV 11.7 fL 4 Unknown COMPLETE BLOOD COUNT 3163595 YOSSI % 37.0 % 4 Unknown COMPLETE BLOOD COUNT 8225551 LY % 44.2 % 4 Unknown COMPLETE BLOOD COUNT 2359779 MON % 14.1 % 4 Unknown COMPLETE BLOOD COUNT 7894207 EOS % 4.5 % 4 Unknown COMPLETE BLOOD COUNT 9673789 BASO % 0.2 % 4 Unknown COMPLETE BLOOD COUNT 1638024 RDW 13.3 % 4 Unknown COMPLETE BLOOD COUNT 8803521 ABS YOSSI 1.74 10e9/L 014 Unknown COMPLETE BLOOD COUNT 3541362 ABS LYMPH 2.08 10e9/L 014 Unknown COMPLETE BLOOD COUNT 1646018 ABS MONO 0.66 10e9/L 014 Unknown COMPLETE BLOOD COUNT 0308210 ABS EOS 0.21 10e9/L 014 Unknown COMPLETE BLOOD COUNT 1038850 ABS BASO 0.01 10e9/L 014 Unknown COMPLETE BLOOD COUNT 2742451 RDW-SD 43.5 fL 4 Unknown PSA EQUIMOLAR JORI 45149 PSA EQ 0.87 NG/ML 4 Unknown FREE T4 03565 FREE T4 1.21 NG/DL 06/03/2014 Unknown THYROID STIMULATING HORMONE 44732 TSH 0.705 uIU/ML 06/03/2014 Unknown [facility] 94055 HDL TEST 49 MG/DL 06/03/2014 Unknown [facility] 80006 TRIG 72 MG/DL 06/03/2014 Unknown [facility] 61637 TEST LDL 159 MG/DL 06/03/2014 Unknown [facility] 97338 CHOL 222 MG/DL 06/03/2014 Unknown [facility] 84611 RCHOL/HDL 4.53 RATIO 06/03/2014 Unknow n [facility] 67987 NON-HDL CH 173 MG/DL 06/03/2014 Unknow n Procedures Procedure Codes Date ROUTINE VENIPUNCTURE CPT-4: 06091 11/10/2018 LIPID PANEL CPT-4: 05156 11/10/2018 ROUTINE VENIPUNCTURE CPT-4: 70449 12/26/2017 ASSAY THYROID STIM HORMONE CPT-4: 58120 12/26/2017 COMPREHEN METABOLIC PANEL CPT-4: 25422 12/26/2017 COMPLETE CBC W/AUTO DIFF WBC CPT-4: 71395 12/26/2017 LIPID PANEL CPT-4: 63815 12/26/2017 ASSAY OF PSA TOTAL CPT-4: 76465 12/26/2017 ROUTINE VENIPUNCTURE CPT-4: 47262 12/29/2015 ASSAY OF FREE THYROXINE CPT-4: 66252 12/29/2015 ASSAY THYROID STIM HORMONE CPT-4: 21333 12/29/2015 COMPREHEN METABOLIC PANEL CPT-4: 91842 12/29/2015 COMPLETE CBC W/AUTO DIFF WBC CPT-4: 40515 12/29/2015 LIPID PANEL CPT-4: 86965 12/29/2015 ASSAY OF PSA TOTAL CPT-4: 79172 12/29/2015 TDAP VACCINE 7 YRS/> IM CPT-4: 50669 10/20/2015 IMMUNIZATION ADMIN CPT-4: 36380 10/20/2015 ROUTINE VENIPUNCTURE CPT-4: 92165 06/03/2014 ASSAY OF FREE THYROXINE CPT-4: 08697 06/03/2014 ASSAY THYROID STIM HORMONE CPT-4: 58910 06/03/2014 COMPREHEN METABOLIC PANEL CPT-4: 36173 06/03/2014 COMPLETE CBC W/AUTO DIFF WBC CPT-4: 09420 06/03/2014 LIPID PANEL CPT-4: 49747 06/03/2014 ASSAY OF PSA TOTAL CPT-4: 65603 06/03/2014 Vital Signs Date Vital 12/22/2019 Blood Pressure 1: 150/96 Code: 8480-6 BMI: 33.1 Code: 67125-4 Heart Rate 1: 88 bpm Height: 6' [...] 1: 126/80 Code: 8480-6 BMI: 32.8 Code: 60023-2 Heart Rate 1: 82 bpm Height: 6' Respiratory Rate: 20 bpm SpO2: 96% Tempera ture: 36.8 (C) / 98.2 (F) Weight: 242 lbs 12/26/2017 Blood Pressure 1: 114/64 Code: 8480-6 He art Rate 1: 66 bpm 12/09/2017 Blood Pressure 1: 144/96 Code: 8480-6 BMI: 33.1 Code: 65901-7 Heart Rate 1: 72 bpm Height: 6' Respiratory Rate: 20 bpm Temperature: 36 .9 (C) / 98.4 (F) Weight: 244 lbs 12/29/2015 Blood Pressure 1: 132/86 Code: 8480-6 He art Rate 1: 72 bpm 10/20/2015 Blood Pressure 1: 142/94 Code: 8480-6 BMI: 32.8 Code: 28114-2 Heart Rate 1: 72 bpm Height: 6' Respiratory Rate: 20 bpm SpO2: 96% Tempera ture: 36.7 (C) / 98.1 (F) Weight: 242 lbs 05/24/2014 Blood Pressure 1: 138/90 Code: 8480-6 BMI: 31.3 Code: 07345-7 Heart Rate 1: 80 bpm Height: 6' [...] establish Encounters Encounter Performer Location Codes Date ([id number]) PREV VISIT EST AGE 40-64 Diagnosis: Encounter [...] (adult) (pediatric)[ICD10: G47.33] Kait Alas DIDI [employer] CPT-4: 92416 12/22/2019 ([id number]) OFFICE/OUTPATIENT VISIT EST Diagnosis: Essential (primary) hypertension[ICD10: I10] Diagnosis: Cardiac arrhythmia, unspecified[ICD10: I49.9] Diagnosis: Other fatigue[ICD10: R53.83] Didi Cristieric JACKSON [employer] CPT-4: 09201 12/15/2018 OFFICE/OUTPATIENT VISIT EST Diagnosis: Cardiac arrhythmia, unspecified[ICD10: I49.9] Diagnosis: Bitten or stung by nonvenomous insect and other nonvenomous arthropods, initial encounter[ICD10: W57.XXXA] Diagnosis: Abnormal levels of other serum enzymes[ICD10: R74.8] Diagnosis: Mixed hyperlipidemia[ICD10: E78.2] Didi KLEIN [employer] CPT-4: 25424 11/12/2018 ([id number]) NURSE/OUTPATIENT VISIT EST Diagnosis: Essential (primary) hypertension[ICD10: I10] Diagnosis: Mixed hyperlipidemia[ICD10: E78.2] Didi KLEIN [employer] CPT-4: 68026 11/10/2018 OFFICE/OUTPATIENT VISIT EST Diagnosis: Other fatigue[ICD10: R53.83] Diagnosis: Headache[ICD10: R51] Diagnosis: Fever, unspecified[ICD10: R50.9] Diagnosis: Rash and other nonspecific skin eruption[ICD10: R21] Diagnosis: Dyspnea, unspecified[ICD10: R06.00] Diagnosis: Cardiac arrhythmia, unspecified[ICD10: I49.9] [place] JACKSON [employer] CPT-4: 63787 11/09/2018 ([id number]) OFFICE/OUTPATIENT VISIT EST Diagnosis: Essential (primary) hypertension[ICD10: I10] Diagnosis: Gastro-esophageal reflux disease without esophagitis[ICD10: K21.9] Diagnosis: Pain in left knee[ICD10: M25.562] Diagnosis: Pain in left foot[ICD10: M79.672] Kait [employer] CPT-4: 38560 01/29/2018 ([id number]) NURSE/OUTPATIENT VISIT EST Diagnosis: Encounter for general adult medical examination without abnormal findings[ICD10: Z00.00] Diagnosis: Mixed hyperlipidemia[ICD10: E78.2] Diagnosis: Essential (primary) hypertension[ICD10: I10] Didi ARAIZA [employer] CPT-4: 18858 12/26/2017 ([id number]) OFFICE/OUTPATIENT VISIT EST Diagnosis: Essential (primary) hypertension[ICD10: I10] Diagnosis: Gastro-esophageal reflux disease without esophagitis[ICD10: K21.9] Diagnosis: Bilateral primary osteoarthritis of knee[ICD10: M17.0] Diagnosis: Bilateral primary osteoarthritis of first carpometacarpal joints[ICD10: M18.0] Diagnosis: Obstructive sleep apnea (adult) (pediatric)[ICD10: G47.33] Diagnosis: Lymphedema, not elsewhere classified[ICD10: I89.0] Didi ARAIZA [employer] CPT-4: 17879 12/09/2017 ([id number]) OFFICE/OUTPATIENT VISIT EST Diagnosis: Encounter for general adult medical examination without abnormal findings[ICD10: Z00.00] Diagnosis: Elevated blood-pressure reading, without diagnosis of hypertension[ICD10: R03.0] Didi Jensen [employer] CPT- 4: 63303 12/29/2015 ([id number]) PREV VISIT EST AGE 40-64 Diagnosis: Encounter [...] VACCINE FOR TDAP[ICD10: Z23] Jocelyn Watts DIDI [employer] CPT-4: 47398 10/20/2015 ([id number]) OFFICE/OUTPATIENT VISIT EST Diagnosis: ROUTINE MEDICAL EXAM[ICD9: V70.0] Didi Florentino [employer] CPT-4: 05269 06/03/2014 OFFICE/OUTPATIENT VISIT NEW Diagnosis: GERD[ICD9: 530.81] Diagnosis: OBSTRUCTIVE SLEEP APNEA[ICD9: 327.23] Negra SCALES [employer] CPT-4: 79129 05/24/2014 Plan of Care Planned Activity Notes [...] referral sent to dr. iglesias at [address] for evaluation. ICD-9 : 715.96 ICD-10 [...] 12/22/2019 Patient Education: hydrochlorothiazide- [employer] Cou neelam [id number] [email or web address] Completed 12/22/2019 Patient Education: High Blood Pressure [...] I10 12/15/2018 [facility] [phone] [facility] [facility] 12/15/2018 Visit Diagnosis Plan: [...] : I49.9 11/12/2018 Appointment: Didi Araiza [facility] [address] [facility] FOLLOW UP 11/12/2018 Patient Education: doxycycline hyclate- [employer] Cou [facility] [phone] [email or web address] Completed 11/12/2018 Appointment: Didi Araiza WPtel[facility] [facility] 11/10/2018 Visit Diagnosis Plan: [...] I49.9 11/09/2018 [id number] 11/09/2018 Visit Diagnosis Plan: Essential [...] : M79.672 01/29/2018 Appointment: Kait Alas [address] [facility] FOLLOW UP 01/29/2018 Patient Education: Patient Medication Summary Completed 01/29/2018 Appointment: Didi Araiza WPtel[facility] [facility] 12/26/2017 Patient Education: Patient [...] : I89.0 12/09/2017 Appointment: Didi Araiza WPtel: [address] [place] [address] ACUTE ILLNESS 12/09/2017 Patient Education: Patient Medication Summary Completed 12/09/2017 Appointment: Kait Alas [address] [place] [address] RESCHEDULED 12/01/2017 Appointment: Didi Araiza WPtel: [address] [place] [address] US LAB 12/29/2015 Patient Education: Patient Medication [...] aid if need be Form requested from [facility] Patient for new bipap 10/20/2015 Appointment: Jocelyn Watts [address] [place] [address] 10/18 confirmed~sl Annual Well Visit 10/20/2015 Patient Education: Patient Medication Summary Completed 10/20/2015 Appointment: Didi Araiza WPtel: [address] [place] [address] US LAB 06/03/2014 Patient Education: Patient Medication Summary Completed 06/03/2014 Appointment: Negra Mejia WPtel: [address] [place], [place] [id number] NEW PATIENT 05/24/2014 Patient Education: Patient Medication [...] aid if need be Form requested from [facility] Patient for new bipap Medical Equipment No Medical Equipment data Health Concerns Section Health Concerns data not found Goals Section Goals data not found Interventions Section Interventions data not found Health Status Evaluations/Outcomes Section Health Status Evaluations/Outcomes data not found Advance Directives No Advance Directive data
--- OUTSIDE RECORDS SUMMARY | 2020-01-21 11:17 | XMS REPORT | CCD ---
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 Name Role Phone Didi Araiza D.O., PP Unavailable CCM Unavailable Summary Purpose Interface Exchange Insurance Providers Payer name Policy type / Coverage type Covered constitution party ID Effective Begin Date Effective End Date Blue Cross Blue Shield Blue Cross/Blue Shield [id number] 2017 Unknown Family History Family History data not [...] Problems Condition Codes Effective Dates Condition Status Cardiac arrhythmia, unspecified ICD-9: 427.9 ICD-10: I49.9 11/09/2018 Active Essential (primary) hypertension ICD-9: 401.9 ICD-10: I10 12/09/2017 Active Other fatigue ICD-9: 780.79 ICD-10: R53.83 11/09/2018 Active Abnormal levels of other serum enzymes ICD-9: 790.5 ICD-10: R74.8 11/12/2018 Active Bitten or stung by nonvenomous insect an d other nonvenomous arthropods, initial encounter ICD-9: 919.4 ICD-10: W57.XXXA 11/12/2018 Active Mixed hyperlipidemia ICD-9: 272.4 ICD-10: E78.2 11/12/2018 Active Mixed hyperlipidemia ICD-9: 272.2 ICD-10: E78.2 10/19/2015 Active Dyspnea, unspecified ICD-9: 786.09 ICD-10: R06.00 11/09/2018 Active Fever, unspecified ICD-9: 780.60 ICD-10: R50.9 11/09/2018 Active Headache ICD-9: 784.0 ICD-10: R51 11/09/2018 Active Rash and other nonspecific skin eruption ICD-9: 782.1 ICD-10: R21 11/09/2018 Active Gastro-esophageal reflux disease without esophagitis I CD-9: 530.81 ICD-10: K21.9 12/09/2017 Active Pain in left foot ICD-9: 729.5 ICD-10: M79.672 01/29/2018 Active Pain in left knee ICD-9: 719.46 ICD-10: M25.562 01/29/2018 Active Encounter for general adult medical examination withou t abnormal findings ICD-9: V70.9 ICD-10: Z00.00 12/28/2015 Active Hypertension Unknown 12/09/2017 Active Bilateral primary osteoarthritis of knee ICD-9: 715.96 ICD-10: M17.0 12/09/2017 Active Bilateral primary osteoarthritis of first carpometacar pal joints ICD-9: 715.34 ICD-10: M18.0 12/09/2017 Active Lymphedema, not elsewhere classified ICD-9: 457.1 ICD-10: I89.0 12/09/2017 Active Obstructive sleep apnea (adult) (pediatric) ICD-9: 327 .23 ICD-10: G47.33 05/24/2014 Active Elevated blood-pressure reading, without diagnosis of [...] Instructions pantoprazole 40 mg tablet,delayed release RxNorm: 027756 1 Tablet(s) Oral QD Due for updated fasting labs and appointment 12/06/2019 01/05/2020 Active Due for updated fasting labs and appointment before 90 day supply hydrochlorothiazide 12.5 mg tablet RxNorm: 232121 TAKE ONE TABLET BY MOUTH EVERY MORNING FOR BLOOD PRESSURE 10/04/2019 No Stop Date Active pantoprazole 40 mg tablet,delayed release RxNorm: 900251 TAKE ONE TABLET BY MOUTH DAILY 09/05/2019 12/05/2019 Inactive hydrochlorothiazide 12.5 mg tablet RxNorm: 509724 TAKE ONE TABLET BY MOUTH EVERY MORNING FOR BLOOD PRESSURE 07/05/2019 10/03/2019 Inactive pantoprazole 40 mg tablet,delayed release RxNorm: 241582 TAKE ONE TABLET BY MOUTH DAILY 05/29/2019 09/04/2019 Inactive pantoprazole 40 mg tablet,delayed release RxNorm: 497713 1 Tabl et(s) PO QD 03/04/2019 05/28/2019 Inactive hydrochlorothiazide 12.5 mg tablet RxNorm: 307197 TAKE ONE TABLET BY MOUTH EVERY MORNING FOR BLOOD PRESSURE 01/11/2019 07/04/2019 Inactive doxycycline hyclate 100 mg capsule RxNorm: 6965888 1 Capsule(s) PO BID 11/12/2018 11/21/2018 Inactive pantoprazole 40 mg tablet,delayed release RxNorm: 748536 TAKE ONE TABLET BY MOUTH DAILY 10/30/2018 03/04/2019 Inactive hydrochlorothiazide 12.5 mg tablet RxNorm: 880189 TAKE ONE TABLET BY MOUTH EVERY MORNING FOR BLOOD PRESSURE 10/12/2018 01/09/2019 Inactive pantoprazole 40 mg tablet,delayed release RxNorm: 532847 TAKE ONE TABLET BY MOUTH DAILY 08/31/2018 09/29/2018 Inactive pantoprazole 40 mg tablet,delayed release RxNorm: 693250 1 Tabl et(s) PO QD 04/03/2018 08/30/2018 Inactive hydrochlorothiazide 12.5 mg tablet RxNorm: 413796 TAKE ONE TABLET BY MOUTH EVERY MORNING FOR BLOOD PRESSURE 03/30/2018 09/25/2018 Inactive Medrol (John) 4 mg tablets in a dose pack RxNorm: 183800 Tablet(s) PO take as directed 01/29/2018 11/08/2018 Inactive pantoprazole 40 mg tablet,delayed release RxNorm: 244861 1 Tablet(s) PO BID for 1 month then decrease to 1 po daily 12/29/2017 04/02/2018 Inactive hydrochlorothiazide 12.5 mg tablet RxNorm: 384108 1 Tablet(s) P O QAM for BP 12/29/2017 03/28/2018 Inactive Voltaren 1 % topical gel RxNorm: 102266 1 Gram(s) TOP QID to bi lateral knees 12/09/2017 No Stop Date Active hydrochlorothiazide 12.5 mg tablet RxNorm: 343339 1 Tablet(s) P O QAM for BP 12/09/2017 12/28/2017 Inactive pantoprazole 40 mg tablet,delayed release RxNorm: 335466 1 Tablet(s) PO BID for 1 month then decrease to 1 po daily 12/09/2017 04/03/2018 Inactive meloxicam 15 mg tablet RxNorm: 263826 1 Tablet(s) PO QD 10/20/2015 Inactive Benadryl 25 mg capsule RxNorm: 8530635 1 Capsule(s) PO QHS No Start D ate Active Nexium oral RxNorm: 300287 oral No Start Date 10/20/2015 Inactive Nexium 24HR 22.3 mg capsule,delayed release RxNorm: 713993 1 Ca psule(s) PO QAM No Start Date 11/08/2018 Inactive Fish Oil 1,000 mg capsule RxNorm: 1 Capsule(s) PO QD No Start Date 12/28/2017 Inactive Fish Oil 1,000 mg capsule RxNorm: 1 Capsule(s) PO TID No Start Calin e 11/08/2018 Inactive naproxen sodium 220 mg tablet RxNorm: 720327 1 Tablet(s) PO QHS No Start Date 11/08/2018 Inactive Medication Administered No Medication Administered data Immunizations Vaccine Codes Date Status Tetanus, Diptheria, Pertussis CVX: 115 10/20/2015 Results Observation Observation Code Item Item Code Result Date S ervice Location [facility] 49204 Cholesterol 209 mg/dL 11/10/2018 Unkno wn [facility] 95763 Triglyceride 210 mg/dL 11/10/2018 Unkn own [facility] 74524 HDL CHOLESTEROL 32 mg/dL 11/10/2018 U nknown [facility] 63482 Chol/HDL Ratio 6.53 ratio 11/10/2018 U nknown [facility] 85104 NON-HDL Chol 177 mg/dL 11/10/2018 Unkn own [facility] 00793 LDL Cholesterol 135 mg/dL 11/10/2018 U nknown [facility] 01619 AST 15 U/L 2017 Unknown [facility] 29266 ALT 20 U/L 2017 Unknown [facility] 44507 BUN 16 mg/dL 2017 Unknown [facility] 86800 ALBUMIN 4.4 g/dL 2017 Unknown [facility] 38450 CHLORIDE 105 mmol/L 12/26 Unknown [facility] 68218 Bili Total 0.6 mg/dL 12/26 Unknown [facility] 76808 ALK PHOS 61 U/L 2017 Unknown [facility] 40962 SODIUM 141 mmol/L 12/26 Unknown [facility] 06687 CREATININE 0.90 mg/dL 11/29 Unknown [facility] 82962 CALCIUM 9.7 mg/dL 2017 Unknown [facility] 83920 POTASSIUM 4.2 mmol/L 12/26 Unknown [facility] 48426 Total Protein 6.5 g/dL Unknown [facility] 31558 Glucose 99 mg/dL 2017 Unknown [facility] 31376 Bicarbonate 24 mmol/L 11/29 Unknown [facility]PREH[facility]OL[facility] 41509 AGAP 12 mmol/L 2017 Unknown COMPLETE BLOOD COUNT 7778760 WBC 5.5 10e9/L 12/27/19 18 Unknown COMPLETE BLOOD COUNT 2806488 RBC 4.87 10e12/L 2017 Unknown COMPLETE BLOOD COUNT 2785654 HEMOGLOBIN 15.1 g/dL 12/27/19 18 Unknown COMPLETE BLOOD COUNT 8354048 HEMATOCRIT 44.9 % 12/27/19 18 Unknown COMPLETE BLOOD COUNT 1472558 MCV 92.2 fL 8 Unknown COMPLETE BLOOD COUNT 9995220 MCH 31.0 pg 8 Unknown COMPLETE BLOOD COUNT 0311241 MCHC 33.6 g/dL 8 Unknown COMPLETE BLOOD COUNT 0132687 PLATELET COUNT 244 10e9/L Unknown COMPLETE BLOOD COUNT 5121044 Mean Plt Volume 11.8 fL Unknown COMPLETE BLOOD COUNT 4114262 Neut Auto 42.0 % 8 Unknown COMPLETE BLOOD COUNT 6796298 Lymph Auto 39.5 % 12/27/19 18 Unknown COMPLETE BLOOD COUNT 2510028 Benzie Auto 13.0 % 8 Unknown COMPLETE BLOOD COUNT 1116899 Eos Auto 5.3 % 8 Unknown COMPLETE BLOOD COUNT 0923125 RDW 13.8 % 8 Unknown COMPLETE BLOOD COUNT 9022104 Baso Auto 0.2 % 8 Unknown COMPLETE BLOOD COUNT 8086607 Neutrophil Abs 2.31 10e9/L Unknown COMPLETE BLOOD COUNT [id number] Lymphocyte Abs 2.17 10e9/L Unknown COMPLETE BLOOD COUNT 2603310 Monocyte Abs 0.72 10e9/L 11/29 Unknown COMPLETE BLOOD COUNT 7678572 Eosinophil Abs 0.29 10e9/L Unknown COMPLETE BLOOD COUNT 0939895 RDW-SD 45.6 fL 8 Unknown COMPLETE BLOOD COUNT 6003209 Basophil Abs 0.01 10e9/L 11/29 Unknown PSA EQUIMOLAR JORI 39588 PSA Total 1.40 ng/mL 8 Unknown GFR CALC 9375850 GFR Afr Amr >60 mL/min 12/26/2017 Unknow n GFR CALC 6153231 GFR Non Afr Amr >60 mL/min 12/26/2017 Un known [facility] 16164 Cholesterol 239 mg/dL 12/26/2017 Unkno wn [facility] 21625 Triglyceride 140 mg/dL 12/26/2017 Unkn own [facility] 66963 HDL CHOLESTEROL 48 mg/dL 12/26/2017 U nknown [facility] 08835 Chol/HDL Ratio 4.98 ratio 12/26/2017 U nknown [facility] 56752 NON-HDL Chol 191 mg/dL 12/26/2017 Unkn own [facility] 23865 LDL Cholesterol 163 mg/dL 12/26/2017 U nknown THYROID STIMULATING HORMONE 55902 TSH 1.633 uIU/mL 12/26/2017 Unknown COMPLETE BLOOD COUNT 6205118 WBC 5.3 10e9/L 12/29/19 16 Unknown COMPLETE BLOOD COUNT 6417191 RBC 4.84 10e12/L 2015 Unknown COMPLETE BLOOD COUNT 4905584 HEMOGLOBIN 14.9 g/dL 12/29/19 16 Unknown COMPLETE BLOOD COUNT 0834899 HEMATOCRIT 44.3 % 12/29/19 16 Unknown COMPLETE BLOOD COUNT 7264351 MCV 91.5 fL 6 Unknown COMPLETE BLOOD COUNT 4038216 MCH 30.8 pg 6 Unknown COMPLETE BLOOD COUNT 5442588 MCHC 33.6 g/dL 6 Unknown COMPLETE BLOOD COUNT 9092181 PLATELET COUNT 220 10e9/L 06/2015 Unknown COMPLETE BLOOD COUNT 7801884 Mean Plt Volume 11.8 fL 06/2015 Unknown COMPLETE BLOOD COUNT 0061900 Neut Auto 42.3 % 6 Unknown COMPLETE BLOOD COUNT 8800402 Lymph Auto 39.0 % 12/29/19 16 Unknown COMPLETE BLOOD COUNT 4137580 Benzie Auto 13.6 % 6 Unknown COMPLETE BLOOD COUNT 5726670 RDW 14.0 % 6 Unknown COMPLETE BLOOD COUNT 6792508 Eos Auto 4.7 % 6 Unknown COMPLETE BLOOD COUNT 3578050 Baso Auto 0.4 % 6 Unknown COMPLETE BLOOD COUNT 2171181 Neutrophil Abs 2.24 10e9/L Unknown COMPLETE BLOOD COUNT 8363475 Lymphoctye Abs 2.07 10e9/L Unknown COMPLETE BLOOD COUNT 8969333 Monocyte Abs 0.72 10e9/L 06/2015 Unknown COMPLETE BLOOD COUNT 9349548 Eosinophil Abs 0.25 10e9/L Unknown COMPLETE BLOOD COUNT 1304936 RDW-SD 45.7 fL 6 Unknown COMPLETE BLOOD COUNT 0809737 Basophil Abs 0.02 10e9/L 06/2015 Unknown PSA EQUIMOLAR JORI 28894 PSA Total 1.11 ng/mL 6 Unknown COMPREHENSIVE METABOLIC 96521 AST 16 U/L 2015 Unknown COMPREHENSIVE METABOLIC 21615 ALT 20 U/L 2015 Unknown COMPREHENSIVE METABOLIC 21215 BUN 12 mg/dL 2015 Unknown COMPREHENSIVE METABOLIC 17841 ALBUMIN 4.3 g/dL 2015 Unknown COMPREHENSIVE METABOLIC 90742 CHLORIDE 107 mmol/L 12/28 Unknown COMPREHENSIVE METABOLIC 97251 Bili Total 0.7 mg/dL 12/28 Unknown COMPREHENSIVE METABOLIC 41407 ALK PHOS 53 U/L 2015 Unknown COMPREHENSIVE MET[facility]OLIC 53493 SODIUM 141 mmol/L 12/28 Unknown COMPREHENSIVE METABOLIC 15053 CREATININE 0.88 mg/dL 06/2015 Unknown COMPREHENSIVE MET[facility]OLIC 90065 CALCIUM 9.3 mg/dL 2015 Unknown COMPREHENSIVE METABOLIC 31856 POTASSIUM 4.1 mmol/L 12/28 Unknown COMPREHENSIVE METABOLIC 53898 Total Protein 6.5 g/dL Unknown [facility] 06062 Glucose 95 mg/dL 2015 Unknown COMPREHENSIVE METABOLIC 03558 Bicarbonate 27 mmol/L 06/2015 Unknown COMPREHENSIVE METABOLIC 97029 AGAP 7 mmol/L 2015 Unknown FREE T4 80471 T4 Free 1.11 ng/dL 12/29/2015 Unknown GFR CALC 2270596 GFR Non Afr Amr >60 mL/min 12/29/2015 Un known GFR CALC 8801501 GFR Afr Amr >60 mL/min 12/29/2015 Unknow n THYROID STIMULATING HORMONE 36287 TSH 0.687 uIU/mL 12/29/2015 Unknown [facility] 79301 Cholesterol 226 mg/dL 12/29/2015 Unkno wn [facility] 31547 Triglyceride 101 mg/dL 12/29/2015 Unkn own [facility] 62959 HDL CHOLESTEROL 57 mg/dL 12/29/2015 U nknown [facility] 67646 Chol/HDL Ratio 3.96 ratio 12/29/2015 U nknown [facility] 79935 NON-HDL Chol 169 mg/dL 12/29/2015 Unkn own [facility] 75065 LDL Cholesterol 149 mg/dL 12/29/2015 U nknown COMPREHENSIVE METABOLIC 74940 AST 17 U/L 2013 Unknown COMPREHENSIVE METABOLIC 49267 ALT 24 IU/L 2013 Unknown COMPREHENSIVE METABOLIC 70095 BUN 18 MG/DL 2013 Unknown COMPREHENSIVE METABOLIC 46895 ALBUMIN 4.4 GM/DL 2013 Unknown COMPREHENSIVE METABOLIC 80525 CHLORIDE 108 MMOL/L 06/03 Unknown COMPREHENSIVE METABOLIC 50040 BILI TOT 0.4 MG/DL 2013 Unknown COMPREHENSIVE METABOLIC 14288 ALK PHOS 58 U/L 2013 Unknown COMPREHENSIVE METABOLIC 34025 SODIUM 139 MMOL/L 06/03 Unknown COMPREHENSIVE METABOLIC 02193 CREATININE 0.86 MG/DL 10/2013 Unknown COMPREHENSIVE METABOLIC 70545 CALCIUM 9.6 MG/DL 2013 Unknown COMPREHENSIVE METABOLIC 39986 POTASSIUM 4.3 MMOL/L 06/03 Unknown COMPREHENSIVE METABOLIC 94997 PROT TOT 6.0 GM/DL 2013 Unknown COMPREHENSIVE METABOLIC 85701 Glucose 104 MG/DL 2013 Unknown COMPREHENSIVE METABOLIC 23565 BICARB 26 MMOL/L 2013 Unknown COMPREHENSIVE METABOLIC 03119 ANION GAP 5 MEQ/L 2013 Unknown GFR CALC 4631594 GFR AA >60 ML/MIN 06/03/2014 Unknown GFR CALC 0406431 GFR NON-AA >60 ML/MIN 06/03/2014 Unknown COMPLETE BLOOD COUNT 4632430 WBC 4.7 10e9/L 06/03/20 14 Unknown COMPLETE BLOOD COUNT 8017525 RBC 4.85 10e12/L 2013 Unknown COMPLETE BLOOD COUNT 3814764 HGB 14.9 g/dL 4 Unknown COMPLETE BLOOD COUNT 1677164 HCT DET 44.2 % 4 Unknown COMPLETE BLOOD COUNT 1290157 MCV 91.1 fL 4 Unknown COMPLETE BLOOD COUNT 7459387 MCH 30.7 pg 4 Unknown COMPLETE BLOOD COUNT 0126245 MCHC 33.7 g/dL 4 Unknown COMPLETE BLOOD COUNT 7602297 PLT 245 10e9/L 06/03/20 14 Unknown COMPLETE BLOOD COUNT 2971820 MPV 11.7 fL 4 Unknown COMPLETE BLOOD COUNT 4157025 YOSSI % 37.0 % 4 Unknown COMPLETE BLOOD COUNT 8806824 LY % 44.2 % 4 Unknown COMPLETE BLOOD COUNT 2283567 MON % 14.1 % 4 Unknown COMPLETE BLOOD COUNT 6291935 EOS % 4.5 % 4 Unknown COMPLETE BLOOD COUNT 3003554 BASO % 0.2 % 4 Unknown COMPLETE BLOOD COUNT 0367381 RDW 13.3 % 4 Unknown COMPLETE BLOOD COUNT 9337838 ABS YOSSI 1.74 10e9/L 014 Unknown COMPLETE BLOOD COUNT 7822683 ABS LYMPH 2.08 10e9/L 014 Unknown COMPLETE BLOOD COUNT 7160807 ABS MONO 0.66 10e9/L 014 Unknown COMPLETE BLOOD COUNT 7913837 ABS EOS 0.21 10e9/L 014 Unknown COMPLETE BLOOD COUNT 2996120 ABS BASO 0.01 10e9/L 014 Unknown COMPLETE BLOOD COUNT 0583782 RDW-SD 43.5 fL 4 Unknown PSA EQUIMOLAR JORI 66125 PSA EQ 0.87 NG/ML 4 Unknown FREE T4 77984 FREE T4 1.21 NG/DL 06/03/2014 Unknown THYROID STIMULATING HORMONE 17990 TSH 0.705 uIU/ML 06/03/2014 Unknown [facility] 57037 HDL TEST 49 MG/DL 06/03/2014 Unknown [facility] 89700 TRIG 72 MG/DL 06/03/2014 Unknown [facility] 44093 TEST LDL 159 MG/DL 06/03/2014 Unknown [facility] 39801 CHOL 222 MG/DL 06/03/2014 Unknown [facility] 99975 RCHOL/HDL 4.53 RATIO 06/03/2014 Unknow n [facility] 68574 NON-HDL CH 173 MG/DL 06/03/2014 Unknow n Procedures Procedure Codes Date ROUTINE VENIPUNCTURE CPT-4: 08233 11/10/2018 LIPID PANEL CPT-4: 70140 11/10/2018 ROUTINE VENIPUNCTURE CPT-4: 44307 12/26/2017 ASSAY THYROID STIM HORMONE CPT-4: 05101 12/26/2017 COMPREHEN METABOLIC PANEL CPT-4: 85579 12/26/2017 COMPLETE CBC W/AUTO DIFF WBC CPT-4: 46615 12/26/2017 LIPID PANEL CPT-4: 25248 12/26/2017 ASSAY OF PSA TOTAL CPT-4: 72116 12/26/2017 ROUTINE VENIPUNCTURE CPT-4: 69195 12/29/2015 ASSAY OF FREE THYROXINE CPT-4: 02205 12/29/2015 ASSAY THYROID STIM HORMONE CPT-4: 06127 12/29/2015 COMPREHEN METABOLIC PANEL CPT-4: 10799 12/29/2015 COMPLETE CBC W/AUTO DIFF WBC CPT-4: 97190 12/29/2015 LIPID PANEL CPT-4: 60575 12/29/2015 ASSAY OF PSA TOTAL CPT-4: 52185 12/29/2015 TDAP VACCINE 7 YRS/> IM CPT-4: 96541 10/20/2015 IMMUNIZATION ADMIN CPT-4: 68225 10/20/2015 ROUTINE VENIPUNCTURE CPT-4: 67870 06/03/2014 ASSAY OF FREE THYROXINE CPT-4: 10515 06/03/2014 ASSAY THYROID STIM HORMONE CPT-4: 80041 06/03/2014 COMPREHEN METABOLIC PANEL CPT-4: 60435 06/03/2014 COMPLETE CBC W/AUTO DIFF WBC CPT-4: 07319 06/03/2014 LIPID PANEL CPT-4: 14971 06/03/2014 ASSAY OF PSA TOTAL CPT-4: 04794 06/03/2014 Vital Signs Date Vital 12/15/2018 Blood Pressure 1: 126/82 Code: 8480-6 [...] 1: 126/80 Code: 8480-6 BMI: 32.8 Code: 66755-8 Heart Rate 1: 82 bpm Height: 6' Respiratory Rate: 20 bpm SpO2: 96% Tempera ture: 36.8 (C) / 98.2 (F) Weight: 242 lbs 12/26/2017 Blood Pressure 1: 114/64 Code: 8480-6 He art Rate 1: 66 bpm 12/09/2017 Blood Pressure 1: 144/96 Code: 8480-6 BMI: 33.1 Code: 44968-3 Heart Rate 1: 72 bpm Height: 6' Respiratory Rate: 20 bpm Temperature: 36 .9 (C) / 98.4 (F) Weight: 244 lbs 12/29/2015 Blood Pressure 1: 132/86 Code: 8480-6 He art Rate 1: 72 bpm 10/20/2015 Blood Pressure 1: 142/94 Code: 8480-6 BMI: 32.8 Code: 79931-7 Heart Rate 1: 72 bpm Height: 6' Respiratory Rate: 20 bpm SpO2: 96% Tempera ture: 36.7 (C) / 98.1 (F) Weight: 242 lbs 05/24/2014 Blood Pressure 1: 138/90 Code: 8480-6 BMI: 31.3 Code: 21398-3 Heart Rate 1: 80 bpm Height: 6' Respiratory Rate: 20 bpm Temperature: 36 .7 (C) / 98.0 (F) Weight: 231 lbs Functional Status No Functional Status data Reason For Visit Reason For Visit Effective Dates Notes follow up 12/15/2018 Patient has finished up [...] establish Encounters Encounter Performer Location Codes Date (14014) OFFICE/OUTPATIENT VISIT EST Diagnosis: Essential (primary) hypertension[ICD10: I10] Diagnosis: Cardiac arrhythmia, unspecified[ICD10: I49.9] Diagnosis: Other fatigue[ICD10: R53.83] Didi Jensen [employer] CPT-4: 04650 12/15/2018 OFFICE/OUTPATIENT VISIT EST Diagnosis: Cardiac arrhythmia, unspecified[ICD10: I49.9] Diagnosis: Bitten or stung by nonvenomous insect and other nonvenomous arthropods, initial encounter[ICD10: W57.XXXA] Diagnosis: Abnormal levels of other serum enzymes[ICD10: R74.8] Diagnosis: Mixed hyperlipidemia[ICD10: E78.2] Didi ARAIZA [email or web address] CPT-4: 38722 11/12/2018 ([id number]) NURSE/OUTPATIENT VISIT EST Diagnosis: Essential (primary) hypertension[ICD10: I10] Diagnosis: Mixed hyperlipidemia[ICD10: E78.2] Didi KLEIN SHIMAUMA [employer] CPT-4: 96246 11/10/2018 OFFICE/OUTPATIENT VISIT EST Diagnosis: Other fatigue[ICD10: R53.83] Diagnosis: Headache[ICD10: R51] Diagnosis: Fever, unspecified[ICD10: R50.9] Diagnosis: Rash and other nonspecific skin eruption[ICD10: R21] Diagnosis: Dyspnea, unspecified[ICD10: R06.00] Diagnosis: Cardiac arrhythmia, unspecified[ICD10: I49.9] Brooklyn JACKSON [employer] CPT-4: 49468 11/09/2018 ([id number]) OFFICE/OUTPATIENT VISIT EST Diagnosis: Essential (primary) hypertension[ICD10: I10] Diagnosis: Gastro-esophageal reflux disease without esophagitis[ICD10: K21.9] Diagnosis: Pain in left knee[ICD10: M25.562] Diagnosis: Pain in left foot[ICD10: M79.672] Kait Alas ELEAZAR [employer] CPT-4: 50275 01/29/2018 ([id number]) NURSE/OUTPATIENT VISIT EST Diagnosis: Encounter for general adult medical examination without abnormal findings[ICD10: Z00.00] Diagnosis: Mixed hyperlipidemia[ICD10: E78.2] Diagnosis: Essential (primary) hypertension[ICD10: I10] Didi JACKSON [employer] CPT-4: 37354 12/26/2017 ([id number]) OFFICE/OUTPATIENT VISIT EST Diagnosis: Essential (primary) hypertension[ICD10: I10] Diagnosis: Gastro-esophageal reflux disease without esophagitis[ICD10: K21.9] Diagnosis: Bilateral primary osteoarthritis of knee[ICD10: M17.0] Diagnosis: Bilateral primary osteoarthritis of first carpometacarpal joints[ICD10: M18.0] Diagnosis: Obstructive sleep apnea (adult) (pediatric)[ICD10: G47.33] Diagnosis: Lymphedema, not elsewhere classified[ICD10: I89.0] Didi JACKSON SHIMAUMA [employer] CPT-4: 92266 12/09/2017 ([id number]) OFFICE/OUTPATIENT VISIT EST Diagnosis: Encounter for general adult medical examination without abnormal findings[ICD10: Z00.00] Diagnosis: Elevated blood-pressure reading, without diagnosis of hypertension[ICD10: R03.0] Didi Jensen [employer] CPT- 4: 33947 12/29/2015 ([id number]) PREV VISIT EST AGE 40-64 Diagnosis: Encounter [...] VACCINE FOR TDAP[ICD10: Z23] Jocelyn Mac DIDI Jensen FAB[employer]GWENBRENDA [email or web address] CPT-4: 68209 10/20/2015 ([id number]) OFFICE/OUTPATIENT VISIT EST Diagnosis: ROUTINE MEDICAL EXAM[ICD9: V70.0] Didi Jensen [email or web address] CPT-4: 64062 06/03/2014 OFFICE/OUTPATIENT VISIT NEW Diagnosis: GERD[ICD9: 530.81] Diagnosis: OBSTRUCTIVE SLEEP APNEA[ICD9: 327.23] Negra Jensen [email or web address] CPT-4: 51793 05/24/2014 Plan of Care Planned Activity Notes Codes Status Date Visit Diagnosis Plan: Other fatigue Discussion: Add me n's MV ICD-9 : 780.79 ICD-10 : R53.83 12/15/2018 Visit Diagnosis Plan: Cardiac arrhythmia, unspecified Discussion: Exercise Stress Test Fwup pending results ICD-9 : 427.9 ICD-10 : I49.9 12/15/2018 Visit Diagnosis Plan: Essential (primary) hypertension Discussion: Stable ICD-9 : 401.9 ICD-10 : I10 12/15/2018 Appointment: Didi Araizatel: [address] [place], [place] [address] US FOLLOW UP 12/15/2018 Visit Diagnosis Plan: [...] : W57.XXXA 11/12/2018 Appointment: Didi Araiza WPtel: [address] [place] [address] US FOLLOW UP 11/12/2018 Patient Education: doxycycline hyclate- [employer] [facility] [id number] [email or web address] Completed 11/12/2018 Appointment: Didi Araiza WPtel: [address] [place], [place] [id number] US LAB 11/10/2018 Visit Diagnosis Plan: Other [...] : I49.9 11/09/2018 Appointment: Brooklyn Dinh [address] [facility] ACUTE ILLNESS 11/09/2018 Visit Diagnosis Plan: Essential [...] : M79.672 01/29/2018 Appointment: Kait Alas [address] [facility] FOLLOW UP 01/29/2018 Patient Education: Patient Medication Summary Completed 01/29/2018 Appointment: Didi Araiza WPtel: [address] [facility] US LAB 12/26/2017 Patient Education: Patient Medication [...] ICD-9 : 530.81 ICD-10 : K21.9 12/09/2017 Appointment: Didi Araiza WPtel: [address] [place] [address] ACUTE ILLNESS 12/09/2017 Patient Education: Patient Medication Summary Completed 12/09/2017 Appointment: Kait Alas [address] [place] [address] RESCHEDULED 12/01/2017 Appointment: Didi Araiza WPtel: [address] [place] [address] LAB 12/29/2015 Patient Education: Patient Medication Summary [...] aid if need be Form requested from [facility] Patient for new bipap 10/20/2015 Appointment: Jocelyn Watts [address] [place] [address] 10/18 confirmed~sl Annual Well Visit 10/20/2015 Patient Education: Patient Medication Summary Completed 10/20/2015 Appointment: Didi Araiza WPtel: [address] [facility] LAB 06/03/2014 Patient Education: Patient Medication Summary Completed 06/03/2014 Appointment: Negra Mejia WPtel: [phone] [facility] NEW PATIENT 05/24/2014 Patient Education: Patient Medication [...] aid if need be Form requested from [facility] Patient for new bipap Medical Equipment No Medical Equipment data Health Concerns Section Health Concerns data not found Goals Section Goals data not found Interventions Section Interventions data not found Health Status Evaluations/Outcomes Section Health Status Evaluations/Outcomes data not found Advance Directives No Advance Directive data
--- OUTSIDE RECORDS SUMMARY | 2020-01-21 11:18 | XMS REPORT | CCD ---
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 Name Role Phone Manuel Araiza D.O., PP Unavailable CCM Unavailable Summary Purpose Interface Exchange Insurance Providers Payer name Policy type / Coverage type Covered green party ID Effective Begin Date Effective End Date Blue Cross Blue Shield Blue Cross/Blue Shield [id number] 2017 Unknown Family History Family History data [...] Fill Instructions hydrochlorothiazide 12.5 mg tablet RxNorm: 984936 TAKE ONE TABLET BY MOUTH EVERY MORNING FOR BLOOD PRESSURE 07/05/2019 No Stop Date Active pantoprazole 40 mg tablet,delayed release RxNorm: 980565 TAKE ONE TABLET BY MOUTH DAILY 05/29/2019 No Stop Date Active pantoprazole 40 mg tablet,delayed release RxNorm: 910175 1 Tabl et(s) PO QD 03/04/2019 05/28/2019 Inactive hydrochlorothiazide 12.5 mg tablet RxNorm: 399234 TAKE ONE TABLET BY MOUTH EVERY MORNING FOR BLOOD PRESSURE 01/11/2019 07/04/2019 Inactive doxycycline hyclate 100 mg capsule RxNorm: 5654663 1 Capsule(s) PO BID 11/12/2018 11/21/2018 Inactive pantoprazole 40 mg tablet,delayed release RxNorm: 401392 TAKE ONE TABLET BY MOUTH DAILY 10/30/2018 03/04/2019 Inactive hydrochlorothiazide 12.5 mg tablet RxNorm: 406924 TAKE ONE TABLET BY MOUTH EVERY MORNING FOR BLOOD PRESSURE 10/12/2018 01/09/2019 Inactive pantoprazole 40 mg tablet,delayed release RxNorm: 955489 TAKE ONE TABLET BY MOUTH DAILY 08/31/2018 09/29/2018 Inactive pantoprazole 40 mg tablet,delayed release RxNorm: 768884 1 Tabl et(s) PO QD 04/03/2018 08/30/2018 Inactive hydrochlorothiazide 12.5 mg tablet RxNorm: 161932 TAKE ONE TABLET BY MOUTH EVERY MORNING FOR BLOOD PRESSURE 03/30/2018 09/25/2018 Inactive Medrol (John) 4 mg tablets in a dose pack RxNorm: 423731 Tablet(s) PO take as directed 01/29/2018 11/08/2018 Inactive pantoprazole 40 mg tablet,delayed release RxNorm: 334035 1 Tablet(s) PO BID for 1 month then decrease to 1 po daily 12/29/2017 04/02/2018 Inactive hydrochlorothiazide 12.5 mg tablet RxNorm: 055607 1 Tablet(s) P O QAM for BP 12/29/2017 03/28/2018 Inactive Voltaren 1 % topical gel RxNorm: 128734 1 Gram(s) TOP QID to bi lateral knees 12/09/2017 No Stop Date Active hydrochlorothiazide 12.5 mg tablet RxNorm: 371832 1 Tablet(s) P O QAM for BP 12/09/2017 12/28/2017 Inactive pantoprazole 40 mg tablet,delayed release RxNorm: 019535 1 Tablet(s) PO BID for 1 month then decrease to 1 po daily 12/09/2017 04/03/2018 Inactive meloxicam 15 mg tablet RxNorm: 742822 1 Tablet(s) PO QD 10/20/2015 Inactive Benadryl 25 mg capsule RxNorm: 4009837 1 Capsule(s) PO QHS No Start D ate Active Nexium oral RxNorm: 503231 oral No Start Date 10/20/2015 Inactive Nexium 24HR 22.3 mg capsule,delayed release RxNorm: 123586 1 Ca psule(s) PO QAM No Start Date 11/08/2018 Inactive Fish Oil 1,000 mg capsule RxNorm: 1 Capsule(s) PO QD No Start Date 12/28/2017 Inactive Fish Oil 1,000 mg capsule RxNorm: 1 Capsule(s) PO TID No Start Calin e 11/08/2018 Inactive naproxen sodium 220 mg tablet RxNorm: 682433 1 Tablet(s) PO QHS No Start Date 11/08/2018 Inactive Medication Administered No Medication Administered data Immunizations Vaccine Codes Date Status Tetanus, Diptheria, Pertussis CVX: 115 10/20/2015 Results Observation Observation Code Item Item Code Result Date S ervice Location [facility] 91574 Cholesterol 209 mg/dL 11/10/2018 Unkno wn [facility] 00886 Triglyceride 210 mg/dL 11/10/2018 Unkn own [facility] 37196 HDL CHOLESTEROL 32 mg/dL 11/10/2018 U nknown [facility] 99406 Chol/HDL Ratio 6.53 ratio 11/10/2018 U nknown [facility] 88402 NON-HDL Chol 177 mg/dL 11/10/2018 Unkn own [facility] 08193 LDL Cholesterol 135 mg/dL 11/10/2018 U nknown [facility] 80636 AST 15 U/L 2017 Unknown [facility] 87571 ALT 20 U/L 2017 Unknown [facility] 40611 BUN 16 mg/dL 2017 Unknown [facility] 69280 ALBUMIN 4.4 g/dL 2017 Unknown [facility] 81764 CHLORIDE 105 mmol/L 12/26 Unknown [facility] 61507 Bili Total 0.6 mg/dL 12/26 Unknown [facility] 82801 ALK PHOS 61 U/L 2017 Unknown [facility] 51952 SODIUM 141 mmol/L 12/26 Unknown [facility] 88635 CREATININE 0.90 mg/dL 11/29 Unknown [facility] 85956 CALCIUM 9.7 mg/dL 2017 Unknown [facility] 84461 POTASSIUM 4.2 mmol/L 12/26 Unknown [facility] 57465 Total Protein 6.5 g/dL Unknown [facility] 92268 Glucose 99 mg/dL 2017 Unknown [facility] 80606 Bicarbonate 24 mmol/L 11/29 Unknown COMPREHENS[facility]OL[facility] 31113 AGAP 12 mmol/L 2017 Unknown COMPLETE BLOOD COUNT 8385757 WBC 5.5 10e9/L 12/27/19 18 Unknown COMPLETE BLOOD COUNT [id number] RBC 4.87 10e12/L 2017 Unknown COMPLETE BLOOD COUNT 8583294 HEMOGLOBIN 15.1 g/dL 12/27/19 18 Unknown COMPLETE BLOOD COUNT [id number] HEMATOCRIT 44.9 % 12/27/19 18 Unknown COMPLETE BLOOD COUNT 8576428 MCV 92.2 fL 8 Unknown COMPLETE BLOOD COUNT 9472143 MCH 31.0 pg 8 Unknown COMPLETE BLOOD COUNT 2198243 MCHC 33.6 g/dL 8 Unknown COMPLETE BLOOD COUNT 0983345 PLATELET COUNT 244 10e9/L Unknown COMPLETE BLOOD COUNT 3668013 Mean Plt Volume 11.8 fL Unknown COMPLETE BLOOD COUNT 2570314 Neut Auto 42.0 % 8 Unknown COMPLETE BLOOD COUNT 4206204 Lymph Auto 39.5 % 12/27/19 18 Unknown COMPLETE BLOOD COUNT 0824331 [place] Auto 13.0 % 8 Unknown COMPLETE BLOOD COUNT 2846175 RDW 13.8 % 8 Unknown COMPLETE BLOOD COUNT 4890705 Eos Auto 5.3 % 8 Unknown COMPLETE BLOOD COUNT 8305039 Baso Auto 0.2 % 8 Unknown COMPLETE BLOOD COUNT 2270826 Neutrophil Abs 2.31 10e9/L Unknown COMPLETE BLOOD COUNT 3366138 Lymphocyte Abs 2.17 10e9/L Unknown COMPLETE BLOOD COUNT 1705559 Monocyte Abs 0.72 10e9/L 11/29 Unknown COMPLETE BLOOD COUNT 2626343 Eosinophil Abs 0.29 10e9/L Unknown COMPLETE BLOOD COUNT 7248110 RDW-SD 45.6 fL 8 Unknown COMPLETE BLOOD COUNT 5326013 Basophil Abs 0.01 10e9/L 11/29 Unknown PSA EQUIMOLAR JORI 98845 PSA Total 1.40 ng/mL 8 Unknown GFR CALC 9760871 GFR Non Afr Amr >60 mL/min 12/26/2017 Un known GFR CALC 5124702 GFR Afr Amr >60 mL/min 12/26/2017 Unknow n [facility] 09370 Cholesterol 239 mg/dL 12/26/2017 Unkno wn [facility] 38987 Triglyceride 140 mg/dL 12/26/2017 Unkn own [facility] 16782 HDL CHOLESTEROL 48 mg/dL 12/26/2017 U nknown [facility] 19062 Chol/HDL Ratio 4.98 ratio 12/26/2017 U nknown [facility] 46641 NON-HDL Chol 191 mg/dL 12/26/2017 Unkn own [facility] 09997 LDL Cholesterol 163 mg/dL 12/26/2017 U nknown THYROID STIMULATING HORMONE 85409 TSH 1.633 uIU/mL 12/26/2017 Unknown COMPLETE BLOOD COUNT 6038695 WBC 5.3 10e9/L 12/29/19 16 Unknown COMPLETE BLOOD COUNT 6134120 RBC 4.84 10e12/L 2015 Unknown COMPLETE BLOOD COUNT 2294197 HEMOGLOBIN 14.9 g/dL 12/29/19 16 Unknown COMPLETE BLOOD COUNT 6756291 HEMATOCRIT 44.3 % 12/29/19 16 Unknown COMPLETE BLOOD COUNT 7796836 MCV 91.5 fL 6 Unknown COMPLETE BLOOD COUNT 8184115 MCH 30.8 pg 6 Unknown COMPLETE BLOOD COUNT 9812734 MCHC 33.6 g/dL 6 Unknown COMPLETE BLOOD COUNT 6737163 PLATELET COUNT 220 10e9/L 06/2015 Unknown COMPLETE BLOOD COUNT 0646670 Mean Plt Volume 11.8 fL 06/2015 Unknown COMPLETE BLOOD COUNT 2230093 Neut Auto 42.3 % 6 Unknown COMPLETE BLOOD COUNT 2475031 Lymph Auto 39.0 % 12/29/19 16 Unknown COMPLETE BLOOD COUNT 6018806 [place] Auto 13.6 % 6 Unknown COMPLETE BLOOD COUNT 7529353 RDW 14.0 % 6 Unknown COMPLETE BLOOD COUNT 6810198 Eos Auto 4.7 % 6 Unknown COMPLETE BLOOD COUNT 5112612 Baso Auto 0.4 % 6 Unknown COMPLETE BLOOD COUNT 7326350 Neutrophil Abs 2.24 10e9/L Unknown COMPLETE BLOOD COUNT 9195726 Lymphoctye Abs 2.07 10e9/L Unknown COMPLETE BLOOD COUNT 5784914 Monocyte Abs 0.72 10e9/L 06/2015 Unknown COMPLETE BLOOD COUNT 6506335 Eosinophil Abs 0.25 10e9/L Unknown COMPLETE BLOOD COUNT 3612900 RDW-SD 45.7 fL 6 Unknown COMPLETE BLOOD COUNT [id number] Basophil Abs 0.02 10e9/L 06/2015 Unknown PSA EQUIMOLAR JORI 32388 PSA Total 1.11 ng/mL 6 Unknown COMPREHENSIVE METABOLIC 13271 AST 16 U/L 2015 Unknown COMPREHENSIVE METABOLIC 02826 ALT 20 U/L 2015 Unknown COMPREHENSIVE METABOLIC 36390 BUN 12 mg/dL 2015 Unknown COMPREHENSIVE METABOLIC 50110 ALBUMIN 4.3 g/dL 2015 Unknown COMPREHENSIVE METABOLIC 75381 CHLORIDE 107 mmol/L 12/28 Unknown COMPREHENSIVE METABOLIC 85614 Bili Total 0.7 mg/dL 12/28 Unknown COMPREHENSIVE METABOLIC 92656 ALK PHOS 53 U/L 2015 Unknown COMPREHENSIVE METABOLIC 58059 SODIUM 141 mmol/L 12/28 Unknown COMPREHENSIVE METABOLIC 76962 CREATININE 0.88 mg/dL 06/2015 Unknown COMPREHENSIVE METABOLIC 58961 CALCIUM 9.3 mg/dL 2015 Unknown COMPREHENSIVE METABOLIC 86240 POTASSIUM 4.1 mmol/L 12/28 Unknown COMPREHENSIVE MET[facility]OL[facility] 41067 Total Protein 6.5 g/dL Unknown [facility] 51153 Glucose 95 mg/dL 2015 Unknown COMPREHENSIVE METABOLIC 40377 Bicarbonate 27 mmol/L 06/2015 Unknown COMPREHENSIVE METABOLIC 65584 AGAP 7 mmol/L 2015 Unknown FREE T4 62859 T4 Free 1.11 ng/dL 12/29/2015 Unknown GFR CALC 8623367 GFR Non Afr Amr >60 mL/min 12/29/2015 Un known GFR CALC 5671186 GFR Afr Amr >60 mL/min 12/29/2015 Unknow n THYROID STIMULATING HORMONE 34817 TSH 0.687 uIU/mL 12/29/2015 Unknown [facility] 81173 Cholesterol 226 mg/dL 12/29/2015 Unkno wn [facility] 67145 Triglyceride 101 mg/dL 12/29/2015 Unkn own [facility] 71505 HDL CHOLESTEROL 57 mg/dL 12/29/2015 U nknown [facility] 14433 Chol/HDL Ratio 3.96 ratio 12/29/2015 U nknown [facility] 31080 NON-HDL Chol 169 mg/dL 12/29/2015 Unkn own [facility] 92692 LDL Cholesterol 149 mg/dL 12/29/2015 U nknown COMPREHENSIVE METABOLIC 38450 AST 17 U/L 2013 Unknown COMPREHENSIVE METABOLIC 75413 ALT 24 IU/L 2013 Unknown COMPREHENSIVE METABOLIC 59166 BUN 18 MG/DL 2013 Unknown COMPREHENSIVE METABOLIC 26961 ALBUMIN 4.4 GM/DL 2013 Unknown COMPREHENSIVE METABOLIC 92571 CHLORIDE 108 MMOL/L 06/03 Unknown COMPREHENSIVE METABOLIC 14765 BILI TOT 0.4 MG/DL 2013 Unknown COMPREHENSIVE METABOLIC 99451 ALK PHOS 58 U/L 2013 Unknown COMPREHENSIVE METABOLIC 19015 SODIUM 139 MMOL/L 06/03 Unknown COMPREHENSIVE METABOLIC 58929 CREATININE 0.86 MG/DL 10/2013 Unknown COMPREHENSIVE METABOLIC 91071 CALCIUM 9.6 MG/DL 2013 Unknown COMPREHENSIVE METABOLIC 24124 POTASSIUM 4.3 MMOL/L 06/03 Unknown COMPREHENSIVE METABOLIC 26808 PROT TOT 6.0 GM/DL 2013 Unknown COMPREHENSIVE METABOLIC 32300 Glucose 104 MG/DL 2013 Unknown COMPREHENSIVE METABOLIC 23865 BICARB 26 MMOL/L 2013 Unknown COMPREHENSIVE METABOLIC 50833 ANION GAP 5 MEQ/L 2013 Unknown GFR CALC 0227429 GFR AA >60 ML/MIN 06/03/2014 Unknown GFR CALC GFR NON-AA >60 ML/MIN 06/03/2014 Unknown COMPLETE BLOOD COUNT 4740654 WBC 4.7 10e9/L 06/03/20 14 Unknown COMPLETE BLOOD COUNT 0001731 RBC 4.85 10e12/L 2013 Unknown COMPLETE BLOOD COUNT 3725416 HGB 14.9 g/dL 4 Unknown COMPLETE BLOOD COUNT 1874982 HCT DET 44.2 % 4 Unknown COMPLETE BLOOD COUNT 3556313 MCV 91.1 fL 4 Unknown COMPLETE BLOOD COUNT 5232569 MCH 30.7 pg 4 Unknown COMPLETE BLOOD COUNT 4690340 MCHC 33.7 g/dL 4 Unknown COMPLETE BLOOD COUNT 6013456 PLT 245 10e9/L 06/03/20 14 Unknown COMPLETE BLOOD COUNT 3989393 MPV 11.7 fL 4 Unknown COMPLETE BLOOD COUNT 9385208 YOSSI % 37.0 % 4 Unknown COMPLETE BLOOD COUNT 6010412 LY % 44.2 % 4 Unknown COMPLETE BLOOD COUNT 9003010 MON % 14.1 % 4 Unknown COMPLETE BLOOD COUNT 8668066 EOS % 4.5 % 4 Unknown COMPLETE BLOOD COUNT 4779818 BASO % 0.2 % 4 Unknown COMPLETE BLOOD COUNT 8073116 RDW 13.3 % 4 Unknown COMPLETE BLOOD COUNT 5615710 ABS YOSSI 1.74 10e9/L 014 Unknown COMPLETE BLOOD COUNT 8555074 ABS LYMPH 2.08 10e9/L 014 Unknown COMPLETE BLOOD COUNT 5163472 ABS MONO 0.66 10e9/L 014 Unknown COMPLETE BLOOD COUNT 8115495 ABS EOS 0.21 10e9/L 014 Unknown COMPLETE BLOOD COUNT 2229018 ABS BASO 0.01 10e9/L 014 Unknown COMPLETE BLOOD COUNT 5986493 RDW-SD 43.5 fL 4 Unknown PSA EQUIMOLAR JORI 67523 PSA EQ 0.87 NG/ML 4 Unknown FREE T4 46162 FREE T4 1.21 NG/DL 06/03/2014 Unknown THYROID STIMULATING HORMONE 91288 TSH 0.705 uIU/ML 06/03/2014 Unknown [facility] 71668 HDL TEST 49 MG/DL 06/03/2014 Unknown [facility] 24590 TRIG 72 MG/DL 06/03/2014 Unknown [facility] 94939 TEST LDL 159 MG/DL 06/03/2014 Unknown [facility] 83246 CHOL 222 MG/DL 06/03/2014 Unknown [facility] 44532 RCHOL/HDL 4.53 RATIO 06/03/2014 Unknow n [facility] 46446 NON-HDL CH 173 MG/DL 06/03/2014 Unknow n Procedures Procedure Codes Date ROUTINE VENIPUNCTURE CPT-4: 64192 11/10/2018 LIPID PANEL CPT-4: 88150 11/10/2018 ROUTINE VENIPUNCTURE CPT-4: 24347 12/26/2017 ASSAY THYROID STIM HORMONE CPT-4: 82241 12/26/2017 COMPREHEN METABOLIC PANEL CPT-4: 07179 12/26/2017 COMPLETE CBC W/AUTO DIFF WBC CPT-4: 62648 12/26/2017 LIPID PANEL CPT-4: 35059 12/26/2017 ASSAY OF PSA TOTAL CPT-4: 80943 12/26/2017 ROUTINE VENIPUNCTURE CPT-4: 38897 12/29/2015 ASSAY OF FREE THYROXINE CPT-4: 44513 12/29/2015 ASSAY THYROID STIM HORMONE CPT-4: 90590 12/29/2015 COMPREHEN METABOLIC PANEL CPT-4: 00320 12/29/2015 COMPLETE CBC W/AUTO DIFF WBC CPT-4: 80514 12/29/2015 LIPID PANEL CPT-4: 85051 12/29/2015 ASSAY OF PSA TOTAL CPT-4: 66940 12/29/2015 TDAP VACCINE 7 YRS/> IM CPT-4: 68935 10/20/2015 IMMUNIZATION ADMIN CPT-4: 10906 10/20/2015 ROUTINE VENIPUNCTURE CPT-4: 16115 06/03/2014 ASSAY OF FREE THYROXINE CPT-4: 83560 06/03/2014 ASSAY THYROID STIM HORMONE CPT-4: 90734 06/03/2014 COMPREHEN METABOLIC PANEL CPT-4: 18726 06/03/2014 COMPLETE CBC W/AUTO DIFF WBC CPT-4: 78053 06/03/2014 LIPID PANEL CPT-4: 66692 06/03/2014 ASSAY OF PSA TOTAL CPT-4: 93911 06/03/2014 Vital Signs Date Vital 12/15/2018 Blood [...] 1: 126/80 Code: 8480-6 BMI: 32.8 Code: 68143-5 Heart Rate 1: 82 bpm Height: 6' Respiratory Rate: 20 bpm SpO2: 96% Tempera ture: 36.8 (C) / 98.2 (F) Weight: 242 lbs 12/26/2017 Blood Pressure 1: 114/64 Code: 8480-6 He art Rate 1: 66 bpm 12/09/2017 Blood Pressure 1: 144/96 Code: 8480-6 BMI: 33.1 Code: 60056-7 Heart Rate 1: 72 bpm Height: 6' Respiratory Rate: 20 bpm Temperature: 36 .9 (C) / 98.4 (F) Weight: 244 lbs 12/29/2015 Blood Pressure 1: 132/86 Code: 8480-6 He art Rate 1: 72 bpm 10/20/2015 Blood Pressure 1: 142/94 Code: 8480-6 BMI: 32.8 Code: 61953-0 Heart Rate 1: 72 bpm Height: 6' Respiratory Rate: 20 bpm SpO2: 96% Tempera ture: 36.7 (C) / 98.1 (F) Weight: 242 lbs 05/24/2014 Blood Pressure 1: 138/90 Code: 8480-6 BMI: 31.3 Code: 76411-7 Heart Rate 1: 80 bpm Height: 6' [...] establish Encounters Encounter Performer Location Codes Date (80136) OFFICE/OUTPATIENT VISIT EST Diagnosis: Essential (primary) hypertension[ICD10: I10] Diagnosis: Cardiac arrhythmia, unspecified[ICD10: I49.9] Diagnosis: Other fatigue[ICD10: R53.83] Manuel JACKSON [facility]unb CPT-4: 87063 12/15/2018 OFFICE/OUTPATIENT VISIT EST Diagnosis: Cardiac arrhythmia, unspecified[ICD10: I49.9] Diagnosis: Bitten or stung by nonvenomous insect and other nonvenomous arthropods, initial encounter[ICD10: W57.XXXA] Diagnosis: Abnormal levels of other serum enzymes[ICD10: R74.8] Diagnosis: Mixed hyperlipidemia[ICD10: E78.2] Manuel [facility] CPT-4: 45387 11/12/2018 ([id number]) NURSE/OUTPATIENT VISIT EST Diagnosis: Essential (primary) hypertension[ICD10: I10] Diagnosis: Mixed hyperlipidemia[ICD10: E78.2] Manuel [facility] CPT-4: 85211 11/10/2018 OFFICE/OUTPATIENT VISIT EST Diagnosis: Other fatigue[ICD10: R53.83] Diagnosis: Headache[ICD10: R51] Diagnosis: Fever, unspecified[ICD10: R50.9] Diagnosis: Rash and other nonspecific skin eruption[ICD10: R21] Diagnosis: Dyspnea, unspecified[ICD10: R06.00] Diagnosis: Cardiac arrhythmia, unspecified[ICD10: I49.9] Brooklyn ARAIZA [employer] CPT-4: 50612 11/09/2018 ([id number]) OFFICE/OUTPATIENT VISIT EST Diagnosis: Essential (primary) hypertension[ICD10: I10] Diagnosis: Gastro-esophageal reflux disease without esophagitis[ICD10: K21.9] Diagnosis: Pain in left knee[ICD10: M25.562] Diagnosis: Pain in left foot[ICD10: M79.672] Kait [facility] CPT-4: 12123 01/29/2018 ([id number]) NURSE/OUTPATIENT VISIT EST Diagnosis: Encounter for general adult medical examination without abnormal findings[ICD10: Z00.00] Diagnosis: Mixed hyperlipidemia[ICD10: E78.2] Diagnosis: Essential (primary) hypertension[ICD10: I10] Manuel Jensen [employer] CPT-4: 99502 12/26/2017 ([id number]) OFFICE/OUTPATIENT VISIT EST Diagnosis: Essential (primary) hypertension[ICD10: I10] Diagnosis: Gastro-esophageal reflux disease without esophagitis[ICD10: K21.9] Diagnosis: Bilateral primary osteoarthritis of knee[ICD10: M17.0] Diagnosis: Bilateral primary osteoarthritis of first carpometacarpal joints[ICD10: M18.0] Diagnosis: Obstructive sleep apnea (adult) (pediatric)[ICD10: G47.33] Diagnosis: Lymphedema, not elsewhere classified[ICD10: I89.0] Manuel [facility] CPT-4: 56725 12/09/2017 ([id number]) OFFICE/OUTPATIENT VISIT EST Diagnosis: Encounter for general adult medical examination without abnormal findings[ICD10: Z00.00] Diagnosis: Elevated blood-pressure reading, without diagnosis of hypertension[ICD10: R03.0] Manuel Jensen [employer] CPT- 4: 62897 12/29/2015 ([id number]) PREV VISIT EST AGE 40-64 Diagnosis: Encounter [...] Z71.6] Diagnosis: VACCINE FOR TDAP[ICD10: Z23] Jocelyn ARAIZA [employer] CPT-4: 57869 10/20/2015 ([id number]) OFFICE/OUTPATIENT VISIT EST Diagnosis: ROUTINE MEDICAL EXAM[ICD9: V70.0] Manuel ARAIZA [employer] CPT-4: 18376 06/03/2014 OFFICE/OUTPATIENT VISIT NEW Diagnosis: GERD[ICD9: 530.81] Diagnosis: OBSTRUCTIVE SLEEP APNEA[ICD9: 327.23] Negra ARAIZA [employer] CPT-4: 21759 05/24/2014 Plan of Care Planned Activity Notes Codes Status Date Visit Diagnosis Plan: Other fatigue Discussion: Add me n's MV ICD-9 : 780.79 ICD-10 : R53.83 12/15/2018 Visit Diagnosis Plan: Cardiac arrhythmia, unspecified Discussion: Exercise Stress Test Fwup pending results ICD-9 : 427.9 ICD-10 : I49.9 12/15/2018 Visit Diagnosis Plan: Essential (primary) hypertension Discussion: Stable ICD-9 : 401.9 ICD-10 : I10 12/15/2018 Appointment: Manuel [facility] [phone] [facility] [facility] 12/15/2018 Visit Diagnosis Plan: Abnormal levels of other serum e nzymes Discussion: Mediterranean diet Combination of cardio and weight bearing exercise ICD-9 : 790.5 ICD-10 : R74.8 11/12/2018 Visit Diagnosis Plan: Cardiac arrhythmia, unspecified Discussion: NSR today Will do stress test once over current illness ICD-9 : 427.9 ICD-10 : I49.9 11/12/2018 Visit Diagnosis Plan: Bitten or stung by nonvenomous insect and other nonvenomous arthropods, initial encounter Discussion: Suspect tick illness--finish doxycycline for full 20 days ICD-9 : 919.4 ICD-10 : W57.XXXA 11/12/2018 Appointment: Manuel Araiza [facility] [phone] [facility] [place] [place] FOLLOW [facility] 11/12/2018 Patient Education: doxycycline hyclate- [employer] [facility] [id number] [email or web address] Completed 11/12/2018 Appointment: Manuel Araiza WPtel: [facility] [place] LAB 11/10/2018 Visit Diagnosis Plan: Other [...] ICD-10 : R06.00 11/09/2018 Appointment: Brooklyn Dinh [address] [place], [place] [id number] ACUTE ILLNESS 11/09/2018 Visit Diagnosis Plan: Essential [...] ICD-10 : M25.562 01/29/2018 Visit Diagnosis Plan: Gastro-esophageal reflux disease [...] : M79.672 01/29/2018 Appointment: Kait Alas [address] FOLLOW UP 01/29/2018 Patient Education: Patient Medication Summary Completed 01/29/2018 Appointment: Manuel Araiza WPtel: [facility] US LAB 12/26/2017 Patient Education: Patient Medication [...] : 530.81 ICD-10 : K21.9 12/09/2017 Appointment: Manuel Araiza WPtel: [address] [place] [address] ACUTE ILLNESS 12/09/2017 Patient Education: Patient Medication Summary Completed 12/09/2017 Appointment: Kait Alas [address] [place] [address] RESCHEDULED 12/01/2017 Appointment: Manuel Araiza WPtel: [address] [place] [address] LAB 12/29/2015 Patient Education: Patient Medication Summary [...] aid if need be Form requested from [employer] Patient for new bipap 10/20/2015 Appointment: Jocelyn Watts [address] [place] [address] 10/18 confirmed~sl Annual Well Visit 10/20/2015 Patient Education: Patient Medication Summary Completed 10/20/2015 Appointment: Manuel Araiza WPtel: [address] [place] [address] LAB 06/03/2014 Patient Education: Patient Medication Summary Completed 06/03/2014 Appointment: Negra Mejia WPtel: [address] [place] [address] NEW PATIENT 05/24/2014 Patient Education: Patient Medication [...] aid if need be Form requested from [employer] Patient for new bipap Medical Equipment No Medical Equipment data Health Concerns Section Health Concerns data not found Goals Section Goals data not found Interventions Section Interventions data not found Health Status Evaluations/Outcomes Section Health Status Evaluations/Outcomes data not found Advance Directives No Advance Directive data
--- OUTSIDE RECORDS SUMMARY | 2020-01-21 11:18 | XMS REPORT | CCD ---
Author Author Rafael Meija APRN Organization [facility] Address [address] [place] [address] Phone Care Team Providers Care Morphologist Name Role Phone Didi Araiza D.O., PP Unavailable CCM Unavailable Summary Purpose Interface Exchange Insurance Providers Payer name Policy type / Coverage type Covered constitution party ID Effective Begin Date Effective End Date Blue Cross Blue Shield Blue Cross/Blue Shield [id number] 2017 Unknown Family History Family History data [...] Instructions pantoprazole 40 mg tablet,delayed release RxNorm: 849430 TAKE ONE TABLET BY MOUTH DAILY 09/05/2019 No Stop Date Active hydrochlorothiazide 12.5 mg tablet RxNorm: 570769 TAKE ONE TABLET BY MOUTH EVERY MORNING FOR BLOOD PRESSURE 07/05/2019 No Stop Date Active pantoprazole 40 mg tablet,delayed release RxNorm: 141870 TAKE ONE TABLET BY MOUTH DAILY 05/29/2019 09/04/2019 Inactive pantoprazole 40 mg tablet,delayed release RxNorm: 214419 1 Tabl et(s) PO QD 03/04/2019 05/28/2019 Inactive hydrochlorothiazide 12.5 mg tablet RxNorm: 809981 TAKE ONE TABLET BY MOUTH EVERY MORNING FOR BLOOD PRESSURE 01/11/2019 07/04/2019 Inactive doxycycline hyclate 100 mg capsule RxNorm: 6787726 1 Capsule(s) PO BID 11/12/2018 11/21/2018 Inactive pantoprazole 40 mg tablet,delayed release RxNorm: 897312 TAKE ONE TABLET BY MOUTH DAILY 10/30/2018 03/04/2019 Inactive hydrochlorothiazide 12.5 mg tablet RxNorm: 426946 TAKE ONE TABLET BY MOUTH EVERY MORNING FOR BLOOD PRESSURE 10/12/2018 01/09/2019 Inactive pantoprazole 40 mg tablet,delayed release RxNorm: 508205 TAKE ONE TABLET BY MOUTH DAILY 08/31/2018 09/29/2018 Inactive pantoprazole 40 mg tablet,delayed release RxNorm: 700418 1 Tabl et(s) PO QD 04/03/2018 08/30/2018 Inactive hydrochlorothiazide 12.5 mg tablet RxNorm: 365575 TAKE ONE TABLET BY MOUTH EVERY MORNING FOR BLOOD PRESSURE 03/30/2018 09/25/2018 Inactive Medrol (John) 4 mg tablets in a dose pack RxNorm: 239156 Tablet(s) PO take as directed 01/29/2018 11/08/2018 Inactive pantoprazole 40 mg tablet,delayed release RxNorm: 760949 1 Tablet(s) PO BID for 1 month then decrease to 1 po daily 12/29/2017 04/02/2018 Inactive hydrochlorothiazide 12.5 mg tablet RxNorm: 377165 1 Tablet(s) P O QAM for BP 12/29/2017 03/28/2018 Inactive Voltaren 1 % topical gel RxNorm: 738888 1 Gram(s) TOP QID to bi lateral knees 12/09/2017 No Stop Date Active hydrochlorothiazide 12.5 mg tablet RxNorm: 154822 1 Tablet(s) P O QAM for BP 12/09/2017 12/28/2017 Inactive pantoprazole 40 mg tablet,delayed release RxNorm: 493930 1 Tablet(s) PO BID for 1 month then decrease to 1 po daily 12/09/2017 04/03/2018 Inactive meloxicam 15 mg tablet RxNorm: 514525 1 Tablet(s) PO QD 10/20/2015 Inactive Benadryl 25 mg capsule RxNorm: 9737774 1 Capsule(s) PO QHS No Start D ate Active Nexium oral RxNorm: 943375 oral No Start Date 10/20/2015 Inactive Nexium 24HR 22.3 mg capsule,delayed release RxNorm: 164142 1 Ca psule(s) PO QAM No Start Date 11/08/2018 Inactive Fish Oil 1,000 mg capsule RxNorm: 1 Capsule(s) PO QD No Start Date 12/28/2017 Inactive Fish Oil 1,000 mg capsule RxNorm: 1 Capsule(s) PO TID No Start Calin e 11/08/2018 Inactive naproxen sodium 220 mg tablet RxNorm: 609910 1 Tablet(s) PO QHS No Start Date 11/08/2018 Inactive Medication Administered No Medication Administered data Immunizations Vaccine Codes Date Status Tetanus, Diptheria, Pertussis CVX: 115 10/20/2015 Results Observation Observation Code Item Item Code Result Date S ervice Location [facility] 93211 Cholesterol 209 mg/dL 11/10/2018 Unkno wn [facility] 38124 Triglyceride 210 mg/dL 11/10/2018 Unkn own [facility] 79734 HDL CHOLESTEROL 32 mg/dL 11/10/2018 U nknown [facility] 10399 Chol/HDL Ratio 6.53 ratio 11/10/2018 U [facility] 66284 NON-HDL Chol 177 mg/dL 11/10/2018 Unkn own [facility] 63707 LDL Cholesterol 135 mg/dL 11/10/2018 U [facility] COMPREHENSIVE METABOLIC 51048 AST 15 U/L 2017 Unknown COMPREHENS[facility]OL[facility] 02439 ALT 20 U/L 2017 Unknown [facility] 96204 BUN 16 mg/dL 2017 Unknown [facility] 30945 ALBUMIN 4.4 g/dL 2017 Unknown [facility] 71444 CHLORIDE 105 mmol/L 12/26 Unknown [facility] 82705 Bili Total 0.6 mg/dL 12/26 Unknown [facility] 65065 ALK PHOS 61 U/L 2017 Unknown [facility] 42121 SODIUM 141 mmol/L 12/26 Unknown [facility] 41800 CREATININE 0.90 mg/dL 11/29 Unknown [facility] 38634 CALCIUM 9.7 mg/dL 2017 Unknown COMPREHENS[facility] 41589 POTASSIUM 4.2 mmol/L 12/26 Unknown [facility] 30651 Total Protein 6.5 g/dL Unknown [facility] 86833 Glucose 99 mg/dL 2017 Unknown [facility]PRE[facility] 28378 Bicarbonate 24 mmol/L 11/29 Unknown COMPREHENSIVE METABOLIC 26000 AGAP 12 mmol/L 2017 Unknown COMPLETE BLOOD COUNT [id number] WBC 5.5 10e9/L 12/27/19 18 Unknown COMPLETE BLOOD COUNT 2085548 RBC 4.87 10e12/L 2017 Unknown COMPLETE BLOOD COUNT 0380008 HEMOGLOBIN 15.1 g/dL 12/27/19 18 Unknown COMPLETE BLOOD COUNT 1671197 HEMATOCRIT 44.9 % 12/27/19 18 Unknown COMPLETE BLOOD COUNT 6765804 MCV 92.2 fL 8 Unknown COMPLETE BLOOD COUNT 3536431 MCH 31.0 pg 8 Unknown COMPLETE BLOOD COUNT 0038170 MCHC 33.6 g/dL 8 Unknown COMPLETE BLOOD COUNT 3514593 PLATELET COUNT 244 10e9/L Unknown COMPLETE BLOOD COUNT 7125967 Mean Plt Volume 11.8 fL Unknown COMPLETE BLOOD COUNT 9697066 Neut Auto 42.0 % 8 Unknown COMPLETE BLOOD COUNT 8733790 Lymph Auto 39.5 % 12/27/19 18 Unknown COMPLETE BLOOD COUNT 2723882 Toole Auto 13.0 % 8 Unknown COMPLETE BLOOD COUNT 6756723 RDW 13.8 % 8 Unknown COMPLETE BLOOD COUNT 2737872 Eos Auto 5.3 % 8 Unknown COMPLETE BLOOD COUNT 2350537 Baso Auto 0.2 % 8 Unknown COMPLETE BLOOD COUNT 0421444 Neutrophil Abs 2.31 10e9/L Unknown COMPLETE BLOOD COUNT 1109414 Lymphocyte Abs 2.17 10e9/L Unknown COMPLETE BLOOD COUNT 4764912 Monocyte Abs 0.72 10e9/L 11/29 Unknown COMPLETE BLOOD COUNT 0096322 Eosinophil Abs 0.29 10e9/L Unknown COMPLETE BLOOD COUNT 7122429 RDW-SD 45.6 fL 8 Unknown COMPLETE BLOOD COUNT 7333953 Basophil Abs 0.01 10e9/L 11/29 Unknown PSA EQUIMOLAR JORI 33997 PSA Total 1.40 ng/mL 8 Unknown GFR CALC 7714649 GFR Afr Amr >60 mL/min 12/26/2017 Unknow n GFR CALC 4077415 GFR Non Afr Amr >60 mL/min 12/26/2017 Un known [facility] 39571 Cholesterol 239 mg/dL 12/26/2017 Unkno wn [facility] 24055 Triglyceride 140 mg/dL 12/26/2017 Unkn own [facility] 33121 HDL CHOLESTEROL 48 mg/dL 12/26/2017 U nknown [facility] 53990 Chol/HDL Ratio 4.98 ratio 12/26/2017 U nknown [facility] 94233 NON-HDL Chol 191 mg/dL 12/26/2017 Unkn own [facility] 60874 LDL Cholesterol 163 mg/dL 12/26/2017 U nknown THYROID STIMULATING HORMONE 59008 TSH 1.633 uIU/mL 12/26/2017 Unknown COMPLETE BLOOD COUNT 8098786 WBC 5.3 10e9/L 12/29/19 16 Unknown COMPLETE BLOOD COUNT 8533129 RBC 4.84 10e12/L 2015 Unknown COMPLETE BLOOD COUNT 2228441 HEMOGLOBIN 14.9 g/dL 12/29/19 16 Unknown COMPLETE BLOOD COUNT 5970136 HEMATOCRIT 44.3 % 12/29/19 16 Unknown COMPLETE BLOOD COUNT 1988975 MCV 91.5 fL 6 Unknown COMPLETE BLOOD COUNT 4515175 MCH 30.8 pg 6 Unknown COMPLETE BLOOD COUNT 3627434 MCHC 33.6 g/dL 6 Unknown COMPLETE BLOOD COUNT 5731293 PLATELET COUNT 220 10e9/L 06/2015 Unknown COMPLETE BLOOD COUNT 8027526 Mean Plt Volume 11.8 fL 06/2015 Unknown COMPLETE BLOOD COUNT 1991246 Neut Auto 42.3 % 6 Unknown COMPLETE BLOOD COUNT 1760166 Lymph Auto 39.0 % 12/29/19 16 Unknown COMPLETE BLOOD COUNT 7205741 Toole Auto 13.6 % 6 Unknown COMPLETE BLOOD COUNT 9932078 Eos Auto 4.7 % 6 Unknown COMPLETE BLOOD COUNT 0253053 RDW 14.0 % 6 Unknown COMPLETE BLOOD COUNT 1435633 Baso Auto 0.4 % 6 Unknown COMPLETE BLOOD COUNT 2191072 Neutrophil Abs 2.24 10e9/L Unknown COMPLETE BLOOD COUNT 3588444 Lymphoctye Abs 2.07 10e9/L Unknown COMPLETE BLOOD COUNT 6455890 Monocyte Abs 0.72 10e9/L 06/2015 Unknown COMPLETE BLOOD COUNT 7426719 Eosinophil Abs 0.25 10e9/L Unknown COMPLETE BLOOD COUNT 0782783 RDW-SD 45.7 fL 6 Unknown COMPLETE BLOOD COUNT 5321714 Basophil Abs 0.02 10e9/L 06/2015 Unknown PSA EQUIMOLAR JORI 38359 PSA Total 1.11 ng/mL 6 Unknown COMPREHENSIVE METABOLIC 70809 AST 16 U/L 2015 Unknown COMPREHENSIVE METABOLIC 86278 ALT 20 U/L 2015 Unknown COMPREHENSIVE METABOLIC 82803 BUN 12 mg/dL 2015 Unknown COMPREHENSIVE METABOLIC 85588 ALBUMIN 4.3 g/dL 2015 Unknown COMPREHENSIVE METABOLIC 26312 CHLORIDE 107 mmol/L 12/28 Unknown COMPREHENSIVE METABOLIC 90313 Bili Total 0.7 mg/dL 12/28 Unknown COMPREHENSIVE METABOLIC 09885 ALK PHOS 53 U/L 2015 Unknown COMPREHENSIVE METABOLIC 71883 SODIUM 141 mmol/L 12/28 Unknown COMPREHENSIVE METABOLIC 54910 CREATININE 0.88 mg/dL 06/2015 Unknown COMPREHENSIVE METABOLIC 44222 CALCIUM 9.3 mg/dL 2015 Unknown COMPREHENSIVE METABOLIC 85989 POTASSIUM 4.1 mmol/L 12/28 Unknown COMPREHENSIVE METABOLIC 37120 Total Protein 6.5 g/dL Unknown COMPREHENS[facility] 67895 Glucose 95 mg/dL 2015 Unknown COMPREHENSIVE METABOLIC 34702 Bicarbonate 27 mmol/L 06/2015 Unknown COMPREHENSIVE METABOLIC 28194 AGAP 7 mmol/L 2015 Unknown FREE T4 00953 T4 Free 1.11 ng/dL 12/29/2015 Unknown GFR CALC 9677924 GFR Non Afr Amr >60 mL/min 12/29/2015 Un known GFR CALC 1069539 GFR Afr Amr >60 mL/min 12/29/2015 Unknow n THYROID STIMULATING HORMONE 91970 TSH 0.687 uIU/mL 12/29/2015 Unknown [facility] 51201 Cholesterol 226 mg/dL 12/29/2015 Unkno wn [facility] 95589 Triglyceride 101 mg/dL 12/29/2015 Unkn own [facility] 63756 HDL CHOLESTEROL 57 mg/dL 12/29/2015 U nknown [facility] 67050 Chol/HDL Ratio 3.96 ratio 12/29/2015 U nknown [facility] 15449 NON-HDL Chol 169 mg/dL 12/29/2015 Unkn own [facility] 47549 LDL Cholesterol 149 mg/dL 12/29/2015 U nknown COMPREHENSIVE METABOLIC 81291 AST 17 U/L 2013 Unknown COMPREHENSIVE METABOLIC 42604 ALT 24 IU/L 2013 Unknown COMPREHENSIVE METABOLIC 40542 BUN 18 MG/DL 2013 Unknown COMPREHENSIVE METABOLIC 68490 ALBUMIN 4.4 GM/DL 2013 Unknown COMPREHENSIVE METABOLIC 75539 CHLORIDE 108 MMOL/L 06/03 Unknown COMPREHENSIVE METABOLIC 85004 BILI TOT 0.4 MG/DL 2013 Unknown COMPREHENSIVE METABOLIC 76689 ALK PHOS 58 U/L 2013 Unknown COMPREHENSIVE METABOLIC 67781 SODIUM 139 MMOL/L 06/03 Unknown COMPREHENSIVE METABOLIC 84200 CREATININE 0.86 MG/DL 10/2013 Unknown COMPREHENSIVE METABOLIC 07877 CALCIUM 9.6 MG/DL 2013 Unknown COMPREHENSIVE METABOLIC 05267 POTASSIUM 4.3 MMOL/L 06/03 Unknown COMPREHENSIVE METABOLIC 19496 PROT TOT 6.0 GM/DL 2013 Unknown COMPREHENSIVE METABOLIC 64601 Glucose 104 MG/DL 2013 Unknown COMPREHENSIVE METABOLIC 43376 BICARB 26 MMOL/L 2013 Unknown COMPREHENSIVE METABOLIC 79554 ANION GAP 5 MEQ/L 2013 Unknown GFR CALC 1863172 GFR AA >60 ML/MIN 06/03/2014 Unknown GFR CALC 1128409 GFR NON-AA >60 ML/MIN 06/03/2014 Unknown COMPLETE BLOOD COUNT 1746571 WBC 4.7 10e9/L 06/03/20 14 Unknown COMPLETE BLOOD COUNT 0610667 RBC 4.85 10e12/L 2013 Unknown COMPLETE BLOOD COUNT 5549607 HGB 14.9 g/dL 4 Unknown COMPLETE BLOOD COUNT 3223485 HCT DET 44.2 % 4 Unknown COMPLETE BLOOD COUNT 1052792 MCV 91.1 fL 4 Unknown COMPLETE BLOOD COUNT 8665789 MCH 30.7 pg 4 Unknown COMPLETE BLOOD COUNT 6184918 MCHC 33.7 g/dL 4 Unknown COMPLETE BLOOD COUNT 9921954 PLT 245 10e9/L 06/03/20 14 Unknown COMPLETE BLOOD COUNT 8444791 MPV 11.7 fL 4 Unknown COMPLETE BLOOD COUNT 6422572 YOSSI % 37.0 % 4 Unknown COMPLETE BLOOD COUNT 4377783 LY % 44.2 % 4 Unknown COMPLETE BLOOD COUNT 2401032 MON % 14.1 % 4 Unknown COMPLETE BLOOD COUNT 4951003 EOS % 4.5 % 4 Unknown COMPLETE BLOOD COUNT 6997967 BASO % 0.2 % 4 Unknown COMPLETE BLOOD COUNT 7477535 RDW 13.3 % 4 Unknown COMPLETE BLOOD COUNT 6926876 ABS YOSSI 1.74 10e9/L 014 Unknown COMPLETE BLOOD COUNT 7697219 ABS LYMPH 2.08 10e9/L 014 Unknown COMPLETE BLOOD COUNT 1131218 ABS MONO 0.66 10e9/L 014 Unknown COMPLETE BLOOD COUNT 3936860 ABS EOS 0.21 10e9/L 014 Unknown COMPLETE BLOOD COUNT 2491304 ABS BASO 0.01 10e9/L 014 Unknown COMPLETE BLOOD COUNT 7103941 RDW-SD 43.5 fL 4 Unknown PSA EQUIMOLAR JORI 51047 PSA EQ 0.87 NG/ML 4 Unknown FREE T4 15734 FREE T4 1.21 NG/DL 06/03/2014 Unknown THYROID STIMULATING HORMONE 72342 TSH 0.705 uIU/ML 06/03/2014 Unknown [facility] 78094 HDL TEST 49 MG/DL 06/03/2014 Unknown [facility] 92310 TRIG 72 MG/DL 06/03/2014 Unknown [facility] 12275 TEST LDL 159 MG/DL 06/03/2014 Unknown [facility] 77961 CHOL 222 MG/DL 06/03/2014 Unknown [facility] 96925 RCHOL/HDL 4.53 RATIO 06/03/2014 Unknow n [facility] 11082 NON-HDL CH 173 MG/DL 06/03/2014 Unknow n Procedures Procedure Codes Date ROUTINE VENIPUNCTURE CPT-4: 95336 11/10/2018 LIPID PANEL CPT-4: 52973 11/10/2018 ROUTINE VENIPUNCTURE CPT-4: 56539 12/26/2017 ASSAY THYROID STIM HORMONE CPT-4: 28181 12/26/2017 COMPREHEN METABOLIC PANEL CPT-4: 48864 12/26/2017 COMPLETE CBC W/AUTO DIFF WBC CPT-4: 46143 12/26/2017 LIPID PANEL CPT-4: 70515 12/26/2017 ASSAY OF PSA TOTAL CPT-4: 40052 12/26/2017 ROUTINE VENIPUNCTURE CPT-4: 76512 12/29/2015 ASSAY OF FREE THYROXINE CPT-4: 29138 12/29/2015 ASSAY THYROID STIM HORMONE CPT-4: 70544 12/29/2015 COMPREHEN METABOLIC PANEL CPT-4: 94336 12/29/2015 COMPLETE CBC W/AUTO DIFF WBC CPT-4: 25534 12/29/2015 LIPID PANEL CPT-4: 13733 12/29/2015 ASSAY OF PSA TOTAL CPT-4: 12185 12/29/2015 TDAP VACCINE 7 YRS/> IM CPT-4: 37407 10/20/2015 IMMUNIZATION ADMIN CPT-4: 29150 10/20/2015 ROUTINE VENIPUNCTURE CPT-4: 80288 06/03/2014 ASSAY OF FREE THYROXINE CPT-4: 44306 06/03/2014 ASSAY THYROID STIM HORMONE CPT-4: 86553 06/03/2014 COMPREHEN METABOLIC PANEL CPT-4: 20195 06/03/2014 COMPLETE CBC W/AUTO DIFF WBC CPT-4: 50803 06/03/2014 LIPID PANEL CPT-4: 96926 06/03/2014 ASSAY OF PSA TOTAL CPT-4: 99089 06/03/2014 Vital Signs Date Vital 12/15/2018 Blood [...] 1: 126/80 Code: 8480-6 BMI: 32.8 Code: 91175-5 Heart Rate 1: 82 bpm Height: 6' Respiratory Rate: 20 bpm SpO2: 96% Tempera ture: 36.8 (C) / 98.2 (F) Weight: 242 lbs 12/26/2017 Blood Pressure 1: 114/64 Code: 8480-6 He art Rate 1: 66 bpm 12/09/2017 Blood Pressure 1: 144/96 Code: 8480-6 BMI: 33.1 Code: 88475-9 Heart Rate 1: 72 bpm Height: 6' Respiratory Rate: 20 bpm Temperature: 36 .9 (C) / 98.4 (F) Weight: 244 lbs 12/29/2015 Blood Pressure 1: 132/86 Code: 8480-6 He art Rate 1: 72 bpm 10/20/2015 Blood Pressure 1: 142/94 Code: 8480-6 BMI: 32.8 Code: 17870-0 Heart Rate 1: 72 bpm Height: 6' Respiratory Rate: 20 bpm SpO2: 96% Tempera ture: 36.7 (C) / 98.1 (F) Weight: 242 lbs 05/24/2014 Blood Pressure 1: 138/90 Code: 8480-6 BMI: 31.3 Code: 56965-6 Heart Rate 1: 80 bpm Height: 6' [...] establish Encounters Encounter Performer Location Codes Date (29662) OFFICE/OUTPATIENT VISIT EST Diagnosis: Essential (primary) hypertension[ICD10: I10] Diagnosis: Cardiac arrhythmia, unspecified[ICD10: I49.9] Diagnosis: Other fatigue[ICD10: R53.83] Didi JACKSON [employer] CPT-4: 74358 12/15/2018 OFFICE/OUTPATIENT VISIT EST Diagnosis: Cardiac arrhythmia, unspecified[ICD10: I49.9] Diagnosis: Bitten or stung by nonvenomous insect and other nonvenomous arthropods, initial encounter[ICD10: W57.XXXA] Diagnosis: Abnormal levels of other serum enzymes[ICD10: R74.8] Diagnosis: Mixed hyperlipidemia[ICD10: E78.2] Didi MOORE [employer] CPT-4: 42906 11/12/2018 ([id number]) NURSE/OUTPATIENT VISIT EST Diagnosis: Essential (primary) hypertension[ICD10: I10] Diagnosis: Mixed hyperlipidemia[ICD10: E78.2] Didi MOORE [employer] CPT-4: 16205 11/10/2018 OFFICE/OUTPATIENT VISIT EST Diagnosis: Other fatigue[ICD10: R53.83] Diagnosis: Headache[ICD10: R51] Diagnosis: Fever, unspecified[ICD10: R50.9] Diagnosis: Rash and other nonspecific skin eruption[ICD10: R21] Diagnosis: Dyspnea, unspecified[ICD10: R06.00] Diagnosis: Cardiac arrhythmia, unspecified[ICD10: I49.9] Brooklyn ARAIZA [employer] CPT-4: 95202 11/09/2018 ([id number]) OFFICE/OUTPATIENT VISIT EST Diagnosis: Essential (primary) hypertension[ICD10: I10] Diagnosis: Gastro-esophageal reflux disease without esophagitis[ICD10: K21.9] Diagnosis: Pain in left knee[ICD10: M25.562] Diagnosis: Pain in left foot[ICD10: M79.672] Kait Oliverdi ELEAZAR [employer] CPT-4: 96522 01/29/2018 ([id number]) NURSE/OUTPATIENT VISIT EST Diagnosis: Encounter for general adult medical examination without abnormal findings[ICD10: Z00.00] Diagnosis: Mixed hyperlipidemia[ICD10: E78.2] Diagnosis: Essential (primary) hypertension[ICD10: I10] Didi PRESSLEYLINE Mikey [employer] CPT-4: 03070 12/26/2017 ([id number]) OFFICE/OUTPATIENT VISIT EST Diagnosis: Essential (primary) hypertension[ICD10: I10] Diagnosis: Gastro-esophageal reflux disease without esophagitis[ICD10: K21.9] Diagnosis: Bilateral primary osteoarthritis of knee[ICD10: M17.0] Diagnosis: Bilateral primary osteoarthritis of first carpometacarpal joints[ICD10: M18.0] Diagnosis: Obstructive sleep apnea (adult) (pediatric)[ICD10: G47.33] Diagnosis: Lymphedema, not elsewhere classified[ICD10: I89.0] Didi Jose G DIDI Mikey [employer] CPT-4: 47896 12/09/2017 ([id number]) OFFICE/OUTPATIENT VISIT EST Diagnosis: Encounter for general adult medical examination without abnormal findings[ICD10: Z00.00] Diagnosis: Elevated blood-pressure reading, without diagnosis of hypertension[ICD10: R03.0] Didi Jose G PRESSLEYLINE [employer]qu[employer] CPT- 4: 10064 12/29/2015 ([id number]) PREV VISIT EST AGE 40-64 Diagnosis: Encounter [...] Diagnosis: VACCINE FOR TDAP[ICD10: Z23] Jocelyn ARAIZA [employer] CPT-4: 67479 10/20/2015 ([id number]) OFFICE/OUTPATIENT VISIT EST Diagnosis: ROUTINE MEDICAL EXAM[ICD9: V70.0] Didi ARAIZA [employer] CPT-4: 99560 06/03/2014 OFFICE/OUTPATIENT VISIT NEW Diagnosis: GERD[ICD9: 530.81] Diagnosis: OBSTRUCTIVE SLEEP APNEA[ICD9: 327.23] Negra ARAIZA [employer] CPT-4: 54328 05/24/2014 Plan of Care Planned Activity Notes [...] I10 12/15/2018 Appointment: Did[facility] [phone] [facility] [facility] 12/15/2018 Visit Diagnosis Plan: Cardiac [...] : W57.XXXA 11/12/2018 Appointment: Didi Araiza WPtel: [facility]8 [facility] FOLLOW UP 11/12/2018 Patient Education: doxycycline hyclate- [employer] Cou [facility] [id number] [email or web address] Completed 11/12/2018 Appointment: Didi Araiza WPtel: [facility] [place] [facility] 11/10/2018 Visit Diagnosis Plan: Other [...] : R06.00 11/09/2018 Appointment: Brooklyn Dinh [address] [facility] ACUTE ILLNESS 11/09/2018 Visit Diagnosis Plan: Essential [...] : M79.672 01/29/2018 Appointment: Kait Alas [address] [facility] FOLLOW UP 01/29/2018 Patient Education: Patient Medication Summary Completed 01/29/2018 Appointment: Didi Araiza WPtel: [facility]9 [facility] US LAB 12/26/2017 Patient Education: Patient Medication [...] : K21.9 12/09/2017 Appointment: Didi Araiza WPtel: [address] [place] [address] ACUTE ILLNESS 12/09/2017 Patient Education: Patient Medication Summary Completed 12/09/2017 Appointment: Kait Alas [address] [place] [address] RESCHEDULED 12/01/2017 Appointment: Didi Araiza WPtel: [address] [place], [place] [address] 12/29/2015 Patient Education: Patient Medication Summary [...] aid if need be Form requested from [facility] Patient for new bipap 10/20/2015 Appointment: Jocelyn Watts [address] [place] [address] 10/18 confirmed~sl Annual Well Visit 10/20/2015 Patient Education: Patient Medication Summary Completed 10/20/2015 Appointment: Didi Araiza WPtel: [address] [place], [place] [id number] US LAB 06/03/2014 Patient Education: Patient Medication Summary Completed 06/03/2014 Appointment: Negra Mejia WPtel: [phone] [id number] NEW PATIENT 05/24/2014 Patient Education: Patient Medication [...] aid if need be Form requested from [facility] Patient for new bipap Medical Equipment No Medical Equipment data Health Concerns Section Health Concerns data not found Goals Section Goals data not found Interventions Section Interventions data not found Health Status Evaluations/Outcomes Section Health Status Evaluations/Outcomes data not found Advance Directives No Advance Directive data
--- OUTSIDE RECORDS SUMMARY | 2020-01-21 11:18 | XMS REPORT | CCD ---
Author Author Rafael Mejia APRN Organization [facility] Address [address] [place] [address] Phone Care Team Providers Care Policy Analyst Name Role Phone Manuel Araiza D.O., PP Unavailable CCM Unavailable Summary Purpose Interface Exchange Insurance Providers Payer name Policy type / Coverage type Covered green party ID Effective Begin Date Effective End Date Blue Cross Blue Shield Blue Cross/Blue Shield [id number] 2017 Unknown Family History Family History data [...] Fill Instructions hydrochlorothiazide 12.5 mg tablet RxNorm: 045144 TAKE ONE TABLET BY MOUTH EVERY MORNING FOR BLOOD PRESSURE 10/04/2019 No Stop Date Active pantoprazole 40 mg tablet,delayed release RxNorm: 314261 TAKE ONE TABLET BY MOUTH DAILY 09/05/2019 No Stop Date Active hydrochlorothiazide 12.5 mg tablet RxNorm: 451367 TAKE ONE TABLET BY MOUTH EVERY MORNING FOR BLOOD PRESSURE 07/05/2019 10/03/2019 Inactive pantoprazole 40 mg tablet,delayed release RxNorm: 411331 TAKE ONE TABLET BY MOUTH DAILY 05/29/2019 09/04/2019 Inactive pantoprazole 40 mg tablet,delayed release RxNorm: 244750 1 Tabl et(s) PO QD 03/04/2019 05/28/2019 Inactive hydrochlorothiazide 12.5 mg tablet RxNorm: 545248 TAKE ONE TABLET BY MOUTH EVERY MORNING FOR BLOOD PRESSURE 01/11/2019 07/04/2019 Inactive doxycycline hyclate 100 mg capsule RxNorm: 9637653 1 Capsule(s) PO BID 11/12/2018 11/21/2018 Inactive pantoprazole 40 mg tablet,delayed release RxNorm: 360077 TAKE ONE TABLET BY MOUTH DAILY 10/30/2018 03/04/2019 Inactive hydrochlorothiazide 12.5 mg tablet RxNorm: 251744 TAKE ONE TABLET BY MOUTH EVERY MORNING FOR BLOOD PRESSURE 10/12/2018 01/09/2019 Inactive pantoprazole 40 mg tablet,delayed release RxNorm: 161870 TAKE ONE TABLET BY MOUTH DAILY 08/31/2018 09/29/2018 Inactive pantoprazole 40 mg tablet,delayed release RxNorm: 218620 1 Tabl et(s) PO QD 04/03/2018 08/30/2018 Inactive hydrochlorothiazide 12.5 mg tablet RxNorm: 477580 TAKE ONE TABLET BY MOUTH EVERY MORNING FOR BLOOD PRESSURE 03/30/2018 09/25/2018 Inactive Medrol (John) 4 mg tablets in a dose pack RxNorm: 214153 Tablet(s) PO take as directed 01/29/2018 11/08/2018 Inactive pantoprazole 40 mg tablet,delayed release RxNorm: 955525 1 Tablet(s) PO BID for 1 month then decrease to 1 po daily 12/29/2017 04/02/2018 Inactive hydrochlorothiazide 12.5 mg tablet RxNorm: 034575 1 Tablet(s) P O QAM for BP 12/29/2017 03/28/2018 Inactive Voltaren 1 % topical gel RxNorm: 815247 1 Gram(s) TOP QID to bi lateral knees 12/09/2017 No Stop Date Active hydrochlorothiazide 12.5 mg tablet RxNorm: 141062 1 Tablet(s) P O QAM for BP 12/09/2017 12/28/2017 Inactive pantoprazole 40 mg tablet,delayed release RxNorm: 067586 1 Tablet(s) PO BID for 1 month then decrease to 1 po daily 12/09/2017 04/03/2018 Inactive meloxicam 15 mg tablet RxNorm: 220459 1 Tablet(s) PO QD 10/20/2015 Inactive Benadryl 25 mg capsule RxNorm: 9641109 1 Capsule(s) PO QHS No Start D ate Active Nexium oral RxNorm: 543767 oral No Start Date 10/20/2015 Inactive Nexium 24HR 22.3 mg capsule,delayed release RxNorm: 812408 1 Ca psule(s) PO QAM No Start Date 11/08/2018 Inactive Fish Oil 1,000 mg capsule RxNorm: 1 Capsule(s) PO QD No Start Date 12/28/2017 Inactive Fish Oil 1,000 mg capsule RxNorm: 1 Capsule(s) PO TID No Start Calin e 11/08/2018 Inactive naproxen sodium 220 mg tablet RxNorm: 692958 1 Tablet(s) PO QHS No Start Date 11/08/2018 Inactive Medication Administered No Medication Administered data Immunizations Vaccine Codes Date Status Tetanus, Diptheria, Pertussis CVX: 115 10/20/2015 Results Observation Observation Code Item Item Code Result Date S ervice Location [facility] 99636 Cholesterol 209 mg/dL 11/10/2018 Unkno wn [facility] 88526 Triglyceride 210 mg/dL 11/10/2018 Unkn own [facility] 18547 HDL CHOLESTEROL 32 mg/dL 11/10/2018 U nknown [facility] 67863 Chol/HDL Ratio 6.53 ratio 11/10/2018 U nknown [facility] 19429 NON-HDL Chol 177 mg/dL 11/10/2018 Unkn own [facility] 18114 LDL Cholesterol 135 mg/dL 11/10/2018 U nknown [facility] 94369 AST 15 U/L 2017 Unknown COMPREHENS[facility] MET[facility]OL[facility] 67416 ALT 20 U/L 2017 Unknown [facility] 05996 BUN 16 mg/dL 2017 Unknown [facility] 43771 ALBUMIN 4.4 g/dL 2017 Unknown [facility] 45109 CHLORIDE 105 mmol/L 12/26 Unknown [facility] 01822 Bili Total 0.6 mg/dL 12/26 Unknown [facility] 09613 ALK PHOS 61 U/L 2017 Unknown [facility] 19924 SODIUM 141 mmol/L 12/26 Unknown [facility] 10675 CREATININE 0.90 mg/dL 11/29 Unknown COMPREHENSIVE MET[facility]OLIC 34942 CALCIUM 9.7 mg/dL 2017 Unknown [facility] 99554 POTASSIUM 4.2 mmol/L 12/26 Unknown [facility] 30216 Total Protein 6.5 g/dL Unknown [facility] 35834 Glucose 99 mg/dL 2017 Unknown [facility] 40691 Bicarbonate 24 mmol/L 11/29 Unknown COMPREHENSIVE METABOLIC 92397 AGAP 12 mmol/L 2017 Unknown COMPLETE BLOOD COUNT 2994827 WBC 5.5 10e9/L 12/27/19 18 Unknown COMPLETE BLOOD COUNT [id number] RBC 4.87 10e12/L 2017 Unknown COMPLETE BLOOD COUNT 1805366 HEMOGLOBIN 15.1 g/dL 12/27/19 18 Unknown COMPLETE BLOOD COUNT [id number] HEMATOCRIT 44.9 % 12/27/19 18 Unknown COMPLETE BLOOD COUNT 5264754 MCV 92.2 fL 8 Unknown COMPLETE BLOOD COUNT 4803038 MCH 31.0 pg 8 Unknown COMPLETE BLOOD COUNT 1682186 MCHC 33.6 g/dL 8 Unknown COMPLETE BLOOD COUNT 7683693 PLATELET COUNT 244 10e9/L Unknown COMPLETE BLOOD COUNT 3186701 Mean Plt Volume 11.8 fL Unknown COMPLETE BLOOD COUNT 5355286 Neut Auto 42.0 % 8 Unknown COMPLETE BLOOD COUNT 5687447 Lymph Auto 39.5 % 12/27/19 18 Unknown COMPLETE BLOOD COUNT 2939522 Posey Auto 13.0 % 8 Unknown COMPLETE BLOOD COUNT 2753763 RDW 13.8 % 8 Unknown COMPLETE BLOOD COUNT 9971778 Eos Auto 5.3 % 8 Unknown COMPLETE BLOOD COUNT 3592519 Baso Auto 0.2 % 8 Unknown COMPLETE BLOOD COUNT 9882782 Neutrophil Abs 2.31 10e9/L Unknown COMPLETE BLOOD COUNT 7484663 Lymphocyte Abs 2.17 10e9/L Unknown COMPLETE BLOOD COUNT 9726823 Monocyte Abs 0.72 10e9/L 11/29 Unknown COMPLETE BLOOD COUNT 9160807 Eosinophil Abs 0.29 10e9/L Unknown COMPLETE BLOOD COUNT 2552554 Basophil Abs 0.01 10e9/L 11/29 Unknown COMPLETE BLOOD COUNT 3600679 RDW-SD 45.6 fL 8 Unknown PSA EQUIMOLAR JORI 19167 PSA Total 1.40 ng/mL 8 Unknown GFR CALC 6253825 GFR Non Afr Amr >60 mL/min 12/26/2017 Un known GFR CALC [id number] GFR Afr Amr >60 mL/min 12/26/2017 Unknow n [facility] 53950 Cholesterol 239 mg/dL 12/26/2017 Unkno wn [facility] 83956 Triglyceride 140 mg/dL 12/26/2017 Unkn own [facility] 46599 HDL CHOLESTEROL 48 mg/dL 12/26/2017 U nknown [facility] 79892 Chol/HDL Ratio 4.98 ratio 12/26/2017 U nknown [facility] 12738 NON-HDL Chol 191 mg/dL 12/26/2017 Unkn own [facility] 79614 LDL Cholesterol 163 mg/dL 12/26/2017 U nknown THYROID STIMULATING HORMONE 45241 TSH 1.633 uIU/mL 12/26/2017 Unknown COMPLETE BLOOD COUNT 8061629 WBC 5.3 10e9/L 12/29/19 16 Unknown COMPLETE BLOOD COUNT 6662070 RBC 4.84 10e12/L 2015 Unknown COMPLETE BLOOD COUNT 7253048 HEMOGLOBIN 14.9 g/dL 12/29/19 16 Unknown COMPLETE BLOOD COUNT 0114715 HEMATOCRIT 44.3 % 12/29/19 16 Unknown COMPLETE BLOOD COUNT 2645814 MCV 91.5 fL 6 Unknown COMPLETE BLOOD COUNT 6494444 MCH 30.8 pg 6 Unknown COMPLETE BLOOD COUNT 1624103 MCHC 33.6 g/dL 6 Unknown COMPLETE BLOOD COUNT 8645574 PLATELET COUNT 220 10e9/L 06/2015 Unknown COMPLETE BLOOD COUNT 2498445 Mean Plt Volume 11.8 fL 06/2015 Unknown COMPLETE BLOOD COUNT 6602212 Neut Auto 42.3 % 6 Unknown COMPLETE BLOOD COUNT 7229719 Lymph Auto 39.0 % 12/29/19 16 Unknown COMPLETE BLOOD COUNT 5984147 Posey Auto 13.6 % 6 Unknown COMPLETE BLOOD COUNT 1794652 RDW 14.0 % 6 Unknown COMPLETE BLOOD COUNT 2325723 Eos Auto 4.7 % 6 Unknown COMPLETE BLOOD COUNT 8001521 Baso Auto 0.4 % 6 Unknown COMPLETE BLOOD COUNT 1797356 Neutrophil Abs 2.24 10e9/L Unknown COMPLETE BLOOD COUNT 1330529 Lymphoctye Abs 2.07 10e9/L Unknown COMPLETE BLOOD COUNT 5515007 Monocyte Abs 0.72 10e9/L 06/2015 Unknown COMPLETE BLOOD COUNT 3996145 Eosinophil Abs 0.25 10e9/L Unknown COMPLETE BLOOD COUNT 8294613 RDW-SD 45.7 fL 6 Unknown COMPLETE BLOOD COUNT 1603312 Basophil Abs 0.02 10e9/L 06/2015 Unknown PSA EQUIMOLAR JORI 35329 PSA Total 1.11 ng/mL 6 Unknown COMPREHENSIVE METABOLIC 16551 AST 16 U/L 2015 Unknown COMPREHENSIVE METABOLIC 82785 ALT 20 U/L 2015 Unknown COMPREHENSIVE METABOLIC 80422 BUN 12 mg/dL 2015 Unknown COMPREHENSIVE METABOLIC 05903 ALBUMIN 4.3 g/dL 2015 Unknown COMPREHENSIVE METABOLIC 17281 CHLORIDE 107 mmol/L 12/28 Unknown COMPREHENSIVE METABOLIC 25294 Bili Total 0.7 mg/dL 12/28 Unknown COMPREHENSIVE METABOLIC 06999 ALK PHOS 53 U/L 2015 Unknown COMPREHENSIVE METABOLIC 21959 SODIUM 141 mmol/L 12/28 Unknown COMPREHENSIVE METABOLIC 25292 CREATININE 0.88 mg/dL 06/2015 Unknown COMPREHENSIVE METABOLIC 39978 CALCIUM 9.3 mg/dL 2015 Unknown COMPREHENSIVE METABOLIC 59386 POTASSIUM 4.1 mmol/L 12/28 Unknown COMPREHENSIVE METABOLIC 21644 Total Protein 6.5 g/dL Unknown [facility] 46304 Glucose 95 mg/dL 2015 Unknown COMPREHENSIVE METABOLIC 84060 Bicarbonate 27 mmol/L 06/2015 Unknown COMPREHENSIVE METABOLIC 12890 AGAP 7 mmol/L 2015 Unknown FREE T4 97394 T4 Free 1.11 ng/dL 12/29/2015 Unknown GFR CALC 1848880 GFR Afr Amr >60 mL/min 12/29/2015 Unknow n GFR CALC 1311270 GFR Non Afr Amr >60 mL/min 12/29/2015 Un known THYROID STIMULATING HORMONE 74435 TSH 0.687 uIU/mL 12/29/2015 Unknown [facility] 22962 Cholesterol 226 mg/dL 12/29/2015 Unkno wn [facility] 35077 Triglyceride 101 mg/dL 12/29/2015 Unkn own [facility] 64608 HDL CHOLESTEROL 57 mg/dL 12/29/2015 U nknown [facility] 55490 Chol/HDL Ratio 3.96 ratio 12/29/2015 U nknown [facility] 26559 NON-HDL Chol 169 mg/dL 12/29/2015 Unkn own [facility] 04740 LDL Cholesterol 149 mg/dL 12/29/2015 U nknown COMPREHENSIVE METABOLIC 33994 AST 17 U/L 2013 Unknown COMPREHENSIVE METABOLIC 68051 ALT 24 IU/L 2013 Unknown COMPREHENSIVE METABOLIC 02171 BUN 18 MG/DL 2013 Unknown COMPREHENSIVE METABOLIC 49835 ALBUMIN 4.4 GM/DL 2013 Unknown COMPREHENSIVE METABOLIC 39060 CHLORIDE 108 MMOL/L 06/03 Unknown COMPREHENSIVE METABOLIC 51449 BILI TOT 0.4 MG/DL 2013 Unknown COMPREHENSIVE METABOLIC 09725 ALK PHOS 58 U/L 2013 Unknown COMPREHENSIVE METABOLIC 23752 SODIUM 139 MMOL/L 06/03 Unknown COMPREHENSIVE METABOLIC 20634 CREATININE 0.86 MG/DL 10/2013 Unknown COMPREHENSIVE METABOLIC 05591 CALCIUM 9.6 MG/DL 2013 Unknown COMPREHENSIVE METABOLIC 37118 POTASSIUM 4.3 MMOL/L 06/03 Unknown COMPREHENS[facility] MET[facility]OL[facility] 97427 PROT TOT 6.0 GM/DL 2013 Unknown COMPREHENSIVE METABOLIC 51087 Glucose 104 MG/DL 2013 Unknown COMPREHENSIVE [facility]OL[facility] 40599 BICARB 26 MMOL/L 2013 Unknown COMPREHENSIVE METABOLIC 28043 ANION GAP 5 MEQ/L 2013 Unknown GFR CALC 5939347 GFR AA >60 ML/MIN 06/03/2014 Unknown GFR CALC 4176701 GFR NON-AA >60 ML/MIN 06/03/2014 Unknown COMPLETE BLOOD COUNT 9844492 WBC 4.7 10e9/L 06/03/20 14 Unknown COMPLETE BLOOD COUNT 3439942 RBC 4.85 10e12/L 2013 Unknown COMPLETE BLOOD COUNT 0737308 HGB 14.9 g/dL 4 Unknown COMPLETE BLOOD COUNT 0389816 HCT DET 44.2 % 4 Unknown COMPLETE BLOOD COUNT 7385026 MCV 91.1 fL 4 Unknown COMPLETE BLOOD COUNT 1724753 MCH 30.7 pg 4 Unknown COMPLETE BLOOD COUNT 3885299 MCHC 33.7 g/dL 4 Unknown COMPLETE BLOOD COUNT 2213738 PLT 245 10e9/L 06/03/20 14 Unknown COMPLETE BLOOD COUNT 4203319 MPV 11.7 fL 4 Unknown COMPLETE BLOOD COUNT 3620712 YOSSI % 37.0 % 4 Unknown COMPLETE BLOOD COUNT 5342723 LY % 44.2 % 4 Unknown COMPLETE BLOOD COUNT 4584626 MON % 14.1 % 4 Unknown COMPLETE BLOOD COUNT 3039803 EOS % 4.5 % 4 Unknown COMPLETE BLOOD COUNT 0819453 BASO % 0.2 % 4 Unknown COMPLETE BLOOD COUNT 3360701 RDW 13.3 % 4 Unknown COMPLETE BLOOD COUNT 8761284 ABS YOSSI 1.74 10e9/L 014 Unknown COMPLETE BLOOD COUNT 2202886 ABS LYMPH 2.08 10e9/L 014 Unknown COMPLETE BLOOD COUNT 3525164 ABS MONO 0.66 10e9/L 014 Unknown COMPLETE BLOOD COUNT 8654224 ABS EOS 0.21 10e9/L 014 Unknown COMPLETE BLOOD COUNT 6025696 ABS BASO 0.01 10e9/L 014 Unknown COMPLETE BLOOD COUNT 0110221 RDW-SD 43.5 fL 4 Unknown PSA EQUIMOLAR JORI 32886 PSA EQ 0.87 NG/ML 4 Unknown FREE T4 38675 FREE T4 1.21 NG/DL 06/03/2014 Unknown THYROID STIMULATING HORMONE 18044 TSH 0.705 uIU/ML 06/03/2014 Unknown [facility] 22471 HDL TEST 49 MG/DL 06/03/2014 Unknown [facility] 87040 TRIG 72 MG/DL 06/03/2014 Unknown [facility] 17250 TEST LDL 159 MG/DL 06/03/2014 Unknown [facility] 93926 CHOL 222 MG/DL 06/03/2014 Unknown [facility] 38533 RCHOL/HDL 4.53 RATIO 06/03/2014 Unknow n [facility] 02708 NON-HDL CH 173 MG/DL 06/03/2014 Unknow n Procedures Procedure Codes Date ROUTINE VENIPUNCTURE CPT-4: 96087 11/10/2018 LIPID PANEL CPT-4: 05041 11/10/2018 ROUTINE VENIPUNCTURE CPT-4: 24578 12/26/2017 ASSAY THYROID STIM HORMONE CPT-4: 50832 12/26/2017 COMPREHEN METABOLIC PANEL CPT-4: 11206 12/26/2017 COMPLETE CBC W/AUTO DIFF WBC CPT-4: 10284 12/26/2017 LIPID PANEL CPT-4: 21040 12/26/2017 ASSAY OF PSA TOTAL CPT-4: 31909 12/26/2017 ROUTINE VENIPUNCTURE CPT-4: 67465 12/29/2015 ASSAY OF FREE THYROXINE CPT-4: 22238 12/29/2015 ASSAY THYROID STIM HORMONE CPT-4: 12361 12/29/2015 COMPREHEN METABOLIC PANEL CPT-4: 05184 12/29/2015 COMPLETE CBC W/AUTO DIFF WBC CPT-4: 92956 12/29/2015 LIPID PANEL CPT-4: 91427 12/29/2015 ASSAY OF PSA TOTAL CPT-4: 45177 12/29/2015 TDAP VACCINE 7 YRS/> IM CPT-4: 99351 10/20/2015 IMMUNIZATION ADMIN CPT-4: 60633 10/20/2015 ROUTINE VENIPUNCTURE CPT-4: 86653 06/03/2014 ASSAY OF FREE THYROXINE CPT-4: 14022 06/03/2014 ASSAY THYROID STIM HORMONE CPT-4: 39299 06/03/2014 COMPREHEN METABOLIC PANEL CPT-4: 85514 06/03/2014 COMPLETE CBC W/AUTO DIFF WBC CPT-4: 46091 06/03/2014 LIPID PANEL CPT-4: 51726 06/03/2014 ASSAY OF PSA TOTAL CPT-4: 51182 06/03/2014 Vital Signs Date Vital 12/15/2018 Blood [...] 1: 126/80 Code: 8480-6 BMI: 32.8 Code: 65882-5 Heart Rate 1: 82 bpm Height: 6' Respiratory Rate: 20 bpm SpO2: 96% Tempera ture: 36.8 (C) / 98.2 (F) Weight: 242 lbs 12/26/2017 Blood Pressure 1: 114/64 Code: 8480-6 He art Rate 1: 66 bpm 12/09/2017 Blood Pressure 1: 144/96 Code: 8480-6 BMI: 33.1 Code: 66531-7 Heart Rate 1: 72 bpm Height: 6' Respiratory Rate: 20 bpm Temperature: 36 .9 (C) / 98.4 (F) Weight: 244 lbs 12/29/2015 Blood Pressure 1: 132/86 Code: 8480-6 He art Rate 1: 72 bpm 10/20/2015 Blood Pressure 1: 142/94 Code: 8480-6 BMI: 32.8 Code: 78122-3 Heart Rate 1: 72 bpm Height: 6' Respiratory Rate: 20 bpm SpO2: 96% Tempera ture: 36.7 (C) / 98.1 (F) Weight: 242 lbs 05/24/2014 Blood Pressure 1: 138/90 Code: 8480-6 BMI: 31.3 Code: 87838-0 Heart Rate 1: 80 bpm Height: 6' [...] establish Encounters Encounter Performer Location Codes Date ([id number]) OFFICE/OUTPATIENT VISIT EST Diagnosis: Essential (primary) hypertension[ICD10: I10] Diagnosis: Cardiac arrhythmia, unspecified[ICD10: I49.9] Diagnosis: Other fatigue[ICD10: R53.83] Manuel JACKSON [employer] CPT-4: 80556 12/15/2018 OFFICE/OUTPATIENT VISIT EST Diagnosis: Cardiac arrhythmia, unspecified[ICD10: I49.9] Diagnosis: Bitten or stung by nonvenomous insect and other nonvenomous arthropods, initial encounter[ICD10: W57.XXXA] Diagnosis: Abnormal levels of other serum enzymes[ICD10: R74.8] Diagnosis: Mixed hyperlipidemia[ICD10: E78.2] Manuel MOORE [employer] CPT-4: 14917 11/12/2018 ([id number]) NURSE/OUTPATIENT VISIT EST Diagnosis: Essential (primary) hypertension[ICD10: I10] Diagnosis: Mixed hyperlipidemia[ICD10: E78.2] Manuel MOORE [employer] CPT-4: 54185 11/10/2018 OFFICE/OUTPATIENT VISIT EST Diagnosis: Other fatigue[ICD10: R53.83] Diagnosis: Headache[ICD10: R51] Diagnosis: Fever, unspecified[ICD10: R50.9] Diagnosis: Rash and other nonspecific skin eruption[ICD10: R21] Diagnosis: Dyspnea, unspecified[ICD10: R06.00] Diagnosis: Cardiac arrhythmia, unspecified[ICD10: I49.9] Brooklyn Dinh MANUEL [employer] CPT-4: 14994 11/09/2018 ([id number]) OFFICE/OUTPATIENT VISIT EST Diagnosis: Essential (primary) hypertension[ICD10: I10] Diagnosis: Gastro-esophageal reflux disease without esophagitis[ICD10: K21.9] Diagnosis: Pain in left knee[ICD10: M25.562] Diagnosis: Pain in left foot[ICD10: M79.672] Kait Andersonfide Florentino [employer] CPT-4: 37878 01/29/2018 ([id number]) NURSE/OUTPATIENT VISIT EST Diagnosis: Encounter for general adult medical examination without abnormal findings[ICD10: Z00.00] Diagnosis: Mixed hyperlipidemia[ICD10: E78.2] Diagnosis: Essential (primary) hypertension[ICD10: I10] Manuel JACKSON [employer] CPT-4: 59191 12/26/2017 ([id number]) OFFICE/OUTPATIENT VISIT EST Diagnosis: Essential (primary) hypertension[ICD10: I10] Diagnosis: Gastro-esophageal reflux disease without esophagitis[ICD10: K21.9] Diagnosis: Bilateral primary osteoarthritis of knee[ICD10: M17.0] Diagnosis: Bilateral primary osteoarthritis of first carpometacarpal joints[ICD10: M18.0] Diagnosis: Obstructive sleep apnea (adult) (pediatric)[ICD10: G47.33] Diagnosis: Lymphedema, not elsewhere classified[ICD10: I89.0] Manuel JACKSON [employer] CPT-4: 07938 12/09/2017 ([id number]) OFFICE/OUTPATIENT VISIT EST Diagnosis: Encounter for general adult medical examination without abnormal findings[ICD10: Z00.00] Diagnosis: Elevated blood-pressure reading, without diagnosis of hypertension[ICD10: R03.0] Manuel Jensen ARELIS [employer] CPT- 4: 42619 12/29/2015 ([id number]) PREV VISIT EST AGE 40-64 Diagnosis: Encounter [...] Diagnosis: VACCINE FOR TDAP[ICD10: Z23] Jocelyn Watts MANUEL Jensen [employer] CPT-4: 70941 10/20/2015 ([id number]) OFFICE/OUTPATIENT VISIT EST Diagnosis: ROUTINE MEDICAL EXAM[ICD9: V70.0] Manuel Jensen [employer] CPT-4: 16773 06/03/2014 OFFICE/OUTPATIENT VISIT NEW Diagnosis: GERD[ICD9: 530.81] Diagnosis: OBSTRUCTIVE SLEEP APNEA[ICD9: 327.23] Negra Jensen [employer] CPT-4: 02385 05/24/2014 Plan of Care Planned Activity Notes Codes Status Date Visit Diagnosis Plan: Other fatigue Discussion: Add me n's MV ICD-9 : 780.79 ICD-10 : R53.83 12/15/2018 Visit Diagnosis Plan: Essential (primary) hypertension Discussion: Stable ICD-9 : 401.9 ICD-10 : I10 12/15/2018 Visit Diagnosis Plan: Cardiac arrhythmia, unspecified Discussion: Exercise Stress Test Fwup pending results ICD-9 : 427.9 ICD-10 : I49.9 12/15/2018 Appointment: Manuel Araiza WPtel: [address] [place], [place] [phone] US FOLLOW UP 12/15/2018 Visit Diagnosis Plan: [...] : 790.5 ICD-10 : R74.8 11/12/2018 Appointment: Manuel Araiza WPtel: [address] [place], [place] [phone] FOLLOW UP 11/12/2018 Patient Education: doxycycline hyclate- [employer] [facility] [id number] [email or web address] Completed 11/12/2018 Appointment: Manuel Araizatel: [address] [place], [place] [phone] US LAB 11/10/2018 Visit Diagnosis Plan: Other [...] : R06.00 11/09/2018 [facility] [place] [facility] [facility] 11/09/2018 Visit Diagnosis Plan: Essential [...] : M25.562 01/29/2018 Appointment: Kait Alas [address] [facility] FOLLOW UP 01/29/2018 Patient Education: Patient Medication Summary Completed 01/29/2018 Appointment: Manuel Araiza WPtel: [phone] [facility] US LAB 12/26/2017 Patient Education: Patient Medication [...] : 327.23 ICD-10 : G47.33 12/09/2017 Appointment: Manuel Araiza WPtel: [address] [place] [address] ACUTE ILLNESS 12/09/2017 Patient Education: Patient Medication Summary Completed 12/09/2017 Appointment: Kait Alas [address] [place] [address] RESCHEDULED 12/01/2017 Appointment: Manuel Araiza WPtel: [address] [place] [address] LAB 12/29/2015 Patient Education: Patient Medication Summary [...] aid if need be Form requested from [employer] [address] Patient for new bipap 10/20/2015 Appointment: Jocelyn Watts [address] [place] [address] 10/18 confirmed~sl Annual Well Visit 10/20/2015 Patient Education: Patient Medication Summary Completed 10/20/2015 [phone] [facility] [facility] 06/03/2014 Patient Education: Patient Medication Summary Completed 06/03/2014 Appointment: Negra Mej[facility] [phone] [facility] NEW PATIENT 05/24/2014 Patient Education: Patient Medication [...] aid if need be Form requested from [employer] [address] Patient for new bipap Medical Equipment No Medical Equipment data Health Concerns Section Health Concerns data not found Goals Section Goals data not found Interventions Section Interventions data not found Health Status Evaluations/Outcomes Section Health Status Evaluations/Outcomes data not found Advance Directives No Advance Directive data
--- OUTSIDE RECORDS SUMMARY | 2020-01-21 11:19 | XMS REPORT | CCD ---
Author Author Rafael Mejia APRN Organization [facility] Address [address] [place] [address] Phone Care Team Providers Care Plumbing Technician Name Role Phone Didi Araiza D.O., PP Unavailable CCM Unavailable Summary Purpose Interface Exchange Insurance Providers Payer name Policy type / Coverage type Covered green party ID Effective Begin Date Effective End Date Blue Cross Blue Shield Blue Cross/Bl ue Shield [id number] 2017 Un known Family History Family History data not found Social History No Social History data Allergies, Adverse Reactions, Alerts Substance Reaction Codes Entered Date Inactivated Date Status * NO KNOWN FOOD JEAN CLAUDE RGIES Unknown 05/24/2014 No Inactive Date Active Grasses reaction Unknown 05/24/2014 No In active Date Active Pollen reaction Unknown 05/24/2014 No In active Date Active Penicillin Unknown 05/24/2014 No In active Date Active Past Medical History Illness Codes Condition Status Onset Date Resolved Date Cardiac arrhythmia, unspecified ICD-9: 427.9 ICD-10: I49.9 Active 11/09/2018 Unknown Essential (primary) hypertension ICD-9: 401.9 ICD-10: I10 Active 12/09/2017 Unknown Other fatigue ICD-9: 780.79 ICD-10: R53.83 Active 11/09/2018 Unknown Abnormal levels of o ther serum enzymes ICD-9: 790.5 ICD-10: R74.8 Active 11/12/2018 Unknown Bitten or stung by n onvenomous insect and other nonvenomous arthropods, initial encounter ICD-9: 919.4 ICD-10: W57.XXXA Active 11/12/2018 Unknown Mixed hyperlipidemia ICD-9: 272.4 ICD-10: E78.2 Active 11/12/2018 Unknown Mixed hyperlipidemia ICD-9: 272.2 ICD-10: E78.2 Active 10/19/2015 Unknown Dyspnea, unspecified ICD-9: 786.09 ICD-10: R06.00 Active 11/09/2018 Unknown Fever, unspecified ICD- 9: 780.60 ICD-10: R50.9 Active 11/09/2018 Unknown Headache ICD-9: 784.0 ICD-10: R51 Active 11/09/2018 Unknown Rash and other nonsp ecific skin eruption ICD-9: 782.1 ICD-10: R21 Active 11/09/2018 Unknown Gastro-esophageal re flux disease without esophagitis ICD-9: 530.81 ICD-10: K21.9 Active 12/09/2017 Unknown Pain in left foot ICD-9: 729.5 ICD-10: M79.672 Active 01/29/2018 Unknown Pain in left knee ICD-9: 719.46 ICD-10: M25.562 Active 01/29/2018 Unknown Encounter for genera l adult medical examination without abnormal findings ICD-9: V70.9 ICD-10: Z00.00 Active 12/28/2015 Unknown Hypertension Unknown Active 12/09/2017 Unknow n Bilateral primary os teoarthritis of first carpometacarpal joints ICD-9: 715.34 ICD-10: M18.0 Active 12/09/2017 Unknown Bilateral primary os teoarthritis of knee ICD-9: 715.96 ICD-10: M17.0 Active 12/09/2017 Unknown Lymphedema, not else where classified ICD-9: 457.1 ICD-10: I89.0 Active 12/09/2017 Unknown Obstructive sleep ap amanda (adult) (pediatric) ICD-9: 327.23 ICD-10: G47.33 Active 05/24/2014 Unknown Elevated blood-press ure reading, without diagnosis of hypertension ICD-9: 796.2 ICD-10: R03.0 Active 12/28/2015 Unknown Encounter for immuni zation ICD-9: V05.9 ICD-10: Z23 Active 10/19/2015 Unknown Encounter for screen ing for malignant neoplasm of prostate ICD-9: V76.44 ICD-10: Z12.5 Active 10/19/2015 Unknown Encounter for screen ing for malignant neoplasm of colon ICD-9: V76.51 ICD-10: Z12.11 Active 10/19/2015 Unknown Low back pain ICD-9: 724.2 ICD-10: M54.5 Active 10/19/2015 Unknown Tinea unguium ICD-9: 110.1 ICD-10: B35.1 Active 10/19/2015 Unknown Tobacco abuse counse ling ICD-9: V65.42 ICD-10: Z71.6 Active 10/19/2015 Unknown Tobacco use ICD-9: 305.1 ICD-10: Z72.0 Active 10/19/2015 Unknown VACCINE FOR TDAP ICD-9: V06.1 ICD-10: Z23 Active 10/19/2015 Unknown ROUTINE MEDICAL EXAM ICD-9: V70.0 Active 06/03/2014 Unknown GERD ICD-9: 530.81 Active 05/24/2014 Unknow n OBSTRUCTIVE SLEEP APNEA ICD-9: 327.23 Active 05/24/2014 Unknown Problems Condition Codes Effectiv e Dates Condition Status Cardiac arrhythmia, unspecified ICD-9: 427.9 ICD-10: I49.9 11/09/2018 Active Essential (primary) hypertension ICD-9: 401.9 ICD-10: I10 12/09/2017 Active Other fatigue ICD-9: 780.79 ICD-10: R53.83 11/09/2018 Active Abnormal levels of o ther serum enzymes ICD-9: 790.5 ICD-10: R74.8 11/12/2018 Active Bitten or stung by n onvenomous insect and other nonvenomous arthropods, initial encounter ICD-9: 919.4 ICD-10: W57.XXXA 11/12/2018 Active Mixed hyperlipidemia ICD-9: 272.4 ICD-10: E78.2 11/12/2018 Active Mixed hyperlipidemia ICD-9: 272.2 ICD-10: E78.2 10/19/2015 Active Dyspnea, unspecified ICD-9: 786.09 ICD-10: R06.00 11/09/2018 Active Fever, unspecified ICD- 9: 780.60 ICD-10: R50.9 11/09/2018 Active Headache ICD-9: 784.0 ICD-10: R51 11/09/2018 Active Rash and other nonsp ecific skin eruption ICD-9: 782.1 ICD-10: R21 11/09/2018 Active Gastro-esophageal re flux disease without esophagitis ICD-9: 530.81 ICD-10: K21.9 12/09/2017 Active Pain in left foot ICD-9: 729.5 ICD-10: M79.672 01/29/2018 Active Pain in left knee ICD-9: 719.46 ICD-10: M25.562 01/29/2018 Active Encounter for genera l adult medical examination without abnormal findings ICD-9: V70.9 ICD-10: Z00.00 12/28/2015 Active Hypertension Unknown 12/09/2017 Active Bilateral primary os teoarthritis of first carpometacarpal joints ICD-9: 715.34 ICD-10: M18.0 12/09/2017 Active Bilateral primary os teoarthritis of knee ICD-9: 715.96 ICD-10: M17.0 12/09/2017 Active Lymphedema, not else where classified ICD-9: 457.1 ICD-10: I89.0 12/09/2017 Active Obstructive sleep ap amanda (adult) (pediatric) ICD-9: 327.23 ICD-10: G47.33 05/24/2014 Active Elevated blood-press ure reading, without diagnosis of hypertension ICD-9: 796.2 ICD-10: R03.0 12/28/2015 Active Encounter for immuni zation ICD-9: V05.9 ICD-10: Z23 10/19/2015 Active Encounter for screen ing for malignant neoplasm of prostate ICD-9: V76.44 ICD-10: Z12.5 10/19/2015 Active Encounter for screen ing for malignant neoplasm of colon ICD-9: V76.51 ICD-10: Z12.11 10/19/2015 Active Low back pain ICD-9: 724.2 ICD-10: M54.5 10/19/2015 Active Tinea unguium ICD-9: 110.1 ICD-10: B35.1 10/19/2015 Active Tobacco abuse counse ling ICD-9: V65.42 ICD-10: Z71.6 10/19/2015 Active Tobacco use ICD-9: 305.1 ICD-10: Z72.0 10/19/2015 Active VACCINE FOR TDAP ICD-9: V06.1 ICD-10: Z23 10/19/2015 Active ROUTINE MEDICAL EXAM ICD-9: V70.0 06/03/2014 Active GERD ICD-9: 530.81 05/24/2014 Active OBSTRUCTIVE SLEEP APNEA ICD-9: 327.23 05/24/2014 Active Medications Medication Codes Instruc tions Start Date Stop Date Sta tus Fill Instructions pantoprazole 40 mg t ablet,delayed release RxNorm: 297557 1 Tablet(s) PO QD 03/04/2019 06/01/2019 Ac tive hydrochlorothiazide 12.5 mg tablet RxNorm: 967774 TAKE ONE TABLET BY MO [facility] EVERY MORNING FOR BLOOD PRESSURE 01/11/2019 07/09/2019 Active doxycycline hyclate 100 mg capsule RxNorm: 8400783 1 Capsule(s) PO BID 11/12/2018 11/21/2018 In active pantoprazole 40 mg t ablet,delayed release RxNorm: 412016 TAKE ONE TABLET BY MO [facility] DAILY 10/30/2018 03/04/2019 Inactive hydrochlorothiazide 12.5 mg tablet RxNorm: 575939 TAKE ONE TABLET BY MO [facility] EVERY MORNING FOR BLOOD PRESSURE 10/12/2018 01/09/2019 Inactive pantoprazole 40 mg t ablet,delayed release RxNorm: 533665 TAKE ONE TABLET BY MO [facility] DAILY 08/31/2018 09/29/2018 Inactive pantoprazole 40 mg t ablet,delayed release RxNorm: 484375 1 Tablet(s) PO QD 04/03/2018 08/30/2018 In active hydrochlorothiazide 12.5 mg tablet RxNorm: 144942 TAKE ONE TABLET BY [facility] EVERY MORNING FOR BLOOD PRESSURE 03/30/2018 09/25/2018 Inactive Medrol (John) 4 mg ta blets in a dose pack RxNorm: 765282 Tablet(s) PO take as directed 01/29/2018 11/08/2018 Inactive pantoprazole 40 mg t ablet,delayed release RxNorm: 132118 1 Tablet(s) PO BID fo r 1 month then decrease to 1 po daily 12/29/2017 04/02/2018 Inactive hydrochlorothiazide 12.5 mg tablet RxNorm: 685790 1 Tablet(s) PO QAM fo r BP 12/29/2017 03/28/2018 In active Voltaren 1 % topical gel RxNorm: 610536 1 Gram(s) TOP QID to bilateral knees 12/09/2017 No Stop Date Active hydrochlorothiazide 12.5 mg tablet RxNorm: 768948 1 Tablet(s) PO QAM fo r BP 12/09/2017 12/28/2017 In active pantoprazole 40 mg t ablet,delayed release RxNorm: 942501 1 Tablet(s) PO BID fo r 1 month then decrease to 1 po daily 12/09/2017 04/03/2018 Inactive meloxicam 15 mg tablet RxNorm: 785638 1 Tablet(s) PO QD 10/20/2015 12/08/2017 Inactive Benadryl 25 mg capsule RxNorm: 9574803 1 Capsule(s) PO QHS No Start Date Active Nexium oral RxNorm: 275061 oral No Start Date 10/20/2015 Inactive Nexium 24HR 22.3 mg capsule,delayed release RxNorm: 690828 1 Capsule(s) PO QAM No Start Date 11/08/2018 Inactive Fish Oil 1,000 mg ca psule RxNorm: 1 Capsule(s) PO QD No Start Date 12/28/2017 Inactive Fish Oil 1,000 mg ca psule RxNorm: 1 Capsule(s) PO TID No Start Date 11/08/2018 Inactive naproxen sodium 220 mg tablet RxNorm: 205430 1 Tablet(s) PO QHS No Start Date 11/08/2018 Inactive Medication Administered No Medication Administered data Immunizations Vaccine Codes Date Status Tetanus, Diptheria, Pertussis CVX: 115 10/20/2015 completed Assessments Condition Codes Effectiv e Dates Cardiac arrhythmia, unspecified ICD- 10: I49.9 ICD-9: 427.9 12/15/2018 Other fatigue ICD-10: R53.83 ICD-9: 780.79 12/15/2018 Essential (primary) hypertension ICD -10: I10 ICD-9: 401.9 12/15/2018 Mixed hyperlipidemia ICD-10: E78.2 ICD-9: 272.4 11/12/2018 Abnormal levels of other serum enzymes ICD-10: R74.8 ICD-9: 790.5 11/12/2018 Bitten or stung by nonvenomous insect an d other nonvenomous arthropods, initial encounter ICD-10: W57.XXXA ICD-9: 919.4 11/12/2018 Mixed hyperlipidemia ICD-10: E78.2 ICD-9: 272.2 11/10/2018 Dyspnea, unspecified ICD-10: R06.00 ICD-9: 786.09 11/09/2018 Fever, unspecified ICD-10: R50.9 ICD-9: 780.60 11/09/2018 Rash and other nonspecific skin eruption ICD-10: R21 ICD-9: 782.1 11/09/2018 Headache ICD-10: R51 ICD-9: 784.0 11/09/2018 Pain in left knee ICD-10: M25.562 ICD-9: 719.46 01/29/2018 Gastro-esophageal reflux disease without esophagitis ICD-10: K21.9 ICD-9: 530.81 01/29/2018 Pain in left foot ICD-10: M79.672 ICD-9: 729.5 01/29/2018 Encounter for general adult medical exam ination without abnormal findings ICD-10: Z00.00 ICD-9: V70.9 12/26/2017 Lymphedema, not elsewhere classified ICD-10: I89.0 ICD-9: 457.1 12/09/2017 Bilateral primary osteoarthritis of knee ICD-10: M17.0 ICD-9: 715.96 12/09/2017 Bilateral primary osteoarthritis of firs t carpometacarpal joints ICD-10: M18.0 ICD-9: 715.34 12/09/2017 Obstructive sleep apnea (adult) (pediatric) ICD-10: G47.33 ICD-9: 327.23 12/09/2017 Elevated blood-pressure reading, without diagnosis of hypertension ICD-10: R03.0 ICD-9: 796.2 12/29/2015 VACCINE FOR TDAP ICD-10: Z23 ICD-9: V06.1 10/20/2015 Tinea unguium ICD-10: B35.1 ICD-9: 110.1 10/20/2015 Tobacco use ICD-10: Z72.0 ICD-9: 305.1 10/20/2015 Encounter for screening for malignant neoplasm of colo n ICD- 10: Z12.11 ICD-9: V76.51 10/20/2015 Tobacco abuse counseling ICD-10: Z71 .6 ICD-9: V65.42 10/20/2015 Low back pain ICD-10: M54.5 ICD-9: 724.2 10/20/2015 Encounter for screening for malignant neoplasm of pros [place] ICD-10: Z12.5 ICD-9: V76.44 10/20/2015 Encounter for immunization ICD-10: Z 23 ICD-9: V05.9 10/20/2015 ROUTINE MEDICAL EXAM ICD-9: V70.0 06/03/2014 OBSTRUCTIVE SLEEP APNEA ICD-9: 327.23 05/24/2014 GERD ICD-9: 530.81 05/24 Reason For Visit Reason For Visit Effective Dates Notes follow up 12/15/2018 Marissa ient has finished up 20 days worth of doxycycline and is feeling better follow up 11/12/2018 lab draw 11/10/2018 high blood pressure 11/09/2018 to his arms, chest, and legs follow up 01/29/2018 1 m onth lab draw 12/26/2017 knee pain 12/09/2017 lab draw 12/29/2015 well man exam (40-65 years) 10/20/2015 To both big toes and both little toes lab draw 06/03/2014 ~generic 05/24/2014 new pt to establish Results Observation Observation Code Item Item Code Result Date LIP[facility] GROUP 12165 Choles terol 209 mg/dL 11/10/2018 LIP[facility] GROUP 06841 Trigly ceride 210 mg/dL 11/10/2018 [facility]IP[facility] GROUP 71693 HDL CH OLESTEROL 32 mg/dL 11/10/2018 [facility] GROUP 22187 Chol/H DL Ratio 6.53 ratio 11/10/2018 LIP[facility] GROUP 24431 NON-HD L Chol 177 mg/dL 11/10/2018 LIP[facility] GROUP 07606 LDL Ch olesterol 135 mg/dL 11/10/2018 COMPREHENSIVE METABOLIC 30168 AST 15 U/L 12/26/2017 COMPREHENSIVE METABOLIC 73406 ALT 20 U/L 12/26/2017 COMPREHENSIVE METABOLIC 92826 BUN 16 mg/dL 12/26/2017 COMPREHENSIVE METABOLIC 87519 ALBUMIN 4.4 g/dL 12/26/2017 COMPREHENSIVE METABOLIC 71549 CHLORIDE 105 mmol/L 12/26/2017 COMPREHENSIVE METABOLIC 90164 Bili Total 0.6 mg/dL 12/26/2017 COMPREHENSIVE METABOLIC 95131 ALK PHOS 61 U/L 12/26/2017 COMPREHENSIVE METABOLIC 79170 SODIUM 141 mmol/L 12/26/2017 COMPREHENSIVE METABOLIC 60022 CREATININE 0.90 mg/dL 12/26/2017 COMPREHENSIVE METABOLIC 00530 CALCIUM 9.7 mg/dL 12/26/2017 COMPREHENSIVE METABOLIC 46618 POTASSIUM 4.2 mmol/L 12/26/2017 COMPREHENSIVE METABOLIC 42289 Total Protein 6.5 g/dL 12/26/2017 COMPREHENSIVE METABOLIC 56647 Glucose 99 mg/dL 12/26/2017 COMPREHENSIVE METABOLIC 47964 Bicarbonate 24 mmol/L 12/26/2017 COMPREHENSIVE METABOLIC 54551 AGAP 12 mmol/L 12/26/2017 COMPLETE BLOOD COUNT 2561828 WBC 5.5 10e9/L 12/26/2017 COMPLETE BLOOD COUNT 9210672 RBC 4.87 10e12/L 8 COMPLETE BLOOD COUNT 9954774 HEMOGLOBIN 15.1 g/dL 12/26/2017 COMPLETE BLOOD COUNT 9923495 HEMATOCRIT 44.9 % 12/26/2017 COMPLETE BLOOD COUNT 9515827 MCV 92.2 fL 12/26/2017 COMPLETE BLOOD COUNT 2090746 MCH 31.0 pg 12/26/2017 COMPLETE BLOOD COUNT 1378980 MCHC 33.6 g/dL 12/26/2017 COMPLETE BLOOD COUNT 6554410 PLATELET COUNT 244 10e9/L 12/26/2017 COMPLETE BLOOD COUNT 5415545 Mean Plt Volume 11.8 fL 12/26/2017 COMPLETE BLOOD COUNT 4149684 Neut Auto 42.0 % 12/26/2017 COMPLETE BLOOD COUNT 3054731 Lymph Auto 39.5 % 12/26/2017 COMPLETE BLOOD COUNT 4214589 [place] Auto 13.0 % 12/26/2017 COMPLETE BLOOD COUNT 8645451 RDW 13.8 % 12/26/2017 COMPLETE BLOOD COUNT 9244063 Eos Auto 5.3 % 12/26/2017 COMPLETE BLOOD COUNT 9178299 Baso Auto 0.2 % 12/26/2017 COMPLETE BLOOD COUNT 5706060 Neutrophil Abs 2.31 10e9/L 12/26/2017 COMPLETE BLOOD COUNT 6673985 Lymphocyte Abs 2.17 10e9/L 12/26/2017 COMPLETE BLOOD COUNT 3083788 Monocyte Abs 0.72 10e9/L 12/26/2017 COMPLETE BLOOD COUNT 1332505 Eosinophil Abs 0.29 10e9/L 12/26/2017 COMPLETE BLOOD COUNT 4097806 RDW-SD 45.6 fL 12/26/2017 COMPLETE BLOOD COUNT 1019557 Basophil Abs 0.01 10e9/L 12/26/2017 PSA EQUIMOLAR JORI 13013 PSA Total 1.40 ng/mL 12/26/2017 GFR CALC 7552738 GFR Non Afr Amr >60 mL/min 12/26/2017 GFR CALC 5294410 GFR Afr Amr >60 mL/min 12/26/2017 LIPID GROUP 88762 Choles terol 239 mg/dL 12/26/2017 LIPID GROUP 63381 Trigly ceride 140 mg/dL 12/26/2017 LIPID GROUP 31479 HDL CH OLESTEROL 48 mg/dL 12/26/2017 LIPID GROUP 02572 Chol/H DL Ratio 4.98 ratio 12/26/2017 LIPID GROUP 38828 NON-HD L Chol 191 mg/dL 12/26/2017 LIPID GROUP 40639 LDL Ch olesterol 163 mg/dL 12/26/2017 THYROID STIMULATING HORMONE 09432 TSH 1.633 uIU/mL 8 COMPLETE BLOOD COUNT 5360672 WBC 5.3 10e9/L 12/29/2015 COMPLETE BLOOD COUNT 3827898 RBC 4.84 10e12/L 6 COMPLETE BLOOD COUNT 7566618 HEMOGLOBIN 14.9 g/dL 12/29/2015 COMPLETE BLOOD COUNT 9062810 HEMATOCRIT 44.3 % 12/29/2015 COMPLETE BLOOD COUNT 6823240 MCV 91.5 fL 12/29/2015 COMPLETE BLOOD COUNT 7917694 MCH 30.8 pg 12/29/2015 COMPLETE BLOOD COUNT 5391316 MCHC 33.6 g/dL 12/29/2015 COMPLETE BLOOD COUNT 5257926 PLATELET COUNT 220 10e9/L 12/29/2015 COMPLETE BLOOD COUNT 2262456 Mean Plt Volume 11.8 fL 12/29/2015 COMPLETE BLOOD COUNT 6023165 Neut Auto 42.3 % 12/29/2015 COMPLETE BLOOD COUNT 2348712 Lymph Auto 39.0 % 12/29/2015 COMPLETE BLOOD COUNT 8157503 [place] Auto 13.6 % 12/29/2015 COMPLETE BLOOD COUNT 4243523 Eos Auto 4.7 % 12/29/2015 COMPLETE BLOOD COUNT 5710885 RDW 14.0 % 12/29/2015 COMPLETE BLOOD COUNT 3512949 Baso Auto 0.4 % 12/29/2015 COMPLETE BLOOD COUNT 2730786 Neutrophil Abs 2.24 10e9/L 12/29/2015 COMPLETE BLOOD COUNT 3525637 Lymphoctye Abs 2.07 10e9/L 12/29/2015 COMPLETE BLOOD COUNT 2244090 Monocyte Abs 0.72 10e9/L 12/29/2015 COMPLETE BLOOD COUNT 5270571 Eosinophil Abs 0.25 10e9/L 12/29/2015 COMPLETE BLOOD COUNT 7088739 RDW-SD 45.7 fL 12/29/2015 COMPLETE BLOOD COUNT 9636984 Basophil Abs 0.02 10e9/L 12/29/2015 PSA EQUIMOLAR JORI 90801 PSA Total 1.11 ng/mL 12/29/2015 COMPREHENSIVE METABOLIC 92294 AST 16 U/L 12/29/2015 COMPREHENSIVE METABOLIC 86524 ALT 20 U/L 12/29/2015 COMPREHENSIVE METABOLIC 19123 BUN 12 mg/dL 12/29/2015 COMPREHENSIVE METABOLIC 24643 ALBUMIN 4.3 g/dL 12/29/2015 COMPREHENSIVE METABOLIC 85535 CHLORIDE 107 mmol/L 12/29/2015 COMPREHENSIVE METABOLIC 73075 Bili Total 0.7 mg/dL 12/29/2015 COMPREHENSIVE METABOLIC 69424 ALK PHOS 53 U/L 12/29/2015 COMPREHENSIVE METABOLIC 18145 SODIUM 141 mmol/L 12/29/2015 COMPREHENSIVE METABOLIC 44400 CREATININE 0.88 mg/dL 12/29/2015 COMPREHENSIVE METABOLIC 79868 CALCIUM 9.3 mg/dL 12/29/2015 COMPREHENSIVE METABOLIC 96347 POTASSIUM 4.1 mmol/L 12/29/2015 COMPREHENSIVE METABOLIC 48119 Total Protein 6.5 g/dL 12/29/2015 COMPREHENSIVE METABOLIC 03022 Glucose 95 mg/dL 12/29/2015 COMPREHENSIVE METABOLIC 92313 Bicarbonate 27 mmol/L 12/29/2015 COMPREHENSIVE METABOLIC 93798 AGAP 7 mmol/L 12/29/2015 FREE T4 76930 T4 Free 1.11 ng/dL 12/29/2015 GFR CALC 6327390 GFR Non Afr Amr >60 mL/min 12/29/2015 GFR CALC 8990360 GFR Afr Amr >60 mL/min 12/29/2015 THYROID STIMULATING HORMONE 50574 TSH 0.687 uIU/mL 6 LIPID GROUP 04863 Choles terol 226 mg/dL 12/29/2015 LIPID GROUP 16758 Trigly ceride 101 mg/dL 12/29/2015 LIPID GROUP 13652 HDL CH OLESTEROL 57 mg/dL 12/29/2015 LIPID GROUP 34705 Chol/H DL Ratio 3.96 ratio 12/29/2015 LIPID GROUP 01706 NON-HD L Chol 169 mg/dL 12/29/2015 LIPID GROUP 83247 LDL Ch olesterol 149 mg/dL 12/29/2015 COMPREHENSIVE METABOLIC 64211 AST 17 U/L 06/03/2014 COMPREHENSIVE METABOLIC 17697 ALT 24 IU/L 06/03/2014 COMPREHENSIVE METABOLIC 88426 BUN 18 MG/DL 06/03/2014 COMPREHENSIVE METABOLIC 02321 ALBUMIN 4.4 GM/DL 06/03/2014 COMPREHENSIVE METABOLIC 00379 CHLORIDE 108 MMOL/L 06/03/2014 COMPREHENSIVE METABOLIC 18528 BILI TOT 0.4 MG/DL 06/03/2014 COMPREHENSIVE METABOLIC 50357 ALK PHOS 58 U/L 06/03/2014 COMPREHENSIVE METABOLIC 80260 SODIUM 139 MMOL/L 06/03/2014 COMPREHENSIVE METABOLIC 05585 CREATININE 0.86 MG/DL 06/03/2014 COMPREHENSIVE METABOLIC 02030 CALCIUM 9.6 MG/DL 06/03/2014 COMPREHENSIVE METABOLIC 29221 POTASSIUM 4.3 MMOL/L 06/03/2014 COMPREHENSIVE METABOLIC 18325 PROT TOT 6.0 GM/DL 06/03/2014 COMPREHENSIVE METABOLIC 98239 Glucose 104 MG/DL 06/03/2014 COMPREHENSIVE METABOLIC 07510 BICARB 26 MMOL/L 06/03/2014 COMPREHENSIVE METABOLIC 28721 ANION GAP 5 MEQ/L 06/03/2014 GFR CALC 7947032 GFR AA >60 ML/MIN 06/03/2014 GFR CALC 1450474 GFR NON -AA >60 ML/MIN 06/03/2014 COMPLETE BLOOD COUNT 1905785 WBC 4.7 10e9/L 06/03/2014 COMPLETE BLOOD COUNT 9717221 RBC 4.85 10e12/L 4 COMPLETE BLOOD COUNT 2315549 HGB 14.9 g/dL 06/03/2014 COMPLETE BLOOD COUNT 0269467 HCT DET 44.2 % 06/03/2014 COMPLETE BLOOD COUNT 6833266 MCV 91.1 fL 06/03/2014 COMPLETE BLOOD COUNT 4014923 MCH 30.7 pg 06/03/2014 COMPLETE BLOOD COUNT 4928812 MCHC 33.7 g/dL 06/03/2014 COMPLETE BLOOD COUNT 8614552 PLT 245 10e9/L 06/03/2014 COMPLETE BLOOD COUNT 4560915 MPV 11.7 fL 06/03/2014 COMPLETE BLOOD COUNT 3805833 YOSSI % 37.0 % 06/03/2014 COMPLETE BLOOD COUNT 3049519 LY % 44.2 % 06/03/2014 COMPLETE BLOOD COUNT 7874472 MON % 14.1 % 06/03/2014 COMPLETE BLOOD COUNT 6683207 EOS % 4.5 % 06/03/2014 COMPLETE BLOOD COUNT 6503096 BASO % 0.2 % 06/03/2014 COMPLETE BLOOD COUNT 2901750 RDW 13.3 % 06/03/2014 COMPLETE BLOOD COUNT 8556953 ABS YOSSI 1.74 10e9/L 06/03/2014 COMPLETE BLOOD COUNT 8169453 ABS LYMPH 2.08 10e9/L 06/03/2014 COMPLETE BLOOD COUNT 2410061 ABS MONO 0.66 10e9/L 06/03/2014 COMPLETE BLOOD COUNT 8964954 ABS EOS 0.21 10e9/L 06/03/2014 COMPLETE BLOOD COUNT 8839664 ABS BASO 0.01 10e9/L 06/03/2014 COMPLETE BLOOD COUNT 3758923 RDW-SD 43.5 fL 06/03/2014 PSA EQUIMOLAR JORI 63448 PSA EQ 0.87 NG/ML 06/03/2014 FREE T4 95794 FREE T4 1.21 NG/DL 06/03/2014 THYROID STIMULATING HORMONE 94378 TSH 0.705 uIU/ML 4 [facility] [address] 49 MG/DL 06/03/2014 LIPID GROUP 40337 TRIG 72 MG/DL 06/03/2014 LIPID GROUP 46530 TEST L DL 159 MG/DL 06/03/2014 LIPID GROUP 36828 CHOL 222 MG/DL 06/03/2014 LIPID GROUP 81927 RCHOL/ HDL 4.53 RATIO 06/03/2014 LIPID GROUP 08708 NON-HD L CH 173 MG/DL 06/03/2014 Review of Systems System Result Effective Dates Constitutional fatigue 0 11/12/2018 Musculoskeletal arthralgia(s) 11/12/2018 Neurologic headache 10/28 Cardiovascular No arrhythmia 11/12/2018 Cardiovascular No chest pain/pressure 11/12/2018 Cardiovascular No edema 11/12/2018 Cardiovascular No exercise intolerance 11/12/2018 Cardiovascular No orthopnea 11/12/2018 Cardiovascular No palpitations 11/12/2018 Respiratory No asthma Respiratory No cough Respiratory No dyspnea 0 11/12/2018 Respiratory No pleuritic pain 11/12/2018 Respiratory No productive sputum 11/12/2018 Respiratory No wheezing 11/12/2018 Dermatologic rash 2018 Constitutional No fussiness 11/09/2018 Constitutional No night sweats 11/09/2018 Constitutional No anorexia 11/09/2018 Constitutional No chills 11/09/2018 Constitutional No diaphoresis 11/09/2018 Constitutional recent illness 11/09/2018 Constitutional fatigue 0 11/09/2018 Constitutional fever Constitutional No insomnia 11/09/2018 Constitutional No malaise 11/09/2018 Constitutional No weight gain/obesity 11/09/2018 Constitutional No weight loss 11/09/2018 Eyes No eye pain 019 Eyes No visual disturbance 11/09/2018 Eyes No vision change Ears/Nose/Throat/Neck No dizziness 11/09/2018 Ears/Nose/Throat/Neck headache 11/09/2018 Ears/Nose/Throat/Neck No otalgia 11/09/2018 Ears/Nose/Throat/Neck No otitis externa 11/09/2018 Cardiovascular No chest pain/pressure 11/09/2018 Cardiovascular No cardiac murmur 11/09/2018 Cardiovascular No arrhythmia 11/09/2018 Cardiovascular dyspnea 0 11/09/2018 Cardiovascular fatigue 0 11/09/2018 Cardiovascular No palpitations 11/09/2018 Cardiovascular No syncope 11/09/2018 Respiratory No cough Respiratory No chest tightness 11/09/2018 Respiratory No chest congestion 11/09/2018 Gastrointestinal No abdominal pain 11/09/2018 Gastrointestinal No diarrhea 11/09/2018 Gastrointestinal No constipation 11/09/2018 Gastrointestinal No vomiting 11/09/2018 Gastrointestinal No melena 11/09/2018 Gastrointestinal No nausea 11/09/2018 Genitourinary/Nephrology No dysuria 11/09/2018 Musculoskeletal No arthralgia(s) 11/09/2018 Musculoskeletal No back pain 11/09/2018 Dermatologic rash 2018 Neurologic No alteration of consciousness 11/09/2018 Neurologic headache 10/28 Neurologic No mental status change 11/09/2018 Psychiatric No anxiety 0 11/09/2018 Psychiatric No depression 11/09/2018 Hematologic/Lymphatic No abnormal ec chymoses 11/09/2018 Hematologic/Lymphatic No abnormal bl eeding and bruising 11/09/2018 Constitutional No fever 01/29/2018 Constitutional No fatigue 01/29/2018 Cardiovascular hypertension 01/29/2018 Cardiovascular No fatigue 01/29/2018 Cardiovascular No chest pain/pressure 01/29/2018 Cardiovascular No palpitations 01/29/2018 Gastrointestinal No abdominal pain 01/29/2018 Gastrointestinal gastroesophageal reflux 01/29/2018 Musculoskeletal arthralgia(s) 01/29/2018 Respiratory No cough 07/2017 Respiratory No dyspnea 0 01/29/2018 Musculoskeletal joint complaint 12/09/2017 Genitourinary/Nephrology No dysuria 12/09/2017 Genitourinary/Nephrology No nocturia 12/09/2017 Genitourinary/Nephrology No urinary incontinence 12/09/2017 Gastrointestinal No hemorrhoids 12/09/2017 Gastrointestinal No hepatitis 12/09/2017 Gastrointestinal No abdominal pain 12/09/2017 Gastrointestinal No constipation 12/09/2017 Gastrointestinal No diarrhea 12/09/2017 Gastrointestinal gastroesophageal reflux 12/09/2017 Gastrointestinal No melena 12/09/2017 Gastrointestinal No nausea 12/09/2017 Gastrointestinal No vomiting 12/09/2017 Dermatologic No rash 05/2018 Dermatologic No scar 05/2018 Neurologic No dizziness 12/09/2017 Neurologic No headache 0 12/09/2017 Neurologic No neck pain 12/09/2017 Neurologic No syncope Cardiovascular No arrhythmia 12/09/2017 Cardiovascular No chest pain/pressure 12/09/2017 Cardiovascular edema 05/2018 Cardiovascular No exercise intolerance 12/09/2017 Cardiovascular No orthopnea 12/09/2017 Cardiovascular No palpitations 12/09/2017 Cardiovascular hypertension 12/09/2017 Respiratory No asthma Respiratory No cough 05/2018 Respiratory No dyspnea 0 12/09/2017 Respiratory No pleuritic pain 12/09/2017 Respiratory No productive sputum 12/09/2017 Respiratory No wheezing 12/09/2017 Respiratory apneic events 12/09/2017 Constitutional fatigue 0 12/09/2017 Constitutional No night sweats 10/20/2015 Constitutional No recent illness 10/20/2015 Constitutional No fatigue 10/20/2015 Constitutional No fever 10/20/2015 Constitutional No insomnia 10/20/2015 Constitutional No weight loss 10/20/2015 Eyes No eye pain 016 Eyes No photophobia 09/29 Eyes No vision change Eyes No visual disturbance 10/20/2015 Ears/Nose/Throat/Neck No hearing loss 10/20/2015 Ears/Nose/Throat/Neck No nasal discharge 10/20/2015 Ears/Nose/Throat/Neck No sinus congestion 10/20/2015 Ears/Nose/Throat/Neck No sore throat 10/20/2015 Cardiovascular No arrhythmia 10/20/2015 Cardiovascular No chest pain/pressure 10/20/2015 Cardiovascular No edema 10/20/2015 Cardiovascular No exercise intolerance 10/20/2015 Cardiovascular No orthopnea 10/20/2015 Cardiovascular No palpitations 10/20/2015 Respiratory No asthma Respiratory No cough Respiratory No dyspnea 0 10/20/2015 Respiratory No pleuritic pain 10/20/2015 Respiratory No productive sputum 10/20/2015 Respiratory No wheezing 10/20/2015 Gastrointestinal No hemorrhoids 10/20/2015 Gastrointestinal No hepatitis 10/20/2015 Gastrointestinal No abdominal pain 10/20/2015 Gastrointestinal No constipation 10/20/2015 Gastrointestinal No diarrhea 10/20/2015 Gastrointestinal No gastroesophageal reflu x 10/20/2015 Gastrointestinal No melena 10/20/2015 Gastrointestinal No nausea 10/20/2015 Gastrointestinal No vomiting 10/20/2015 Genitourinary/Nephrology No dysuria 10/20/2015 Genitourinary/Nephrology No nocturia 10/20/2015 Genitourinary/Nephrology No urinary incontinence 10/20/2015 Musculoskeletal low back pain 10/20/2015 Musculoskeletal joint complaint 10/20/2015 Dermatologic No rash Neurologic No dizziness 10/20/2015 Neurologic No headache 0 10/20/2015 Neurologic No neck pain 10/20/2015 Neurologic No syncope Psychiatric No anxiety 0 10/20/2015 Psychiatric No depression 10/20/2015 Endocrine No goiter 09/29 Endocrine No hyperglycemia 10/20/2015 Endocrine No hypoglycemia 10/20/2015 Hematologic/Lymphatic No abnormal ec chymoses 10/20/2015 Hematologic/Lymphatic No petechiae 10/20/2015 Hematologic/Lymphatic No abnormal bl eeding and bruising 10/20/2015 Hematologic/Lymphatic No anemia 10/20/2015 Hematologic/Lymphatic No lymph node enlargement/mass 10/20/2015 Allergy/Immunology No food allergy 10/20/2015 Respiratory apneic events 05/24/2014 Constitutional No fever 05/24/2014 Constitutional No night sweats 05/24/2014 Constitutional No recent illness 05/24/2014 Constitutional No fatigue 05/24/2014 Constitutional No insomnia 05/24/2014 Eyes No eye pain 014 Ears/Nose/Throat/Neck No hearing loss 05/24/2014 Ears/Nose/Throat/Neck No nasal discharge 05/24/2014 Ears/Nose/Throat/Neck No sinus congestion 05/24/2014 Ears/Nose/Throat/Neck No sore throat 05/24/2014 Cardiovascular No arrhythmia 05/24/2014 Cardiovascular No chest pain/pressure 05/24/2014 Cardiovascular No edema 05/24/2014 Gastrointestinal gas and bloating 05/24/2014 Gastrointestinal gastroesophageal reflux 05/24/2014 Gastrointestinal No diarrhea 05/24/2014 Gastrointestinal No constipation 05/24/2014 Gastrointestinal No nausea 05/24/2014 Gastrointestinal No abdominal pain 05/24/2014 Respiratory No dyspnea 1 07/24/2013 Respiratory No nocturnal cough 05/24/2014 Respiratory No wheezing 05/24/2014 Cardiovascular No palpitations 05/24/2014 Musculoskeletal No stiffness 05/24/2014 Musculoskeletal No muscle weakness 05/24/2014 Genitourinary/Nephrology No dysuria 05/24/2014 Genitourinary/Nephrology No urinary incontinence 05/24/2014 Psychiatric No anxiety 1 07/24/2013 Psychiatric No depression 05/24/2014 Dermatologic No rash Endocrine No obesity Neurologic No dizziness 05/24/2014 Neurologic No headache 1 07/24/2013 Neurologic No neck pain 05/24/2014 Neurologic No syncope Physical Exam Exam Name System Name It em Name Status Result Effective Dates Notes Full Exam - General Constitutional general appearance Overall: well nourished 12/15/2018 None Full Exam - General Constitutional general appearance Overall: well developed 12/15/2018 None Full Exam - General Constitutional general appearance Overall: in no acute distress 12/15/2018 None Full Exam - General Neurologic mental status Overall: alert 9 None Full Exam - General Neurologic mental status Overall: oriented 12/15/2018 None Full Exam - General Psychiatric mood and affect Overall: normal mood and affect 12/15/2018 None Full Exam - General Respiratory auscultation Overall: breath sounds clear bilater ally 12/15/2018 None Full Exam - General Cardiovascular auscultation of heart Overall: regular rate 12/15/2018 None Full Exam - General Cardiovascular auscultation of heart Overall: normal heart sounds 12/15/2018 None Full Exam - General Cardiovascular auscultation of heart Overall: no murmurs 12/15/2018 None Full Exam - General Constitutional general appearance Overall: well nourished 11/12/2018 None Full Exam - General Constitutional general appearance Overall: well developed 11/12/2018 None Full Exam - General Constitutional general appearance Overall: in no acute distress 11/12/2018 None Full Exam - General Respiratory auscultation Overall: breath sounds clear bilater ally 11/12/2018 None Full Exam - General Cardiovascular auscultation of heart Overall: regular rate 11/12/2018 None Full Exam - General Cardiovascular auscultation of heart Overall: normal heart sounds 11/12/2018 None Full Exam - General Cardiovascular auscultation of heart Overall: no murmurs 11/12/2018 None Full Exam - General Abdomen abdominal exam Overall: no masses 11/12/2018 None Full Exam - General Abdomen abdominal exam Overall: no tenderness 11/12/2018 None Full Exam - General Abdomen abdominal exam Overall: normal bowel sounds 11/12/2018 None Full Exam - General Abdomen abdominal exam Overall: soft 11/12/2018 None Full Exam - General Neurologic mental status Overall: alert 9 None Full Exam - General Neurologic mental status Overall: oriented 11/12/2018 None Full Exam - General Psychiatric mood and affect Overall: normal mood and affect 11/12/2018 None Full Exam - General Integument inspection of skin Location: right arm 11/12/2018 upper arm with fine erythemic rash Full Exam - General Constitutional general appearance Overall: well nourished 11/09/2018 None Full Exam - General Constitutional general appearance Overall: well developed 11/09/2018 None Full Exam - General Constitutional general appearance Overall: in no acute distress 11/09/2018 None Full Exam - General Eyes conjunctiva/eyelids Overall: conjunctiva clear 11/09/2018 None Full Exam - General Eyes conjunctiva/eyelids Overall: cornea clear 11/09/2018 None Full Exam - General Eyes conjunctiva/eyelids Overall: eyelids normal 11/09/2018 None Full Exam - General Eyes pupils and irises Overall: pupils equal, round, reacti ve to light and accomodation 11/09/2018 None Full Exam - General Ears/Nose/Throat otoscopic exam Overall: external auditory canals clear 11/09/2018 None Full Exam - General Ears/Nose/Throat otoscopic exam Overall: tympanic membranes clear 11/09/2018 None Full Exam - General Ears/Nose/Throat oral cavity/pharynx/larynx Overall: oral mucosa clear 11/09/2018 None Full Exam - General Neck thyroid Overall: normal size None Full Exam - General Neck thyroid Overall: normal consistency 11/09/2018 None Full Exam - General Neck thyroid Overall: nontender 11/09 None Full Exam - General Neck inspection of neck Overall: normal size 11/09/2018 None Full Exam - General Neck inspection of neck Overall: normal appearance 11/09/2018 None Full Exam - General Respiratory auscultation Overall: breath sounds clear bilater ally 11/09/2018 None Full Exam - General Respiratory respiratory effort/rhythm Overall: no retractions 11/09/2018 None Full Exam - General Respiratory respiratory effort/rhythm Overall: normal rate 11/09/2018 None Full Exam - General Cardiovascular auscultation of heart Overall: regular rate 11/09/2018 None Full Exam - General Cardiovascular auscultation of heart Overall: normal heart sounds 11/09/2018 None Full Exam - General Cardiovascular auscultation of heart Rhythm: irregular rhythm 11/09/2018 None Full Exam - General Cardiovascular auscultation of heart Rate: regular rate 11/09/2018 None Full Exam - General Cardiovascular auscultation of heart Murmur: no murmur 11/09/2018 None Full Exam - General Cardiovascular extremities Overall: No edema 11/09/2018 None Full Exam - General Cardiovascular extremities Overall: No cyanosis 11/09/2018 None Full Exam - General Abdomen abdominal exam Overall: no tenderness 11/09/2018 None Full Exam - General Abdomen abdominal exam Overall: soft 11/09/2018 None Full Exam - General Abdomen abdominal exam Overall: no masses 11/09/2018 None Full Exam - General Abdomen abdominal exam Overall: normal bowel sounds 11/09/2018 None Full Exam - General Lymphatic neck nodes Overall: anterior cervical chain herb ign 11/09/2018 None Full Exam - General Lymphatic neck nodes Overall: posterior cervical chain be nign 11/09/2018 None Full Exam - General Musculoskeletal head and neck Overall: head atraumatic 11/09/2018 None Full Exam - General Musculoskeletal head and neck Overall: cervical spine benign 11/09/2018 None Full Exam - General Musculoskeletal gait and station Overall: normal gait 11/09/2018 None Full Exam - General Musculoskeletal gait and station Overall: normal station 11/09/2018 None Full Exam - General Integument inspection of skin Dermatitis: erythema 11/09/2018 maculopapular rash noted on upper extrem ities Full Exam - General Neurologic mental status Overall: alert 9 None Full Exam - General Neurologic mental status Overall: oriented 11/09/2018 None Full Exam - General Neurologic cranial nerves Visual field: a normal exam 11/09/2018 None Full Exam - General Neurologic cranial nerves Left visual field: a normal exam 11/09/2018 None Full Exam - General Neurologic cranial nerves Right visual field: a normal exam 11/09/2018 None Full Exam - General Neurologic cranial nerves Pupillary size: Pupils equal 11/09/2018 None Full Exam - General Neurologic cranial nerves Pupillary reactivity: equally reactive 11/09/2018 None Full Exam - General Neurologic cranial nerves CN3,4,6: extraocular movements intac t 11/09/2018 None Full Exam - General Neurologic cranial nerves CN7: a normal exam 11/09/2018 None Full Exam - General Neurologic cranial nerves CN8: left hearing normal 11/09/2018 None Full Exam - General Neurologic cranial nerves CN8: right hearing normal 11/09/2018 None Full Exam - General Neurologic cranial nerves CN9/10: palate elevation symmetric 11/09/2018 None Full Exam - General Neurologic cranial nerves CN11: left shoulder shrug normal 11/09/2018 None Full Exam - General Neurologic cranial nerves CN11: right shoulder shrug normal 11/09/2018 None Full Exam - General Neurologic cranial nerves CN12: a normal exam 11/09/2018 None Full Exam - General Neurologic gait Overall: no ataxia, no unsteadiness 11/09/2018 None Full Exam - General Neurologic motor Overall: normal bulk, tone 11/09/2018 None Full Exam - General Psychiatric orientation/consciousness Overall: oriented to person, place and time 11/09/2018 None Full Exam - General Psychiatric mood and affect Overall: normal mood and affect 11/09/2018 None Full Exam - General Psychiatric thought Overall: normal form and content 11/09/2018 None Full Exam - General Psychiatric judgment/insight Overall: judgment and insight intact 11/09/2018 None Full Exam - General Constitutional general appearance Overall: well nourished 01/29/2018 None Full Exam - General Constitutional general appearance Overall: in no acute distress 01/29/2018 None Full Exam - General Cardiovascular auscultation of heart Overall: regular rate 01/29/2018 None Full Exam - General Cardiovascular auscultation of heart Overall: no murmurs 01/29/2018 None Full Exam - General Cardiovascular inspection of carotid pulses Overall: strong, bilaterally equal, no bruits 01/29/2018 None Full Exam - General Respiratory percussion Overall: benign percussion 01/29/2018 None Full Exam - General Respiratory respiratory effort/rhythm Overall: no retractions 01/29/2018 None Full Exam - General Respiratory respiratory effort/rhythm Overall: normal rate 01/29/2018 None Full Exam - General Respiratory auscultation Overall: breath sounds clear bilater ally 01/29/2018 None Full Exam - General Abdomen abdominal exam Overall: no tenderness 01/29/2018 None Full Exam - General Abdomen abdominal exam Overall: soft 01/29/2018 None Full Exam - General Abdomen abdominal exam Overall: no masses 01/29/2018 None Full Exam - General Abdomen abdominal exam Overall: normal bowel sounds 01/29/2018 None Full Exam - General Musculoskeletal left lower extremity Inspection - left knee: a normal exam 01/29/2018 None Full Exam - General Musculoskeletal left lower extremity Palpation - left knee: prepatellar tenderness 01/29/2018 None Full Exam - General Musculoskeletal left lower extremity ROM - left knee: pain with extension 01/29/2018 None Full Exam - General Musculoskeletal left lower extremity Stability - left knee: a normal exam 01/29/2018 None Full Exam - General Musculoskeletal left lower extremity Inspection - left foot: a normal exam 01/29/2018 None Full Exam - General Musculoskeletal left lower extremity ROM - left foot: a normal exam 01/29/2018 None Full Exam - General Musculoskeletal left lower extremity Stability - left foot: a normal exam 01/29/2018 None Full Exam - General Neurologic mental status Overall: alert 8 None Full Exam - General Neurologic mental status Overall: oriented 01/29/2018 None Full Exam - General Constitutional general appearance Overall: well nourished 12/09/2017 None Full Exam - General Constitutional general appearance Overall: well developed 12/09/2017 None Full Exam - General Constitutional general appearance Overall: in no acute distress 12/09/2017 None Full Exam - General Neurologic mental status Overall: alert 8 None Full Exam - General Neurologic mental status Overall: oriented 12/09/2017 None Full Exam - General Psychiatric mood and affect Overall: normal mood and affect 12/09/2017 None Full Exam - General Respiratory auscultation Overall: breath sounds clear bilater ally 12/09/2017 None Full Exam - General Cardiovascular auscultation of heart Overall: regular rate 12/09/2017 None Full Exam - General Cardiovascular auscultation of heart Overall: normal heart sounds 12/09/2017 None Full Exam - General Cardiovascular extremities Overall: no clubbing 12/09/2017 None Full Exam - General Cardiovascular extremities Overall: No cyanosis 12/09/2017 None Full Exam - General Abdomen abdominal exam Overall: no masses 12/09/2017 None Full Exam - General Abdomen abdominal exam Overall: no tenderness 12/09/2017 None Full Exam - General Abdomen abdominal exam Overall: normal bowel sounds 12/09/2017 None Full Exam - General Abdomen abdominal exam Overall: soft 12/09/2017 None Full Exam - General Neck inspection of neck Overall: normal size 12/09/2017 None Full Exam - General Neck inspection of neck Overall: no masses 12/09/2017 None Full Exam - General Ears/Nose/Throat otoscopic exam Overall: external auditory canals clear 12/09/2017 None Full Exam - General Ears/Nose/Throat otoscopic exam Overall: tympanic membranes clear 12/09/2017 None Full Exam - General Ears/Nose/Throat internal nose Overall: bilateral nasal cavities clear 12/09/2017 None Full Exam - General Ears/Nose/Throat oral cavity/pharynx/larynx Overall: oral mucosa clear 12/09/2017 None Full Exam - General Musculoskeletal gait and station Gait: antalgic 12/09/2017 None Full Exam - General Musculoskeletal right lower extremity ROM - right knee: crepitus 12/09/2017 None Full Exam - General Musculoskeletal left lower extremity Palpation - left knee: crepitus 12/09/2017 None Full Exam - General Musculoskeletal right upper extremity Palpation - right metacarpales: tenderness over the first metacarpale 12/09/2017 with crepitus Full Exam - General Musculoskeletal left upper extremity Palpation - left metacarpales: tenderness over the first metacarpale 12/09/2017 with crepitus Full Exam - General Cardiovascular extremities Edema present: non-pitting 12/09/2017 of right arm Full Exam - General Constitutional general appearance Overall: well nourished 10/20/2015 None Full Exam - General Constitutional general appearance Overall: well developed 10/20/2015 None Full Exam - General Constitutional general appearance Overall: in no acute distress 10/20/2015 None Full Exam - General Eyes pupils and irises Overall: pupils equal, round, reacti ve to light and accomodation 10/20/2015 None Full Exam - General Ears/Nose/Throat external ear Overall: normal appearance 10/20/2015 None Full Exam - General Ears/Nose/Throat external nose Overall: benign appearance 10/20/2015 None Full Exam - General Ears/Nose/Throat lips/teeth/gingiva Overall: benign lips 10/20/2015 None Full Exam - General Ears/Nose/Throat lips/teeth/gingiva Overall: normal dentition 10/20/2015 None Full Exam - General Ears/Nose/Throat oral cavity/pharynx/larynx Overall: oral mucosa clear 10/20/2015 None Full Exam - General Ears/Nose/Throat oral cavity/pharynx/larynx Overall: oropharyngeal mucosa clear 10/20/2015 None Full Exam - General Respiratory auscultation Overall: breath sounds clear bilater ally 10/20/2015 None Full Exam - General Respiratory respiratory effort/rhythm Overall: no retractions 10/20/2015 None Full Exam - General Respiratory respiratory effort/rhythm Overall: normal rate 10/20/2015 None Full Exam - General Cardiovascular auscultation of heart Overall: regular rate 10/20/2015 None Full Exam - General Cardiovascular auscultation of heart Overall: normal heart sounds 10/20/2015 None Full Exam - General Cardiovascular extremities Overall: no clubbing 10/20/2015 None Full Exam - General Cardiovascular extremities Overall: No edema 10/20/2015 None Full Exam - General Cardiovascular extremities Overall: No cyanosis 10/20/2015 None Full Exam - General Abdomen abdominal exam Overall: no tenderness 10/20/2015 None Full Exam - General Abdomen abdominal exam Overall: soft 10/20/2015 None Full Exam - General Abdomen abdominal exam Overall: no masses 10/20/2015 None Full Exam - General Abdomen abdominal exam Overall: normal bowel sounds 10/20/2015 None Full Exam - General Abdomen liver and spleen exam Overall: no hepatosplenomegaly 10/20/2015 None Full Exam - General Cardiovascular inspection of carotid pulses Overall: strong, bilaterally equal, no bruits 10/20/2015 None Full Exam - General Lymphatic neck nodes Overall: anterior cervical chain herb ign 10/20/2015 None Full Exam - General Lymphatic neck nodes Overall: posterior cervical chain be nign 10/20/2015 None Full Exam - General Integument inspection of skin Overall: no rash, lesions 10/20/2015 None Full Exam - General Musculoskeletal spine, ribs and pelvis Overall: good posture 10/20/2015 None Full Exam - General Musculoskeletal spine, ribs and pelvis Overall: spine benign 10/20/2015 None Full Exam - General Psychiatric mood and affect Overall: normal mood and affect 10/20/2015 None Full Exam - General Abdomen abdominal exam Overall: no tenderness 05/24/2014 None Full Exam - General Abdomen abdominal exam Overall: soft 05/24/2014 None Full Exam - General Abdomen abdominal exam Overall: no masses 05/24/2014 None Full Exam - General Abdomen abdominal exam Overall: normal bowel sounds 05/24/2014 None Full Exam - General Constitutional general appearance Overall: well nourished 05/24/2014 None Full Exam - General Constitutional general appearance Overall: well developed 05/24/2014 None Full Exam - General Constitutional general appearance Overall: in no acute distress 05/24/2014 None Full Exam - General Eyes pupils and irises Overall: pupils equal, round, reacti ve to light and accomodation 05/24/2014 None Full Exam - General Ears/Nose/Throat otoscopic exam Overall: tympanic membranes clear 05/24/2014 None Full Exam - General Ears/Nose/Throat internal nose Septum: deviated 05/24/2014 None Full Exam - General Ears/Nose/Throat internal nose Left nasal cavity: narrowed 05/24/2014 None Full Exam - General Ears/Nose/Throat oral cavity/pharynx/larynx Overall: oral mucosa clear 05/24/2014 None Full Exam - General Musculoskeletal gait and station Overall: normal gait 05/24/2014 None Full Exam - General Musculoskeletal gait and station Overall: normal station 05/24/2014 None Full Exam - General Psychiatric orientation/consciousness Overall: oriented to person, place and time 05/24/2014 None Full Exam - General Integument inspection of skin Overall: no rash, lesions 05/24/2014 None Full Exam - General Cardiovascular auscultation of heart Overall: normal heart sounds 05/24/2014 None Full Exam - General Cardiovascular auscultation of heart Overall: no murmurs 05/24/2014 None Full Exam - General Cardiovascular auscultation of heart Overall: regular rate 05/24/2014 None Full Exam - General Respiratory auscultation Overall: breath sounds clear bilater ally 05/24/2014 None Full Exam - General Neurologic mental status Overall: alert 4 None Full Exam - General Neurologic mental status Overall: oriented 05/24/2014 None Procedures Procedure Codes Date ROUTINE VENIPUNCTURE CPT-4: 14271 11/10/2018 LIPID PANEL CPT-4: 76890 11/10/2018 ROUTINE VENIPUNCTURE CPT-4: 71662 12/26/2017 ASSAY THYROID STIM H ORMONE CPT-4: 71491 12/26/2017 COMPREHEN METABOLIC PANEL CPT-4: 80396 12/26/2017 COMPLETE CBC W/AUTO DIFF WBC CPT-4: 29374 12/26/2017 LIPID PANEL CPT-4: 11033 12/26/2017 ASSAY OF PSA TOTAL CPT- 4: 98613 12/26/2017 ROUTINE VENIPUNCTURE CPT-4: 12388 12/29/2015 ASSAY OF FREE THYROXINE CPT-4: 75629 12/29/2015 ASSAY THYROID STIM H ORMONE CPT-4: 94400 12/29/2015 COMPREHEN METABOLIC PANEL CPT-4: 44500 12/29/2015 COMPLETE CBC W/AUTO DIFF WBC CPT-4: 73383 12/29/2015 LIPID PANEL CPT-4: 00164 12/29/2015 ASSAY OF PSA TOTAL CPT- 4: 21029 12/29/2015 TDAP VACCINE 7 YRS/> IM CPT-4: 77562 10/20/2015 IMMUNIZATION ADMIN CPT- 4: 10784 10/20/2015 ROUTINE VENIPUNCTURE CPT-4: 68529 06/03/2014 ASSAY OF FREE THYROXINE CPT-4: 08676 06/03/2014 ASSAY THYROID STIM H ORMONE CPT-4: 62180 06/03/2014 COMPREHEN METABOLIC PANEL CPT-4: 38040 06/03/2014 COMPLETE CBC W/AUTO DIFF WBC CPT-4: 48193 06/03/2014 LIPID PANEL CPT-4: 90637 06/03/2014 ASSAY OF PSA TOTAL CPT- 4: 19669 06/03/2014 Vital Signs Date Vital 12/15/2018 Blood Pressure 1: 126/82 Code: 8480-6 Heart Rate 1: 72 bpm Respiratory Rate: 18 bpm SpO2: 96% Temperature: 36.8 (C ) / 98.2 (F) Weight: 232 lbs 11/12/2018 Blood Pressure 1: 126/78 Code: 8480-6 Heart Rate 1: 76 bpm Respiratory Rate: 20 bpm SpO2: 97% Temperature: 36.8 (C ) / 98.2 (F) 11/09/2018 Blood Pressure 1: 116/88 Code: 8480-6 Heart Rate 1: 86 bpm Respiratory Rate: 20 bpm SpO2: 96% Temperature: 36.8 (C ) / 98.3 (F) Weight: 234 lbs 01/29/2018 Blood Pressure 1: 126/80 Code: 8480-6 BMI: 32.8 Code: 47608-8 Heart Rate 1: 82 bpm Height: 6' Respiratory Rate: 20 bpm SpO2: 96% Temperature: 36.8 (C ) / 98.2 (F) Weight: 242 lbs 12/26/2017 Blood Pressure 1: 114/64 Code: 8480-6 Heart Rate 1: 66 bpm 12/09/2017 Blood Pressure 1: 144/96 Code: 8480-6 BMI: 33.1 Code: 12817-2 Heart Rate 1: 72 bpm Height: 6' Respiratory Rate: 20 bpm Temperature: 36.9 (C ) / 98.4 (F) Weight: 244 lbs 12/29/2015 Blood Pressure 1: 132/86 Code: 8480-6 Heart Rate 1: 72 bpm 10/20/2015 Blood Pressure 1: 142/94 Code: 8480-6 BMI: 32.8 Code: 68280-4 Heart Rate 1: 72 bpm Height: 6' Respiratory Rate: 20 bpm SpO2: 96% Temperature: 36.7 (C ) / 98.1 (F) Weight: 242 lbs 05/24/2014 Blood Pressure 1: 138/90 Code: 8480-6 BMI: 31.3 Code: 73677-3 Heart Rate 1: 80 bpm Height: 6' Respiratory Rate: 20 bpm Temperature: 36.7 (C ) / 98.0 (F) Weight: 231 lbs Functional Status No Functional Status data History of Present Illness Symptom Name Status Resu lt Effective Date Notes Quality improving 12/15/2018 None Labs TOTAL CHOL;209 11/12/2018 None Labs TG;210 11/12/2018 None Labs LDL;135 11/12/2018 None Labs HDL: 32 11/12/2018 None Labs RATIO; 6.53 11/12/2018 None Quality chronic 11/12/2018 None Quality decreased HDL 11/12/2018 None Quality increased chol esterol 11/12/2018 None Quality increased TG 11/12/2018 None Location diffusely 11/12/2018 None Onset and Resolution o ngoing 11/12/2018 None Quality acute. 11/12/2018 Discuss recent EKG Quality irregular beats 11/12/2018 None Quality stable 11/12/2018 None Location-Major on the upper body 11/12/2018 None Quality improving 11/12/2018 None Color pink 11/12/2018 None Onset and Resolution o ngoing 11/12/2018 None Onset of Symptom 5 day s ago 11/09/2018 None Quality acute 11/09/2018 None Onset of Symptom 5 day s ago 11/09/2018 None hypertension Quality acu te 01/29/2018 None hypertension Quality delvis bartolome hypertension 01/29/2018 None hypertension Quality sta ble 01/29/2018 None arthritis Alleviating Factors NSAID's 01/29/2018 None arthritis Location on th e right 01/29/2018 None arthritis Location on th e left 01/29/2018 bilateral feet and knees arthritis Onset and Resolution ongoing 01/29/2018 None knee pain Location on th e left 12/09/2017 None knee pain Location on th e right 12/09/2017 None knee pain Quality chronic 12/09/2017 None knee pain Quality consta nt 12/09/2017 None knee pain Quality dull p ain 12/09/2017 None back pain Location in th e midline of in the lower back area 12/09/2017 None back pain Quality discom fort 12/09/2017 None back pain Onset and Resolution ongoing 12/09/2017 None gastroesophageal reflux Quality regurgitation of acid 12/09/2017 None gastroesophageal reflux Quality chronic 12/09/2017 Patient would like script for nexium to pharmacy instead of buying OTC thumb and hand pain Location in the left thumb 12/09/2017 None thumb and hand pain Location in the right thumb 12/09/2017 None edema Location on the ri ght arm 12/09/2017 states had mastectom y on that side years ago knee pain Location on pam th knees 10/20/2015 None knee pain Quality aching 10/20/2015 None back pain Location low b ack 10/20/2015 None back pain Quality aching 10/20/2015 None back pain Quality popping 10/20/2015 None sleep apnea-obstruction Quality chronic 10/20/2015 None sleep apnea-obstruction Quality stable. 10/20/2015 Patient currently using B IPAP machine and benefiting from it well man exam (40-65 years) Lifestyle no history of physical abuse 10/20/2015 None well man exam (40-65 years) Lifestyle no history of sexual abuse 10/20/2015 None well man exam (40-65 years) Lifestyle no history of verbal abuse 10/20/2015 None well man exam (40-65 years) Lifestyle regular seatbelt use 10/20/2015 None well man exam (40-65 years) Lifestyle satisfactory work experience 10/20/2015 None well man exam (40-65 years) Lifestyle normal sleep patterns 10/20/2015 None well man exam (40-65 years) Lifestyle normal amount of stress 10/20/2015 None well man exam (40-65 years) Sexual Activit y is sexually active 10/20/2015 None well man exam (40-65 years) Sexual Activit y experiences sexual satisfaction 10/20/2015 None well man exam (40-65 years) Sexual Activit y is monogamous 10/20/2015 None well man exam (40-65 years) Control S/P vasectomy 10/20/2015 None well man exam (40-65 years) Nutritio n and Exercise overweight 10/20/2015 No ne well man exam (40-65 years) Nutritio n and Exercise regular diet 10/20/2015 None well man exam (40-65 years) Nutritio n and Exercise minimal exercise 10/20/2015 None well man exam (40-65 years) Health Guidanc e regular exercise 10/20/2015 None well man exam (40-65 years) Health Guidanc e tobacco, drugs and alcohol avoidance 10/20/2015 None well man exam (40-65 years) Health Guidanc e colonoscopy/sigmoidoscopy 10/20/2015 None well man exam (40-65 years) Health Guidanc e cholesterol level and lipid panel 10/20/2015 None sleep apnea-obstruction Quality chronic 05/24/2014 None sleep apnea-obstruction Onset and Re solution ongoing 05/24/2014 None sleep apnea-obstruction Quality stable 05/24/2014 None gastroesophageal reflux Quality heartburn 05/24/2014 None gastroesophageal reflux Onset and Re solution ongoing 05/24/2014 None gastroesophageal reflux Onset of Symptom during adulthood 05/24/2014 None Advance Directives No Advance Directive data Encounters Encounter Performer Loca tion Codes Date ([id number]) OFFICE/OUTPA TIENT VISIT EST Diagnosis: Essential (primary) hypertension[ICD10: I10] Diagnosis: Cardiac arrhythmia, unspecified[ICD10: I49.9] Diagnosis: Other fatigue[ICD10: R53.83] Didi ARAIZA [facility] CPT-4: 65849 12/15/2018 OFFICE/OUTPATIENT SIT EST Diagnosis: Cardiac arrhythmia, unspecified[ICD10: I49.9] Diagnosis: Bitten or stung by nonvenomous insect and other nonvenomous arthropods, initial encounter[ICD10: W57.XXXA] Diagnosis: Abnormal levels of other serum enzymes[ICD10: R74.8] Diagnosis: Mixed hyperlipidemia[ICD10: E78.2] Didi ROSE [facility] CPT-4: 35773 11/12/2018 ([id number]) NURSE/OUTPAT IENT VISIT EST Diagnosis: Essential (primary) hypertension[ICD10: I10] Diagnosis: Mixed hyperlipidemia[ICD10: E78.2] Didi SEQUEIRA [facility] CPT-4: 32501 11/10/2018 OFFICE/OUTPATIENT SIT EST Diagnosis: Other fatigue[ICD10: R53.83] Diagnosis: Headache[ICD10: R51] Diagnosis: Fever, unspecified[ICD10: R50.9] Diagnosis: Rash and other nonspecific skin eruption[ICD10: R21] Diagnosis: Dyspnea, unspecified[ICD10: R06.00] Diagnosis: Cardiac arrhythmia, unspecified[ICD10: I49.9] [facility] 23162 11/09/2018 ([id number]) OFFICE/OUTPA TIENT VISIT EST Diagnosis: Essential (primary) hypertension[ICD10: I10] Diagnosis: Gastro-esophageal reflux disease without esophagitis[ICD10: K21.9] Diagnosis: Pain in left knee[ICD10: M25.562] Diagnosis: Pain in left foot[ICD10: M79.672] Kait GUTIÉRREZ [facility] CPT-4: 50322 01/29/2018 ([id number]) NURSE/OUTPAT IENT VISIT EST Diagnosis: Encounter for general adult medical examination without abnormal findings[ICD10: Z00.00] Diagnosis: Mixed hyperlipidemia[ICD10: E78.2] Diagnosis: Essential (primary) hypertension[ICD10: I10] Didi JACKSON Mikey ROSE [facility] CPT-4: 24251 12/26/2017 ([id number]) OFFICE/OUTPA TIENT VISIT EST Diagnosis: Essential (primary) hypertension[ICD10: I10] Diagnosis: Gastro-esophageal reflux disease without esophagitis[ICD10: K21.9] Diagnosis: Bilateral primary osteoarthritis of knee[ICD10: M17.0] Diagnosis: Bilateral primary osteoarthritis of first carpometacarpal joints[ICD10: M18.0] Diagnosis: Obstructive sleep apnea (adult) (pediatric)[ICD10: G47.33] Diagnosis: Lymphedema, not elsewhere classified[ICD10: I89.0] Didi PRESSLEYLINE Mikey ROSE [facility] CPT-4: 87552 12/09/2017 ([id number]) OFFICE/OUTPA TIENT VISIT EST Diagnosis: Encounter for general adult medical examination without abnormal findings[ICD10: Z00.00] Diagnosis: Elevated blood-pressure reading, without diagnosis of hypertension[ICD10: R03.0] Didi Cristialexajocelin DIDI RosiJacquelin [facility] CPT-4: 25635 12/29/2015 ([id number]) PREV VISIT E ST AGE 40-64 Diagnosis: Encounter for general adult [...] Z71.6] Diagnosis: VACCINE FOR TDAP[ICD10: Z23] Jocelyn JACKSON RosiJacquelin [facility] CPT-4: 30177 10/20/2015 ([id number]) OFFICE/OUTPA TIENT VISIT EST Diagnosis: ROUTINE MEDICAL EXAM[ICD9: V70.0] Didi SEQUEIRA [facility] CPT-4: 77448 06/03/2014 OFFICE/OUTPATIENT SIT NEW Diagnosis: GERD[ICD9: 530.81] Diagnosis: OBSTRUCTIVE SLEEP APNEA[ICD9: 327.23] Negra Mejia [facility] CPT-4: 80758 05/24/2014 Plan of Care Planned Activity Notes C odes Status Date Visit Diagnosis Plan: Other fatigue Discussion: Add men's MV ICD-9 : 780.79 ICD-10 : R53.83 12/15/2018 Visit Diagnosis Plan: Essential (primary) hypertension Discussion: Stable ICD-9 : 401.9 ICD-10 : I10 12/15/2018 Visit Diagnosis Plan: Cardiac arrhythmia, unspecified Discussion: Exercise Stress Test Fwup pending results ICD-9 : 427.9 ICD-10 : I49.9 12/15/2018 Appointment: Didi Araiza WPtel: [address] [place], [place] [phone] [place] FOLLOW UP 12/15/2018 Visit Diagnosis Plan: [...] R74.8 11/12/2018 Appointment: Didi Araiza WPtel: [phone] [facility] FOLLOW UP 11/12/2018 Patient Education: doxycycline hyclate- [employer] Coupon [id number] [email or web address] Completed 11/12/2018 Appointment: Did[phone] [id number] 11/10/2018 Visit Diagnosis Plan: Other fatigue Discussion: Labs- CBC, CMP, TSH, ESR, troponin, flu swab- liver enzymes elevated (AST 58, ALT 128). Will repeat CMP in 6 weeks. Treating for viral illness. Continue course of doxycycline to cover for tick born illness. ICD-9 : 780.79 ICD-10 : R53.83 11/09/2018 Visit Diagnosis Plan: Rash and other non specific skin eruption Discussion: Will draw tick panel in 3 we eks. Had tick attached last week. Continue course [...] ICD-10 : R06.00 11/09/2018 Appointment: Brooklyn Dinh [address] [place], [place] [id number] ACUTE ILLNESS 11/09/2018 Visit Diagnosis Plan: Essential (primary) hypertension Discussion: stable, continue with current medications. call or rtc with new or worsening symptoms. ICD-9 : 401.9 ICD-10 : I10 01/29/2018 Visit Diagnosis Plan: Pain in left foot Discussion: see plan for knee but instructed to wear ankle brace. ICD-9 : 729.5 ICD-10 : M79.672 01/29/2018 Visit Diagnosis Plan: Gastro-esophageal reflux disease without esophagitis Discussion: discussed with patient to ta ke protonix at night instead of am so he can have medication coverage through the am when he wakes up. discussed with patient that if that continues to not work and he's still symptomatic, then call office. ICD-9 : 530.81 ICD-10 : K21.9 01/29/2018 Visit Diagnosis Plan: Pain in left knee Discussion: medrol dose pack prescribed for patient for symptom management. patient unable to tolerated NSAIDS due to GERD. instructed to wear knee brace during day and off at night. elevate and apply ice often. if no improvement or worsening symptoms, call clinic. ICD-9 : 719.46 ICD-10 : M25.562 01/29/2018 Appointment: Kait Alas [address] FOLLOW UP 01/29/2018 Patient Education: Patient Medication Summary Completed 01/29/2018 Appointment: Didi Araiza WPtel: [phone] [facility] US LAB 12/26/2017 Patient Education: Patient Medication Summary Completed 12/26/2017 Visit Diagnosis Plan: Gastro-esophageal reflux disease without esophagitis Discussion: Protonix 40mg po BID for 1 m onth then 1 po daily Diet: GERD diet Follow Up: 6 weeks ICD-9 : 530.81 ICD-10 : K21.9 12/09/2017 Visit Diagnosis Plan: Essential (primary) hypertension Discussion: Low dose HCTZ 12.5mg po q AM BP check and fasting lab in 2 weeks ICD-9 : 401.9 ICD-10 : I10 12/09/2017 Visit Diagnosis Plan: Bilateral primary osteoarthritis of knee Discussion: Trial of Voltaren gel to kne es and thumbs Tylenol Arthritis prn ICD-9 : 715.96 ICD-10 : M17.0 12/09/2017 Visit Diagnosis Plan: Lymphedema, not elsewhere classi fied Discussion: Discussed compression sleeve for right arm ICD-9 : 457.1 ICD-10 : I89.0 12/09/2017 Visit Diagnosis Plan: Obstructive sleep apnea (adult) (pediatric) Discussion: Patient is compliant with CP AP use ICD-9 : 327.23 ICD-10 : G47.33 12/09/2017 Appointment: Didi Araiza WPtel: [phone] [facility] ACUTE ILLNESS 12/09/2017 Patient Education: Patient Medication Summary Completed 12/09/2017 Appointment: Kait Alas 504 [facility] RESCHEDULED 12/01/2017 Appointment: [phone] [facility] 12/29/2015 Patient Education: Patient Medication Summary Completed 12/29/2015 Visit Plan: Make appt with chiropra ctor to see if adjustment helps his back, [...] aid if need be Form requested from [facility] for new bipap 10/20/2015 Visit Plan: Make appt with chiropra ctor to see if adjustment helps his back, [...] aid if need be Form requested from [facility] for new bipap 10/20/2015 Visit Plan: Make appt with chiropra ctor to see if adjustment helps his back, [...] aid if need be Form requested from [facility] Patient for new bipap 10/20/2015 [phone] [facility]/18 confirmed~sl Annual Well Visit 10/20/2015 Patient Education: Patient Medication Summary Completed 10/20/2015 Appointment: Didi Araiza [facility]el: [phone] [facility] [facility] 06/03/2014 Patient Education: Patient Medication Summary Completed 06/03/2014 Visit Plan: Self Monitor BP and hawk p log Return for fasting labs CBC, CMP, TSH, Free T4, PSA, Lipid Panel Follow-up in 1 month. 05/24/2014 Appointment: Roberto Negra Liliana WPtel: [phone] [facility] [id number] NEW PATIENT 05/24/2014 Patient Education: Patient Medication Summary Completed 05/24/2014 Instructions Comment . Self Monitor BP an d keep log Return for fasting labs CBC, CMP, TSH, Free T4, PSA, Lipid Panel Follow-up in 1 month. . Make appt with chi ropractor to see if adjustment helps his back, [...] aid if need be Form requested from [facility] for new bipap . Make appt with chi ropractor to see if adjustment helps his back, [...] aid if need be Form requested from [facility] for new bipap . Make appt with hive01 ropractor to see if adjustment helps his back, [...] aid if need be Form requested from [facility] for new bipap
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
[2020-01-21] MEDS ORDERED: MIDAZOLAM 2 MG/2 ML (VERSED) VIAL ONE (11:21)
[2020-01-21] MEDS ORDERED: PROPOFOL INJECTION 0 ML IV ONE (11:21)
[2020-01-21] MEDS ORDERED: LIDOCAINE JELLY 2% 6 ML SYRINGE ONE (11:32)
[2020-01-21] MEDS ORDERED: HURRICAINE EXT TUBE (BENZOCAINE) ONE (11:32)
[2020-01-21] MEDS ORDERED: PROPOFOL INJECTION 50 ML IV ONE (11:36)
[2020-01-21] MEDS ORDERED: LIDOCAINE 1% INJ 20 ML 20 ML VIAL ONE (11:49)
[2020-01-21] MEDS ORDERED: LIDOCAINE 1% INJ 20 ML 20 ML VIAL INJ ONE (12:00)
[2020-01-21] MEDS ORDERED: proPOfol 200 MG/20 ML (DIPRIVAN) VIAL IV ONE (12:05)
[2020-01-21 12:15] VITALS: BP 112/72
[2020-01-21 12:20] VITALS: BP 104/55
--- NOTE | 2020-01-21 12:29 | Anesthesia-General Post-Op ---
MAC Patient Condition Mental Status/LOC: Same as Preop Cardiovascular: Satisfactory Nausea/Vomiting: Absent Respiratory: Satisfactory Pain: Controlled Complications: Absent Post Op Complications Complications None Follow Up Care/Instructions Patient Instructions None needed. Anesthesiology Discharge Order Discharge Order Patient is doing well, no complaints, stable vital signs, no apparent adverse anesthesia problems. No complications reported per nursing. VELIA MARTINS CRNA Jan 21, 2020 12:29
[2020-01-21] MEDS ORDERED: SUCR1TAB36 PO (12:45)
[2020-01-21 12:50] VITALS: BP 111/75
--- NOTE | 2020-01-21 12:59 | Progress Note-Post Operative ---
Post-Operative Progess Note Surgeon (s)/Rental Counter Clerk (s) Surgeon YOU ZAIDI MD Rental Counter Clerk: none Pre-Operative Diagnosis GERD, screening colo, scalp lesion Post-Operative Diagnosis reflux esophagitis(stage 2-3), moderate type 3 HH), moderate gastritis. chronic stage 2 ext and int hemorrhoids. posterior scalp lesion 1cm. Procedure & Operative Findings Date of Procedure 01/21/20 Procedure Performed/Findings EGD with bx. Colonoscopy with bx. excision scalp lesion with excised diameter 1.5cm. Anesthesia Type mac with local Estimated Blood Loss Estimated blood loss (mL): minimal Specimens/Packing Specimens Removed ge jxn, antrum, scalp lesion. YOU ZAIDI MD Jan 21, 2020 12:59
[2020-01-21 13:00] VITALS: BP 111/75
--- NOTE | 2020-01-21 20:50 | OPERATIVE REPORT ---
DATE OF SERVICE: 01/21/2020 ATTENDING PRIMARY CARE PHYSICIAN: Didi Araiza DO. PREOPERATIVE DIAGNOSES: Gastroesophageal reflux disease, screening colonoscopy and symptomatic posterior scalp lesion 1 cm in size. POSTOPERATIVE DIAGNOSES: Reflux esophagitis between stage II and III with clinical Person's esophagus, moderate size hiatal hernia 3 cm in size, mild to moderate gastritis, chronic stage II external and internal hemorrhoids and lesion of the scalp 1 cm in size with the excised diameter 1.5 cm. PROCEDURES PERFORMED: EGD with biopsy, colonoscopy and excision of scalp lesion 1.5 cm in size. SURGEON: You Ruano MD. ANESTHESIA: Monitored anesthesia care with local. ESTIMATED BLOOD LOSS: Minimal. FINDINGS: Same as postoperative diagnoses. DISPOSITION: The patient tolerated the procedure well. INDICATIONS FOR PROCEDURE: The patient is a 54-year-old female referred over to us for screening colonoscopy as well as gastroesophageal reflux disease. He reports that he does have epigastric burning sensation and crampy pain for some amount of time; however, this has worsened and he is currently on Protonix. He does have some risk factors including previous history of chewing tobacco as well as drinking approximately three beers daily. He also has a symptomatic lesion of the posterior scalp 1 cm in size, which has become red and pruritic. He does also have a history of melanoma of the mid chest. DESCRIPTION OF PROCEDURE: The patient was brought to the endoscopy suite and laid in the left lateral decubitus position. After adequate IV pain and sedative medications and monitored anesthesia care, the mouthpiece was applied. The endoscope was then placed into the mouth visualizing the pharynx and hypopharyngeal region. Vocal cords, epiglottis and vallecula identified and appeared to be normal. The endoscope was then gently intubated into the esophageal opening and the esophagus insufflated. The endoscope was then advanced through the first, second and third portion of the esophagus. At the level of GE junction, reflux esophagitis between stage II and III identified as well as intrathoracic GE junction with also what appeared to be clinical Person's esophagus. Biopsies were taken with the forceps with visualization of good hemostasis. The endoscope was then advanced into the stomach and endoscope retroflexed, visualizing a type 3 hiatal hernia, which was moderate in size, approximately 3 cm. There was a mild to moderate gastritis. No formal ulcerations, polyps or any neoplasms. A biopsy was taken with forceps with visualization of good hemostasis. The endoscope was then advanced to the pylorus and the first and second portion of the duodenum, which appeared normal with no distal obstructions. The endoscope was slowly withdrawn while taking a second look and suctioning of residual air with no additional findings. Under the same anesthesia, we then proceeded with the colonoscopy portion of the procedure. A digital rectal examination was performed, which revealed chronic stage II external and internal hemorrhoids with a slightly inflamed internal hemorrhoidal cushion most likely due to the colonic prep. The prostate gland was palpable and appeared more normal. The endoscope was then intubated and anus and rectum gently insufflated. The endoscope was then advanced to the valves of Maxwell of the rectum with no polyps or any neoplasms identified. Through the sigmoid colon, there were no diverticulosis identified. The endoscope was then advanced to the remainder of the descending, transverse and ascending colon to the cecum. These segments were normal. There were no polyps or any neoplasms identified throughout the colon or rectum. The endoscope was then slowly withdrawn with taking a second look and suctioning of residual air with no additional findings. The scalp was then prepped and draped in a standard surgical fashion. 1% lidocaine was then used to anesthetize the overlying skin. The lesion was then fully excised using a 15 blade in an elliptical shape, approximately 1.5 cm in diameter. Good hemostasis was observed using direct pressure and the scalp edges were then reapproximated using 3-0 nylon interrupted sutures. Good hemostasis was observed. The wound was then cleaned and covered with gauze. The patient tolerated the procedure well. For his reflux esophagitis and hiatal hernia as well as gastritis, we will recommend the necessary lifestyle and diet accommodation including small and more frequent meals, avoidance of eating at night as well as head elevation while lying supine. He also needs to avoid caffeinated beverages, spicy, greasy and acidic foods. We will also start him on Carafate one-gram q.i.d. If he continues to have significant symptoms despite maximal medical therapy, he may be a candidate for a hiatal hernia repair as well as an antireflux procedure; however, before doing this, we would proceed with proper testing, which would include an esophageal manometry study to rule out an esophageal dysmotility. For his colon, we will recommend a high fiber diet with at least 30 grams of fiber daily as well as significant amounts of water to promote soft stools on a daily basis. If he is asymptomatic, he does not need another colonoscopy for another 10 years. We will also have him follow up in office in one week to remove the sutures and discuss the pathology results of the scalp lesion. Job ID: [id number] DocumentID: [id number] Dictated Date: 01/21/2020 12:25:38 Roof Bolter Helper Date: 01/21/2020 20:49:51 Dictated By: YOU RUANO MD
== END 2020-01-21 13:00 | disposition home or self-care (01) ==
LOC: ENDO 09:38 → 4TH 09:38 → ENDO 13:00
PROVIDERS: ATTEND Surgery
DX: Z12.11 Encounter for screening for malignant neoplasm of colon (principal); L82.1 Other seborrheic keratosis; K22.70 Barrett's esophagus without dysplasia; K21.0 Gastro-esophageal reflux disease with esophagitis; K44.9 Diaphragmatic hernia without obstruction or gangrene; K29.70 Gastritis, unspecified, without bleeding; K64.1 Second degree hemorrhoids; I10 Essential (primary) hypertension; G47.33 Obstructive sleep apnea (adult) (pediatric); M06.9 Rheumatoid arthritis, unspecified; Z79.899 Other long term (current) drug therapy; Z88.0 Allergy status to penicillin; Z80.0 Family history of malignant neoplasm of digestive organs
CPT/HCPCS: 88305

== ENCOUNTER 2021-06-25 10:19 | Outpatient (CLI) | payer BC ==
[~2021-06-25] VITALS: Ht 182.9 cm; Wt 110.0 kg
[~2021-06-25 10:19] MED LIST changes: -PANT40TA3 PO; +PANT40TA52 PO; +SUCR1TAB36 PO; -TERB250T16 PO; +TERB250T88 PO
[2021-06-25 10:34] VITALS: BP 138/83
[2021-06-25 11:18] LABS: BASOPHILS % (AUTO) 1 % (0-10); EOSINOPHILS # (AUTO) 0.4 10^3/uL (0.0-0.3); EOSINOPHILS % (AUTO) 6 % (0-10); HEMATOCRIT 44 % (40-54); HEMOGLOBIN 15.1 g/dL (13.3-17.7); LYMPHOCYTES # (AUTO) 2.5 10^3/uL (1.0-4.0); LYMPHOCYTES % (AUTO) 39 % (12-44); MEAN CORPUSCULAR HEMOGLOBIN 31 pg (25-34); MEAN CORPUSCULAR HGB CONC 34 g/dL (32-36); MEAN CORPUSCULAR VOLUME 91 fL (80-99); MEAN PLATELET VOLUME 11.4 fL (9.0-12.2); MONOCYTES # (AUTO) 0.7 10^3/uL (0.0-1.0); MONOCYTES % (AUTO) 11 % (0-12); NEUTROPHILS # (AUTO) 2.7 10^3/uL (1.8-7.8); NEUTROPHILS % (AUTO) 43 % (42-75); PLATELET COUNT 264 10^3/uL (130-400); WHITE BLOOD COUNT 6.3 10^3/uL (4.3-11.0)
[2021-06-25 11:20] LABS: BILIRUBIN,URINE NEGATIVE (NEGATIVE); CLARITY,URINE CLEAR; COLOR,URINE YELLOW; GLUCOSE, URINE (UA) NEGATIVE (NEGATIVE); KETONES,URINE NEGATIVE (NEGATIVE); LEUKOCYTE ESTERASE ,URINE NEGATIVE (NEGATIVE); NITRITE,URINE NEGATIVE (NEGATIVE); PROTEIN,URINE NEGATIVE (NEGATIVE)
[2021-06-25 11:22] LABS: ALBUMIN 4.2 GM/DL (3.2-4.5)
[2021-06-25 11:23] LABS: POTASSIUM 3.7 MMOL/L (3.6-5.0)
[2021-06-25 11:24] LABS: CALCIUM 9.5 MG/DL (8.5-10.1)
[2021-06-25 11:27] LABS: BILIRUBIN,TOTAL 0.5 MG/DL (0.1-1.0); INR 0.9 (0.8-1.4); PROTHROMBIN TIME PATIENT 12.5 SEC (12.2-14.7)
[2021-06-25 11:29] LABS: BACTERIA,URINE NEGATIVE /HPF
[2021-06-25 11:29] LABS: CREATININE SERUM 0.89 MG/DL (0.60-1.30)
[2021-06-25 11:37] LABS: ERYTHROCYTE SEDIMENTATION RATE 12 MM/HR (0-30)
--- NOTE | 2021-06-25 11:45 | Diagnostic Imaging Report ---
INDICATION: Preop for knee arthroplasty. TIME OF EXAM: 11:19 AM No prior studies are available for comparison. FINDINGS: The heart size is normal. The pulmonary vascularity is unremarkable. The lungs are clear. No infiltrate, effusion or pneumothorax is detected. IMPRESSION: No acute cardiopulmonary process is detected. Dictated by: Dictated on workstation # [id number]
[2021-06-25] MEDS ORDERED: MULT-1056 PO (14:08)
== END 2021-06-25 11:20 | disposition home or self-care (01) ==
LOC: PREOP 10:19
PROVIDERS: ATTEND Orthopaedic Surgery
DX: Z01.818 Encounter for other preprocedural examination (principal); M17.11 Unilateral primary osteoarthritis, right knee
CPT/HCPCS: 36415; 71046; 80053; 81000; 85025; 85610; 85652; 86850; 86900; 86901; 87081; 87636; 93005

== ENCOUNTER 2021-06-27 07:44 | Inpatient (IN) | payer BC ==
--- NOTE | 2021-06-24 06:30 | HISTORY AND PHYSICAL ---
DATE OF SERVICE: ADMISSION HISTORY AND PHYSICAL DATE OF ADMISSION: 06/27/2021. Admission date, surgery date and date of service will be 06/27/2021 for right total knee arthroplasty. The patient will require regular inpatient admission for pain management, need for physical therapy, and comorbidities. HISTORY OF PRESENT ILLNESS: The patient is a 56-year-old gentleman with a longstanding progressive right knee pain. He reports activity limitations because of the knee. He has undergone treatment with injections with only temporary relief of his symptoms. Radiographs reveal severe medial and patellofemoral arthrosis with complete loss of joint spaces. Due to functional impairment and failure to improve with conservative measures, the patient has elected to proceed with surgical intervention. REVIEW OF SYSTEMS: No chest pain, no shortness of breath, and no dysuria. PAST MEDICAL HISTORY: Reflux, hypertension, melanoma, and sleep apnea. PAST SURGICAL HISTORY: Herniorrhaphy and melanoma excision. FAMILY HISTORY: Significant for hypertension. PRIMARY CARE PROVIDER: [facility]. MEDICATIONS: Pantoprazole, hydrochlorothiazide, meloxicam, terbinafine, and Benadryl. ALLERGIES: PENICILLIN. SOCIAL HISTORY: The patient is a former smoker and drinks alcohol socially. PHYSICAL EXAMINATION: GENERAL: The patient is well-developed, well-nourished, and in no acute distress. HEENT: Normocephalic, atraumatic. Pupils are equal, round, and reactive to light. Oropharynx is clear. NECK: Supple, with no lymphadenopathy. LUNGS: Clear to auscultation bilaterally. HEART: Regular rate and rhythm. ABDOMEN: Soft, nontender, and nondistended. EXTREMITIES: The right knee demonstrates varus alignment. He ambulates with an antalgic gait. He is tender along his medial joint line, has pain medially with Suzan. His range of motion is 0/3/125. IMPRESSION: Severe right knee osteoarthritis. PLAN: Right total knee arthroplasty. The risks, benefits, options, ramifications, and recovery have been discussed at length with the patient. He understands and wishes to proceed. Job ID: [id number] DocumentID: [id number] Dictated Date: 06/07/2021 14:58:05 Education Rn Date: 06/07/2021 15:25:38 Dictated By: DYANA ESPANA MD
[2021-06-27] VITALS (13 sets, daily range): BP systolic 103–135; BP diastolic 62–91
[~2021-06-27] VITALS: Ht 182.9 cm; Wt 110.0 kg
[~2021-06-27 07:44] MED LIST changes: +MULT-1056 PO; +NALOXONE 0.4 MG/ML 1 ML (NARCAN) VIAL IV PRN; +ONDANSETRON 4 MG/2 ML (SDV) Z0FRAN IVP PRN; +diphenhydrAMINE 50 MG/ML INJ (BENADRYL) IVP PRN; +morphine PCA 100 MG/100 ML BAG IV PRN
[2021-06-27] MEDS ORDERED: CEFUROXIME INJECTION 1,500 MG in NS (IVPB) 50 ML IV ONE (08:00)
[2021-06-27] MEDS ORDERED: ONDANSETRON 4 MG/2 ML (SDV) Z0FRAN IV ONE (08:15)
[2021-06-27] MEDS ORDERED: SCOPOLAMINE 1.5 MG (TRANSDERM-SCOP) PATCH TOP ONE (08:15)
[2021-06-27] MEDS ORDERED: FAMOTIDINE 20MG/2ML IV (PEPCID) IV ONE (08:15)
[2021-06-27] MEDS ORDERED: proPOfol 200 MG/20 ML (DIPRIVAN) VIAL IV ONE (08:16)
[2021-06-27] MEDS ORDERED: MIDAZOLAM 2 MG/2 ML (VERSED) VIAL ONE (08:16)
[2021-06-27] MEDS ORDERED: LIDOCAINE PF 2% 5 ML (XYLOCAINE) VIAL ONE (08:16)
[2021-06-27] MEDS ORDERED: fentaNYL INJ 100 MCG/2 ML AMP ONE ×2 (08:16→09:56)
[2021-06-27] MEDS: LACTATED RINGERS 1,000 ML IV PRN ×2 (08:42→09:48)
[2021-06-27] MEDS ORDERED: ROPIVACAINE 5MG/ML 30ML VIAL ONE (08:43)
--- NOTE | 2021-06-27 09:14 | Progress Note-Pre Operative ---
Pre-Operative Progress Note H&P Reviewed The H&P was reviewed, patient examined and no changes noted. Date Seen by Provider: Jun 27, 2021 Time Seen by Provider: 09:06 Date H&P Reviewed: Jun 27, 2021 Time H&P Reviewed: 07:11 Pre-Operative Diagnosis: r;ight knee primary osteoarthritis DYANA ESPANA MD Jun 27, 2021 09:14
--- NOTE | 2021-06-27 09:16 | Progress Note-Post Operative ---
Post-Operative Progess Note Surgeon (s)/Utility Tender Carding (s) Surgeon DYANA ESPANA MD Utility Tender Carding: Kael Hernadez Pre-Operative Diagnosis r;ight knee primary osteoarthritis Post-Operative Diagnosis r;ight knee primary osteoarthritis Procedure & Operative Findings Date of Procedure 06/27/21 Procedure Performed/Findings right total knee arthroplasty Anesthesia Type GETA Estimated Blood Loss Estimated blood loss (mL): minimal Specimens/Packing Specimens Removed none Packing: none DYANA ESPANA MD Jun 27, 2021 09:16
--- NOTE | 2021-06-27 09:18 | D/C HH Face to Face Order ---
D/C Face to Face Orders Reconcile Patient Problems Problems Reviewed?: Yes Instructions for Patient Via [facility], Patient Instructions/FollowUp: three weeks Physician to follow Patient: three weeks Discharge Diet for Home: Regular Diet Patient Data-Allergies,Ht & Wt Patient Allergies: Coded Allergies: Penicillins (Verified Allergy, Mild, HIVES, 01/14/20) Home Health Need/Face to Face Date of Face to Face: Jun 27, 2021 Clinical Findings: Muscle weakness, Pain with ambulation, Unsteady gait I have seen Pt oajp-ak-musv: Yes Discharged To: Home Diagnosis/Conditions: right total knee arthroplasty Patient is Homebound due to: Muscle weakness, Pain w/ambulation Homebound Status Due to the above stated illness, injury or surgical procedure (medical condition or diagnosis) and associated clinical findings, the patient is homebound because of his/her inability to leave home except with aid of a supportive device and/or person AND leaving the home requires a considerable and taxing effort or is medically contraindicated. Pt req the following assistanc: [facility] Nursing Orders Home Health Services Order: Physical Therapy-Evaluate & Treat DC right knee savanah and apply steri stripw 07/11/21 Therapy Orders Therapy Orders: Physical Therapy, PT to assess for OT Therapy Specific Orders: Eval assistive deivces, Teach enviro modifications/safety, Gait training, Increase strength/endurance, Provider maintenance therapy, Restore ROM Certify Stmt I certify that this patient is under my care and that I, a nurse practitioner or a physician; a assistant professor of philosophy working with me, had a face to face encounter that - meets the physician face to face encounter requirements with this patient as dated. DYANA ESPANA MD Jun 27, 2021 09:18
[2021-06-27] MEDS ORDERED: TRANEXAMIC ACID 100 MG/ML 10 ML INJECTION ONE (09:40)
[2021-06-27] MEDS ORDERED: INTRA-ARTICULAR IU ONE ×5 (10:00)
[2021-06-27] MEDS ORDERED: SEVOFLURANE (ULTANE) 15 ML INHAL SOLN ONE (11:02)
[2021-06-27] MEDS ORDERED: PROMETHAZINE INJ 25 MG/ML (PHENERGAN) AMP IVP ONE (11:15)
[2021-06-27] MEDS ORDERED: HYDROmorphone 2 MG/ML VIAL (DILAUDID) IV ONE (11:15)
[2021-06-27] MEDS ORDERED: MEPERIDINE (DEMEROL) INJ 50 MG/ML IVP ONE (11:15)
[2021-06-27] MEDS ORDERED: morphine INJ 10 MG/ML 1ML (SYR OR VIAL) IVP ONE (11:15)
[2021-06-27] MEDS ORDERED: ONDANSETRON 4 MG/2 ML (SDV) Z0FRAN IVP PRN (11:15)
--- NOTE | 2021-06-27 11:33 | Diagnostic Imaging Report ---
INDICATION: Right knee surgery. TIME OF EXAM: 11:06 a.m. FINDINGS: Two views of the right knee demonstrate postop changes of total knee arthroplasty. Prosthetic elements are in good position. No fracture or loosening is seen. There are overlying skin savanah noted. IMPRESSION: Satisfactory postop appearance to the right knee. Dictated by: Dictated on workstation # [id number]
--- NOTE | 2021-06-27 11:39 | Progress Note ---
Standard Progress Note Progress Notes/Assess & Plan Date Seen by a Provider: Jun 27, 2021 Time Seen by a Provider: 11:37 Progress/Assessment & Plan post op check no complaints radiographs--HW well positioned without fracture RLE--2 plus DP pulse with brisk cap refill intact sensation throughout intact DF and PF of toes and ankle s/p RTKA mobilize as able DYANA ESPANA MD Jun 27, 2021 11:39
[2021-06-27] MEDS: SENNA W/DOCUSATE (SENOKOT S) TABLET PO SCH ×2 (12:30→19:52)
[2021-06-27] MEDS: NS IV 1000 ML 1,000 ML IV SCH ×2 (12:30→15:46)
[2021-06-27] MEDS: oxyCODONE/APAP 5/325MG (PERCOCET 5) TABLET PO PRN ×3 (13:10→18:54)
--- NOTE | 2021-06-27 13:53 | Physical Therapy Evaluation ---
PT Evaluation-General Medical Diagnosis Admission Date Jun 27, 2021 at 07:44 Medical Diagnosis: Right TKA Onset Date: Jun 27, 2021 Therapy Diagnosis Therapy Diagnosis: Gait deficit, strength deficit Precautions Precautions/Isolations: Fall Prevention Weight Bear Status Right Lower Extremity: Right Weight Bearing/Tolerated Referral Physician: Dr. Spence Reason for Referral: Evaluation/Treatment Social History Home: Single Level Current Living Status: Spouse Entry Into Home: Stairs With Railing PT Steps Into Home: 3 Prior Prior Level of Function SCALE: Activities may be completed with or without assistive devices. 1-Ubnqkqqybd-mrclszt completes the activity by him/herself with no assistance from a helper. 5-Set-up or Clean-up Assistance-helper sets up or cleans up; patient completes activity. Concrete assists only prior to or following the activity. 4-Supervision or Touching Assistance-helper provides verbal cues and/or touching/steadying and/or contact guard assistance as patient completes activity . Assistance may be provided throughout the activity or intermittently. 3-Partial/Moderate Assistance-helper does LESS THAN HALF the effort. Concrete lifts, holds or supports trunk or limbs, but provides less than half the effort. 2-Substantial/Maximal Assistance-helper does MORE THAN HALF the effort. Concrete lifts or holds trunk or limbs and provides more than half the effort. 9-Gbkdcklbf-ezocir does ALL the effort. Patient does none of the effort to complete the activity. Or, the assistance of 2 or more helpers is required for the patient to complete the activity. If activity was not attempted, code reason: 7-Patient Refused. 9-Not Applicable-not attempted and the patient did not perform the activity before the current illness, exacerbation or injury. 10-Not Attempted due to Environmental Limitations-(lack of equipment, weather restraints, etc.). 88-Not Attempted due to Medical Conditions or Safety Concerns. Bed Mobility: 6 Transfers (B,C,W/C): 6 Gait: 6 Stairs: 6 Indoor Mobility (Ambulation): Independent Stairs: Independent Prior Devices Use: None PT Evaluation-Current Subjective Patient lying supine in bed upon PT arrival, agreeable to treatment. Rates pain at 4/10 currently in the right knee. He states "I just feel uncomfortable all over." Objective Patient Orientation: Person, Place, Time, Situation Attachments: Polar Pack, IV ROM/Strength ROM Lower Extremities Right knee extension lacks 10 degrees in supine, flexion to 80 degrees in sitting Strength Lower Extremities left LE 5/5 all planes; Right knee N/A, all other right LE motions 4/5 Sensory Vision: Functional Hearing: Functional Sensation Right Lower Extremit: Impaired Sensation Left Lower Extremity: Intact Transfers Roll Left to Right (QC): 4 Sit to Lying (QC): 4 Lying to Sitting/Side of Bed(Q: 3 Sit to Stand (QC): 3 Chair/Hon-ve-Vkmpe Xfer(QC): 3 Gait Does the Patient Walk?: Yes Mode of Locomotion: Walk Anticipated Mode of Locomotion: Walk Walk 10 feet (QC): 4 Distance: 30 feet Gait Assistive Device: FWW Balance Sitting Static: Good Sitting Dynamic: Good Standing Static: Fair Standing Dynamic: Fair Assessment/Needs Patient tolerated treatment well. Demonstrate fair overall motion in right knee flexion and extension. Patient performs all bed mobility with CGA and all tr ansfers with min/mod A. Patient ambulates 30 feet with FWW with CGA and verbal cues for safety, progression, posture and gait pattern. Patient ambulates with antalgic gait pattern on right LE, lacks right TKE and demonstrates short stride length. Patient in juan post treatment with all needs met, nursing notified, call light in hand, in the room. Rehab Potential: Good PT Spring Assembler Supervisor Goals Longterm Goals PT Longterm Goals Time Frame: Jul 20, 2021 Roll Left & Right (QC): 5 Sit to Lying (QC): 5 Lying-Sitting on Side/Bed(QC): 5 Sit to Stand (QC): 5 Chair/Qtn-rx-Uldtg Xfer(QC): 5 Does the Patient Walk: Yes Walk 10 feet (QC): 5 Walk 50ft with 2 Turns (QC): 5 Walk 150 ft (QC): 5 1 Step (curb) (QC): 4 4 Steps (QC): 4 12 Steps (QC): 4 PT Plan Problem List Problem List: Activity Tolerance, Functional Strength, Safety, Balance, Gait, Transfer, Bed Mobility, ROM Treatment/Plan Treatment Plan: Continue Plan of Care Treatment Plan: Bed Mobility, Education, Functional Activity Tawanna, Functional Strength, Gait, Safety, Therapeutic Exercise, Transfers Treatment Duration: Jul 28, 2021 Frequency: 11 times per week Estimated Hrs Per Day: .25 hour per day Safety Risks/Education Patient Education: Gait Training, Reviewed Precautions, Safety Issues Teaching Recipient: Patient, Family Teaching Methods: Demonstration, Discussion Response to Teaching: Verbalize Understanding, Return Demonstration Time/GCodes Time In: 1237 Time Out: 1307 Total Billed Treatment Time: 30 Total Billed Treatment Visit, ant Cline, CPM, CPM pads BRYAN CHASE PT Jun 27, 2021 13:53
[2021-06-27] MEDS: CEFUROXIME INJECTION 750 MG in NS (IVPB) 50 ML IV SCH ×2 (15:46→21:53)
--- NOTE | 2021-06-27 17:09 | OPERATIVE REPORT ---
DATE OF SERVICE: 06/27/2021 PREOPERATIVE DIAGNOSIS: Right knee primary osteoarthritis. POSTOPERATIVE DIAGNOSIS: Right knee primary osteoarthritis. PROCEDURE: Right total knee arthroplasty. SURGEON: Rafael Spence MD MANAGER NEW PRODUCT: Kael Hernadez, who assisted throughout the procedure and closed the incision. ANESTHESIA: General endotracheal by Orlando Acevedo CRNA. TOURNIQUET TIME: Approximately 70 minutes at 300 mmHg. ESTIMATED BLOOD LOSS: Minimal. DRAINS: None. COMPLICATIONS: None. POSTOPERATIVE PLAN: Routine protocol. The patient was transferred to the recovery room awake and stable condition. MATERIALS: Microport Nitrx cemented size 6 femur, cemented size 6 tibia with 10 mm insert and a cemented size 35 patellar button. STATEMENT OF MEDICAL NECESSITY: The patient is a 56-year-old gentleman with longstanding progressive right knee pain. Radiographs revealed severe medial and patellofemoral arthrosis. He has undergone treatment with injections, anti-inflammatories, rest and arthroscopy without relief. Due to functional impairment and failure to improve with conservative measures, the patient elected to proceed with surgical intervention. DESCRIPTION OF PROCEDURE: After risks and benefits of the procedure were discussed and questions were answered, an informed consent was signed and placed on chart, the operative site was confirmed in the preoperative holding area initialed by the surgeon. The patient was then transferred to the operating room and after adequate levels of general endotracheal anesthetic were obtained, a timeout was called, confirming the operative site. Examination under anesthesia was performed with above findings noted. The right lower extremity was prepped and draped in the usual sterile fashion with the leg elevated and the knee flexed. Tourniquet was inflated to 300 mmHg. Standard anterior approach was utilized. Hemostasis was obtained with cautery. A medial parapatellar arthrotomy was performed leaving 1 cm cuff on the patella for later reattachment. A portion of the fat pad was resected. A subperiosteal release was performed on the proximal medial tibia being careful to stay on the bony surface. The intramedullary guide was passed into the femur. The distal cutting block was placed. Distal cut was made, the femur was sized to a size 6. The 6 cutting block was placed parallel to the epicondylar axis and cuts were made from posterior to anterior. Subperiosteal release was then carefully performed on the posterior distal femur, being careful to stay on the bony surface. Intramedullary guide was then passed into the tibia. The cutting block was placed. The drop slava transected the intermalleolar axis and cut was made. A 6 baseplate was positioned and the drop slava transected the intermalleolar axis. This was pinned into position and then prepared using the drill and keel punch. The femoral trial was placed and trochlear cut was made. The patella was prepared by resecting 10 mm off the undersurface using the freehand technique and then drilling the peg holes. The trials were inserted with 10 mm insert. Full extension was easily obtained. The patella tracked well with a 35 mm insert. There was no anterior/posterior or medial/lateral laxity in flexion or extension. The trials were removed. The joint was irrigated with pulse lavage. Periarticular block was placed in the posterior capsule, medial and lateral retinaculum, extensor mechanism, and subcutaneous tissues. The bone ends were irrigated and dried. The tibial baseplate was cemented into position. Excessive cement was removed, the superior surface was irrigated and dried and the polyethylene insert was placed. The distal femur was irrigated and dried and the femoral prosthesis was cemented into position. Excessive cement was removed. The knee was brought out in full extension until cement had cured. The undersurface of patella was irrigated and dried and the patellar button was cemented into position. Excessive cement was removed. Once the cement had cured, the knee was taken through range of motion. The patella tracked well. There was no anterior/posterior or medial/lateral laxity in flexion or extension. The joint was further irrigated with pulse lavage. The parapatellar arthrotomy was closed with #2 Tevdek in ixcrdh-qk-jknaz interrupted fashion. Knee was flexed. The repair was stable. Subcutaneous tissues were irrigated using a total of 6 liters throughout the procedure. A 0 Vicryl was used for deep subcutaneous tissue, 2-0 Vicryl for the superficial subcutaneous tissue, savanah used on the skin. A soft dressing was applied. The tourniquet was deflated. The patient was transferred to the recovery room awake and in stable condition. Job ID: [id number] DocumentID: [id number] Dictated Date: 06/27/2021 11:05:57 Tax Examiner Date: 06/27/2021 17:08:22 Dictated By: RAFAEL SPENCE MD
[2021-06-27] MEDS: PANTOPRAZOLE 40 MG (PROTONIX) TAB PO SCH (21:52)
[2021-06-28] VITALS (7 sets, daily range): BP systolic 99–137; BP diastolic 47–79
[2021-06-28 06:16] LABS: BASOPHILS % (AUTO) 0 % (0-10); EOSINOPHILS # (AUTO) 0.1 10^3/uL (0.0-0.3); EOSINOPHILS % (AUTO) 1 % (0-10); HEMATOCRIT 38 % (40-54); HEMOGLOBIN 12.7 g/dL (13.3-17.7); LYMPHOCYTES # (AUTO) 2.1 10^3/uL (1.0-4.0); LYMPHOCYTES % (AUTO) 17 % (12-44); MEAN CORPUSCULAR HEMOGLOBIN 31 pg (25-34); MEAN CORPUSCULAR HGB CONC 33 g/dL (32-36); MEAN CORPUSCULAR VOLUME 94 fL (80-99); MEAN PLATELET VOLUME 11.4 fL (9.0-12.2); MONOCYTES # (AUTO) 1.1 10^3/uL (0.0-1.0); MONOCYTES % (AUTO) 9 % (0-12); NEUTROPHILS # (AUTO) 9.3 10^3/uL (1.8-7.8); NEUTROPHILS % (AUTO) 73 % (42-75); PLATELET COUNT 212 10^3/uL (130-400); WHITE BLOOD COUNT 12.6 10^3/uL (4.3-11.0)
[2021-06-28] MEDS: MULTIVIT W/MINERALS TAB (THERAGRAN M) PO SCH (06:29)
[2021-06-28 06:44] LABS: ALBUMIN 3.5 GM/DL (3.2-4.5); POTASSIUM 3.7 MMOL/L (3.6-5.0)
[2021-06-28 06:45] LABS: CALCIUM 8.3 MG/DL (8.5-10.1)
[2021-06-28 06:46] LABS: TOTAL PROTEIN 5.7 GM/DL (6.4-8.2)
[2021-06-28 06:48] LABS: BILIRUBIN,TOTAL 0.5 MG/DL (0.1-1.0)
[2021-06-28] MEDS: ENOXAPARIN 30 MG/0.3 ML (LOVENOX) SYR SC SCH ×2 (06:48→20:50)
[2021-06-28] MEDS: oxyCODONE/APAP 5/325MG (PERCOCET 5) TABLET PO PRN ×5 (06:48→20:50)
[2021-06-28 06:50] LABS: CREATININE SERUM 0.86 MG/DL (0.60-1.30)
--- NOTE | 2021-06-28 08:06 | Progress Note ---
Standard Progress Note Progress Notes/Assess & Plan Date Seen by a Provider: Jun 28, 2021 Time Seen by a Provider: 08:05 Progress/Assessment & Plan post op check no complaints radiographs--HW well positioned without fracture RLE--2 plus DP pulse with brisk cap refill intact sensation throughout intact DF and PF of toes and ankle s/p RTKA mobilize as able Final Diagnosis no complaints Vital Signs Date Time Temp Pulse Resp B/P (MAP) Pulse Ox O2 Delivery O2 Flow Rate FiO2 06/28/21 07:35 37.0 79 18 99/67 (78) 97 NIV CPAP 06/28/21 04:40 37.1 87 18 107/56 (73) 95 NIV CPAP 06/28/21 00:00 36.9 86 18 102/60 (74) 95 NIV CPAP 06/27/21 20:55 Room Air 06/27/21 20:00 35.9 70 18 111/62 (78) 94 Room Air 06/27/21 16:00 35.9 71 18 111/64 (80) 94 Room Air 06/27/21 13:51 68 20 117/78 (91) 96 Room Air 06/27/21 13:00 65 20 115/79 (91) 91 Room Air 06/27/21 12:32 35.8 62 18 123/82 (96) 97 Room Air 06/27/21 12:00 Room Air 06/27/21 12:00 36.1 20 123/88 (100) 98 Room Air 06/27/21 11:50 20 123/88 (100) 98 Room Air 06/27/21 11:45 Room Air 06/27/21 11:40 20 119/82 (94) 94 OxyMask 3 06/27/21 11:30 OxyMask 3 06/27/21 11:30 20 121/75 (90) 97 OxyMask 3 06/27/21 11:20 20 105/69 (81) 96 OxyMask 6 06/27/21 11:15 OxyMask 6 06/27/21 11:10 20 108/68 (81) 96 OxyMask 6 06/27/21 11:03 36.1 20 103/66 (78) 93 OxyMask 6 06/27/21 11:03 OxyMask 6 06/27/21 08:20 97 Room Air I & O 06/28/21 07:00 Intake Total 2010 ml Output Total 450 ml Balance 1560 ml Laboratory Tests Test 06/28/21 05:00 06/28/21 05:30 Range/Units Sodium Level 138 135-145 MMOL/L Potassium Level 3.7 3.6-5.0 MMOL/L Chloride Level 106 98-107 MMOL/L Carbon Dioxide Level 23 21-32 MMOL/L Anion Gap 9 5-14 MMOL/L Blood Urea Nitrogen 17 7-18 MG/DL Creatinine 0.86 0.60-1.30 MG/DL Estimat Glomerular Filtration Rate 91 BUN/Creatinine Ratio 20 Glucose Level 95 70-105 MG/DL Calcium Level 8.3 L 8.5-10.1 MG/DL Corrected Calcium 8.7 8.5-10.1 MG/DL Total Bilirubin 0.5 0.1-1.0 MG/DL Aspartate Amino Transf (AST/SGOT) 16 5-34 U/L Alanine Aminotransferase (ALT/SGPT) 23 0-55 U/L Alkaline Phosphatase 61 40-136 U/L Total Protein 5.7 L 6.4-8.2 GM/DL Albumin 3.5 3.2-4.5 GM/DL White Blood Count 12.6 H 4.3-11.0 10^3/uL Red Blood Count 4.08 L 4.30-5.52 10^6/uL Hemoglobin 12.7 L 13.3-17.7 g/dL Hematocrit 38 L 40-54 % Mean Corpuscular Volume 94 80-99 fL Mean Corpuscular Hemoglobin 31 25-34 pg Mean Corpuscular Hemoglobin Concent 33 32-36 g/dL Red Cell Distribution Width 12.9 10.0-14.5 % Platelet Count 212 130-400 10^3/uL Mean Platelet Volume 11.4 9.0-12.2 fL Immature Granulocyte % (Auto) 1 % Neutrophils (%) (Auto) 73 42-75 % Lymphocytes (%) (Auto) 17 12-44 % Monocytes (%) (Auto) 9 0-12 % Eosinophils (%) (Auto) 1 0-10 % Basophils (%) (Auto) 0 0-10 % Neutrophils # (Auto) 9.3 H 1.8-7.8 10^3/uL Lymphocytes # (Auto) 2.1 1.0-4.0 10^3/uL Monocytes # (Auto) 1.1 H 0.0-1.0 10^3/uL Eosinophils # (Auto) 0.1 0.0-0.3 10^3/uL Basophils # (Auto) 0.0 0.0-0.1 10^3/uL Immature Granulocyte # (Auto) 0.1 0.0-0.1 10^3/uL RLE--no calf tenderness. Neg Wayne. NVI distally s/p RTKA doing well PT/OT DYANA ESPANA MD Jun 28, 2021 08:06
[2021-06-28] MEDS: SENNA W/DOCUSATE (SENOKOT S) TABLET PO SCH ×2 (08:34→20:50)
[2021-06-28] MEDS: NS IV 1000 ML 1,000 ML IV SCH ×2 (08:34→20:51)
[2021-06-28] MEDS: ASPIRIN E.C. 81 MG (ECOTRIN) TAB PO SCH (08:34)
--- NOTE | 2021-06-28 09:42 | Physical Therapy Daily Note ---
PT Daily Note-Current Subjective Patient agrees to PT. No c/o. 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 9-Nobisodhfv-mklaozb completes the activity by him/herself with no assistance from a helper. 5-Set-up or Clean-up Assistance-helper sets up or cleans up; patient completes activity. [place] assists only prior to or following the activity. 4-Supervision or Touching Assistance-helper provides verbal cues and/or touching/steadying and/or contact guard assistance as patient completes activity. Assistance may be provided throughout the activity or intermittently. 3-Partial/Moderate Assistance-helper does LESS THAN HALF the effort. [place] lifts, holds or supports trunk or limbs, but provides less than half the effort. 2-Substantial/Maximal Assistance-helper does MORE THAN HALF the effort. [place] lifts or holds trunk or limbs and provides more than half the effort. 0-Prjknxzes-aqvhkh does ALL the effort. Patient does none of the effort to complete the activity. Or, the assistance of 2 or more helpers is required for the patient to complete the activity. If activity was not attempted, code reason: 7-Patient Refused. 9-Not Applicable-not attempted and the patient did not perform the activity before the current illness, exacerbation or injury. 10-Not Attempted due to Environmental Limitations-(lack of equipment, weather restraints, etc.). 88-Not Attempted due to Medical Conditions or Safety Concerns. Lying to Sitting/Side of Bed(Q: 6 Sit to Stand (QC): 4 Chair/Owy-oe-Xcrvd Xfer(QC): 4 Weight Bearing Right Lower Extremity: Right Weight Bearing/Tolerated Gait Training Does the Patient Walk?: Yes Distance: 275' Walk 10 feet (QC): 4 Walk 50 ft with 2 Turns(QC): 4 Walk 150 ft (QC): 4 Gait Assistive Device: FWW slow, antalgic gait sequence Exercises Supine Ex: Ankle pumps, Quad Set, Heel Slides, Straight leg raise Supine Reps: 15 Seated Therapy Exercises: Long arc quads Seated Reps: 15 Assessment Patient progressing with treatment plan. Encouraged patient to perform seated exercises PRN. Spouse present. Plan dismissal in a.m. tomorrow. PT Long-Term Goals Long-Term Goals PT Dampener Goals Time Frame: Jul 20, 2021 Roll Left & Right (QC): 5 Sit to Lying (QC): 5 Lying-Sitting on Side/Bed(QC): 5 Sit to Stand (QC): 5 Chair/Nch-ax-Pjzch Xfer(QC): 5 Does the Patient Walk: Yes Walk 10 feet (QC): 5 Walk 50ft with 2 Turns (QC): 5 Walk 150 ft (QC): 5 1 Step (curb) (QC): 4 4 Steps (QC): 4 12 Steps (QC): 4 PT Plan Treatment/Plan Treatment Plan: Continue Plan of Care Treatment Plan: Bed Mobility, Education, Functional Activity Tawanna, Functional Strength, Gait, Safety, Therapeutic Exercise, Transfers Treatment Duration: Jul 28, 2021 Frequency: 11 times per week Estimated Hrs Per Day: .25 hour per day Time/GCodes Time In: 812 Time Out: 837 Total Billed Treatment Time: 25 Total Billed Treatment 1 visit EX 14 min GT 11 min ANURAG LESLIE PT Jun 28, 2021 09:42
--- NOTE | 2021-06-28 10:37 | Occ Therapy Progress Note ---
Therapy Progress Note OT orders received. OT visited with pt who indicates he has no concerns with completing ADLs upon discharge. He has been up to the bathroom independently and has support from his for LE dressing if needed. Pt has no concerns with UE strength or activity tolerance. Pt and do not wish to have further OT services at this time, as he feels like he is at PLOF with ADLs and no concerns at this time. Pt has a SC and a walk in shower, no other equipment needs id entified at this time. Pt instructed to let nurse know if he has any questions and OT can address any further concerns. D/C from OT at this time. 1, visit 1010 DARRELL MACARIO OT Jun 28, 2021 10:37
--- NOTE | 2021-06-28 11:34 | Anesthesia-General Post-Op ---
General Patient Condition Mental Status/LOC: Same as Preop Cardiovascular: Satisfactory Nausea/Vomiting: Absent Respiratory: Satisfactory Pain: Controlled Complications: Absent Post Op Complications Complications None Follow Up Care/Instructions Patient Instructions None needed. Anesthesia/Patient Condition Patient Condition Patient is doing well, no complaints, stable vital signs, no apparent adverse anesthesia problems. No complications reported per nursing. ALEXUS GIL CRNA Jun 28, 2021 11:34
--- NOTE | 2021-06-28 11:43 | Consultation - Hospitalist ---
HPI History of Present Illness: HPI/Chief Complaint CC: Right knee replacement by Dr. Spence HPI: This is a 56oWM clinic Pt of [facility] who presents after an uncomplicated right knee replacement by Dr. Spence. Pt is doing very well, pain is pretty well controlled. He is using his IS and has no concerns at this point. He is on DVT prophylaxis per protocol. Source: patient, family, RN/MD Exam Limitations: no limitations Date Seen 06/28/21 Attending Physician Rafael Spence MD [facility], [facility] Referring Physician Date of Admission Jun 27, 2021 at 07:44 Home Medications & Allergies Home Medications Reviewed patient Home Medication Reconciliation performed by pharmacy medication reconciliations snow technician and/or nursing. Patients Allergies have been reviewed. Allergies Allergies Coded Allergies Penicillins (Verified Allergy, Mild, HIVES, 01/14/20) Past Pnchhzn-Znjvlb-Lmoado Hx Patient Social History Marrital Status: Employed/Student: unemployed Smoking Status: Never a Smoker Substance use?: No Alcohol Use?: Yes Alcohol Frequency: Once in a while Pt feels they are or have been: No Immunizations Up To Date First/Initial COVID19 Vaccinat: yes Second COVID19 Vaccination Calin: yes Seasonal Allergies Seasonal Allergies: Yes Current Status Advance Directives: No Communicates: Verbally Primary Language: Afghan Preferred Spoken Language: Afghan Sensory deficits: Vision impairment Implanted or Applied Medical D: CPAP Past Medical History Sleep Apnea Currently Using CPAP: No Currently Using BIPAP: No Hypertension Sexually Transmitted Disease: No HIV/AIDS: No Gastroesophageal Reflux Arthritis Loss of Vision: Denies Hearing Impairment: Denies Melanoma Did You Recieve Any Treatments: Yes What Type of Treatment Did You: Surgical Intervention Blood Disorders: No Adverse Reaction/Blood Tranf: No (N/A) Review of Systems Constitutional: see HPI, malaise, weakness EENTM: no symptoms reported Respiratory: no symptoms reported Cardiovascular: no symptoms reported Gastrointestinal: no symptoms reported Genitourinary: no symptoms reported Musculoskeletal: back pain, joint pain Skin: no symptoms reported Psychiatric/Neurological: No Symptoms Reported All Other Systems Reviewed Negative Unless Noted: Yes Physical Exam Physical Exam Vital Signs Vital Signs - First Documented 06/27/21 07:45 Temp 36.2 Pulse 69 Resp 18 B/P (MAP) 135/91 (106) Pulse Ox 97 O2 Delivery Room Air Capillary Refill : NONE Height, Weight, BMI Height: '" Weight: lbs. oz. kg; 32.88 BMI Method: General Appearance: No Apparent Distress, WD/WN Eyes: Bilateral Eye Normal Inspection, Bilateral Eye PERRL HEENT: PERRL/EOMI, Normal ENT Inspection, Pharynx Normal Neck: Full Range of Motion, Normal Inspection, Non Tender, Supple, Carotid Bruit Respiratory: Chest Non Tender, Lungs Clear, Normal Breath Sounds, No Accessory Muscle Use, No Respiratory Distress Cardiovascular: Regular Rate, Rhythm, No Edema, No Gallop, No JVD, No Murmur, Normal Peripheral Pulses Gastrointestinal: Normal Bowel Sounds, No Organomegaly, No Pulsatile Mass, Non Tender, Soft Back: Normal Inspection, No CVA Tenderness, No Vertebral Tenderness Extremity: Normal Capillary Refill, Normal Inspection, Normal Range of Motion ( Decreased range of motion right leg), Non Tender, No Calf Tenderness, No Pedal Edema Neurologic/Psychiatric: Alert, Oriented x3, No Motor/Sensory Deficits, Normal Mood/Affect Skin: Normal Color, Warm/Dry Lymphatic: No Adenopathy Results Results/Procedures Labs Laboratory Tests 06/28/21 05:00 06/28/21 05:30 Patient resulted labs reviewed. Assessment/Plan Assessment and Plan Assess & Plan/Chief Complaint Assessment: Status post right knee replacement uncomplicated by Dr. Spence Sleep apnea maintained on CPAP Hypertension Arthritis History of melanoma GERD Plan: Home meds Pain control CPAP Diagnosis/Problems Diagnosis/Problems (1) DIANNA on CPAP (2) Hypertension (3) Osteoarthritis of right knee (4) Reflux esophagitis YULIET ELLIS DO Jun 28, 2021 11:43
--- NOTE | 2021-06-28 14:41 | Physical Therapy Daily Note ---
PT Daily Note-Current Subjective Patient agrees to PT. He has increase c/o right knee pain this p.m. Pain Numeric Pain Scale: 8 Location: Right Location Body Site: Knee Pain Description: Acute Mental Status Patient Orientation: Normal For Age Attachments: IV Transfers SCALE: Activities may be completed with or without assistive devices. 1-Ktdvsjjgce-dwmcyxa completes the activity by him/herself with no assistance from a helper. 5-Set-up or Clean-up Assistance-helper sets up or cleans up; patient completes activity. [place] assists only prior to or following the activity. 4-Supervision or Touching Assistance-helper provides verbal cues and/or touching/steadying and/or contact guard assistance as patient completes activity. Assistance may be provided throughout the activity or intermittently. 3-Partial/Moderate Assistance-helper does LESS THAN HALF the effort. [place] lifts, holds or supports trunk or limbs, but provides less than half the effort. 2-Substantial/Maximal Assistance-helper does MORE THAN HALF the effort. [place] lifts or holds trunk or limbs and provides more than half the effort. 8-Jlctvhpjt-phaghy does ALL the effort. Patient does none of the effort to complete the activity. Or, the assistance of 2 or more helpers is required for the patient to complete the activity. If activity was not attempted, code reason: 7-Patient Refused. 9-Not Applicable-not attempted and the patient did not perform the activity before the current illness, exacerbation or injury. 10-Not Attempted due to Environmental Limitations-(lack of equipment, weather restraints, etc.). 88-Not Attempted due to Medical Conditions or Safety Concerns. Sit to Lying (QC): 6 Lying to Sitting/Side of Bed(Q: 6 Sit to Stand (QC): 5 Weight Bearing Right Lower Extremity: Right Weight Bearing/Tolerated Gait Training Distance: 300' Walk 10 feet (QC): 5 Walk 50 ft with 2 Turns(QC): 5 Walk 150 ft (QC): 5 Gait Assistive Device: FWW slow, antalgic, step to Exercises Supine Ex: Ankle pumps, Quad Set, Heel Slides, Straight leg raise Supine Reps: 15 Seated Therapy Exercises: Long arc quads Seated Reps: 15 Treatments CPM 0-70 degrees with polar pack right knee Assessment Current Status: Excellent Progress Patient progress with treatment plan. Educated patient on the block wearing off causing increase c/o pain due to increased sensation. Patient voices understanding. Patient utilized DELICATESSEN MANAGER PRN as well as pain pill. PT Freight Solicitor Goals Freight Solicitor Goals PT Freight Solicitor Goals Time Frame: Jul 20, 2021 Roll Left & Right (QC): 5 Sit to Lying (QC): 5 Lying-Sitting on Side/Bed(QC): 5 Sit to Stand (QC): 5 Chair/Ozy-wr-Iuxqq Xfer(QC): 5 Does the Patient Walk: Yes Walk 10 feet (QC): 5 Walk 50ft with 2 Turns (QC): 5 Walk 150 ft (QC): 5 1 Step (curb) (QC): 4 4 Steps (QC): 4 12 Steps (QC): 4 PT Plan Treatment/Plan Treatment Plan: Continue Plan of Care Treatment Plan: Bed Mobility, Education, Functional Activity Tawanna, Functional Strength, Gait, Safety, Therapeutic Exercise, Transfers Treatment Duration: Jul 28, 2021 Frequency: 11 times per week Estimated Hrs Per Day: .25 hour per day Time/GCodes Time In: 1325 Time Out: 1348 Total Billed Treatment Time: 23 Total Billed Treatment 1 visit EX 13 min GT 10 min ANURAG LESLIE PT Jun 28, 2021 14:41
[2021-06-28] MEDS: PANTOPRAZOLE 40 MG (PROTONIX) TAB PO SCH (20:50)
--- NOTE | 2021-06-29 00:15 | DISCHARGE SUMMARY ---
DATE OF SERVICE: DIAGNOSES: 1. Right knee primary osteoarthritis. 2. Reflux. 3. Hypertension. 4. Melanoma. 5. Sleep apnea. PROCEDURE: Right total knee arthroplasty. SUMMARY: The patient is a 56-year-old gentleman who underwent a right total knee arthroplasty on the day of admission. Postoperatively, he did well. At time of discharge, his wound was clean and dry. He had no calf tenderness. Negative Juan Francisco signs. He is tolerating his diet well and tolerating pain with oral pain medication. CONDITION AT DISCHARGE: Good. DISCHARGE DIET: Regular. FOLLOWUP: Followup is in three weeks. DISCHARGE MEDICATIONS: Home medications plus aspirin one per day for 30 days and Percocet as needed for pain. ACTIVITIES: Weightbearing as tolerated with a walker. Job ID: [id number] DocumentID: [id number] Dictated Date: 06/28/2021 18:32:21 Floor Worker [place] Date: 06/29/2021 00:14:20 Dictated By: DYANA ESPANA MD
[2021-06-29] MEDS: oxyCODONE/APAP 5/325MG (PERCOCET 5) TABLET PO PRN ×3 (01:03→08:37)
[2021-06-29 04:17] VITALS: BP 130/72
[2021-06-29] MEDS: MULTIVIT W/MINERALS TAB (THERAGRAN M) PO SCH (05:02)
[2021-06-29 06:37] LABS: BASOPHILS % (AUTO) 0 % (0-10); EOSINOPHILS % (AUTO) 1 % (0-10); HEMATOCRIT 34 % (40-54); HEMOGLOBIN 11.2 g/dL (13.3-17.7); LYMPHOCYTES # (AUTO) 1.9 10^3/uL (1.0-4.0); LYMPHOCYTES % (AUTO) 22 % (12-44); MEAN CORPUSCULAR HEMOGLOBIN 31 pg (25-34); MEAN CORPUSCULAR HGB CONC 33 g/dL (32-36); MEAN CORPUSCULAR VOLUME 93 fL (80-99); MEAN PLATELET VOLUME 11.9 fL (9.0-12.2); MONOCYTES # (AUTO) 1.3 10^3/uL (0.0-1.0); MONOCYTES % (AUTO) 15 % (0-12); NEUTROPHILS # (AUTO) 5.5 10^3/uL (1.8-7.8); NEUTROPHILS % (AUTO) 63 % (42-75); PLATELET COUNT 188 10^3/uL (130-400); WHITE BLOOD COUNT 8.7 10^3/uL (4.3-11.0)
[2021-06-29 06:48] LABS: ALBUMIN 3.3 GM/DL (3.2-4.5); POTASSIUM 3.6 MMOL/L (3.6-5.0)
[2021-06-29 06:49] LABS: CALCIUM 8.1 MG/DL (8.5-10.1)
[2021-06-29 06:50] LABS: TOTAL PROTEIN 5.7 GM/DL (6.4-8.2)
[2021-06-29 06:52] LABS: BILIRUBIN,TOTAL 0.9 MG/DL (0.1-1.0)
[2021-06-29 06:54] LABS: CREATININE SERUM 0.69 MG/DL (0.60-1.30)
--- NOTE | 2021-06-29 07:03 | Progress Note ---
Standard Progress Note Progress Notes/Assess & Plan Date Seen by a Provider: Jun 29, 2021 Time Seen by a Provider: 07:02 Progress/Assessment & Plan post op check no complaints radiographs--HW well positioned without fracture RLE--2 plus DP pulse with brisk cap refill intact sensation throughout intact DF and PF of toes and ankle s/p RTKA mobilize as able Final Diagnosis no complaints Vital Signs Date Time Temp Pulse Resp B/P (MAP) Pulse Ox O2 Delivery O2 Flow Rate FiO2 06/29/21 04:17 36.4 90 18 130/72 (91) 96 NIV CPAP 06/28/21 23:25 36.7 85 20 137/79 (98) 95 NIV CPAP 06/28/21 20:50 Room Air 06/28/21 19:56 36.5 94 22 121/47 (71) 93 NIV CPAP 06/28/21 15:59 36.8 87 20 132/79 (96) 96 NIV CPAP 06/28/21 11:12 37.6 80 20 111/71 (84) 97 NIV CPAP 06/28/21 08:00 Room Air 06/28/21 07:35 37.0 79 18 99/67 (78) 97 NIV CPAP I & O 06/29/21 07:00 Intake Total 3250 ml Output Total 1900 ml Balance 1350 ml Laboratory Tests Test 06/29/21 05:31 06/29/21 05:40 Range/Units Sodium Level 134 L 135-145 MMOL/L Potassium Level 3.6 3.6-5.0 MMOL/L Chloride Level 105 98-107 MMOL/L Carbon Dioxide Level 21 21-32 MMOL/L Anion Gap 8 5-14 MMOL/L Blood Urea Nitrogen 11 7-18 MG/DL Creatinine 0.69 0.60-1.30 MG/DL Estimat Glomerular Filtration Rate 118 BUN/Creatinine Ratio 16 Glucose Level 95 70-105 MG/DL Calcium Level 8.1 L 8.5-10.1 MG/DL Corrected Calcium 8.7 8.5-10.1 MG/DL Total Bilirubin 0.9 0.1-1.0 MG/DL Aspartate Amino Transf (AST/SGOT) 28 5-34 U/L Alanine Aminotransferase (ALT/SGPT) 46 0-55 U/L Alkaline Phosphatase 60 40-136 U/L Total Protein 5.7 L 6.4-8.2 GM/DL Albumin 3.3 3.2-4.5 GM/DL White Blood Count 8.7 4.3-11.0 10^3/uL Red Blood Count 3.65 L 4.30-5.52 10^6/uL Hemoglobin 11.2 L 13.3-17.7 g/dL Hematocrit 34 L 40-54 % Mean Corpuscular Volume 93 80-99 fL Mean Corpuscular Hemoglobin 31 25-34 pg Mean Corpuscular Hemoglobin Concent 33 32-36 g/dL Red Cell Distribution Width 12.8 10.0-14.5 % Platelet Count 188 130-400 10^3/uL Mean Platelet Volume 11.9 9.0-12.2 fL Immature Granulocyte % (Auto) 0 % Neutrophils (%) (Auto) 63 42-75 % Lymphocytes (%) (Auto) 22 12-44 % Monocytes (%) (Auto) 15 H 0-12 % Eosinophils (%) (Auto) 1 0-10 % Basophils (%) (Auto) 0 0-10 % Neutrophils # (Auto) 5.5 1.8-7.8 10^3/uL Lymphocytes # (Auto) 1.9 1.0-4.0 10^3/uL Monocytes # (Auto) 1.3 H 0.0-1.0 10^3/uL Eosinophils # (Auto) 0.0 0.0-0.3 10^3/uL Basophils # (Auto) 0.0 0.0-0.1 10^3/uL Immature Granulocyte # (Auto) 0.0 0.0-0.1 10^3/uL RLE--incison clean and dry. no calf tenderness. Neg Juan Francisco's s/p RTKA DC after PT today DYANA ESPANA MD Jun 29, 2021 07:03
[2021-06-29] MEDS ORDERED: morphine INJ 4 MG/ML 1 ML (VIAL/SYRINGE) IVP PRN (07:15)
[2021-06-29 08:26] VITALS: BP 132/82
[2021-06-29] MEDS: SENNA W/DOCUSATE (SENOKOT S) TABLET PO SCH (08:31)
[2021-06-29] MEDS: ASPIRIN E.C. 81 MG (ECOTRIN) TAB PO SCH (08:31)
[2021-06-29] MEDS: ENOXAPARIN 30 MG/0.3 ML (LOVENOX) SYR SC SCH (08:32)
--- NOTE | 2021-06-29 09:13 | Physical Therapy Daily Note ---
PT Daily Note-Current Subjective Patient agrees to PT. Mental Status Patient Orientation: Normal For Age Transfers SCALE: Activities may be completed with or without assistive devices. 7-Xmdgowvgfm-qruyloa completes the activity by him/herself with no assistance from a helper. 5-Set-up or Clean-up Assistance-helper sets up or cleans up; patient completes activity. [place] assists only prior to or following the activity. 4-Supervision or Touching Assistance-helper provides verbal cues and/or touching/steadying and/or contact guard assistance as patient completes activity. Assistance may be provided throughout the activity or intermittently. 3-Partial/Moderate Assistance-helper does LESS THAN HALF the effort. [place] lifts, holds or supports trunk or limbs, but provides less than half the effort. 2-Substantial/Maximal Assistance-helper does MORE THAN HALF the effort. [place] lifts or holds trunk or limbs and provides more than half the effort. 1-Rkcvfxccl-vwewzz does ALL the effort. Patient does none of the effort to complete the activity. Or, the assistance of 2 or more helpers is required for the patient to complete the activity. If activity was not attempted, code reason: 7-Patient Refused. 9-Not Applicable-not attempted and the patient did not perform the activity befo re the current illness, exacerbation or injury. 10-Not Attempted due to Environmental Limitations-(lack of equipment, weather re straints, etc.). 88-Not Attempted due to Medical Conditions or Safety Concerns. Sit to Stand (QC): 6 Weight Bearing Right Lower Extremity: Right Weight Bearing/Tolerated Gait Training Distance: 250' x 2 Walk 10 feet (QC): 5 Walk 50 ft with 2 Turns(QC): 5 Walk 150 ft (QC): 5 Walking 10ft/uneven surface-QC: 5 Gait Assistive Device: FWW slow and antalgic Stair Training Stair Training: Handrails/: 1 handrail, uses walker #of Steps: 4 1 Step (curb) (QC): 4 4 Steps (QC): 4 Stairs: Pattern: Step to Exercises Seated Therapy Exercises: Ankle pumps, Long arc quads Seated Reps: 15 (x 2) Assessment Patient tolerated treatment well and will dismiss to home with spouse and home health on this date. Patient instructed to perform HEP 2-3/day. Patient and spouse voice understanding. PT Custodial Goals Custodial Goals PT Custodial Goals Time Frame: Jul 20, 2021 Roll Left & Right (QC): 5 Sit to Lying (QC): 5 Lying-Sitting on Side/Bed(QC): 5 Sit to Stand (QC): 5 Chair/Qoa-ys-Amqhk Xfer(QC): 5 Does the Patient Walk: Yes Walk 10 feet (QC): 5 Walk 50ft with 2 Turns (QC): 5 Walk 150 ft (QC): 5 1 Step (curb) (QC): 4 4 Steps (QC): 4 12 Steps (QC): 4 PT Plan Treatment/Plan Treatment Plan: Discontinue PT Treatment Plan: Bed Mobility, Education, Functional Activity Tawanna, Functional Strength, Gait, Safety, Therapeutic Exercise, Transfers Treatment Duration: Jul 28, 2021 Frequency: 11 times per week Estimated Hrs Per Day: .25 hour per day Time/GCodes Time In: 755 Time Out: 811 Total Billed Treatment Time: 16 Total Billed Treatment 1 visit FA 16 min ANURAG LESLIE PT Jun 29, 2021 09:13
--- NOTE | 2021-06-29 10:03 | Occ Therapy Progress Note ---
Therapy Progress Note OT visited with pt due to pt and having concerns about how to complete LE dressing at discharge. Pt fully dressed, stating his completed socks/shoes for him and assisted with threading LEs into pants. OT educated pt and on various AE available in order to increase independence with LE dressing, including sock aide, evidence custodian and LH shoe horn. Pt and verbalize understanding and will proceed with obtaining items if they feel the need to use them at home. Pt and indicate no further concerns with ADLs at this time, and will be able to continue assisting pt at home if needed. DARRELL MACARIO OT Jun 29, 2021 10:03
[2021-06-29 16:01] VITALS: BP 132/82
== END 2021-06-29 10:06 | disposition home health service (06) | DRG 470 ==
LOC: 4TH 07:44 → SURG 07:45 → 4TH 11:54
PROVIDERS: ADMIT Orthopaedic Surgery; ATTEND Orthopaedic Surgery
PROC: 0SRC0J9 Replacement of Right Knee Joint with Synthetic Substitute, Cemented, Open Approach (ICD-10-PCS; principal; 2021-06-27 09:29)
DX: M17.11 Unilateral primary osteoarthritis, right knee (principal); I10 Essential (primary) hypertension; K21.00 Gastro-esophageal reflux disease with esophagitis, without bleeding; G47.30 Sleep apnea, unspecified; H54.7 Unspecified visual loss; Z85.820 Personal history of malignant melanoma of skin; Z79.899 Other long term (current) drug therapy; Z87.891 Personal history of nicotine dependence; Z99.89 Dependence on other enabling machines and devices
CPT/HCPCS: 36415; 73560; 80053; 85025; 86850; 86900; 86901

== ENCOUNTER → 2021-07-30 | Outpatient (RCR) | payer BC ==
[~2021-07-30] MED LIST changes: -NALOXONE 0.4 MG/ML 1 ML (NARCAN) VIAL IV PRN; -ONDANSETRON 4 MG/2 ML (SDV) Z0FRAN IVP PRN; -diphenhydrAMINE 50 MG/ML INJ (BENADRYL) IVP PRN; -morphine PCA 100 MG/100 ML BAG IV PRN
== END | disposition home or self-care (01) ==
PROVIDERS: ATTEND Orthopaedic Surgery
DX: Z47.1 Aftercare following joint replacement surgery (principal); I10 Essential (primary) hypertension; Z96.651 Presence of right artificial knee joint

== ENCOUNTER → 2021-08-27 | Outpatient (RCR) | payer BC | END | disposition home or self-care (01) | PROVIDERS: ATTEND Orthopaedic Surgery | DX: Z47.1 Aftercare following joint replacement surgery (principal); Z96.651 Presence of right artificial knee joint ==

== ENCOUNTER 2021-09-03 05:28 | Outpatient (RCR) | payer BC ==
[2021-08-29 10:30] VITALS: BP 139/90
--- NOTE | 2021-08-29 11:03 | Diagnostic Imaging Report ---
INDICATION: Presurgical evaluation. EXAMINATION: 2 view chest 08/29/2021 COMPARISON: 06/25/2021 FINDINGS: The cardiomediastinal silhouette is unremarkable. The pulmonary vasculature is within normal limits. The lungs and pleural spaces are clear. IMPRESSION: No evidence of an acute cardiopulmonary process. Dictated by: Dictated on workstation # [id number]
[2021-08-29 11:20] LABS: BASOPHILS % (AUTO) 1 % (0-10); EOSINOPHILS # (AUTO) 0.1 10^3/uL (0.0-0.3); EOSINOPHILS % (AUTO) 3 % (0-10); HEMATOCRIT 44 % (40-54); HEMOGLOBIN 14.6 g/dL (13.3-17.7); LYMPHOCYTES # (AUTO) 2.2 10^3/uL (1.0-4.0); LYMPHOCYTES % (AUTO) 45 % (12-44); MEAN CORPUSCULAR HEMOGLOBIN 30 pg (25-34); MEAN CORPUSCULAR HGB CONC 33 g/dL (32-36); MEAN CORPUSCULAR VOLUME 91 fL (80-99); MEAN PLATELET VOLUME 11.7 fL (9.0-12.2); MONOCYTES # (AUTO) 0.6 10^3/uL (0.0-1.0); MONOCYTES % (AUTO) 11 % (0-12); NEUTROPHILS # (AUTO) 1.9 10^3/uL (1.8-7.8); NEUTROPHILS % (AUTO) 40 % (42-75); PLATELET COUNT 258 10^3/uL (130-400); WHITE BLOOD COUNT 4.9 10^3/uL (4.3-11.0)
[2021-08-29 11:33] LABS: BILIRUBIN,URINE NEGATIVE (NEGATIVE); CLARITY,URINE CLEAR; COLOR,URINE YELLOW; GLUCOSE, URINE (UA) NEGATIVE (NEGATIVE); KETONES,URINE NEGATIVE (NEGATIVE); LEUKOCYTE ESTERASE ,URINE NEGATIVE (NEGATIVE); NITRITE,URINE NEGATIVE (NEGATIVE); PH,URINE 6.5 (5-9); PROTEIN,URINE NEGATIVE (NEGATIVE)
[2021-08-29 11:40] LABS: PROTHROMBIN TIME PATIENT 13.1 SEC (12.2-14.7)
[2021-08-29 11:47] LABS: ALBUMIN 4.5 GM/DL (3.2-4.5); BILIRUBIN,TOTAL 0.5 MG/DL (0.1-1.0); CREATININE SERUM 0.81 MG/DL (0.60-1.30); POTASSIUM 3.4 MMOL/L (3.6-5.0); TOTAL PROTEIN 7.1 GM/DL (6.4-8.2)
[2021-08-29 11:54] LABS: BACTERIA,URINE NEGATIVE /HPF
[2021-08-29 11:56] LABS: ERYTHROCYTE SEDIMENTATION RATE 7 MM/HR (0-30)
[~2021-09-03] VITALS: Ht 182.8 cm; Wt 110.6 kg
== END 2021-09-03 17:18 | disposition home or self-care (01) ==
LOC: PREOP 05:28
PROVIDERS: ATTEND Orthopaedic Surgery
DX: Z01.812 Encounter for preprocedural laboratory examination (principal); Z01.810 Encounter for preprocedural cardiovascular examination; M17.12 Unilateral primary osteoarthritis, left knee
CPT/HCPCS: 36415; 71046; 80053; 81000; 85025; 85610; 85652; 86850; 86900; 86901; 87081; 87636; 93005

== ENCOUNTER 2021-09-03 08:14 | Outpatient (RCR) | payer BC ==
[2021-09-05] MEDS ORDERED: NALOXONE 0.4 MG/ML 1 ML (NARCAN) VIAL IV PRN (07:30)
[2021-09-05] MEDS ORDERED: NS IV 1000 ML 1,000 ML IV SCH (07:30)
[2021-09-05] MEDS ORDERED: SENNA W/DOCUSATE (SENOKOT S) TABLET PO SCH (09:00)
[2021-09-05] MEDS ORDERED: CEFUROXIME INJECTION 750 MG in NS (IVPB) 50 ML IV SCH (15:30)
[2021-09-06 06:06] LABS: HEMOGLOBIN 12.3 g/dL (13.3-17.7)
[2021-09-06] MEDS ORDERED: MULTIVIT W/MINERALS TAB (THERAGRAN M) PO SCH (07:00)
[2021-09-07 05:49] LABS: HEMOGLOBIN 11.1 g/dL (13.3-17.7)
== END 2021-09-03 09:12 | disposition home or self-care (01) ==
PROVIDERS: ATTEND Orthopaedic Surgery
DX: Z47.1 Aftercare following joint replacement surgery (principal); Z96.651 Presence of right artificial knee joint
CPT/HCPCS: 36415; 85014; 85018

== ENCOUNTER 2021-09-05 07:40 | Inpatient (IN) | payer BC ==
--- NOTE | 2021-08-28 17:37 | HISTORY AND PHYSICAL ---
DATE OF SERVICE: ADMISSION HISTORY AND PHYSICAL DATE OF ADMISSION: 09/05/2021. This will be for inpatient admission on 09/05/2021 for a left total knee arthroplasty. The patient will require regular inpatient admission due to pain management, need for physical therapy, and comorbidities. HISTORY OF PRESENT ILLNESS: The patient is a 56-year-old gentleman with longstanding progressive left knee pain. He reports activity limitations because of the knee. He has undergone treatment with injections with only temporary relief of his symptoms. His radiographs reveal severe medial and patellofemoral arthrosis with complete loss of his joint spaces. Due to functional impairment and failure to improve with conservative measures, the patient has elected to proceed with surgical intervention. REVIEW OF SYSTEMS: No chest pain, no shortness of breath, and no dysuria. PAST MEDICAL HISTORY: Reflux, hypertension, melanoma and sleep apnea. PAST SURGICAL HISTORY: Herniorrhaphy and melanoma excision, right total knee arthroplasty. FAMILY HISTORY: Hypertension. PRIMARY CARE PROVIDER: [facility]. MEDICATIONS: Pantoprazole, hydrochlorothiazide, meloxicam, terbinafine, and Benadryl. ALLERGIES: PENICILLIN. SOCIAL HISTORY: The patient is a former smoker and drinks alcohol socially. He is retired. PHYSICAL EXAMINATION: GENERAL: The patient is well-developed, well-nourished, and in no acute distress. HEENT: Normocephalic and atraumatic. Pupils are equal, round, and reactive to light. Oropharynx is clear. NECK: Supple, no lymphadenopathy. LUNGS: Clear to auscultation bilaterally. HEART: Regular rate and rhythm. ABDOMEN: Soft, nontender, and nondistended. EXTREMITIES: Left knee demonstrates varus alignment. He is tender along his medial joint line. He has patellofemoral crepitus and pain with the patellar loading. Range of motion is 0/3/120. IMPRESSION: Severe left knee osteoarthritis, unresponsive to conservative measures. PLAN: Left total knee arthroplasty. The risks, benefits, options, ramifications, and recovery have been discussed at length with the patient. He understands and wishes to proceed. Job ID: [id number] DocumentID: [id number] Dictated Date: 08/21/2021 13:19:16 Shirt Folder Date: 08/21/2021 13:38:23 Dictated By: DYANA ESPANA MD
[~2021-09-05] VITALS: Ht 182.8 cm; Wt 110.6 kg
[2021-09-05] VITALS (11 sets, daily range): BP systolic 109–145; BP diastolic 61–91
[2021-09-05] MEDS ORDERED: INTRA-ARTICULAR IU ONE ×5 (08:00)
[2021-09-05] MEDS ORDERED: LIDOCAINE PF 2% 5 ML (XYLOCAINE) VIAL ONE (08:05)
[2021-09-05] MEDS ORDERED: MIDAZOLAM 2 MG/2 ML (VERSED) VIAL ONE (08:05)
[2021-09-05] MEDS ORDERED: ONDANSETRON 4 MG/2 ML (SDV) Z0FRAN ONE (08:05)
[2021-09-05] MEDS ORDERED: proPOfol 200 MG/20 ML (DIPRIVAN) VIAL IV ONE ×2 (08:05→10:03)
[2021-09-05] MEDS ORDERED: fentaNYL INJ 100 MCG/2 ML AMP ONE (08:05)
[2021-09-05] MEDS ORDERED: ROCURONIUM 10 MG/ML 5 ML SYRINGE IV ONE (08:05)
[2021-09-05] MEDS ORDERED: SEVOFLURANE (ULTANE) 15 ML INHAL SOLN ONE ×2 (08:05→09:58)
[2021-09-05] MEDS ORDERED: FAMOTIDINE 20MG/2ML IV (PEPCID) IV ONE (08:15)
[2021-09-05] MEDS ORDERED: ONDANSETRON 4 MG/2 ML (SDV) Z0FRAN IV ONE (08:15)
[2021-09-05] MEDS ORDERED: SCOPOLAMINE 1.5 MG (TRANSDERM-SCOP) PATCH TOP ONE (08:15)
[2021-09-05] MEDS ORDERED: CEFUROXIME 1.5 GM/15 ML (ZINACEF) VIAL ONE (08:16)
[2021-09-05] MEDS: LACTATED RINGERS 1,000 ML IV PRN ×2 (08:28→09:46)
[2021-09-05] MEDS ORDERED: CEFUROXIME INJECTION 1,500 MG in NS (IVPB) 50 ML IV ONE (08:30)
--- NOTE | 2021-09-05 09:06 | Progress Note-Pre Operative ---
Pre-Operative Progress Note H&P Reviewed The H&P was reviewed, patient examined and no changes noted. Date Seen by Provider: Sep 05, 2021 Time Seen by Provider: 09:05 Date H&P Reviewed: Sep 05, 2021 Time H&P Reviewed: 07:11 Pre-Operative Diagnosis: left primary knee osteoarthitis DYANA ESPANA MD Sep 05, 2021 09:06
--- NOTE | 2021-09-05 09:07 | Progress Note-Post Operative ---
Post-Operative Progess Note Surgeon (s)/Junior Paralegal (s) Surgeon DYANA ESPANA MD Junior Paralegal: Kael Hernadez Pre-Operative Diagnosis left primary knee osteoarthitis Post-Operative Diagnosis left primary knee osteoarthitis Procedure & Operative Findings Date of Procedure 09/05/21 Procedure Performed/Findings left total knee arthroplasty Anesthesia Type GETA Estimated Blood Loss Estimated blood loss (mL): minimal Specimens/Packing Specimens Removed none Packing: none DYANA ESPANA MD Sep 05, 2021 09:07
--- NOTE | 2021-09-05 09:09 | D/C HH Face to Face Order ---
D/C Face to Face Orders Reconcile Patient Problems Problems Reviewed?: Yes Instructions for Patient Via [facility], Patient Instructions/FollowUp: three weeks Physician to follow Patient: three weeks Discharge Diet for Home: Regular Diet Patient Data-Allergies,Ht & Wt Patient Allergies: Coded Allergies: Penicillins (Verified Allergy, Mild, HIVES, Pt has rec Cefuroxime in the past, 09/05/21) Home Health Need/Face to Face Date of Face to Face: Sep 05, 2021 Clinical Findings: Instability, Muscle weakness, Pain with ambulation, Unsteady gait I have seen Pt hgmm-mg-ghuo: Yes Discharged To: Home Diagnosis/Conditions: left total knee arthroplasty Patient is Homebound due to: Juan fall risk due to instabilty, Pain w/ambulation Homebound Status Due to the above stated illness, injury or surgical procedure (medical condition or diagnosis) and associated clinical findings, the patient is homebound because of his/her inability to leave home except with aid of a supportive device and/or person AND leaving the home requires a considerable and taxing effort or is medically contraindicated. Pt req the following assistanc: [facility] Home Health Nursing Orders Home Health Services Order: Physical Therapy-Evaluate & Treat DC left knee savanah and apply steri strips 09/19/21 Home Health Infusion Therapy Line Start Date: Sep 05, 2021 Therapy Orders Therapy Orders: Physical Therapy, PT to assess for OT Therapy Specific Orders: Eval assistive deivces, Teach enviro modifications/safety, Gait training, Increase strength/endurance, Provider maintenance therapy, Restore ROM Certify Stmt I certify that this patient is under my care and that I, a nurse practitioner or a physician; a trust operations assistant working with me, had a face to face encounter that -amado jessica the physician face to face encounter requirements with this patient as dated. DYANA ESPANA MD Sep 05, 2021 09:09
[2021-09-05] MEDS ORDERED: diphenhydrAMINE 50 MG/ML INJ (BENADRYL) IVP PRN (09:15)
[2021-09-05] MEDS ORDERED: morphine PCA 100 MG/100 ML BAG IV PRN (09:15)
[2021-09-05] MEDS ORDERED: ONDANSETRON 4 MG/2 ML (SDV) Z0FRAN IVP PRN ×2 (09:15→11:00)
[2021-09-05] MEDS ORDERED: NALOXONE 0.4 MG/ML 1 ML (NARCAN) VIAL IV PRN (09:15)
[2021-09-05] MEDS ORDERED: TRANEXAMIC ACID 100 MG/ML 10 ML INJECTION ONE (09:17)
[2021-09-05] MEDS ORDERED: HYDROmorphone 2 MG/ML VIAL (DILAUDID) ONE (09:26)
[2021-09-05] MEDS ORDERED: KETOROLAC 30 MG/ML VIAL ONE (10:26)
[2021-09-05] MEDS ORDERED: HYDROmorphone 2 MG/ML VIAL (DILAUDID) IV ONE (11:00)
--- NOTE | 2021-09-05 11:20 | Progress Note ---
Standard Progress Note Progress Notes/Assess & Plan Date Seen by a Provider: Sep 05, 2021 Time Seen by a Provider: 11:19 Progress/Assessment & Plan patient resting radiogrphs--HW well positioned without fracture LLE- brisk cap refill with 2 plus DP pulse s/p LTKA mobilize as able DYANA ESPANA MD Sep 05, 2021 11:20
--- NOTE | 2021-09-05 11:56 | Diagnostic Imaging Report ---
INDICATION: Left knee surgery. TIME OF EXAM: 10:56 a.m. FINDINGS: Two views of the left knee demonstrate postop changes of total knee arthroplasty. Prosthetic elements are in good position. No fracture or loosening is seen. Overlying skin savnaah are noted. IMPRESSION: Satisfactory postop appearance to the left knee. Dictated by: Dictated on workstation # [id number]
[2021-09-05] MEDS: NS IV 1000 ML 1,000 ML IV SCH ×2 (12:07→12:51)
--- NOTE | 2021-09-05 14:20 | Physical Therapy Evaluation ---
PT Evaluation-General Medical Diagnosis Admission Date Sep 05, 2021 at 07:40 Medical Diagnosis: left TKA Onset Date: Sep 05, 2021 Therapy Diagnosis Therapy Diagnosis: impaired mobility, strength, ROM Referral Physician: Satya Reason for Referral: Evaluation/Treatment Medical History Additional Medical History PAST MEDICAL HISTORY: Reflux, hypertension, melanoma and sleep apnea. PAST SURGICAL HISTORY: Herniorrhaphy and melanoma excision, right total knee arthroplasty. Reviewed History: Yes Social History Home: Single Level Current Living Status: Spouse Entry Into Home: Stairs Without Railing PT Steps Into Home: 2 Prior Prior Level of Function SCALE: Activities may be completed with or without assistive devices. 0-Lilgxshoub-hrxmpey completes the activity by him/herself with no assistance from a helper. 5-Set-up or Clean-up Assistance-helper sets up or cleans up; patient completes activity. [place] assists only prior to or following the activity. 4-Supervision or Touching Assistance-helper provides verbal cues and/or touching/steadying and/or contact guard assistance as patient completes activity. Assistance may be provided throughout the activity or intermittently. 3-Partial/Moderate Assistance-helper does LESS THAN HALF the effort. [place] lifts, holds or supports trunk or limbs, but provides less than half the effort. 2-Substantial/Maximal Assistance-helper does MORE THAN HALF the effort. [place] lifts or holds trunk or limbs and provides more than half the effort. 9-Sdayrtseo-pmyhhk does ALL the effort. Patient does none of the effort to complete the activity. Or, the assistance of 2 or more helpers is required for the patient to complete the activity. If activity was not attempted, code reason: 7-Patient Refused. 9-Not Applicable-not attempted and the patient did not perform the activity before the current illness, exacerbation or injury. 10-Not Attempted due to Environmental Limitations-(lack of equipment, weather restraints, etc.). 88-Not Attempted due to Medical Conditions or Safety Concerns. Bed Mobility: 6 Transfers (B,C,W/C): 6 Gait: 6 Stairs: 6 Indoor Mobility (Ambulation): Independent Stairs: Independent PT Evaluation-Current Subjective Patient in bed pre tx, agrees to PT, has no complaints of pain. Pt/Family Goals to be independent at home Objective Patient Orientation: Person, Place, Situation Attachments: IV ROM/Strength ROM Lower Extremities left knee flexion 70 degrees, extension +2 degrees Sensory Vision: Wears Glasses Hearing: Functional Sensation Right Lower Extremit: Intact Sensation Left Lower Extremity: Intact Transfers Roll Left to Right (QC): 6 Sit to Lying (QC): 6 Lying to Sitting/Side of Bed(Q: 6 Sit to Stand (QC): 4 Chair/Dhr-ex-Wfkwp Xfer(QC): 4 Gait Does the Patient Walk?: Yes Mode of Locomotion: Walk Anticipated Mode of Locomotion: Walk Walk 10 feet (QC): 4 Walk 50 ft with 2 Turns(QC): 4 Walk 150 ft (QC): 4 Distance: 200' Gait Assistive Device: FWW Comments/Gait Description steady ambulation, slightly flexed left knee, good step through Balance Sitting Static: Normal Sitting Dynamic: Normal Standing Static: Good Standing Dynamic: Good Treatment total knee protocol x10 (AP, QS, HS, SAQ, SLR) Assessment/Needs Patient in bed post tx with nurse call, phone, tray, all needs met. Patient has impaired mobility, strength, ROM. Just needs CGA for transfers and ambulation Rehab Potential: Fair PT Intermediate Goals Intermediate Goals PT Intermediate Goals Time Frame: Sep 12, 2021 Roll Left & Right (QC): 6 Sit to Lying (QC): 6 Lying-Sitting on Side/Bed(QC): 6 Sit to Stand (QC): 6 Chair/Eyh-qi-Zksoc Xfer(QC): 6 Walk 10 feet (QC): 6 Walk 50ft with 2 Turns (QC): 6 Walk 150 ft (QC): 6 1 Step (curb) (QC): 4 4 Steps (QC): 4 PT Plan Problem List Problem List: Activity Tolerance, Functional Strength, Safety, Balance, Gait, Transfer, Bed Mobility, ROM Treatment/Plan Treatment Plan: Continue Plan of Care Treatment Plan: Bed Mobility, Education, Functional Activity Tawanna, Functional Strength, Gait, Safety, Therapeutic Exercise, Transfers Treatment Duration: Sep 12, 2021 Frequency: 11 times per week Estimated Hrs Per Day: .25 hour per day Patient and/or Family Agrees t: Yes Safety Risks/Education Patient Education: Gait Training, Transfer Techniques, Correct Positioning, Safety Issues Teaching Recipient: Patient Teaching Methods: Demonstration, Discussion Response to Teaching: Reinforcement Needed Discharge Recommendations Plan Patient will perform bed mobility and transfer training, balance and endurance training, functional strengthening, stair training, gait training, and education, to improve functional mobility and independence at home. Therapy Discharge Recommendati: Home & Family, Post Acute PT Time/GCodes Time In: 1341 Time Out: 1358 Total Billed Treatment Time: 17 Total Billed Treatment 1 visit EVImelda 17' ELIZABETH MEJIA PT Sep 05, 2021 14:20
--- NOTE | 2021-09-05 17:01 | OPERATIVE REPORT ---
DATE OF SERVICE: 09/05/2021 PREOPERATIVE DIAGNOSIS: Left knee primary osteoarthritis. POSTOPERATIVE DIAGNOSIS: Left knee primary osteoarthritis. PROCEDURE: Left total knee arthroplasty. SURGEON: Rafael Espana MD RECONCILEMENT CLERK: Kael Hernadez, who assisted throughout the procedure and closed the incision. ANESTHESIA: General endotracheal by Dennis Hoffmann CRNA. TOURNIQUET TIME: Approximately 70 minutes at 300 mmHg. ESTIMATED BLOOD LOSS: Minimal. DRAINS: None. COMPLICATIONS: None. POSTOPERATIVE PLAN: Routine total knee protocol. The patient was transferred to the recovery room awake and in stable condition. MATERIALS: Microport cemented size 6 femur, cemented size 6 tibia with 12 mm insert and cemented size 35 patellar button. STATEMENT OF MEDICAL NECESSITY: The patient is a 56-year-old gentleman with longstanding progressive left knee pain. Radiographs revealed severe medial patellofemoral arthrosis. He has undergone treatment with injections, anti-inflammatories and rest without relief. Due to functional impairment and failure to improve with conservative measures, the patient elected to proceed with surgical intervention. DESCRIPTION OF PROCEDURE: After risks and benefits of procedure were discussed and questions were answered, an informed consent was signed and placed on chart, the operative site was confirmed in the preoperative holding area initialed by the surgeon. The patient was then transferred to the operating room and after adequate levels of general endotracheal anesthetic were obtained, a timeout was called, confirming the operative site. The left lower extremity was prepped and draped in the usual sterile fashion with the leg elevated and the knee flexed and tourniquet was inflated to 300 mmHg. Standard anterior approach was utilized. Hemostasis was obtained with cautery. Medial parapatellar arthrotomy was performed leaving 1 cm cuff on the patella for later reattachment. Portion of the fat pad was resected. A subperiosteal release was performed on the proximal medial tibia being careful to stay on the bony surface. The ACL was resected. The intramedullary guide was passed into the femur. The distal cutting block was placed. The distal cut was made. Femur was sized to a size 6. A 6 cutting block was placed parallel to the epicondylar axis and cuts were made from posterior to anterior. A subperiosteal release was then carefully performed on the posterior distal femur, being careful to stay on the bony surface. The intramedullary guide was then passed into the tibia. The tibial cutting block was placed and the drop slava transected the intermalleolar axis and cut was made. A 6 baseplate was placed. The drop slava transected the intermalleolar axis and this was then prepared with the drill and keel punch. The trials were inserted. There was tightness noted in flexion and extension. Therefore, an additional 2 mm was resected off the tibia. The trials were reinserted. The 12 mm insert was placed. The patella was then prepared by resecting 10 mm off the undersurface. Peg guide was placed and peg holes were drilled. The 35 trial was placed. Knee was taken through range of motion. Full extension was easily obtained under 20 degrees of flexion with gravity was easily obtained. There was no anterior/posterior or medial/lateral laxity in flexion or extension. The trials were removed. The joint was irrigated with pulse lavage. Periarticular block was placed in the posterior capsule, medial and lateral retinaculum extensor mechanism, subcutaneous tissues. The bone ends were irrigated. The tibial baseplate was cemented into position. Excessive cement was removed, the superior surface was irrigated and dried. The polyethylene insert was placed. Distal femur was irrigated and dried and the femoral prosthesis was cemented into position. Excessive cement was removed. The knee was brought out in full extension until cement had cured. The undersurface of patella was irrigated and dried. The patellar button was cemented into position. Excessive cement was removed. The knee was held in full extension until cement had cured. Once the cement had cured, the knee was taken through range of motion. Full extension was easily obtained under 20 degrees of flexion with gravity was easily obtained. There was no anterior/posterior or medial/lateral laxity in flexion or extension. The arthrotomy was closed with #2 Tevdek in qafnhv-lp-xbptz interrupted fashion. The knee was flexed. The patella tracked well. Subcutaneous tissues were irrigated with pulse lavage using a total of 6 liters throughout the procedure. A 0 Vicryl was used for deep subcutaneous layer, 2-0 Vicryl for the superficial subcutaneous layer, savanah used on the skin. A soft dressing was applied. The tourniquet was deflated and the patient was transferred to the recovery room awake and in stable condition. Job ID: [id number] DocumentID: [id number] Dictated Date: 09/05/2021 10:52:24 Political Cartoonist Date: 09/05/2021 16:59:35 Dictated By: RAFAEL ESPANA MD
[2021-09-05] MEDS: CEFUROXIME INJECTION 750 MG in NS (IVPB) 50 ML IV SCH (17:22)
[2021-09-05] MEDS: SENNA W/DOCUSATE (SENOKOT S) TABLET PO SCH (19:39)
[2021-09-06] MEDS: CEFUROXIME INJECTION 750 MG in NS (IVPB) 50 ML IV SCH (00:40)
[2021-09-06] MEDS: NS IV 1000 ML 1,000 ML IV SCH ×2 (02:51→15:21)
[2021-09-06 03:57] VITALS: BP 114/71
[2021-09-06] MEDS: MULTIVIT W/MINERALS TAB (THERAGRAN M) PO SCH (05:25)
[2021-09-06 06:00] LABS: BASOPHILS % (AUTO) 0 % (0-10); EOSINOPHILS % (AUTO) 0 % (0-10); HEMATOCRIT 37 % (40-54); HEMOGLOBIN 12.3 g/dL (13.3-17.7); LYMPHOCYTES # (AUTO) 2.1 10^3/uL (1.0-4.0); LYMPHOCYTES % (AUTO) 19 % (12-44); MEAN CORPUSCULAR HEMOGLOBIN 31 pg (25-34); MEAN CORPUSCULAR HGB CONC 33 g/dL (32-36); MEAN CORPUSCULAR VOLUME 93 fL (80-99); MEAN PLATELET VOLUME 11.2 fL (9.0-12.2); MONOCYTES # (AUTO) 1.1 10^3/uL (0.0-1.0); MONOCYTES % (AUTO) 10 % (0-12); NEUTROPHILS # (AUTO) 7.6 10^3/uL (1.8-7.8); NEUTROPHILS % (AUTO) 70 % (42-75); PLATELET COUNT 205 10^3/uL (130-400); WHITE BLOOD COUNT 10.9 10^3/uL (4.3-11.0)
[2021-09-06 06:21] LABS: ALBUMIN 3.7 GM/DL (3.2-4.5)
--- NOTE | 2021-09-06 06:21 | Consultation - Hospitalist ---
HPI History of Present Illness: HPI/Chief Complaint Chief Complaint: Left Knee Replacement HPI: This is a 56yoWM clinic patient of [facility]. He presents to the Hospital after an uncomplicated left knee replacement by Dr. Spence. Currently he is doing well. His labs and vitals signs remain stable. He is voiding well. His is at the bedside. He is working with PT and doing very well Source: patient, family Exam Limitations: no limitations Date Seen 09/06/21 Attending Physician Rafael Spence MD [facility] Referring Physician Date of Admission Sep 05, 2021 at 07:40 Home Medications & Allergies Home Medications Reviewed patient Home Medication Reconciliation performed by pharmacy medication reconciliations survey cad technician and/or nursing. Patients Allergies have been reviewed. Allergies Allergies Coded Allergies Penicillins (Verified Allergy, Mild, HIVES, Pt has rec Cefuroxime in the past, 09/05/21) Past Lgeccbl-Cvfhce-Alwfry Hx Patient Social History Marrital Status: Employed/Student: employed Tobacco Use?: No Smoking Status: Never a Smoker Smokeless Tobacco Frequency: Never a User Use of E-Cig and/or Vaping Gianni: Never a User Substance use?: No Alcohol Use?: Yes Alcohol type: Beer Alcohol Frequency: Couple times a week Pt feels they are or have been: No Immunizations Up To Date First/Initial COVID19 Vaccinat: 09/2020 Second COVID19 Vaccination Calin: 10/2020 Seasonal Allergies Seasonal Allergies: Yes Current Status Advance Directives: No Communicates: Verbally Primary Language: Tuvaluan Preferred Spoken Language: Tuvaluan Is interpretation needed?: No Implanted or Applied Medical D: None Past Medical History Sleep Apnea Currently Using CPAP: No Currently Using BIPAP: No Hypertension Sexually Transmitted Disease: No HIV/AIDS: No Gastroesophageal Reflux Arthritis Loss of Vision: Denies Hearing Impairment: Denies Melanoma Did You Recieve Any Treatments: Yes What Type of Treatment Did You: Surgical Intervention Blood Disorders: No Adverse Reaction/Blood Tranf: No (N/A) Review of Systems Constitutional: see HPI, malaise, weakness EENTM: no symptoms reported Respiratory: no symptoms reported Cardiovascular: no symptoms reported Gastrointestinal: no symptoms reported Genitourinary: no symptoms reported Musculoskeletal: back pain, joint pain Skin: no symptoms reported Psychiatric/Neurological: No Symptoms Reported All Other Systems Reviewed Negative Unless Noted: Yes Physical Exam Physical Exam Vital Signs Vital Signs - First Documented 09/05/21 08:10 Temp 36.1 Pulse 77 Resp 18 B/P (MAP) 131/90 (104) Pulse Ox 95 O2 Delivery Room Air Capillary Refill : Height, Weight, BMI Height: '" Weight: lbs. oz. kg; 33.09 BMI Method: General Appearance: No Apparent Distress, WD/WN, Chronically ill, Obese Eyes: Bilateral Eye Normal Inspection, Bilateral Eye PERRL HEENT: PERRL/EOMI, Normal ENT Inspection, Pharynx Normal Neck: Full Range of Motion, Normal Inspection, Non Tender, Supple, Carotid Bruit Respiratory: Chest Non Tender, Lungs Clear, Normal Breath Sounds, No Accessory Muscle Use, No Respiratory Distress Cardiovascular: Regular Rate, Rhythm, No Edema, No Gallop, No JVD, No Murmur, Normal Peripheral Pulses Gastrointestinal: Normal Bowel Sounds, No Organomegaly, No Pulsatile Mass, Non Tender, Soft Back: Normal Inspection, No CVA Tenderness, No Vertebral Tenderness Extremity: Normal Capillary Refill, Normal Inspection, Normal Range of Motion (Except postop pain), Non Tender, No Calf Tenderness, No Pedal Edema Neurologic/Psychiatric: Alert, Oriented x3, No Motor/Sensory Deficits, Normal Mood/Affect Skin: Normal Color, Warm/Dry Lymphatic: No Adenopathy Results Results/Procedures Labs Laboratory Tests 09/06/21 05:21 Patient resulted labs reviewed. Assessment/Plan Assessment and Plan Assess & Plan/Chief Complaint Assessment: Left knee replacement Sleep apnea Hypertension GERD Obesity BMI 33 History of melanoma Plan: Monitor labs Supportive care YULIET ELLIS DO Sep 06, 2021 06:21
[2021-09-06 06:22] LABS: POTASSIUM 3.6 MMOL/L (3.6-5.0)
[2021-09-06 06:23] LABS: CALCIUM 8.8 MG/DL (8.5-10.1)
[2021-09-06 06:24] LABS: TOTAL PROTEIN 5.8 GM/DL (6.4-8.2)
[2021-09-06 06:26] LABS: BILIRUBIN,TOTAL 0.4 MG/DL (0.1-1.0)
[2021-09-06 06:28] LABS: CREATININE SERUM 0.81 MG/DL (0.60-1.30)
--- NOTE | 2021-09-06 08:04 | Progress Note ---
Standard Progress Note Progress Notes/Assess & Plan Date Seen by a Provider: Sep 06, 2021 Time Seen by a Provider: 08:03 Progress/Assessment & Plan patient resting radiogrphs--HW well positioned without fracture LLE- brisk cap refill with 2 plus DP pulse s/p LTKA mobilize as able Final Diagnosis ambulating in moreno Vital Signs Date Time Temp Pulse Resp B/P (MAP) Pulse Ox O2 Delivery O2 Flow Rate FiO2 09/06/21 05:26 18 09/06/21 03:57 36.5 78 18 114/71 (85) 95 Room Air 09/05/21 23:51 36.8 82 18 110/70 (83) 94 Room Air 09/05/21 20:27 37.4 82 19 126/77 (93) 94 Room Air 09/05/21 20:24 Room Air 09/05/21 15:52 37.2 76 19 119/75 (90) 93 Room Air 09/05/21 12:48 16 09/05/21 12:00 36.3 80 18 145/91 (109) 92 Room Air 09/05/21 11:45 Room Air 09/05/21 11:40 36.7 14 130/78 (95) 92 Room Air 09/05/21 11:30 OxyMask 4 09/05/21 11:30 12 117/85 (96) 95 OxyMask 2 09/05/21 11:20 12 122/77 (92) 94 OxyMask 2 09/05/21 11:15 OxyMask 6 09/05/21 11:10 12 122/77 (92) 94 OxyMask 4 09/05/21 11:00 12 110/66 (81) 95 OxyMask 6 09/05/21 10:53 OxyMask 8 09/05/21 10:53 36.1 12 109/61 (77) 95 OxyMask 8 09/05/21 08:10 36.1 77 18 131/90 (104) 98 Room Air 09/05/21 08:10 95 Room Air I & O 09/06/21 06:59 Intake Total 3400 ml Output Total 1675 ml Balance 1725 ml Laboratory Tests Test 09/06/21 05:21 Range/Units White Blood Count 10.9 4.3-11.0 10^3/uL Red Blood Count 4.02 L 4.30-5.52 10^6/uL Hemoglobin 12.3 L 13.3-17.7 g/dL Hematocrit 37 L 40-54 % Mean Corpuscular Volume 93 80-99 fL Mean Corpuscular Hemoglobin 31 25-34 pg Mean Corpuscular Hemoglobin Concent 33 32-36 g/dL Red Cell Distribution Width 13.2 10.0-14.5 % Platelet Count 205 130-400 10^3/uL Mean Platelet Volume 11.2 9.0-12.2 fL Immature Granulocyte % (Auto) 0 % Neutrophils (%) (Auto) 70 42-75 % Lymphocytes (%) (Auto) 19 12-44 % Monocytes (%) (Auto) 10 0-12 % Eosinophils (%) (Auto) 0 0-10 % Basophils (%) (Auto) 0 0-10 % Neutrophils # (Auto) 7.6 1.8-7.8 10^3/uL Lymphocytes # (Auto) 2.1 1.0-4.0 10^3/uL Monocytes # (Auto) 1.1 H 0.0-1.0 10^3/uL Eosinophils # (Auto) 0.0 0.0-0.3 10^3/uL Basophils # (Auto) 0.0 0.0-0.1 10^3/uL Immature Granulocyte # (Auto) 0.0 0.0-0.1 10^3/uL Sodium Level 139 135-145 MMOL/L Potassium Level 3.6 3.6-5.0 MMOL/L Chloride Level 109 H 98-107 MMOL/L Carbon Dioxide Level 20 L 21-32 MMOL/L Anion Gap 10 5-14 MMOL/L Blood Urea Nitrogen 12 7-18 MG/DL Creatinine 0.81 0.60-1.30 MG/DL Estimat Glomerular Filtration Rate 102 BUN/Creatinine Ratio 15 Glucose Level 95 70-105 MG/DL Calcium Level 8.8 8.5-10.1 MG/DL Corrected Calcium 9.0 8.5-10.1 MG/DL Total Bilirubin 0.4 0.1-1.0 MG/DL Aspartate Amino Transf (AST/SGOT) 17 5-34 U/L Alanine Aminotransferase (ALT/SGPT) 22 0-55 U/L Alkaline Phosphatase 72 40-136 U/L Total Protein 5.8 L 6.4-8.2 GM/DL Albumin 3.7 3.2-4.5 GM/DL LLE--dressing intact. No calf tenderness. Intact DF and PF of toes and ankle, sensation intact throughout s/p LTKA doing well PT/OT DYANA ESPANA MD Sep 06, 2021 08:04
[2021-09-06] MEDS: oxyCODONE/APAP 5/325MG (PERCOCET 5) TABLET PO PRN ×5 (08:07→20:25)
[2021-09-06] MEDS: SENNA W/DOCUSATE (SENOKOT S) TABLET PO SCH ×2 (08:08→20:19)
[2021-09-06] MEDS: ENOXAPARIN 30 MG/0.3 ML (LOVENOX) SYR SC SCH ×2 (08:10→20:19)
[2021-09-06 08:15] VITALS: BP 120/73
[2021-09-06] MEDS ORDERED: ASPIRIN E.C. 81 MG (ECOTRIN) TAB PO SCH (09:00)
--- NOTE | 2021-09-06 09:32 | Physical Therapy Daily Note ---
PT Daily Note-Current Subjective Patient denies left knee pain. Agrees to PT. Pain Numeric Pain Scale: 0-No Pain Location: No Pain Reported Mental Status Patient Orientation: Normal For Age Attachments: IV Transfers SCALE: Activities may be completed with or without assistive devices. 2-Clsmomorcv-cazitcr completes the activity by him/herself with no assistance from a helper. 5-Set-up or Clean-up Assistance-helper sets up or cleans up; patient completes activity. [place] assists only prior to or following the activity. 4-Supervision or Touching Assistance-helper provides verbal cues and/or touching/steadying and/or contact guard assistance as patient completes activity. Assistance may be provided throughout the activity or intermittently. 3-Partial/Moderate Assistance-helper does LESS THAN HALF the effort. [place] lifts, holds or supports trunk or limbs, but provides less than half the effort. 2-Substantial/Maximal Assistance-helper does MORE THAN HALF the effort. [place] lifts or holds trunk or limbs and provides more than half the effort. 5-Hayeiiyja-ikeeak does ALL the effort. Patient does none of the effort to complete the activity. Or, the assistance of 2 or more helpers is required for the patient to complete the activity. If activity was not attempted, code reason: 7-Patient Refused. 9-Not Applicable-not attempted and the patient did not perform the activity before the current illness, exacerbation or injury. 10-Not Attempted due to Environmental Limitations-(lack of equipment, weather restraints, etc.). 88-Not Attempted due to Medical Conditions or Safety Concerns. Lying to Sitting/Side of Bed(Q: 6 Sit to Stand (QC): 4 Chair/Vye-se-Pylel Xfer(QC): 4 Gait Training Distance: 250' Walk 10 feet (QC): 4 Walk 50 ft with 2 Turns(QC): 4 Walk 150 ft (QC): 4 Gait Assistive Device: FWW reciprocal pattern Exercises Supine Ex: Heel Slides, Straight leg raise Supine Reps: 15 Seated Therapy Exercises: Long arc quads Seated Reps: 15 Assessment Patient tolerated treatment well and is progressing with treatment plan. Patient continues to deny left knee pain. PT Fpc Goals Bookkeeping Assistant Goals PT Bookkeeping Assistant Goals Time Frame: Sep 12, 2021 Roll Left & Right (QC): 6 Sit to Lying (QC): 6 Lying-Sitting on Side/Bed(QC): 6 Sit to Stand (QC): 6 Chair/Nvl-de-Fttrs Xfer(QC): 6 Walk 10 feet (QC): 6 Walk 50ft with 2 Turns (QC): 6 Walk 150 ft (QC): 6 1 Step (curb) (QC): 4 4 Steps (QC): 4 PT Plan Treatment/Plan Treatment Plan: Continue Plan of Care Treatment Plan: Bed Mobility, Education, Functional Activity Tawanna, Functional Strength, Gait, Safety, Therapeutic Exercise, Transfers Treatment Duration: Sep 12, 2021 Frequency: 11 times per week Estimated Hrs Per Day: .25 hour per day Patient and/or Family Agrees t: Yes Time/GCodes Time In: 750 Time Out: 804 Total Billed Treatment Time: 14 Total Billed Treatment 1 visit FA 14 min ANURAG LESLIE PT Sep 06, 2021 09:32
--- NOTE | 2021-09-06 09:50 | Occupational Therapy Eval ---
OT Evaluation-General/PLF Medical Diagnosis Admission Date Sep 05, 2021 at 07:40 Medical Diagnosis: left TKA Onset Date: Sep 05, 2021 Therapy Diagnosis Therapy Diagnosis: n/a Precautions Precautions/Isolations: Standard Precautions Referral Physician: Satya Ba Reason: Evaluation/Treatment Medical History Additional Medical History R TKA ~10 weeks ago Current History S/P L TKA, post op day 1. Pt lives with his in a single story home. He was indep with adls and iadls prior to admission. He reports just recently retiring and having R knee surgery ~10 weeks ago. Pt was using a cane prior to surgery. His is a teacher and will be on spring break starting tomorrow. Reviewed History: Yes Social History Home: Single Level Current Living Status: Spouse Entry Into Home: Stairs Without Railing Steps Into Home: 2 ADL-Prior Level of Function SCALE: Activities may be completed with or without assistive devices. 7-Vgxtkjcmpu-mkswezv completes the activity by him/herself with no assistance from a helper. 5-Set-up or Clean-up Assistance-helper sets up or cleans up; patient completes activity. [place] assists only prior to or following the activity. 4-Supervision or Touching Assistance-helper provides verbal cues and/or to uching/steadying and/or contact guard assistance as patient completes activity. Assistance may be provided throughout the activity or intermittently. 3-Partial/Moderate Assistance-helper does LESS THAN HALF the effort. [place] lifts, holds or supports trunk or limbs, but provides less than half the effort. 2-Substantial/Maximal Assistance-helper does MORE THAN HALF the effort. [place] lifts or holds trunk or limbs and provides more than half the effort. 0-Rtnfzkrrl-gmexkx does ALL the effort. Patient does none of the effort to complete the activity. Or, the assistance of 2 or more helpers is required for the patient to complete the activity. If activity was not attempted, code reason: 7-Patient Refused. 9-Not Applicable-not attempted and the patient did not perform the activity before the current illness, exacerbation or injury. 10-Not Attempted due to Environmental Limitations-(lack of equipment, weather restraints, etc.). 88-Not Attempted due to Medical Conditions or Safety Concerns. Self Care: Independent Functional Cognition: Independent DME/Equipment: Bath Chair, Tub/Shower OT Current Status Subjective Pt reports mild discomfort in L knee, RN aware. Appearance Pt returned to sitting in recliner, all needs within reach. Mental Status/Objective Patient Orientation: Person, Place, Situation Attachments: IV Current Glasses/Contacts: Yes Hearing Aids: No Dentures/Partials: No Hand Dominance: Right Upper Extremity ROM WNL Upper Extremity Strength WNL ADL-Treatment Eating (QC): 6 Oral Hygiene (QC): 6 Lower Body Dressing (QC): 5 On/Off Footwear (QC): 7 (Reports can lianne if needed) Toileting Hygiene (QC): 4 Pt sitting in recliner at OT arrival. Sit<>stand: SBA. Good static standing balance with zero UE support. He was able to ambulate to/from bathroom with use of walker and SBA for management of IV pole. Pt able to complete all steps of toileting without assist. Per physical therapy, pt donned underwear with set up only. Pt denies any self care concerns. He is aware of care/management of incision during bathing tasks as he recently had R knee surgery. Pt in agreement to discharge from OT services. Education OT Patient Education: Correct positioning, Modified ADL techniques, Purpose of tx/functional activities, Reviewed precautions Teaching Recipient: Patient, Family Teaching Methods: Discussion Response to Teaching: Verbalize Understanding, Return Demonstration OT Auto Damage Adjuster Goals Auto Damage Adjuster Goals 1=Demonstrate adherence to instructed precautions during ADL tasks. 2=Patient will verbalize/demonstrate understanding of assistive devices/modifications for ADL. 3=Patient will improve strength/tolerance for activity to enable patient to perform ADL's. OT Education/Plan Problem List/Assessment Assessment: Impaired I ADL's Discharge Recommendations Plan/Recommendations: Discontinue OT Therapy Discharge Recommendati: Home & Family Target Placement Home with family support Treatment Plan/Plan of Care Treatment,Training & Education: Yes Patient would benefit from OT for education, treatment and training to promote independence in ADL's, mobility, safety and/or upper extremity function for ADL's. Plan of Care: ADL Retraining Treatment Duration: Sep 06, 2021 Frequency: 1 time per week Estimated Hrs Per Day: .25 hour per day Agreement: Yes Rehab Potential: Good Time/GCodes Start Time: 09:25 Stop Time: 09:35 Total Time Billed (hr/min): 10 Billed Treatment Time 1 visit Antonia Gonzalez OT Sep 06, 2021 09:50
--- NOTE | 2021-09-06 10:53 | Anesthesia-General Post-Op ---
General Patient Condition Mental Status/LOC: Same as Preop Cardiovascular: Satisfactory Nausea/Vomiting: Absent Respiratory: Satisfactory Pain: Controlled Complications: Absent Post Op Complications Complications None Follow Up Care/Instructions Patient Instructions None needed. Anesthesia/Patient Condition Patient Condition Patient is doing well, no complaints, stable vital signs, no apparent adverse anesthesia problems. No complications reported per nursing. D/C home per [facility] Criteria: Yes SAMARIA NUR CRNA Sep 06, 2021 10:53
[2021-09-06 11:58] VITALS: BP 132/74
--- NOTE | 2021-09-06 13:53 | Physical Therapy Daily Note ---
PT Daily Note-Current Subjective Patient agrees to PT. Has increase c/o left knee pain (6/10) Pain Numeric Pain Scale: 6 Location: Left Location Body Site: Knee Pain Description: Acute Mental Status Patient Orientation: Normal For Age Attachments: IV Transfers SCALE: Activities may be completed with or without assistive devices. 9-Ybyemuzfxa-iipebzs completes the activity by him/herself with no assistance from a helper. 5-Set-up or Clean-up Assistance-helper sets up or cleans up; patient completes activity. [place] assists only prior to or following the activity. 4-Supervision or Touching Assistance-helper provides verbal cues and/or to uching/steadying and/or contact guard assistance as patient completes activity. Assistance may be provided throughout the activity or intermittently. 3-Partial/Moderate Assistance-helper does LESS THAN HALF the effort. [place] lifts, holds or supports trunk or limbs, but provides less than half the effort. 2-Substantial/Maximal Assistance-helper does MORE THAN HALF the effort. [place] lifts or holds trunk or limbs and provides more than half the effort. 9-Kcexpslso-qdymlu does ALL the effort. Patient does none of the effort to complete the activity. Or, the assistance of 2 or more helpers is required for the patient to complete the activity. If activity was not attempted, code reason: 7-Patient Refused. 9-Not Applicable-not attempted and the patient did not perform the activity before the current illness, exacerbation or injury. 10-Not Attempted due to Environmental Limitations-(lack of equipment, weather restraints, etc.). 88-Not Attempted due to Medical Conditions or Safety Concerns. Sit to Lying (QC): 6 Lying to Sitting/Side of Bed(Q: 6 Sit to Stand (QC): 6 Chair/Zmo-sv-Cwyki Xfer(QC): 6 Gait Training Distance: 250' Walk 10 feet (QC): 6 Walk 50 ft with 2 Turns(QC): 6 Walk 150 ft (QC): 6 Gait Assistive Device: FWW antalgic/reciprocal pattern Exercises Supine Ex: Ankle pumps, Quad Set, Heel Slides, Straight leg raise Supine Reps: 15 Seated Therapy Exercises: Long arc quads Seated Reps: 20 Assessment Current Status: Excellent Progress Patient AROM 0-88 degrees left knee. Patient has ambulated with spouse in hallway PRN. Plan dismissal tomorrow. PT Prison Goals Prison Goals PT Co Founder And Cto Goals Time Frame: Sep 12, 2021 Roll Left & Right (QC): 6 Sit to Lying (QC): 6 Lying-Sitting on Side/Bed(QC): 6 Sit to Stand (QC): 6 Chair/Xay-aa-Hmahh Xfer(QC): 6 Walk 10 feet (QC): 6 Walk 50ft with 2 Turns (QC): 6 Walk 150 ft (QC): 6 1 Step (curb) (QC): 4 4 Steps (QC): 4 PT Plan Treatment/Plan Treatment Plan: Continue Plan of Care Treatment Plan: Bed Mobility, Education, Functional Activity Tawanna, Functional Strength, Gait, Safety, Therapeutic Exercise, Transfers Treatment Duration: Sep 12, 2021 Frequency: 11 times per week Estimated Hrs Per Day: .25 hour per day Patient and/or Family Agrees t: Yes Time/GCodes Time In: 1336 Time Out: 1348 Total Billed Treatment Time: 12 Total Billed Treatment 1 visit FA 12 min ANURAG LESLIE PT Sep 06, 2021 13:53
[2021-09-06 16:00] VITALS: BP 114/67
[2021-09-06 19:39] VITALS: BP 139/68
[2021-09-06 23:57] VITALS: BP 145/84
--- NOTE | 2021-09-07 01:14 | DISCHARGE SUMMARY ---
DATE OF SERVICE: DIAGNOSES: 1. Left knee primary osteoarthritis. 2. Reflux. 3. Hypertension. 4. Melanoma. 5. Sleep apnea. PROCEDURE: Left total knee arthroplasty. SUMMARY: The patient is a 56-year-old gentleman who underwent a left total knee arthroplasty on the day of admission. Postoperatively, he did very well. At time of discharge, his wound was clean and dry. He had no calf tenderness. Negative Homans sign. He was tolerating diet well and tolerating pain with oral pain medication. He cleared physical therapy. CONDITION AT DISCHARGE: Good. DISCHARGE DIET: Regular. FOLLOWUP: Followup is in three weeks. DISCHARGE MEDICATIONS: Home medications, one aspirin per day for one month, Percocet as needed for pain. Home physical therapy will be arranged. Job ID: [id number] DocumentID: [id number] Dictated Date: 09/06/2021 19:26:51 Correction Officer Supervisor Date: 09/07/2021 01:13:16 Dictated By: DYANA ESPANA MD
[2021-09-07] MEDS: oxyCODONE/APAP 5/325MG (PERCOCET 5) TABLET PO PRN ×3 (02:02→06:28)
[2021-09-07 03:54] VITALS: BP 133/81
[2021-09-07] MEDS: NS IV 1000 ML 1,000 ML IV SCH (04:04)
[2021-09-07 06:04] LABS: ALBUMIN 3.6 GM/DL (3.2-4.5)
[2021-09-07 06:05] LABS: POTASSIUM 3.6 MMOL/L (3.6-5.0)
[2021-09-07 06:06] LABS: CALCIUM 8.5 MG/DL (8.5-10.1)
[2021-09-07 06:07] LABS: TOTAL PROTEIN 5.7 GM/DL (6.4-8.2)
[2021-09-07 06:09] LABS: BILIRUBIN,TOTAL 0.8 MG/DL (0.1-1.0)
[2021-09-07 06:11] LABS: CREATININE SERUM 0.73 MG/DL (0.60-1.30)
[2021-09-07 06:20] LABS: BASOPHILS % (AUTO) 0 % (0-10); EOSINOPHILS % (AUTO) 0 % (0-10); HEMATOCRIT 34 % (40-54); HEMOGLOBIN 11.2 g/dL (13.3-17.7); LYMPHOCYTES # (AUTO) 1.6 10^3/uL (1.0-4.0); LYMPHOCYTES % (AUTO) 19 % (12-44); MEAN CORPUSCULAR HEMOGLOBIN 31 pg (25-34); MEAN CORPUSCULAR HGB CONC 33 g/dL (32-36); MEAN CORPUSCULAR VOLUME 93 fL (80-99); MEAN PLATELET VOLUME 11.9 fL (9.0-12.2); MONOCYTES # (AUTO) 1.1 10^3/uL (0.0-1.0); MONOCYTES % (AUTO) 13 % (0-12); NEUTROPHILS # (AUTO) 5.8 10^3/uL (1.8-7.8); NEUTROPHILS % (AUTO) 68 % (42-75); PLATELET COUNT 190 10^3/uL (130-400); WHITE BLOOD COUNT 8.6 10^3/uL (4.3-11.0)
[2021-09-07] MEDS: MULTIVIT W/MINERALS TAB (THERAGRAN M) PO SCH (06:28)
[2021-09-07 07:00] VITALS: BP 154/94
[2021-09-07] MEDS ORDERED: MULTIVIT W/MINERALS TAB (THERAGRAN M) PO SCH (07:00)
--- NOTE | 2021-09-07 07:07 | Progress Note ---
Standard Progress Note Progress Notes/Assess & Plan Date Seen by a Provider: Sep 07, 2021 Time Seen by a Provider: 07:06 Progress/Assessment & Plan patient resting radiogrphs--HW well positioned without fracture LLE- brisk cap refill with 2 plus DP pulse s/p LTKA mobilize as able Final Diagnosis no complaints Vital Signs Date Time Temp Pulse Resp B/P (MAP) Pulse Ox O2 Delivery O2 Flow Rate FiO2 09/07/21 06:29 18 09/07/21 06:24 37.6 09/07/21 03:54 37.9 94 18 133/81 (98) 95 NIV CPAP 09/06/21 23:57 37.4 92 18 145/84 (104) 94 Room Air 09/06/21 20:30 Room Air 09/06/21 19:39 37.4 93 20 139/68 (91) 98 Room Air 09/06/21 18:00 18 09/06/21 16:00 36.7 80 18 114/67 (83) 98 Room Air 09/06/21 11:58 37.0 78 20 132/74 (93) 97 Room Air 09/06/21 08:15 37.2 83 20 120/73 (89) 95 Room Air 09/06/21 08:00 Room Air I & O 09/07/21 07:00 Intake Total 2900 ml Output Total 975 ml Balance 1925 ml Laboratory Tests Test 09/07/21 05:25 Range/Units White Blood Count 8.6 4.3-11.0 10^3/uL Red Blood Count 3.65 L 4.30-5.52 10^6/uL Hemoglobin 11.2 L 13.3-17.7 g/dL Hematocrit 34 L 40-54 % Mean Corpuscular Volume 93 80-99 fL Mean Corpuscular Hemoglobin 31 25-34 pg Mean Corpuscular Hemoglobin Concent 33 32-36 g/dL Red Cell Distribution Width 13.2 10.0-14.5 % Platelet Count 190 130-400 10^3/uL Mean Platelet Volume 11.9 9.0-12.2 fL Immature Granulocyte % (Auto) 0 % Neutrophils (%) (Auto) 68 42-75 % Lymphocytes (%) (Auto) 19 12-44 % Monocytes (%) (Auto) 13 H 0-12 % Eosinophils (%) (Auto) 0 0-10 % Basophils (%) (Auto) 0 0-10 % Neutrophils # (Auto) 5.8 1.8-7.8 10^3/uL Lymphocytes # (Auto) 1.6 1.0-4.0 10^3/uL Monocytes # (Auto) 1.1 H 0.0-1.0 10^3/uL Eosinophils # (Auto) 0.0 0.0-0.3 10^3/uL Basophils # (Auto) 0.0 0.0-0.1 10^3/uL Immature Granulocyte # (Auto) 0.0 0.0-0.1 10^3/uL Sodium Level 135 135-145 MMOL/L Potassium Level 3.6 3.6-5.0 MMOL/L Chloride Level 106 98-107 MMOL/L Carbon Dioxide Level 20 L 21-32 MMOL/L Anion Gap 9 5-14 MMOL/L Blood Urea Nitrogen 10 7-18 MG/DL Creatinine 0.73 0.60-1.30 MG/DL Estimat Glomerular Filtration Rate 105 BUN/Creatinine Ratio 14 Glucose Level 99 70-105 MG/DL Calcium Level 8.5 8.5-10.1 MG/DL Corrected Calcium 8.8 8.5-10.1 MG/DL Total Bilirubin 0.8 0.1-1.0 MG/DL Aspartate Amino Transf (AST/SGOT) 30 5-34 U/L Alanine Aminotransferase (ALT/SGPT) 39 0-55 U/L Alkaline Phosphatase 74 40-136 U/L Total Protein 5.7 L 6.4-8.2 GM/DL Albumin 3.6 3.2-4.5 GM/DL LLE--no calf tenderness. Neg Juan Francisco's incision clean and dry s/p LTKA doing well DC home DYANA ESPANA MD Sep 07, 2021 07:07
[2021-09-07] MEDS ORDERED: morphine INJ 4 MG/ML 1 ML (VIAL/SYRINGE) IVP PRN (07:15)
--- NOTE | 2021-09-07 09:09 | Physical Therapy Daily Note ---
PT Daily Note-Current Subjective Patient agrees to PT. Reports he is going home this morning. Pain Numeric Pain Scale: 8 Location: Left Location Body Site: Knee Pain Description: Acute Mental Status Patient Orientation: Normal For Age Transfers SCALE: Activities may be completed with or without assistive devices. 2-Mwdqvluihs-gwugmoj completes the activity by him/herself with no assistance from a helper. 5-Set-up or Clean-up Assistance-helper sets up or cleans up; patient completes activity. [place] assists only prior to or following the activity. 4-Supervision or Touching Assistance-helper provides verbal cues and/or touching/steadying and/or contact guard assistance as patient completes activity. Assistance may be provided throughout the activity or intermittently. 3-Partial/Moderate Assistance-helper does LESS THAN HALF the effort. [place] lifts, holds or supports trunk or limbs, but provides less than half the effort. 2-Substantial/Maximal Assistance-helper does MORE THAN HALF the effort. [place] lifts or holds trunk or limbs and provides more than half the effort. 7-Fnffzlqal-tvwoyo does ALL the effort. Patient does none of the effort to complete the activity. Or, the assistance of 2 or more helpers is required for the patient to complete the activity. If activity was not attempted, code reason: 7-Patient Refused. 9-Not Applicable-not attempted and the patient did not perform the activity before the current illness, exacerbation or injury. 10-Not Attempted due to Environmental Limitations-(lack of equipment, weather restraints, etc.). 88-Not Attempted due to Medical Conditions or Safety Concerns. Lying to Sitting/Side of Bed(Q: 6 Sit to Stand (QC): 6 Chair/Mnm-te-Jllmr Xfer(QC): 6 Gait Training Does the Patient Walk?: Yes Distance: 250' Walk 10 feet (QC): 6 Walk 50 ft with 2 Turns(QC): 6 Walk 150 ft (QC): 6 Gait Assistive Device: FWW safe and functional gait sequence Stair Training 1 Step (curb) (QC): 7 4 Steps (QC): 7 Exercises Supine Ex: Ankle pumps, Quad Set, Heel Slides, Straight leg raise Supine Reps: 12 Seated Therapy Exercises: Long arc quads Seated Reps: 15 Assessment Patient instructed to perform HEP issued by physician 3/day at 15 reps each. Patient to dismiss to home on this date. PT Skatesman Goals Correction Goals PT Skatesman Goals Time Frame: Sep 12, 2021 Roll Left & Right (QC): 6 Sit to Lying (QC): 6 Lying-Sitting on Side/Bed(QC): 6 Sit to Stand (QC): 6 Chair/Wrv-vs-Dvonf Xfer(QC): 6 Walk 10 feet (QC): 6 Walk 50ft with 2 Turns (QC): 6 Walk 150 ft (QC): 6 1 Step (curb) (QC): 4 4 Steps (QC): 4 PT Plan Treatment/Plan Treatment Plan: Discontinue PT Treatment Plan: Bed Mobility, Education, Functional Activity Tawanna, Functional Strength, Gait, Safety, Therapeutic Exercise, Transfers Treatment Duration: Sep 12, 2021 Frequency: 11 times per week Estimated Hrs Per Day: .25 hour per day Patient and/or Family Agrees t: Yes Time/GCodes Time In: 725 Time Out: 741 Total Billed Treatment Time: 16 Total Billed Treatment 1 visit FA 16 min ANURAG LESLIE PT Sep 07, 2021 09:09
[2021-09-07] MEDS ORDERED: PANTOPRAZOLE 40 MG (PROTONIX) TAB PO SCH (21:00)
== END 2021-09-07 08:55 | disposition home health service (06) | DRG 470 ==
LOC: 4TH 07:40 → SURG 07:41 → 4TH 11:40
PROVIDERS: ADMIT Orthopaedic Surgery; ATTEND Orthopaedic Surgery
PROC: 0SRD0J9 Replacement of Left Knee Joint with Synthetic Substitute, Cemented, Open Approach (ICD-10-PCS; principal; 2021-09-05 09:08)
DX: M17.12 Unilateral primary osteoarthritis, left knee (principal); Z96.651 Presence of right artificial knee joint; K21.9 Gastro-esophageal reflux disease without esophagitis; I10 Essential (primary) hypertension; G47.30 Sleep apnea, unspecified; E66.9 Obesity, unspecified; Z68.33 Body mass index [BMI] 33.0-33.9, adult; Z85.820 Personal history of malignant melanoma of skin
CPT/HCPCS: 36415; 73560; 80053; 85025; 86850; 86900; 86901

== ENCOUNTER 2021-09-26 08:42 | Outpatient (RCR) | payer BC | END 2021-09-27 | disposition home or self-care (01) | PROVIDERS: ATTEND Orthopaedic Surgery | DX: M17.12 Unilateral primary osteoarthritis, left knee (principal); Z96.652 Presence of left artificial knee joint ==

== ENCOUNTER 2021-10-26 08:21 | Outpatient (RCR) | payer BC | END 2021-10-27 | disposition home or self-care (01) | PROVIDERS: ATTEND Orthopaedic Surgery | DX: Z47.1 Aftercare following joint replacement surgery (principal); I10 Essential (primary) hypertension; Z96.652 Presence of left artificial knee joint ==

== ENCOUNTER → 2021-11-27 | Outpatient (RCR) | payer BC | END | disposition home or self-care (01) | PROVIDERS: ATTEND Orthopaedic Surgery | DX: M17.12 Unilateral primary osteoarthritis, left knee (principal); Z96.652 Presence of left artificial knee joint ==

== ENCOUNTER 2021-12-06 08:00 | Outpatient (RCR) | payer BC | END 2021-12-06 08:40 | disposition home or self-care (01) | PROVIDERS: ATTEND Orthopaedic Surgery | DX: M17.12 Unilateral primary osteoarthritis, left knee (principal); I10 Essential (primary) hypertension; Z96.652 Presence of left artificial knee joint ==